=== PATIENT | male | born 1990 | race Caucasian/White ===

== ENCOUNTER 2021-10-01 12:26 | Emergency (ER) | payer BC, SELFPAY ==
--- NOTE | 2021-10-01 12:30 | ED.PSYCH ---
HPI - Psych General Chief Complaint: Psychiatric Symptoms Stated Complaint: ambulance Time Seen by Provider: 10/01/21 12:29 Source: patient Mode of arrival: EMS Limitations: no limitations History of Present Illness HPI Narrative: Previously well 31-year-old man brought to the emergency department today after he was found to be very upset at his home in front of law enforcement officers. Express no specific plan. He is here voluntarily. He is under lot of stress have an work problems, vehicle problems, family problems recently. He states he last drink several days ago and last smoked marijuana 2 days ago. He denies any suicidal or homicidal thoughts or intentions and has no plan to harm himself. complaint: feels depressed Onset (ago): day(s) Duration: constant and getting worse History of same: No Relieving factors: none Exacerbating factors: none Context: significant life stressor Associated psychiatric symptoms: depression and other (Insomnia, poor appetite, hopelessness) Associated symptoms: denies other symptoms Treatments prior to arrival: none Related Data Home Medications Medication Instructions Recorded Confirmed No Home Medications 10/01/21 10/01/21 Allergies Allergy/AdvReac Type Severity Reaction Status Date / Time No Known Allergies Allergy Verified 10/01/21 12:42 Review of Systems Review of Systems: All systems reviewed & are unremarkable except as noted in HPI and below Psychiatric: Psychiatric: Reports as per HPI, Reports anxiety, Reports depression, Denies homicidal ideation and Denies suicidal ideation [facility] Social History Social History (Updated 10/01/21 @ 13:03 by Rodriguez Pimentel MD) Smoking status: Current every day smoker Alcohol intake: current Substance use: current Substance use type: marijuana Other substance usage details: Infrequent Living arrangements: alone Exam Const: General: healthy appearing and alert Orientation/consciousness: patient oriented x3 Limitations: no limitations Other: Tearful HENMT: Head: normal to inspection Ears: external ears normal, TM's normal bilaterally and EAC's normal General nose exam: Normal nares present Face and sinus: normal facial exam Mouth: Yes moist mucous membranes abnormal Eyes: Conjunctivae: conjunctivae normal Pupils: Equal, round and reactive pupils present EOM: EOMs intact bilaterally Resp: Effort & Inspection: normal respiratory effort and not labored Auscultation: clear to auscultation bilaterally, no rales, no rhonchi and no wheezes Cardio: Rate: regular rate Rhythm: regular rhythm Heart sounds: no murmurs Skin: General skin exam: normal color, no jaundice and no pallor Rashes: no rashes Neuro: General: patient oriented x3, moves all extremities, no focal motor deficits and CN's II-XI intact bilaterally Speech: normal speech Gait exam (Neuro): Normal gait present Extrem: General: normal to inspection and no clubbing, cyanosis or edema Psych: Appearance: grossly normal and well kempt Mental Status: mental status grossly normal Speech and movement: Normal speech and movement present Affect: normal affect Attitude: cooperative Thought content: Yes Paranoid delusions present Insight: Limited insight present (Psych) Judgement: Fair judgement present (Psych) Course Course Emergency Course: 1343: Patient is cleared medically for psychiatric evaluation. 1740: Accepted [facility] by Dr Parra. Vital Signs Vital signs: Vital Signs Temperature 36.9 C 10/01/21 12:35 Pulse Rate 64 10/01/21 12:35 Respiratory Rate 16 10/01/21 12:35 Blood Pressure 118/93 H 10/01/21 12:35 Pulse Oximetry 97 10/01/21 12:35 Temperature 36.9 C 10/01/21 12:35 Pulse Rate 64 10/01/21 12:35 Respiratory Rate 16 10/01/21 12:35 Blood Pressure 118/93 H 10/01/21 12:35 Pulse Oximetry 97 10/01/21 12:35 MDM - Psych Differential Diagnosis Differential diagnosis: Likely ac
[2021-10-01 12:35] VITALS: BP 118/93; PULSE 64; RESP 16; TEMP 36.9; O2SAT 97
--- NOTE | 2021-10-01 12:37 | ECG_ITS ---
Measurements Intervals [place] Rate: 55 P: 14 NM: 122 QRS: 72 QRSD: 96 T: 9 QT: 403 QTc: 387 Interpretive Statements SINUS BRADYCARDIA ST ELEVATION IN ANTEROLAT/HIGH LAT LEADS- PROBABLY EARLY REPOLARIZATION BASELINE WANDER- V1, V3-V6 BORDERLINE ECG Electronically Signed On 10-01-2021 15:07:52 DAIRY TECHNICIAN by Reza Proctor D.O.
[2021-10-01 12:55] LABS: Basophils Absolute Auto 0.03 K/mm3 (0.00-0.10); Basophils Percent Auto 0.6 % (0.0-1.0); Eosinophils Absolute Auto 0.07 K/mm3 (0.02-0.50); Eosinophils Percent Auto 1.3 % (1.0-6.0); Hematocrit 46.7 % (40.0-54.0); Hemoglobin 15.5 g/dL (14.0-18.0); Immature Granulocyte Absolute 0.01 K/mm3 (0.00-0.00); Immature Granulocyte Percent A 0.2 % (0.0-0.0); Lymphocytes Absolute Auto 1.51 K/mm3 (1.10-4.50); Lymphocytes Percent Auto 28.5 % (18.0-42.0); Mean Corpuscular HGB Conc 33.2 g/dL (32.0-36.0); Mean Corpuscular Hemoglobin 29.9 pg (27.0-31.0); Mean Corpuscular Volume 90.2 fL (78.0-102.0); Mean Platelet Volume 10.7 fl (8.7-11.0); Monocytes Absolute Auto 0.36 K/mm3 (0.10-0.90); Monocytes Percent Auto 6.8 % (2.0-11.0); Neutrophils Absolute Auto 3.3 K/mm3 (1.7-7.2); Neutrophils Percent Auto 62.6 % (50.0-70.0); Platelet Count Result 167 K/mm3 (150-420); Red Blood Count 5.18 M/mm3 (4.70-6.10); White Blood Count 5.3 K/mm3 (4.8-10.8)
[2021-10-01 12:56] LABS: Add Urine Microscopic? NO; Appearance Urine Clear (Clear); Bilirubin Urine Negative (Negative); Blood Urine Negative (Negative); Color Urine Light Yellow (Yellow); Glucose Urine UA Negative (Negative); Ketones Urine Negative (Negative); Leukocyte Esterase Ur Negative LEU/UL (Negative); Nitrate Urine Negative (Negative); Protein Urine Negative (Negative); pH Urine 7.5 (5.0-8.0)
[2021-10-01 13:25] LABS: Alanine Aminotransferase 21 U/L (16-63); Albumin Level 4.1 g/dL (3.4-5.0); Alkaline Phosphatase 64 U/L (46-116); Anion Gap 8 mmol/L (8-16); Aspartate Amino Transferase < 10 U/L (15-37); Bilirubin,Total 0.8 mg/dL (0.00-1.00); Blood Urea Nitrogen 14 mg/dL (7-18); Calcium 8.8 mg/dL (8.5-10.1); Carbon Dioxide 29 mmol/L (21-32); Chloride 106 mmol/L (98-108); Estimated CRCL calculation 92 ml/min; Estimated Glomerular Filt Rate > 60; Glucose 100 mg/dL (70-99); Osmolality Calculated 296 mOsm/kg (285-295); Salicylate 2.3 mg/dL (2.8-20.0); Sodium 143 mmol/L (136-145); Thyroid Stimulating Hormone 0.69 uIU/mL (0.36-3.74); Total Protein 7.2 g/dL (6.4-8.2)
[2021-10-01 13:26] LABS: Acetaminophen < 2 ug/mL (10-30); Ethanol < 3 mg/dL (0-6)
[2021-10-01] MEDS: NICOTINE (*PBKC) 21 MG PATCH 1 PATCH TRANSDERM (13:27)
[2021-10-01 13:28] LABS: Amphetamine Screen Urine Negative (Negative); Barbiturate Screen Urine Negative (Negative); Benzodiazepines Screen Urine Negative (Negative); Cannabinoid Screen Urine Positive (Negative); Cocaine Screen Urine Negative (Negative); Methadone Screen Urine Negative (Negative); Opiate Screen Urine Negative (Negative); Phencyclidine Screen Urine Negative (Negative)
--- NOTE | 2021-10-01 13:46 | PC.NURSE ---
RN spoke with Rory thibodeaux who states they will send someone over.
[2021-10-01 14:35] LABS: SARS-CoV-2 RNA PCR Negative (Negative)
--- NOTE | 2021-10-01 14:38 | PC.NURSE ---
Mother stepped outside room. RN spoke with her who states : He is just so paranoid. He even thinks I am against him. I make some progress and then all of the sudden that paranoia comes out of no where and ruins all my hardwork.
--- NOTE | 2021-10-01 16:01 | PC.NURSE ---
Paperwork faxed to [facility] waiting for call back
--- NOTE | 2021-10-01 16:16 | PC.NURSE ---
Pt provided dinner tray from cafeteria.
[2021-10-01 18:03] VITALS: BP 128/82; PULSE 71; RESP 18; TEMP 36.8; O2SAT 98
== END 2021-10-01 18:07 ==
PROVIDERS: Emergency Provider Emergency Medicine
DX: R45.851 Suicidal ideations (principal); F22 Delusional disorders; Z20.822 Contact with and (suspected) exposure to COVID-19
CPT/HCPCS: 36415; 80053; 80307; 81003; 84443; 85025; 93005; 99285; A9270; C9803; U0003; U0005

== ENCOUNTER 2021-12-15 19:50 | Emergency (ER) | payer BC, SELFPAY ==
--- NOTE | ~2021-12-15 | XR_ITS ---
EXAMINATION: XR chest 1V portable 12/15/2021 20:44 INDICATION: Shortness of breath PROCEDURE: AP portable chest COMPARISON: 01/29/2018 FINDINGS: The lungs are clear. The cardiomediastinal silhouette is within normal limits. There are no pleural effusions. There is no pneumothorax suspected. IMPRESSION: 1: NO ACUTE CARDIOPULMONARY DISEASE. Reviewed, dictated and finalized at location A. TATION MANAGER
--- NOTE | 2021-12-15 20:09 | ECG_ITS ---
Measurements Intervals [place] Rate: 67 P: 33 [place]: 135 QRS: 60 QRSD: 101 T: 7 QT: 367 QTc: 388 Interpretive Statements SINUS RHYTHM WITH SINUS ARRHYTHMIA BASELINE ARTIFACT- I, II, III, AVR, AVL, AVF NORMAL ECG Electronically Signed On 12-16-2021 7:58:24 LOUVER DOOR ASSEMBLER by Reza Proctor D.O.
--- NOTE | 2021-12-15 20:12 | ED.SOB ---
HPI - SOB/Dyspnea General Chief Complaint: Shortness of Breath/Dyspnea Stated Complaint: shortness of breath Time Seen by Provider: 12/15/21 19:52 Source: patient and RN notes reviewed Mode of arrival: ambulatory Limitations: no limitations History of Present Illness MD elicited complaint: shortness of breath and chest pain (upper chest pressure, no acute wheezing or pleuritic chest pain) Pertinent past history: other (none) Onset (ago): day(s) (2 days) Context: recent illness Timing: constant Severity: mild Exacerbating factors: nothing Relieving factors: nothing Associated symptoms: other (anterior chest pressure.) Treatment prior to arrival: none Related Data Home oxygen amount: none Allergies Allergy/AdvReac Type Severity Reaction Status Date / Time No Known Allergies Allergy Verified 12/15/21 20:38 Review of Systems Review of Systems: All systems reviewed & are unremarkable except as noted in HPI and below PMFSH Past Medical History Medical History SOB (shortness of breath) Social History Social History Smoking status: Current every day smoker Alcohol intake: current Substance use: current Substance use type: marijuana Other substance usage details: Infrequent Exam Const: General: no acute distress and alert Orientation/consciousness: patient oriented x3 HENMT: Head: normal to inspection Ears: external ears normal, TM's normal bilaterally and EAC's normal General nose exam: Normal external nose present and Normal nares present Face and sinus: normal facial exam and sinuses nontender Mouth: Yes lip normal and Yes moist mucous membranes Eyes: Conjunctivae: conjunctivae normal Pupils: Equal, round and reactive pupils present EOM: EOMs intact bilaterally Neck: Neck: normal visual inspection and no lymphadenopathy Other: supple neck Chest: Chest palpation & inspection: normal inspection of the chest Resp: Effort & Inspection: normal respiratory effort Auscultation: clear to auscultation bilaterally Cardio: Rate: regular rate Rhythm: regular rhythm GI: GI Palp: Yes Soft to palpation and No Tenderness to palpation present (GI) Auscultation: normal bowel sounds : General: Yes bladder normal to palpation and Yes no CVA tenderness Male General Exam: Yes normal external exam Back/Spine/Pelvis: Back: no CVA tenderness Skin: General skin exam: normal color Rashes: no rashes Neuro: General: patient oriented x3, moves all extremities, no meningeal signs, no focal motor deficits and CN's II-XI intact bilaterally Extrem: General: normal to inspection and no pedal edema Psych: Mental Status: mental status grossly normal Affect: normal affect Attitude: cooperative Thought content: Yes Normal thought content present Course Course Emergency Course: Pt was stable in the ED. no acute SOB or wheezing Reevaluation(s) Reevaluation #1: VSS. Date: 12/15/21 Time: 20:49 Discharge Plan Discharge Clinical Impression: SOB (shortness of breath) Patient Disposition: Home, Self-Care Condition: Stable Instructions: Antibiotic Form, Viral Syndrome (ED) Additional Instructions: Home. May RTC prn. PMD in 1-2 days. Rx below. Prescriptions: New albuterol sulfate 90 mcg/actuation HFA aerosol inhaler 2 puff inhalation QID PRN (Reason: shortness of breath or wheezing) Qty: 8.5 RF: 0 Follow-up/Referrals: Sahil Garza MD [Primary Care Provider] - Time of Disposition: 21:28
[2021-12-15 20:32] LABS: Base Excess ABG -0.3 mmol/L (0-2); Oxygen Content ABG 21.3 %vol (16.0-22.0); Oxygen Saturation ABG 97.4 % (95-97); Oxyhemoglobin 96.8 % (94-100); PCO2 ABG 38.3 mmHg (35-45); PO2 ABG 95.9 mmHg (80-90); Total Hemoglobin 15.6 g/dL (12.0-18.0); pH ABG 7.42 (7.35-7.45)
[2021-12-15] MEDS: SODIUM CHLORIDE 0.9% IV 500 ML 999 ML IV CONT (20:32)
[2021-12-15] MEDS: ASPIRIN 325 MG ENTERIC TABLET PO (20:32)
[2021-12-15 20:36] LABS: Device ROOM AIR; Modified Allen's Test Pass; Site Drawn LEFT RADIAL
[2021-12-15 20:38] VITALS: BP 135/92; PULSE 90; RESP 20; TEMP 36.9; O2SAT 97
[2021-12-15 20:40] LABS: Basophils Absolute Auto 0.03 K/mm3 (0.00-0.10); Basophils Percent Auto 0.5 % (0.0-1.0); Eosinophils Absolute Auto 0.06 K/mm3 (0.02-0.50); Hematocrit 46.7 % (40.0-54.0); Hemoglobin 15.6 g/dL (14.0-18.0); Immature Granulocyte Absolute 0.01 K/mm3 (0.00-0.00); Immature Granulocyte Percent A 0.2 % (0.0-0.0); Lymphocytes Absolute Auto 1.73 K/mm3 (1.10-4.50); Lymphocytes Percent Auto 28.2 % (18.0-42.0); Mean Corpuscular HGB Conc 33.4 g/dL (32.0-36.0); Mean Corpuscular Volume 89.8 fL (78.0-102.0); Mean Platelet Volume 10.7 fl (8.7-11.0); Monocytes Absolute Auto 0.39 K/mm3 (0.10-0.90); Monocytes Percent Auto 6.4 % (2.0-11.0); Neutrophils Absolute Auto 3.9 K/mm3 (1.7-7.2); Neutrophils Percent Auto 63.7 % (50.0-70.0); Platelet Count Result 175 K/mm3 (150-420); Red Cell Distribution Width 12.5 % (11.6-14.4); White Blood Count 6.1 K/mm3 (4.8-10.8)
[2021-12-15 20:56] LABS: Alanine Aminotransferase 27 U/L (16-63); Alkaline Phosphatase 55 U/L (46-116); Anion Gap 9 mmol/L (8-16); Aspartate Amino Transferase < 10 U/L (15-37); Bilirubin,Total 0.5 mg/dL (0.00-1.00); Blood Urea Nitrogen 17 mg/dL (7-18); Calcium 8.7 mg/dL (8.5-10.1); Carbon Dioxide 28 mmol/L (21-32); Chloride 103 mmol/L (98-108); Estimated CRCL calculation 81 ml/min; Estimated Glomerular Filt Rate > 60; Glucose 119 mg/dL (70-99); NT Pro B Type Natriuretic Pept 23 pg/mL (0-125); Osmolality Calculated 292 mOsm/kg (285-295); Potassium 4.3 mmol/L (3.5-5.1); Sodium 140 mmol/L (136-145); Total Protein 7.3 g/dL (6.4-8.2)
[2021-12-15 20:57] LABS: Troponin I < 4.0 ng/L (0.00-60.4)
[2021-12-15] MEDS: ALBUTEROL SULFATE (*SP) INHALER 4 PUFF INHALATION (21:42)
[2021-12-15 21:43] VITALS: PULSE 90; RESP 19; O2SAT 97
[2021-12-15 21:44] VITALS: PULSE 90; RESP 19; O2SAT 97
[2021-12-15 22:06] VITALS: BP 106/78; PULSE 60; RESP 19; TEMP 36.9; O2SAT 98
[2021-12-15 22:15] LABS: Bilirubin Urine Negative (Negative); Blood Urine Negative (Negative); Color Urine Light Yellow (Yellow); Glucose Urine UA Negative (Negative); Ketones Urine Negative (Negative); Leukocyte Esterase Ur Negative LEU/UL (Negative); Nitrate Urine Negative (Negative); Protein Urine Negative (Negative); Urobilinogen Urine 0.2 mg/dL (0.2-1.0); pH Urine 8.5 (5.0-8.0)
[2021-12-15 22:17] LABS: Amphetamine Screen Urine Negative (Negative); Barbiturate Screen Urine Negative (Negative); Benzodiazepines Screen Urine Negative (Negative); Cannabinoid Screen Urine Positive (Negative); Cocaine Screen Urine Negative (Negative); Methadone Screen Urine Negative (Negative); Opiate Screen Urine Negative (Negative); Phencyclidine Screen Urine Negative (Negative)
[2021-12-15 22:19] LABS: Add Urine Microscopic? NO; Appearance Urine Clear (Clear)
== END 2021-12-15 22:08 | disposition home or self-care (01) ==
PROVIDERS: Emergency Provider Emergency Medicine; PCP Internal Medicine
DX: R06.02 Shortness of breath (principal)
CPT/HCPCS: 36415; 36600; 71045; 80053; 80307; 81003; 82805; 83880; 84484; 85025; 93005; 94640; 96360; 99284; A9270; J7040

== ENCOUNTER 2021-12-22 23:31 | Emergency (ER) | payer BC, SELFPAY ==
--- NOTE | ~2021-12-22 | CT_ITS ---
EXAMINATION: CT chest abdomen pelvis wo con EXAM DATE: 12/23/2021 00:15 INDICATION: Bilat thoracic and right flank pain . TECHNIQUE: Spiral CT of the chest, abdomen and pelvis was performed without contrast. Axial, grossman l and sagittal images chest, abdomen and pelvis were reviewed. Coronal maximum intensity pixel image s of chest reviewed. The dose-length product (DLP) for this examination was 829.92 mGy-cm. The expo sure was tailored according to patient size (auto mA exposure control), and iterative reconstruction (ASIR) was used as additional dose reduction technique. Comparison is made to prior examination from 04/30/2019. FINDINGS: CHEST: The lungs are clear. There are no pleural or pericardial effusions. Tracheobronchial tree is patent. There is no mediastinal, hilar or axillary lymphadenopathy. There is no pneumothorax. Heart normal in size. No evidence of coronary arterial calcification. ABDOMEN PELVIS: The liver, spleen, adrenal glands and pancreas are unremarkable. Gallbladder is unre markable. No biliary obstruction. There is no nephrolithiasis or hydronephrosis. The prostate is unremarkable. The bladder is unremarkable. There is no retroperitoneal or pelvic lymphadenopathy. The appendix is normal. The stomach and small bowel are unremarkable. There is expected amount of c olonic stool. No free intraperitoneal gas. The bones are unremarkable. IMPRESSION: No acute chest, abdomen or pelvis findings. Reviewed, dictated and finalized at location A. TURE TESTER
[2021-12-22 23:33] VITALS: BP 129/80; PULSE 90; RESP 18; TEMP 36.8; O2SAT 95
[2021-12-22] MEDS: KETOROLAC (*BKC) 60 MG/2 ML VIAL IM (23:48)
[2021-12-22] MEDS: ONDANSETRON INJ 4 MG/2 ML VIAL IV PUSH (23:48)
[2021-12-22] MEDS: SODIUM CHLORIDE 0.9% IV 500 ML 999 ML IV CONT (23:48)
[2021-12-23 00:06] LABS: Basophils Absolute Auto 0.03 K/mm3 (0.00-0.10); Basophils Percent Auto 0.4 % (0.0-1.0); Eosinophils Absolute Auto 0.11 K/mm3 (0.02-0.50); Eosinophils Percent Auto 1.6 % (1.0-6.0); Hemoglobin 14.7 g/dL (14.0-18.0); Immature Granulocyte Absolute 0.02 K/mm3 (0.00-0.00); Immature Granulocyte Percent A 0.3 % (0.0-0.0); Lymphocytes Absolute Auto 2.42 K/mm3 (1.10-4.50); Mean Corpuscular HGB Conc 33.4 g/dL (32.0-36.0); Mean Corpuscular Hemoglobin 29.7 pg (27.0-31.0); Mean Corpuscular Volume 88.9 fL (78.0-102.0); Mean Platelet Volume 10.6 fl (8.7-11.0); Monocytes Absolute Auto 0.53 K/mm3 (0.10-0.90); Monocytes Percent Auto 7.7 % (2.0-11.0); Neutrophils Absolute Auto 3.8 K/mm3 (1.7-7.2); Platelet Count Result 163 K/mm3 (150-420); Red Blood Count 4.95 M/mm3 (4.70-6.10); Red Cell Distribution Width 12.3 % (11.6-14.4); White Blood Count 6.9 K/mm3 (4.8-10.8)
[2021-12-23 00:23] LABS: Alanine Aminotransferase 24 U/L (16-63); Alkaline Phosphatase 51 U/L (46-116); Anion Gap 7 mmol/L (8-16); Aspartate Amino Transferase 10 U/L (15-37); Blood Urea Nitrogen 31 mg/dL (7-18); Calcium 8.2 mg/dL (8.5-10.1); Carbon Dioxide 29 mmol/L (21-32); Chloride 105 mmol/L (98-108); Estimated CRCL calculation 82 ml/min; Estimated Glomerular Filt Rate > 60; Glucose 91 mg/dL (70-99); Lipase 54 U/L (73-393); Osmolality Calculated 298 mOsm/kg (285-295); Potassium 3.6 mmol/L (3.5-5.1); Sodium 141 mmol/L (136-145); Total Protein 6.8 g/dL (6.4-8.2)
[2021-12-23 00:33] LABS: Appearance Urine Clear (Clear); Bilirubin Urine Negative (Negative); Color Urine Light Yellow (Yellow); Glucose Urine UA Negative (Negative); Ketones Urine Trace (Negative); Leukocyte Esterase Ur Negative (Negative); Nitrate Urine Negative (Negative); Protein Urine Negative (Negative); Specific Grav Ur >= 1.030 (1.010-1.020); Urobilinogen Urine 0.2 mg/dL (0.2-1.0)
[2021-12-23 00:41] LABS: Add Urine Microscopic? YES; Blood Urine Trace-lysed (Negative)
[2021-12-23 00:42] LABS: Mucus Urine Heavy /lpf; RBC Urine 0-2 /hpf (0-2)
--- NOTE | 2021-12-23 01:01 | ED.CHESTPAIN ---
HPI - Chest Pain General Chief Complaint: Urogenital-Male Stated Complaint: RIGHT FLANK PAIN Time Seen by Provider: 12/22/21 23:35 Source: patient and RN notes reviewed Mode of arrival: ambulatory Limitations: no limitations History of Present Illness MD complaint: chest pain Onset (ago): day(s) (2) Timing of current episode: constant Prior episodes: Yes Onset: during rest Pain location: substernal Severity: mild Pain scale (0-10): 4 Quality: aching and dull Relieving factors: nothing Exacerbating factors: inspiration Treatment prior to arrival: none Related Data Allergies Allergy/AdvReac Type Severity Reaction Status Date / Time No Known Allergies Allergy Verified 12/15/21 20:38 Review of Systems Review of Systems: All systems reviewed & are unremarkable except as noted in HPI and below Cardiovascular: Cardiovascular: Reports chest pain PMFSH Past Medical History Medical History Chest pain SOB (shortness of breath) Social History Social History Smoking status: Current every day smoker Alcohol intake: current Substance use: current Substance use type: marijuana Other substance usage details: Infrequent Exam Const: General: no acute distress Nutritional Appearance: thin Orientation/consciousness: patient oriented x3 Limitations: no limitations HENMT: Head: normal to inspection Ears: external ears normal, TM's normal bilaterally and Abnormal EAC present General nose exam: Normal external nose present and Normal nares present Face and sinus: normal facial exam and sinuses nontender Mouth: Yes moist mucous membranes Throat: posterior oropharynx normal Eyes: Conjunctivae: conjunctivae normal Pupils: Equal, round and reactive pupils present EOM: EOMs intact bilaterally Neck: Neck: normal visual inspection and no lymphadenopathy Chest: Chest palpation & inspection: normal inspection of the chest Other: minimal chest wall tenderness Resp: Effort & Inspection: normal respiratory effort Auscultation: clear to auscultation bilaterally Cardio: Rate: regular rate Rhythm: regular rhythm GI: GI Palp: Yes Soft to palpation and No Tenderness to palpation present (GI) Auscultation: normal bowel sounds : General: Yes bladder normal to palpation and Yes no CVA tenderness Testes: Testes normal Back/Spine/Pelvis: Back: no CVA tenderness Skin: General skin exam: normal color Neuro: General: patient oriented x3, moves all extremities, no meningeal signs, no focal motor deficits and CN's II-XI intact bilaterally Extrem: General: normal to inspection and no pedal edema Psych: Appearance: grossly normal Mental Status: mental status grossly normal Affect: normal affect Thought content: Yes Normal thought content present Course Course Emergency Course: Pt was stable in the ED, less pain-ful. Reevaluation(s) Reevaluation #1: VSS Date: 12/23/21 Time: 23:57 Vital Signs Vital signs: Vital Signs Temperature 36.8 C 12/22/21 23:33 Pulse Rate 90 12/22/21 23:33 Respiratory Rate 18 12/22/21 23:33 Blood Pressure 129/80 12/22/21 23:33 Pulse Oximetry 95 12/22/21 23:33 Temperature 36.4 C 12/23/21 01:29 Pulse Rate 66 12/23/21 01:29 Respiratory Rate 16 12/23/21 01:29 Blood Pressure 125/80 12/23/21 01:29 Pulse Oximetry 98 12/23/21 01:29 MDM - Chest Pain Differential Diagnosis Differential diagnosis: Likely atypical chest pain, costochondritis and chest pain Medical Records Data Attestation: I reviewed the patient's medical records. Lab Data Attestation: I reviewed the patient's lab results. Result diagrams: 12/22/21 23:59 12/22/21 23:59 Labs: Lab Results 12/22/21 12/22/21 12/22/21 Range/Units 23:36 23:59 23:59 WBC 6.9 (4.8-10.8) K/mm3 RBC 4.95 (4.70-6.10) M/mm3 Hgb 14.7 (14.0-18.0) g/dL Hct 44.0
[2021-12-23] MEDS: CALCIUM CARBONATE (TUMS) 500 MG (200 MG ELEMENTAL) 600 MG PO (01:28)
[2021-12-23 01:29] VITALS: BP 125/80; PULSE 66; RESP 16; TEMP 36.4; O2SAT 98
== END 2021-12-23 01:30 | disposition home or self-care (01) ==
PROVIDERS: Emergency Provider Emergency Medicine; PCP Internal Medicine
DX: R07.89 Other chest pain (principal); I88.0 Nonspecific mesenteric lymphadenitis
CPT/HCPCS: 36415; 71250; 74176; 80053; 81001; 83690; 85025; 96361; 96372; 96374; 99284; A9270; J1885; J2405; J7040

== ENCOUNTER 2023-01-29 13:21 | Outpatient (CLI) | payer BC, SELFPAY ==
[2023-01-29 13:55] LABS: Strep Group A RT-PCR NOT DETECTED (Negative)
== END 2023-01-29 13:22 | disposition home or self-care (01) ==
LOC: CHSLAB 13:25
PROVIDERS: PCP Internal Medicine; Visit Provider Nurse Practitioner Family
DX: J02.9 Acute pharyngitis, unspecified (principal)
CPT/HCPCS: 87651

== ENCOUNTER 2023-06-01 23:32 | Emergency (ER) | payer BC, SELFPAY ==
[2023-06-01 23:33] VITALS: PULSE 98; RESP 24
--- NOTE | 2023-06-01 23:35 | ED.WEAKNESS ---
HPI - Weakness General Chief complaint: Weakness Stated complaint: Numbness Source: patient Mode of arrival: ambulatory Limitations: no limitations History of Present Illness HPI Narrative: patient is a 33-year-old male who presents to the emergency room with impending doom and feeling that he is going to . Patient was acting erratic and was given a shot of Zyprexa 5 mg IM x1 for acute psychosis. Patient says this has happened before. It is unclear if he has taken any drugs this evening. Complaint: generalized weakness Onset (ago): minute(s) (10) Duration: constant Location: generalized Severity: similar to previous episodes Quality: tingling and numbness Relieving factors: other ( Playing in the sink water and drinking water has helped) Exacerbating factors: none Associated symptoms: denies other symptoms Related Data Allergies Allergy/AdvReac Type Severity Reaction Status Date / Time No Known Allergies Allergy Verified 12/15/21 20:38 Review of Systems Review of Systems: All systems reviewed & are unremarkable except as noted in HPI and below Constitutional: Constitutional: Reports no additional constitutional complaints Eyes: Eyes: Reports no additional eye complaints ENT: Reports system reviewed and no additional complaints, except as documented Cardiovascular: Cardiovascular: Reports no additional cardiovascular complaints Respiratory: Respiratory: Reports no additional respiratory complaints Gastrointestinal: Gastrointestinal: Reports no additional gastrointestinal complaints Genitourinary: Genitourinary: Reports no additional male genitourinary complaints Musculoskeletal: Musculoskeletal: Reports no additional musculoskeletal complaints Integumentary/Breasts: Skin/Breast: Reports system reviewed and no additional complaints, except as docu Neurologic: Reports system reviewed and no additional complaints, except as documented Psychiatric: Psychiatric: Reports no additional psychiatric complaints Endocrine: Endocrine: Reports no additional endocrine complaints Hematologic/Lymphatic: Hematologic/Lymphatic: Reports no additional hematologic/lymphatic complaints Allergic/Immunologic: Allergic/Immunologic: Reports no additional allergic/immunologic complaints PMFSH Past Medical History Medical History Chest pain SOB (shortness of breath) Social History Social History Smoking status: Current every day smoker Alcohol intake: current Substance use: current Substance use type: marijuana Other substance usage details: Infrequent Living arrangements: alone Exam Const: General: healthy appearing Nutritional Appearance: well nourished HENMT: Head: normal to inspection Ears: external ears normal Eyes: Conjunctivae: conjunctivae normal Pupils: Equal, round and reactive pupils present Neck: Neck: normal visual inspection Chest: Chest palpation & inspection: normal inspection of the chest Resp: Effort & Inspection: normal respiratory effort Auscultation: clear to auscultation bilaterally Cardio: Rate: regular rate Rhythm: regular rhythm Heart sounds: no murmurs GI: Inspection: non-distended GI Palp: Yes Soft to palpation and No Tenderness to palpation present (GI) : General: Yes bladder normal to palpation Back/Spine/Pelvis: Back: no CVA tenderness Skin: General skin exam: normal color Rashes: no rashes Neuro: General: patient oriented x3 Cranial nerves: Yes Nystagmus not present Speech: normal speech Other: patient has no focal neurological deficits with an NIH scale of 0 and a Brandy coma score of 15 and a fast exam that was negative; patient was having some difficulty walking due to his anxiety and panic but that resolved after the Zyprexa and he is now taking a nap and walk to the bed without difficulty; patient feels back to normal at this time
[2023-06-01] MEDS: OLANZapine 5 MG, WATER, STERILE FOR INJECTION 2.1 ML IM (23:45)
== END 2023-06-02 01:10 | disposition home or self-care (01) ==
LOC: CHSED 06-02 01:06
PROVIDERS: Emergency Provider Emergency Medicine; PCP Internal Medicine
DX: F41.0 Panic disorder [episodic paroxysmal anxiety] (principal); F17.200 Nicotine dependence, unspecified, uncomplicated
CPT/HCPCS: 96372; 99283

== ENCOUNTER 2023-10-31 15:31 | Emergency (ER) | payer BC, SELFPAY ==
--- NOTE | ~2023-10-31 | XR_ITS ---
EXAMINATION: XR chest 2V DATE: 10/31/2023 16:20 INDICATION: Generalized chest pain. Shortness of breath. TECHNIQUE: Frontal and lateral views of the chest were obtained. COMPARISON: Chest single view 12/15/2021, chest CT 12/23/2021 FINDINGS: There is no pneumonia, pleural effusion, or pneumothorax. The heart size is normal. IMPRESSION: 1. No acute cardiopulmonary disease. Reviewed, dictated and finalized at location E. ICAL NURSING DIRECTOR
--- NOTE | 2023-10-31 15:34 | ECG_ITS ---
Measurements Intervals [place] Rate: 68 P: 30 SD: 138 QRS: 79 QRSD: 102 T: -12 QT: 371 QTc: 397 Interpretive Statements SINUS RHYTHM MINIMAL Q WAVES- INF/LAT LEADS ST-T WAVE ABNORMALITY IN INFERIOR LEADS- CONSIDER ISCHEMIA ABNORMAL ECG COMPARED TO ECG 12/15/2021 20:18:41 ST-T WAVE ABNORMALITY NOW PRESENT Electronically Signed On 10-31-2023 19:30:32 CLOTH BEAMER by Reza Proctor D.O.
--- NOTE | 2023-10-31 15:36 | ED.URI ---
HPI - URI/Sore Throat General Chief Complaint: Upper Respiratory Infection Stated Complaint: URI Time Seen by Provider: 10/31/23 15:33 Source: patient Mode of arrival: ambulatory Limitations: no limitations History of Present Illness HPI Narrative: Patient is a 33-year-old male with some respiratory complaints of chest congestion and some occasional chest pain for the past week. He is normally otherwise healthy. MD elicited complaint: cough and nasal congestion Onset (ago): week(s) (1) Consistency: constant Severity: moderate Pain scale (0-10): 3 Description of mucous: yellow Able to tolerate fluids by mouth: Yes Exacerbating factors: nothing Relieving factors: nothing Associated symptoms: cough and chest pain Treatments prior to arrival: none Related Data Allergies Allergy/AdvReac Type Severity Reaction Status Date / Time No Known Allergies Allergy Verified 12/15/21 20:38 Review of Systems Review of Systems: All systems reviewed & are unremarkable except as noted in HPI and below Constitutional: Constitutional: Reports no additional constitutional complaints Eyes: Eyes: Reports no additional eye complaints ENT: Reports system reviewed and no additional complaints, except as documented Cardiovascular: Cardiovascular: Reports no additional cardiovascular complaints Respiratory: Respiratory: Reports no additional respiratory complaints Gastrointestinal: Gastrointestinal: Reports no additional gastrointestinal complaints Genitourinary: Genitourinary: Reports no additional male genitourinary complaints Musculoskeletal: Musculoskeletal: Reports no additional musculoskeletal complaints Integumentary/Breasts: Skin/Breast: Reports system reviewed and no additional complaints, except as docu Neurologic: Reports system reviewed and no additional complaints, except as documented Psychiatric: Psychiatric: Reports no additional psychiatric complaints Endocrine: Endocrine: Reports no additional endocrine complaints Hematologic/Lymphatic: Hematologic/Lymphatic: Reports no additional hematologic/lymphatic complaints Allergic/Immunologic: Allergic/Immunologic: Reports no additional allergic/immunologic complaints PMFSH Past Medical History Medical History Chest pain SOB (shortness of breath) Social History Social History Smoking status: Current every day smoker Alcohol intake: current Substance use: current Substance use type: marijuana Other substance usage details: Infrequent Living arrangements: alone Exam Const: General: healthy appearing Nutritional Appearance: well nourished Orientation/consciousness: patient oriented x3 HENMT: Head: normal to inspection Ears: external ears normal Face/Nose/Sinus: Normal external nose present Eyes: Conjunctivae: conjunctivae normal Pupils: Equal, round and reactive pupils present EOM: EOMs intact bilaterally Neck: Neck: normal visual inspection Chest: Chest palpation & inspection: normal inspection of the chest Resp: Effort & Inspection: normal respiratory effort and not labored Auscultation: clear to auscultation bilaterally and crackles on the right and localized Other: Lower lung Cardio: Rate: regular rate Rhythm: regular rhythm Heart sounds: no murmurs GI: Inspection: non-distended GI Palp: Yes Soft to palpation, No Tenderness to palpation present (GI) and No Guarding due to palpation present (GI) Auscultation: normal bowel sounds : General: Yes bladder normal to palpation Back/Spine/Pelvis: Back: no CVA tenderness Skin: General skin exam: normal color Rashes: no rashes Wounds: no wounds Neuro: General: patient oriented x3 Cranial nerves: Yes Nystagmus not present Speech: normal speech Extrem: General: normal to inspection Psych: Mental Status: mental status grossly normal Affect: normal affect Attitude:
[2023-10-31 15:41] VITALS: BP 138/98; PULSE 69; RESP 19; TEMP 36.9; O2SAT 98
[2023-10-31 16:04] LABS: Basophils Absolute Auto 0.04 K/mm3 (0.00-0.10); Basophils Percent Auto 0.6 % (0.0-1.0); Eosinophils Absolute Auto 0.25 K/mm3 (0.02-0.50); Eosinophils Percent Auto 3.6 % (1.0-6.0); Hematocrit 46.2 % (40.0-54.0); Hemoglobin 15.4 g/dL (14.0-18.0); Immature Granulocyte Absolute 0.04 K/mm3 (0.00-0.00); Immature Granulocyte Percent A 0.6 % (0.0-0.0); Lymphocytes Absolute Auto 2.05 K/mm3 (1.10-4.50); Lymphocytes Percent Auto 29.5 % (18.0-42.0); Mean Corpuscular HGB Conc 33.3 g/dL (32.0-36.0); Mean Corpuscular Hemoglobin 28.5 pg (27.0-31.0); Mean Corpuscular Volume 85.6 fL (78.0-102.0); Mean Platelet Volume 10.5 fl (8.7-11.0); Monocytes Percent Auto 8.6 % (2.0-11.0); Neutrophils Percent Auto 57.1 % (50.0-70.0); Platelet Count Result 200 K/mm3 (150-420); Red Cell Distribution Width 12.3 % (11.6-14.4); White Blood Count 6.9 K/mm3 (4.8-10.8)
[2023-10-31 16:11] LABS: Glucose Point of Care 88 mg/dl (65-105)
[2023-10-31 16:14] VITALS: O2SAT 98
[2023-10-31 16:23] LABS: Alanine Aminotransferase 29 U/L (16-63); Albumin Level 3.9 g/dL (3.4-5.0); Alkaline Phosphatase 73 U/L (46-116); Anion Gap 7 mmol/L (8-16); Aspartate Amino Transferase 16 U/L (15-37); Bilirubin,Total 0.5 mg/dL (0.00-1.00); Blood Urea Nitrogen 16 mg/dL (7-18); Carbon Dioxide 31 mmol/L (21-32); Chloride 100 mmol/L (98-108); Estimated CRCL calculation 91 ml/min; Estimated Glomerular Filt Rate > 60; Glucose 108 mg/dL (70-99); Lipase 21 U/L (16-77); Osmolality Calculated 288 mOsm/kg (285-295); Potassium 3.9 mmol/L (3.5-5.1); Sodium 138 mmol/L (136-145); Total Protein 7.4 g/dL (6.4-8.2)
[2023-10-31 16:25] LABS: D Dimer 0.19 mg/L (0.19-0.50)
[2023-10-31 16:27] LABS: Calcium 9.3 mg/dL (8.5-10.1)
[2023-10-31 16:28] LABS: SARS-CoV-2 RNA PCR Negative (Negative)
[2023-10-31 16:33] LABS: Influenza A QL RT-PCR Negative (Negative); Influenza B QL RT-PCR Negative (Negative); RSV RNA, RT-PCR Negative (Negative)
[2023-10-31 16:35] LABS: Troponin I < 4.0 ng/L (0.00-60.4)
[2023-10-31 17:11] VITALS: BP 127/89; PULSE 68; RESP 20; TEMP 37.1; O2SAT 96
== END 2023-10-31 17:13 | disposition home or self-care (01) ==
PROVIDERS: Emergency Provider Emergency Medicine; PCP Internal Medicine
DX: J18.9 Pneumonia, unspecified organism (principal); F17.200 Nicotine dependence, unspecified, uncomplicated; Z20.822 Contact with and (suspected) exposure to COVID-19
CPT/HCPCS: 36415; 71046; 80053; 82948; 83690; 84484; 85025; 85380; 87637; 93005; 99284

== ENCOUNTER 2023-12-26 00:03 | Emergency (ER) | payer BC, SELFPAY ==
[2023-12-26 00:03] VITALS: BP 133/82; PULSE 74; RESP 18; TEMP 36.2; O2SAT 100
--- NOTE | 2023-12-26 00:16 | ED.GENADULT ---
HPI - General Adult General Chief complaint: Abdominal Pain Stated complaint: bleeding from inside Time Seen by Provider: 12/26/23 00:09 Source: patient Mode of arrival: ambulatory Limitations: no limitations History of Present Illness HPI narrative: this is a 33-year-old male presents concerns of rectal bleeding, currently there is no rectal bleeding no abdominal pain no chest pain no shortness for breath. Patient denies any symptoms there is no nausea or vomiting no diarrhea constipation. Patient noticed bright red blood approximately 1 week ago but has not had any since then. Patient follow-up concerned and wanted to be evaluated. Onset (ago): week(s) Severity: mild Related Data Home Medications Medication Instructions Recorded Confirmed No Home Medications 12/26/23 12/26/23 Allergies Allergy/AdvReac Type Severity Reaction Status Date / Time No Known Allergies Allergy Verified 12/26/23 00:16 Review of Systems Review of Systems: All systems reviewed & are unremarkable except as noted in HPI and below PMFSH Past Medical History Medical History Chest pain SOB (shortness of breath) Social History Social History Smoking status: Current every day smoker Alcohol intake: current Substance use: current Substance use type: marijuana Other substance usage details: Infrequent Living arrangements: alone Exam Const: General: healthy appearing Nutritional Appearance: well nourished Orientation/consciousness: patient oriented x3 Limitations: no limitations Resp: Effort & Inspection: normal respiratory effort Auscultation: clear to auscultation bilaterally Cardio: Rate: regular rate Rhythm: regular rhythm GI: GI Palp: Yes Soft to palpation Auscultation: normal bowel sounds Rectal Exam: normal sphincter tone Other: Rectal exam did not elicit any external or internal hemorrhoids an no bright red blood per rectum Neuro: General: patient oriented x3 and moves all extremities Course Course Emergency Course: rectal exam did not show any rectal bleeding no internal or external hemorrhoids visualized or palpated. Critical Care Time Critical Care Time Critical Care Time: No Discharge Plan Discharge Clinical Impression: Rectal bleed Patient Disposition: Home, Self-Care Condition: Stable Instructions: Antibiotic Form, Rectal Bleeding (ED) Additional Instructions: advised patient to follow with his primary for further evaluation and treatment. Prescriptions: No Action azithromycin 250 mg tablet See Rx Instructions .ROUTE .COMPLEX Qty: 6 0RF Rx Instructions: For 250 mg dose pack: take 500 mg today (day 1), then 250 mg for 4 days (days 2-5) Follow-up/Referrals: Sahil Garza MD [Primary Care Provider] - Time of Disposition: 00:19
--- NOTE | 2023-12-26 00:23 | PC.NURSE ---
ERP COMPLETED RECTAL EXAM, NO HEMORRHOIDS OR BLEEDING NOTED.
== END 2023-12-26 00:25 | disposition home or self-care (01) ==
PROVIDERS: Emergency Provider Emergency Medicine; PCP Internal Medicine
DX: K62.5 Hemorrhage of anus and rectum (principal); F17.200 Nicotine dependence, unspecified, uncomplicated
CPT/HCPCS: 99281

== ENCOUNTER 2024-01-28 13:16 | Emergency (ER) | payer SELFPAY ==
[2024-01-28 13:19] VITALS: BP 142/89; PULSE 71; RESP 18; TEMP 36.6; O2SAT 100
--- NOTE | 2024-01-28 13:20 | ED.ABDPAIN ---
HPI - Abdominal Pain General Chief Complaint: Nausea/Vomiting/Diarrhea Stated Complaint: nausea Time Seen by Provider: 01/28/24 13:20 Source: patient Mode of arrival: ambulatory Limitations: no limitations History of Present Illness HPI narrative: 33-year-old male smoker history use presents to the ER with a 1 day history of -- epigastric pain. Patient has nausea without any vomiting or diarrhea. No fever or chills. -- No chest pain or shortness of breath. -- Patient states that- he does not feel well MD elicited complaint: abdominal pain Pertinent past history: none Onset (ago): day(s) ( 1 day) Location: epigastric Quality: aching Radiation: none Migration to: no migration Exacerbating factors: nothing Relieving factors: nothing Associated symptoms: nausea Related Data Allergies Allergy/AdvReac Type Severity Reaction Status Date / Time No Known Allergies Allergy Verified 01/28/24 13:23 Review of Systems Review of Systems: All systems reviewed & are unremarkable except as noted in HPI and below Constitutional: Constitutional: Reports as per HPI and Reports no additional constitutional complaints Eyes: Eyes: Reports as per HPI and Reports no additional eye complaints ENT: Reports system reviewed and no additional complaints, except as documented and Reports as per HPI Cardiovascular: Cardiovascular: Reports as per HPI and Reports no additional cardiovascular complaints Respiratory: Respiratory: Reports as per HPI and Reports no additional respiratory complaints Gastrointestinal: Gastrointestinal: Reports as per HPI and Reports no additional gastrointestinal complaints Genitourinary: Genitourinary: Reports no additional male genitourinary complaints Neurologic: Reports system reviewed and no additional complaints, except as documented and Reports weakness Psychiatric: Psychiatric: Reports no additional psychiatric complaints Endocrine: Endocrine: Reports no additional endocrine complaints Hematologic/Lymphatic: Hematologic/Lymphatic: Reports no additional hematologic/lymphatic complaints Allergic/Immunologic: Allergic/Immunologic: Reports no additional allergic/immunologic complaints [facility] Past Medical History Medical History Chest pain SOB (shortness of breath) Social History Social History Smoking status: Current every day smoker Alcohol intake: current Substance use: current Substance use type: marijuana Other substance usage details: Infrequent Living arrangements: alone Exam Const: General: no acute distress Orientation/consciousness: patient oriented x3 Limitations: no limitations HENMT: Head: normal to inspection Ears: external ears normal Face/Nose/Sinus: Normal external nose present Face and sinus: normal facial exam Mouth: Yes Normal oral and palatal mucosa present Throat: posterior oropharynx normal Eyes: Conjunctivae: conjunctivae normal Pupils: Equal, round and reactive pupils present EOM: EOMs intact bilaterally Direct Ophthalmoscopy: no photophobia Neck: Neck: normal visual inspection, no lymphadenopathy and no meningeal signs Chest: Chest palpation & inspection: normal inspection of the chest Resp: Effort & Inspection: normal respiratory effort Auscultation: clear to auscultation bilaterally Cardio: Rate: regular rate Rhythm: regular rhythm GI: GI Palp: Yes Soft to palpation Auscultation: normal bowel sounds Other: no tenderness/rigidity / rebound. : General: Yes no CVA tenderness Back/Spine/Pelvis: Back: no CVA tenderness Skin: General skin exam: normal color Rashes: no rashes Wounds: no wounds Neuro: General: patient oriented x3, moves all extremities, no meningeal signs, no focal motor deficits and CN's II-XI intact bilaterally Cranial nerves: Yes Nystagmus not present Speech: normal speech Gait exam (Neuro): Normal
--- NOTE | 2024-01-28 13:30 | ECG_ITS ---
Measurements Intervals [place] Rate: 68 P: 55 AR: 141 QRS: 86 QRSD: 106 T: 2 QT: 391 QTc: 417 Interpretive Statements SINUS RHYTHM EARLY REPOLARIZATION [ST ELEVATION WITH NORMALLY INFLECTED T-WAVE] BORDERLINE ECG COMPARED TO ECG 10/31/2023 15:50:54 NO SIGNIFICANT CHANGES Electronically Signed On 01-28-2024 14:26:34 CDT by Christopher Dugan M.D.
[2024-01-28 13:46] LABS: Basophils Absolute Auto 0.04 K/mm3 (0.00-0.10); Basophils Percent Auto 0.6 % (0.0-1.0); Eosinophils Absolute Auto 0.15 K/mm3 (0.02-0.50); Eosinophils Percent Auto 2.3 % (1.0-6.0); Hematocrit 45.1 % (40.0-54.0); Hemoglobin 15.1 g/dL (14.0-18.0); Immature Granulocyte Absolute 0.01 K/mm3 (0.00-0.00); Immature Granulocyte Percent A 0.2 % (0.0-0.0); Lymphocytes Absolute Auto 2.12 K/mm3 (1.10-4.50); Lymphocytes Percent Auto 32.3 % (18.0-42.0); Mean Corpuscular HGB Conc 33.5 g/dL (32-36); Mean Corpuscular Hemoglobin 28.7 pg (27.0-31.0); Mean Corpuscular Volume 85.6 fL (78.0-102.0); Mean Platelet Volume 10.4 fl (8.7-11.0); Monocytes Absolute Auto 0.48 K/mm3 (0.10-0.90); Monocytes Percent Auto 7.3 % (2.0-11.0); Neutrophils Absolute Auto 3.77 K/mm3 (1.70-7.20); Neutrophils Percent Auto 57.3 % (50.0-70.0); Platelet Count Result 148 K/mm3 (150-420); Red Blood Count 5.27 M/mm3 (4.70-6.10); Red Cell Distribution Width 12.3 % (11.6-14.4); White Blood Count 6.6 K/mm3 (4.8-10.8)
[2024-01-28] MEDS: PROCHLORPERAZINE EDISYLATE 10 MG/2 ML VIAL IM (13:56)
[2024-01-28 14:03] LABS: INR 0.9; Partial Thromboplastin Time 26.8 Sec (23.9-30.70); Prothrombin Time 10.4 Seconds (9.50-12.1)
[2024-01-28 14:10] LABS: Lactic Acid Reflex 0.8 mmol/L (0.4-2.0)
[2024-01-28 14:16] LABS: Alanine Aminotransferase 24 U/L (16-63); Albumin Level 3.9 g/dL (3.4-5.0); Alkaline Phosphatase 74 U/L (46-116); Anion Gap 9 mmol/L (4-12); Aspartate Amino Transferase 16 U/L (15-37); Bilirubin,Total 1.1 mg/dL (0.00-1.00); Blood Urea Nitrogen 17 mg/dL (7-18); Calcium 8.9 mg/dL (8.5-10.1); Carbon Dioxide 30 mmol/L (21-32); Chloride 103 mmol/L (98-108); Estimated CRCL calculation 93 ml/min; Estimated Glomerular Filt Rate > 60; Glucose 109 mg/dL (70-99); Lipase 19 U/L (16-77); Osmolality Calculated 296 mOsm/kg (285-295); Potassium 4.1 mmol/L (3.5-5.1); Sodium 142 mmol/L (136-145)
[2024-01-28 14:20] LABS: Troponin I < 4.0 ng/L (0.00-60.4)
[2024-01-28 14:36] LABS: Appearance Urine Clear (Clear); Bilirubin Urine Negative (Negative); Blood Urine Negative (Negative); Color Urine Light Yellow (Yellow); Glucose Urine UA Negative (Negative); Ketones Urine Negative (Negative); Leukocyte Esterase Ur Negative LEU/UL (Negative); Nitrate Urine Negative (Negative); Protein Urine Negative (Negative); Specific Grav Ur 1.015 (1.010-1.020); Urobilinogen Urine 0.2 mg/dL (0.2-1.0)
[2024-01-28 15:08] LABS: Add Urine Microscopic? NO
[2024-01-28 15:24] VITALS: BP 128/77; PULSE 81; RESP 18; O2SAT 99
== END 2024-01-28 15:31 | disposition home or self-care (01) ==
PROVIDERS: Emergency Provider Internal Medicine Critical Care Medicine; PCP Internal Medicine
DX: R10.13 Epigastric pain (principal); F12.90 Cannabis use, unspecified, uncomplicated
CPT/HCPCS: 36415; 80053; 81003; 83605; 83690; 84484; 85025; 85610; 85730; 93005; 96372; 99284; J0780

== ENCOUNTER 2024-05-10 19:25 | Emergency (ER) | payer SELFPAY ==
[2024-05-10] VITALS (16 sets, daily range): BP systolic 117–125; BP diastolic 73–89; PULSE 59–77; RESP 13–20; TEMP 36.1–36.4; O2SAT 94–100
--- NOTE | 2024-05-10 19:41 | ECG_ITS ---
Test Date: 2024-05-10 19:59:29 Measurements Intervals [place] Rate: 62 P: -10 [place]: 107 QRS: 69 QRSD: 102 T: 11 QT: 386 QTc: 393 Interpretive Statements SINUS RHYTHM WITH SHORT [place] INTERVAL ST ELEVATION IN DIFFUSE LEADS- PROBABLY EARLY REPOLARIZATION BASELINE WANDER- V2 BORDERLINE ECG No previous ECG available for comparison Electronically Signed On 05-11-2024 06:36:59 CDT by Reza Proctor D.O.
--- NOTE | 2024-05-10 19:43 | ED.PSYCH ---
HPI - Psych General Chief Complaint: Chest Pain Stated Complaint: CHEST PAIN, SOB Time Seen by Provider: 05/10/24 19:38 Source: patient Mode of arrival: ambulatory Limitations: no limitations History of Present Illness HPI Narrative: 34 year old male presents to the Emergency Department complaining of chest tightness, shortness of breath, numbness and tingling in extremities. Onset prior to arrival. States he drank a beer and smoked marijuana. History of anxiety in past. MD complaint: other (anxious) Onset (ago): minute(s) History of same: Yes Relieving factors: none Exacerbating factors: none Treatments prior to arrival: none Related Data Allergies Allergy/AdvReac Type Severity Reaction Status Date / Time No Known Allergies Allergy Verified 01/28/24 13:23 Review of Systems Review of Systems: All systems reviewed & are unremarkable except as noted in HPI and below Constitutional: Constitutional: Reports as per HPI, Denies chills and Denies fever(s) Eyes: Eyes: Reports as per HPI ENT: Reports system reviewed and no additional complaints, except as documented Cardiovascular: Cardiovascular: Reports as per HPI and Reports chest pain Respiratory: Respiratory: Reports as per HPI and Reports dyspnea Gastrointestinal: Gastrointestinal: Reports as per HPI, Denies abdominal pain, Denies diarrhea, Denies nausea and Denies vomiting Genitourinary: Genitourinary: Reports no additional male genitourinary complaints Musculoskeletal: Musculoskeletal: Reports no additional musculoskeletal complaints Integumentary/Breasts: Skin/Breast: Reports system reviewed and no additional complaints, except as docu Neurologic: Reports system reviewed and no additional complaints, except as documented and Reports numbness Psychiatric: Psychiatric: Reports no additional psychiatric complaints and Reports anxiety Endocrine: Endocrine: Reports no additional endocrine complaints Hematologic/Lymphatic: Hematologic/Lymphatic: Reports no additional hematologic/lymphatic complaints Allergic/Immunologic: Allergic/Immunologic: Reports no additional allergic/immunologic complaints PMFSH Past Medical History Medical History Chest pain SOB (shortness of breath) Social History Social History Smoking status: Current every day smoker Alcohol intake: current Substance use: current Substance use type: marijuana Other substance usage details: Infrequent Living arrangements: alone Exam Const: General: healthy appearing Nutritional Appearance: well nourished Orientation/consciousness: patient oriented x3 Limitations: no limitations Other: anxious HENMT: Head: normal to inspection Ears: external ears normal Face/Nose/Sinus: Normal external nose present Face and sinus: normal facial exam Mouth: Yes Normal oral and palatal mucosa present Teeth and gingiva: dentition normal Throat: posterior oropharynx normal Eyes: Conjunctivae: conjunctivae normal Pupils: Equal, round and reactive pupils present EOM: EOMs intact bilaterally Direct Ophthalmoscopy: no photophobia Neck: Neck: normal visual inspection Chest: Chest palpation & inspection: normal inspection of the chest Resp: Effort & Inspection: tachypneic (hyperventilation) Auscultation: clear to auscultation bilaterally Cardio: Rate: regular rate Rhythm: regular rhythm GI: Inspection: non-distended GI Palp: Yes Soft to palpation and No Tenderness to palpation present (GI) Back/Spine/Pelvis: Back: no CVA tenderness Skin: General skin exam: normal color Rashes: no rashes Neuro: General: patient oriented x3, moves all extremities, no meningeal signs, no focal motor deficits and CN's II-XI intact bilaterally Cranial nerves: Yes Nystagmus not present Speech: normal speech Gait exam (Neuro): Normal gait present Other: anxious Extrem: General: no
--- NOTE | 2024-05-10 19:54 | PC.NURSE ---
BLOOD WORK DRAWN PER PHLEBOTOMY AND PATIENT GIVEN ICE WATER PER REQUEST. VSS. CALL LIGHT WITHIN REACH. RN MONITORING.
[2024-05-10 19:56] LABS: Basophils Absolute Auto 0.06 K/mm3 (0.00-0.10); Basophils Percent Auto 0.9 % (0.0-1.0); Eosinophils Absolute Auto 0.26 K/mm3 (0.02-0.50); Eosinophils Percent Auto 3.9 % (1.0-6.0); Hemoglobin 14.4 g/dL (14.0-18.0); Immature Granulocyte Absolute 0.01 K/mm3 (0.00-0.00); Immature Granulocyte Percent A 0.2 % (0.0-0.0); Lymphocytes Absolute Auto 2.09 K/mm3 (1.10-4.50); Lymphocytes Percent Auto 31.4 % (18.0-42.0); Mean Corpuscular HGB Conc 34.3 g/dL (32-36); Mean Corpuscular Hemoglobin 28.9 pg (27.0-31.0); Mean Corpuscular Volume 84.3 fL (78.0-102.0); Mean Platelet Volume 10.4 fl (8.7-11.0); Monocytes Absolute Auto 0.52 K/mm3 (0.10-0.90); Monocytes Percent Auto 7.8 % (2.0-11.0); Neutrophils Absolute Auto 3.72 K/mm3 (1.70-7.20); Neutrophils Percent Auto 55.8 % (50.0-70.0); Platelet Count Result 162 K/mm3 (150-420); Red Blood Count 4.98 M/mm3 (4.70-6.10); Red Cell Distribution Width 12.6 % (11.6-14.4); White Blood Count 6.7 K/mm3 (4.8-10.8)
--- NOTE | 2024-05-10 20:01 | PC.NURSE ---
Pt expressed 0 signs of pain or discomfort when asked before leaving the room
--- NOTE | 2024-05-10 20:03 | PC.NURSE ---
PATIENT CHECKED, COOL CLOTH REFRESHED AND PATIENT REPORTS FEELING IMPROVED. REASSURED WITH NORMAL VITAL SIGNS, AND NORMAL EKG TRACING. PATIENT UPDATE PROVIDED WE ARE AWAITING BLOOD WORK. RN MONITORING. CALL LIGHT WITHIN REACH.
[2024-05-10 20:13] LABS: Alanine Aminotransferase 23 U/L (16-63); Albumin Level 3.7 g/dL (3.4-5.0); Alkaline Phosphatase 62 U/L (46-116); Anion Gap 7 mmol/L (4-12); Aspartate Amino Transferase 15 U/L (15-37); Bilirubin,Total 0.6 mg/dL (0.00-1.00); Blood Urea Nitrogen 18 mg/dL (7-18); Calcium 8.5 mg/dL (8.5-10.1); Carbon Dioxide 27 mmol/L (21-32); Chloride 104 mmol/L (98-108); Estimated CRCL calculation 88 ml/min; Estimated Glomerular Filt Rate > 60; Glucose 104 mg/dL (70-99); Osmolality Calculated 287 mOsm/kg (285-295); Potassium 3.8 mmol/L (3.5-5.1); Sodium 138 mmol/L (136-145); Total Protein 6.5 g/dL (6.4-8.2)
[2024-05-10 20:14] LABS: Troponin I < 4.0 ng/L (0.00-60.4)
--- NOTE | 2024-05-10 20:22 | PC.NURSE ---
notified pt we need a urine sample. handed pt urinal
[2024-05-10 20:23] LABS: Base Excess ABG 2.1 mmol/L (0-2); Carboxyhemoglobin 0.3 % (0-1.5); HCO3 ABG 25.4 mmol/L (23-29); Methemoglobin ABG 0.4 % (0-1.5); Oxygen Content ABG 20.5 %vol (16.0-22.0); Oxygen Saturation ABG 97.6 % (95-97); Oxyhemoglobin 96.9 % (94-100); PCO2 ABG 35.6 mmHg (35-45); PO2 ABG 101.1 mmHg (80-90); Reduced Hemoglobin 2.4 % (0-1.5); pH ABG 7.47 (7.35-7.45)
[2024-05-10 20:24] LABS: Ethanol 5 mg/dL (0-6)
[2024-05-10 20:24] LABS: Device ROOM AIR; Modified Allen's Test Pass; Site Drawn RIGHT RADIAL
[2024-05-10 20:41] LABS: Appearance Urine Clear (Clear); Bilirubin Urine Negative (Negative); Blood Urine Negative (Negative); Color Urine Light Yellow (Yellow); Glucose Urine UA Negative (Negative); Ketones Urine Negative (Negative); Leukocyte Esterase Ur Negative (Negative); Nitrate Urine Negative (Negative); Protein Urine Negative (Negative); Urobilinogen Urine 0.2 mg/dL (0.2-1.0)
[2024-05-10 20:44] LABS: Add Urine Microscopic? NO
[2024-05-10 20:48] LABS: Amphetamine Screen Urine Negative (Negative); Barbiturate Screen Urine Negative (Negative); Benzodiazepines Screen Urine Negative (Negative); Cannabinoid Screen Urine Negative (Negative); Cocaine Screen Urine Negative (Negative); Methadone Screen Urine Negative (Negative); Opiate Screen Urine Negative (Negative); Phencyclidine Screen Urine Negative (Negative)
== END 2024-05-10 21:30 | disposition home or self-care (01) ==
PROVIDERS: Emergency Provider Emergency Medicine; PCP Internal Medicine
DX: F41.9 Anxiety disorder, unspecified (principal); R06.4 Hyperventilation; R06.02 Shortness of breath; R07.89 Other chest pain; F17.200 Nicotine dependence, unspecified, uncomplicated
CPT/HCPCS: 36415; 36600; 80053; 80307; 81003; 82375; 82805; 83050; 84484; 85025; 93005; 99284

== ENCOUNTER 2024-07-26 18:26 | Emergency (ER) | payer SELFPAY ==
[2024-07-26 18:26] VITALS: BP 126/72; PULSE 90; RESP 20; TEMP 36.2; O2SAT 100
--- NOTE | 2024-07-26 18:57 | PC.NURSE ---
PT IS ANXIOUS, HAS BEEN TO RR STATING HE NEEDS TO HAVE A BOWEL MOVEMENT. ERP HAS ATTEMPTED TO ASSESS PT, HOWEVER HAS BEEN IN RR. WILL CONTINUE TO MONITOR.
[2024-07-26 18:58] VITALS: BP 123/87; PULSE 76; RESP 13; O2SAT 99
[2024-07-26 19:02] VITALS: BP 111/74; PULSE 78; RESP 15; O2SAT 98
--- NOTE | 2024-07-26 19:08 | ECG_ITS ---
Test Date: 2024-07-26 19:33:51 Measurements Intervals [place] Rate: 85 P: 30 MS: 116 QRS: 34 QRSD: 106 T: 28 QT: 378 QTc: 450 Interpretive Statements SINUS RHYTHM WITH SINUS ARRHYTHMIA WITH SHORT [place] INTERVALST ELEVATION IN DIFFUSE LEADS- PROBABLY EARLY REPOLARIZATION BASELINE ARTIFACT- I, II, III, AVR, AVL, AVF, V1-V6 BORDERLINE ECG Compared to ECG 05/10/2024 19:59:29 NO SIGNIFICANT CHANGE Electronically Signed On 07-26-2024 20:03:23 CDT by Reza Proctor D.O.
--- NOTE | 2024-07-26 19:09 | ED.GENADULT ---
HPI - General Adult General Chief complaint: Anxiety Stated complaint: ANXIETY Time Seen by Provider: 07/26/24 18:32 History of Present Illness HPI narrative: Carlos is a 34M that presented to the ED with a racing in his chest. It started an hour ago and was accompanied by panic, tingling in his fingers and face, flushing and nausea. He denied any drug use and has not had caffine for some time. He was running circles around the room, very tangential and had pressured speech. Related Data Allergies Allergy/AdvReac Type Severity Reaction Status Date / Time No Known Allergies Allergy Verified 07/26/24 18:37 Review of Systems Review of Systems: All systems reviewed & are unremarkable except as noted in HPI and below PMFSH Past Medical History Medical History Chest pain SOB (shortness of breath) Social History Social History Smoking status: Current every day smoker Alcohol intake: current Substance use: current Substance use type: does not use Other substance usage details: Infrequent Living arrangements: alone Exam Const: General: cooperative, healthy appearing, comfortable, no acute distress, well developed, alert, awake and Physically active Orientation/consciousness: oriented to person, oriented to place and oriented to time HENMT: Head: normal to inspection, normocephalic and atraumatic Ears: hearing grossly normal bilaterally and external ears normal Face/Nose/Sinus: Normal external nose present Eyes: General: appearance normal, both eyes and all related structures Periorbital: periorbital findings normal Sclera: sclerae normal Pupils: Equal, round and reactive pupils present Neck: Neck: normal visual inspection Chest: Chest palpation & inspection: normal inspection of the chest Resp: Effort & Inspection: normal respiratory effort, able to speak in complete sentences and no respiratory distress Auscultation: clear to auscultation bilaterally Cardio: Jugular venous distension: no JVD Rate: regular rate Rhythm: regular rhythm GI: Inspection: normal to inspection GI Palp: Yes Soft to palpation Auscultation: normal bowel sounds Skin: General skin exam: normal color and no rashes or lesions noted Neuro: General: oriented to person, oriented to place and oriented to time Cranial nerves: Yes Equal, round and reactive pupils present Extrem: General: normal to inspection Psych: Affect: Anxious affect present Other: Tangential and pressured speech. No eye contact. Course Course Emergency Course: Ordered EKG, ativan and labs EKG showed sinus arrhythmia at a rate of 85, no ST elevation/depression or ectopy Symptoms drastically improved after ativan and cardiac workup was unremarkable. Given this it is most likely a panic attack. Vital Signs Vital signs: Vital Signs Temperature 97.1 F L 07/26/24 18:26 Pulse Rate 90 07/26/24 18:26 Respiratory Rate 20 07/26/24 18:26 Blood Pressure 126/72 07/26/24 18:26 Pulse Oximetry 100 07/26/24 18:26 Oxygen Delivery Room Air 07/26/24 18:26 Temperature 97.1 F L 07/26/24 18:26 Pulse Rate 90 07/26/24 18:26 Respiratory Rate 20 07/26/24 18:26 Blood Pressure 126/72 07/26/24 18:26 Pulse Oximetry 100 07/26/24 18:26 Oxygen Delivery Room Air 07/26/24 18:26 Medical Decision Making Vital Signs Vital Signs: Vital Signs Temperature 97.1 F L 07/26/24 18:26 Pulse Rate 90 07/26/24 18:26 Respiratory Rate 20 07/26/24 18:26 Blood Pressure 126/72 07/26/24 18:26 Pulse Oximetry 100 07/26/24 18:26 Oxygen Delivery Room Air 07/26/24 18:26 Temperature 97.1 F L 07/26/24 18:26 Pulse Rate 90 07/26/24 18:26 Respiratory Rate 20 07/26/24 18:26 Blood Pressure 126/72 07/26/24 18:26 Pulse Oximetry 100 07/26/24 18:26 Oxygen Delivery Room Air 07/26/24 18:26 Lab Da
[2024-07-26 19:21] LABS: Basophils Absolute Auto 0.04 K/mm3 (0.00-0.10); Basophils Percent Auto 0.6 % (0.0-1.0); Eosinophils Absolute Auto 0.11 K/mm3 (0.02-0.50); Eosinophils Percent Auto 1.7 % (1.0-6.0); Hematocrit 42.7 % (40.0-54.0); Hemoglobin 14.9 g/dL (14.0-18.0); Immature Granulocyte Absolute 0.02 K/mm3 (0.00-0.00); Immature Granulocyte Percent A 0.3 % (0.0-0.0); Lymphocytes Absolute Auto 1.61 K/mm3 (1.10-4.50); Lymphocytes Percent Auto 24.5 % (18.0-42.0); Mean Corpuscular HGB Conc 34.9 g/dL (32-36); Mean Corpuscular Hemoglobin 28.7 pg (27.0-31.0); Mean Corpuscular Volume 82.3 fL (78.0-102.0); Mean Platelet Volume 10.7 fl (8.7-11.0); Monocytes Percent Auto 6.1 % (2.0-11.0); Neutrophils Absolute Auto 4.38 K/mm3 (1.70-7.20); Neutrophils Percent Auto 66.8 % (50.0-70.0); Platelet Count Result 172 K/mm3 (150-420); Red Blood Count 5.19 M/mm3 (4.70-6.10); Red Cell Distribution Width 12.3 % (11.6-14.4); White Blood Count 6.6 K/mm3 (4.8-10.8)
[2024-07-26] MEDS: LORazepam INJ (*CRX) 2 MG/ML VIAL 1 MG IM (19:36)
[2024-07-26 19:39] LABS: Alanine Aminotransferase 19 U/L (16-63); Albumin Level 3.8 g/dL (3.4-5.0); Alkaline Phosphatase 73 U/L (46-116); Anion Gap 9 mmol/L (4-12); Aspartate Amino Transferase 13 U/L (15-37); Bilirubin,Total 1.4 mg/dL (0.00-1.00); Blood Urea Nitrogen 13 mg/dL (7-18); Calcium 8.7 mg/dL (8.5-10.1); Carbon Dioxide 28 mmol/L (21-32); Chloride 101 mmol/L (98-108); Estimated Glomerular Filt Rate > 60; Glucose 107 mg/dL (70-99); Osmolality Calculated 286 mOsm/kg (285-295); Potassium 3.3 mmol/L (3.5-5.1); Sodium 138 mmol/L (136-145); Total Protein 6.9 g/dL (6.4-8.2)
[2024-07-26 19:45] VITALS: BP 107/63; PULSE 59; RESP 14
[2024-07-26 19:46] LABS: Troponin I < 4.0 ng/L (0.00-60.4)
[2024-07-26 20:02] VITALS: BP 119/86; PULSE 65; RESP 16; O2SAT 99
--- NOTE | 2024-07-26 20:09 | PC.NURSE ---
Asked pt for urine sample. He went to restroom. When he came out he said that he forgot to get sample. We discussed what results doctor can get from a urinalysis. I explained that the test is not just to see if he has any illegal drugs in his system, but that we need to rule out infection or blood in his urine. Pt states that he will try to go to the restroom again and get a sample.
[2024-07-26] MEDS: POTASSIUM CHLORIDE 20 MEQ PACKET (FOR LIQUID) PO (20:25)
--- NOTE | 2024-07-26 20:25 | PC.NURSE ---
Pt reports that all have his symptoms have subsided. No chest discomfort, anxiety, or feeling like he is going to fall.
[2024-07-26 20:59] LABS: Amphetamine Screen Urine Negative (Negative); Barbiturate Screen Urine Negative (Negative); Benzodiazepines Screen Urine Negative (Negative); Cannabinoid Screen Urine Negative (Negative); Cocaine Screen Urine Negative (Negative); Methadone Screen Urine Negative (Negative); Opiate Screen Urine Negative (Negative); Phencyclidine Screen Urine Negative (Negative)
[2024-07-26 21:10] VITALS: BP 116/86; PULSE 63; RESP 16; TEMP 36.5; O2SAT 98
== END 2024-07-26 21:15 | disposition home or self-care (01) ==
PROVIDERS: Emergency Provider Family Medicine; PCP Internal Medicine
DX: F41.0 Panic disorder [episodic paroxysmal anxiety] (principal); F17.200 Nicotine dependence, unspecified, uncomplicated
CPT/HCPCS: 36415; 80053; 80307; 84484; 85025; 93005; 96372; 99284; A9270; J2060

== ENCOUNTER 2024-09-20 15:04 | Emergency (ER) | payer MEDICAID, SELFPAY ==
--- NOTE | ~2024-09-20 | XR_ITS ---
XR chest 2V Ordering provider: Hi Llanes MD History: 34 years Male with . mid-sternal pain, congestion, cough X on and off 3 weeks . Comparison: None. FINDINGS: MEDIASTINUM: The cardiac silhouette is not enlarged. LUNGS: No infiltrates, effusions or pneumothorax. Opacity seen in the left paracardiac area is most likely breast shadow. OTHER: No free air under the diaphragm. IMPRESSION: No acute cardiopulmonary pathology. iF patient continues to have symptoms 10 days follow-up advised. Reviewed, dictated and finalized at location A. T FINISHER
[2024-09-20 15:04] VITALS: BP 127/85; PULSE 80; RESP 18; TEMP 36.1; O2SAT 96
--- NOTE | 2024-09-20 15:14 | ED.URI ---
HPI - URI/Sore Throat General Chief Complaint: Upper Respiratory Infection Stated Complaint: COUGH Time Seen by Provider: 09/20/24 15:11 Source: patient Mode of arrival: ambulatory Limitations: no limitations History of Present Illness HPI Narrative: 34 year old male presents to the Emergency Department complaining of dry cough, wheezing. Initial onset 2 weeks ago. Has seen PCP and had course of Zithromax. No known fever, nausea, vomiting, diarrhea. His girlfriend had similar symptoms recently. MD elicited complaint: cough Onset (ago): week(s) (2) Severity: moderate Able to tolerate fluids by mouth: Yes Exacerbating factors: nothing Relieving factors: nothing Associated symptoms: shortness of breath Treatments prior to arrival: antibiotics (course of Zithromax) Related Data Allergies Allergy/AdvReac Type Severity Reaction Status Date / Time No Known Allergies Allergy Verified 09/20/24 15:36 Review of Systems Review of Systems: All systems reviewed & are unremarkable except as noted in HPI and below Constitutional: Constitutional: Reports as per HPI, Denies chills and Denies fever(s) Eyes: Eyes: Reports as per HPI ENT: Reports system reviewed and no additional complaints, except as documented and Denies sore throat Cardiovascular: Cardiovascular: Reports as per HPI Respiratory: Respiratory: Reports as per HPI, Reports cough and Reports dyspnea Gastrointestinal: Gastrointestinal: Reports as per HPI, Denies diarrhea, Denies nausea and Denies vomiting Genitourinary: Genitourinary: Reports no additional male genitourinary complaints Musculoskeletal: Musculoskeletal: Reports no additional musculoskeletal complaints Integumentary/Breasts: Skin/Breast: Reports system reviewed and no additional complaints, except as docu Neurologic: Reports system reviewed and no additional complaints, except as documented Psychiatric: Psychiatric: Reports no additional psychiatric complaints Endocrine: Endocrine: Reports no additional endocrine complaints Hematologic/Lymphatic: Hematologic/Lymphatic: Reports no additional hematologic/lymphatic complaints Allergic/Immunologic: Allergic/Immunologic: Reports no additional allergic/immunologic complaints PMFSH Past Medical History Medical History Chest pain SOB (shortness of breath) Social History Social History Smoking status: Current every day smoker Alcohol intake: current Substance use: current Substance use type: does not use Other substance usage details: Infrequent Living arrangements: alone Exam Const: General: healthy appearing Nutritional Appearance: well nourished Orientation/consciousness: patient oriented x3 Limitations: no limitations HENMT: Head: normal to inspection Ears: external ears normal Face/Nose/Sinus: Normal external nose present Face and sinus: normal facial exam Mouth: Yes Normal oral and palatal mucosa present Teeth and gingiva: dentition normal Throat: posterior oropharynx normal Eyes: Conjunctivae: conjunctivae normal Pupils: Equal, round and reactive pupils present EOM: EOMs intact bilaterally Direct Ophthalmoscopy: no photophobia Neck: Neck: normal visual inspection and no meningeal signs Chest: Chest palpation & inspection: normal inspection of the chest Resp: Effort & Inspection: normal respiratory effort Auscultation: clear to auscultation bilaterally Cardio: Rate: regular rate Rhythm: regular rhythm Heart sounds: no murmurs GI: Inspection: non-distended GI Palp: Yes Soft to palpation and No Tenderness to palpation present (GI) Back/Spine/Pelvis: Back: no CVA tenderness Skin: General skin exam: normal color Rashes: no rashes Wounds: no wounds Neuro: General: patient oriented x3 Cranial nerves: Yes Nystagmus not present Speech: normal speech Gait exam (Neuro): Normal gait present Extrem: General: normal to inspection and no clubbing, cyanosis or edema Psych: Mental Status: mental status grossly normal Course Course Emergency Course: 34 year old male presents to the Emergency Department complaining of dry cough, wheezing. Initial onset 2 weeks ago. Saw PCP and had course of Zithromax. PE: unremarkable for acute findings Covid: negative Influenza: negative RSV: negative CXR: NAD Tx: Duoneb [some relief] *reviewed and discussed results with patient. Discussed further management. Patient voices understanding and agreement. Rx and Instructions Vital Signs Vital signs: Vital Signs Temperature 36.1 C L 09/20/24 15:04 Pulse Rate 80 09/20/24 15:04 Respiratory Rate 18 09/20/24 15:04 Blood Pressure 127/85 09/20/24 15:04 Pulse Oximetry 96 09/20/24 15:04 Oxygen Delivery Room Air 09/20/24 15:04 Temperature 36.1 C L 09/20/24 15:04 Pulse Rate 72 09/20/24 16:07 Respiratory Rate 18 09/20/24 16:07 Blood Pressure 116/76 09/20/24 16:07 Pulse Oximetry 97 09/20/24 16:07 Oxygen Delivery Room Air 09/20/24 16:07 MDM - URI/Sore Throat Lab Data Labs: Lab Results 09/20/24 Range/Units 15:14 Influenza A (RT-PCR) Negative (Negative) Influenza B (RT-PCR) Negative (Negative) RSV (RT-PCR) Negative (Negative) SARS-CoV-2 RNA (RT-PCR) Negative (Negative) Discharge Plan Discharge Clinical Impression: Upper respiratory infection Patient Disposition: Home, Self-Care Condition: Stable Instructions: Upper Respiratory Infection (ED) Additional Instructions: Rest Push fluids Use inhaler as prescribed Tylenol every 4 hours and Ibuprofen every 6 hours for fever Follow up Primary Care Physician Patient Language: Bulgarian Prescriptions: New albuterol sulfate [Ventolin HFA] 90 mcg/actuation HFA aerosol inhaler 2 puff inhalation QID PRN (Reason: shortness of breath or wheezing) Qty: 8.5 0RF Follow-up/Referrals: Sahil Garza MD [Primary Care Provider] - Time of Disposition: 16:27
[2024-09-20 15:35] VITALS: PULSE 67; RESP 20; O2SAT 97
[2024-09-20] MEDS: IPRATROPIUM 0.5 MG/ALBUTEROL SULFATE 2.5 MG AMPUL.NEB 3 ML INHALATION (15:38)
[2024-09-20 15:41] VITALS: PULSE 74; RESP 20; O2SAT 99
--- NOTE | 2024-09-20 16:06 | PC.NURSE ---
PT REPORTS HE IS FEELING BETTER SINCE NEB TX, REPORTS IT HAS OPENED UP EVERYTHING . PT IS AWAITING LAB RESULTS. DENIES ANY NEEDS OR COMPLAINTS. WILL CONTINUE TO MONITOR.
[2024-09-20 16:07] VITALS: BP 116/76; PULSE 72; RESP 18; O2SAT 97
[2024-09-20 16:11] LABS: SARS-CoV-2 RNA PCR Negative (Negative)
[2024-09-20 16:14] LABS: Influenza A QL RT-PCR Negative (Negative); Influenza B QL RT-PCR Negative (Negative); RSV RNA, RT-PCR Negative (Negative)
[2024-09-20 16:34] VITALS: BP 123/70; PULSE 70; RESP 18; O2SAT 97
== END 2024-09-20 16:34 | disposition home or self-care (01) ==
PROVIDERS: Emergency Provider Emergency Medicine; PCP Internal Medicine
DX: J06.9 Acute upper respiratory infection, unspecified (principal); F17.200 Nicotine dependence, unspecified, uncomplicated; Z20.822 Contact with and (suspected) exposure to COVID-19
CPT/HCPCS: 71046; 87637; 94640; 99283

== ENCOUNTER 2024-11-09 00:23 | Emergency (ER) | payer OTHER, SELFPAY ==
[2024-11-09] VITALS (8 sets, daily range): BP systolic 112–133; BP diastolic 79–99; PULSE 63–79; RESP 16–18; TEMP 36.4–36.9; O2SAT 96–99
--- NOTE | ~2024-11-09 | XR_ITS ---
Portable chest x-ray Comparison: 09/20/2024 Clinical History: Chest pain Findings: Lungs are clear, without focal consolidation or pleural effusion. Cardiomediastinal silho uette is stable. Bones and soft tissues are unremarkable. Impression: Normal chest. Reviewed, dictated and finalized at [facility]. OFABRICATION ENGINEER MANAGER Impression: Normal chest.
--- NOTE | 2024-11-09 00:47 | ECG_ITS ---
Test Date: 2024-11-09 00:53:38 Measurements Intervals [place] Rate: 64 P: 28 [place]: 148 QRS: 63 QRSD: 100 T: 22 QT: 388 QTc: 402 Interpretive Statements SINUS RHYTHM Compared to ECG 07/26/2024 19:33:51 Sinus arrhythmia no longer present Electronically Signed On 11-09-2024 15:07:24 NARCOTICS AND/OR VICE DETECTIVE by Shanel Martinez M.D.
--- NOTE | 2024-11-09 00:49 | ED_ITS ---
HPI - Chest Pain General Chief Complaint: Anxiety Stated Complaint: unspecified Time Seen by Provider: 11/09/24 00:44 History of Present Illness HPI narrative: Pt presents with intermittent tightness in left chest for the last several days. Pt says it feels like he can't get a deep breath. Pt says it started on the right side of his chest a few days ago but moved over to the left today. Pt does not recall having this prior. Pt also hearing voices but they are not telling him to harm himself or others. Pt took medication for this at one point but has stopped. Hx of panic and anxiety with several visits here for panic and anxiety. Related Data Allergies Allergy/AdvReac Type Severity Reaction Status Date / Time No Known Allergies Allergy Verified 11/09/24 00:54 Review of Systems 2 Review of Systems: All systems reviewed & are unremarkable except as noted in HPI and below PMFSH Past Medical History Medical History Chest pain SOB (shortness of breath) Social History Social History Smoking status: Current every day smoker Alcohol intake: current Substance use: current Substance use type: unknown Other substance usage details: Infrequent Living arrangements: alone Exam 2 Const: General: healthy appearing and no acute distress Nutritional Appearance: well nourished Orientation/consciousness: patient oriented x3 Limitations: no limitations Neck: Neck: normal visual inspection, no lymphadenopathy and no meningeal signs Chest: Chest palpation & inspection: normal inspection of the chest Resp: Effort & Inspection: normal respiratory effort Auscultation: clear to auscultation bilaterally Cardio: Rate: regular rate Rhythm: regular rhythm GI: GI Palp: Yes Soft to palpation and No Tenderness to palpation present (GI) Auscultation: normal bowel sounds Skin: General skin exam: normal color Rashes: no rashes Wounds: no wounds Neuro: General: patient oriented x3, moves all extremities, no meningeal signs, no focal motor deficits and CN's II-XI intact bilaterally Cranial nerves: Yes Nystagmus not present Speech: normal speech Extrem: General: normal to inspection and no clubbing, cyanosis or edema Psych: Affect: normal affect Attitude: cooperative Course Vital Signs Vital signs: Vital Signs Temperature 98.4 F 11/09/24 00:27 Pulse Rate 79 11/09/24 00:27 Respiratory Rate 18 11/09/24 00:27 Blood Pressure 133/99 H 11/09/24 00:27 Pulse Oximetry 99 11/09/24 00:27 Oxygen Delivery Room Air 11/09/24 00:27 Temperature 98.4 F 11/09/24 00:27 Pulse Rate 70 11/09/24 01:31 Respiratory Rate 16 11/09/24 01:31 Blood Pressure 112/79 11/09/24 01:31 Pulse Oximetry 97 11/09/24 01:31 Oxygen Delivery Room Air 11/09/24 00:48 MDM - Chest Pain MDM Narrative Medical decision making narrative: Pt presents with chest tightness moving from right to left side of chest over last few days. Pt also hearing voices but not SI or HI. will get ekg and labs and cxr to rule out coronary event. more likely anxiety related. labs ekg and cxr normal. Pt feels better after ativan. will make follow up apt with pcp for med adjustment Lab Data 11/09/24 01:18 11/09/24 01:18 Labs: Lab Results 11/09/24 Range/Units 01:18 WBC 7.6 (4.8-10.8) K/mm3 RBC 5.22 (4.70-6.10) M/mm3 Hgb 14.8 (14.0-18.0) g/dL Hct 43.7 (40.0-54.0) % MCV 83.7 (78.0-102.0) fL MCH 28.4 (27.0-31.0) pg MCHC 33.9 (32-36) g/dL RDW 13.2 (11.6-14.4) % Plt Count 152 (150-420) K/mm3 MPV 11.1 H (8.7-11.0) fl Immature Gran % (Auto) 1.1 H (0.0-0.0) % Neut % (Auto) 68.3 (50.0-70.0) % Lymph % (Auto) 24.1 (18.0-42.0) % Stoddard % (Auto) 5.0 (2.0-11.0) % Eos % (Auto) 1.1 (1.0-6.0) % Baso % (Auto) 0.4 (0.0-1.0) % Lymph # (Auto) 1.83 (1.10-4.50) K/mm3 Stoddard # (Auto) 0.38 (0.10-0.90) K/mm3 Eos # (Auto) 0.08 (0.02-0.50) K/mm3 Baso # (Auto) 0.03 (0.00-0.10) K/mm3 Abs Immat Gran (auto) 0.08 H (0.00-0.00) K/mm3 Absolute Neuts (auto) 5.18 (1.70-7.20) K/mm3 Absolute Nucleated RBC 0.00 (0.00-0.00) K/mm3 Nucleated RBC % 0.0 (0-0.0) % PT 10.9 (9.50-12.1) Seconds INR 1.0 APTT 27.3 (23.9-30.70) Sec Sodium 140 (136-145) mmol/L Potassium 3.5 (3.5-5.1) mmol/L Chloride 103 (98-108) mmol/L Carbon Dioxide 28 (21-32) mmol/L Anion Gap 9 (4-12) mmol/L BUN 18 (7-18) mg/dL Creatinine 1.01 (0.70-1.30) mg/dL Estim Creat Clear Calc 88 ml/min Estimated GFR > 60 (59 - ) Glucose 89 (70-99) mg/dL Calculated Osmolality 290 (285-295) mOsm/kg Calcium 8.8 (8.5-10.1) mg/dL Total Bilirubin 1.6 H (0.00-1.00) mg/dL AST 14 L (15-37) U/L ALT 23 (16-63) U/L Alkaline Phosphatase 68 (46-116) U/L Troponin I < 4.0 (0.00-60.4) ng/L NT-Pro-B Natriuret Pep 22 (0-125) pg/mL Total Protein 7.0 (6.4-8.2) g/dL Albumin 4.1 (3.4-5.0) g/dL ECG Data EKG #1: Interpretation: nsr rate [address] changes nl axis Discharge Plan Discharge Clinical Impression: Acute anxiety Patient Disposition: Home, Self-Care Condition: Improved Instructions: Antibiotic Form, Anxiety (ED) Patient Language: Kinyarwanda Prescriptions: No Action albuterol sulfate [Ventolin HFA] 90 mcg/actuation HFA aerosol inhaler 2 puff inhalation QID PRN (Reason: shortness of breath or wheezing) Qty: 8.5 0RF Follow-up/Referrals: Sahil Garza MD [Primary Care Provider] - Quality HEART score for chest pain patients History: slightly suspicious ECG: normal Age: < or = to 45 years Risk factors: no risk factors known
[2024-11-09] MEDS: LORazepam INJ (*CRX) 2 MG/ML VIAL 1 MG IV PUSH (01:11)
--- NOTE | 2024-11-09 01:20 | PC.NURSE ---
blood work drawn from IV start (patient encouraged not to hold his breath during IV start as he was very anxious) and patient education provided. patient extremely nervous, anxious to take the PO medication brought to room by RN stating that is a lot of pills, I don't like to take medicine. Am I going to be okay taking this? patient eventually refused po med (see MAR) saying he isn't really having chest pain anymore . patient connected to registered nurse cardiac, bp cuff and o2 sensor, for monitoring, lights dimmed for comfort. patient given warm blanket. rest encouraged.
[2024-11-09 01:38] LABS: Basophils Absolute Auto 0.03 K/mm3 (0.00-0.10); Basophils Percent Auto 0.4 % (0.0-1.0); Eosinophils Absolute Auto 0.08 K/mm3 (0.02-0.50); Eosinophils Percent Auto 1.1 % (1.0-6.0); Hematocrit 43.7 % (40.0-54.0); Hemoglobin 14.8 g/dL (14.0-18.0); Immature Granulocyte Absolute 0.08 K/mm3 (0.00-0.00); Immature Granulocyte Percent A 1.1 % (0.0-0.0); Lymphocytes Absolute Auto 1.83 K/mm3 (1.10-4.50); Lymphocytes Percent Auto 24.1 % (18.0-42.0); Mean Corpuscular HGB Conc 33.9 g/dL (32-36); Mean Corpuscular Hemoglobin 28.4 pg (27.0-31.0); Mean Corpuscular Volume 83.7 fL (78.0-102.0); Mean Platelet Volume 11.1 fl (8.7-11.0); Monocytes Absolute Auto 0.38 K/mm3 (0.10-0.90); Neutrophils Absolute Auto 5.18 K/mm3 (1.70-7.20); Neutrophils Percent Auto 68.3 % (50.0-70.0); Partial Thromboplastin Time 27.3 Sec (23.9-30.70); Platelet Count Result 152 K/mm3 (150-420); Prothrombin Time 10.9 Seconds (9.50-12.1); Red Blood Count 5.22 M/mm3 (4.70-6.10); Red Cell Distribution Width 13.2 % (11.6-14.4); White Blood Count 7.6 K/mm3 (4.8-10.8)
[2024-11-09 01:56] LABS: Alanine Aminotransferase 23 U/L (16-63); Albumin Level 4.1 g/dL (3.4-5.0); Alkaline Phosphatase 68 U/L (46-116); Anion Gap 9 mmol/L (4-12); Aspartate Amino Transferase 14 U/L (15-37); Bilirubin,Total 1.6 mg/dL (0.00-1.00); Blood Urea Nitrogen 18 mg/dL (7-18); Calcium 8.8 mg/dL (8.5-10.1); Carbon Dioxide 28 mmol/L (21-32); Chloride 103 mmol/L (98-108); Estimated CRCL calculation 88 ml/min; Estimated Glomerular Filt Rate > 60; Glucose 89 mg/dL (70-99); NT Pro B Type Natriuretic Pept 22 pg/mL (0-125); Osmolality Calculated 290 mOsm/kg (285-295); Potassium 3.5 mmol/L (3.5-5.1); Sodium 140 mmol/L (136-145)
[2024-11-09 02:03] LABS: Troponin I < 4.0 ng/L (0.00-60.4)
--- NOTE | 2024-11-09 02:07 | PC.NURSE ---
patient checked, states he is feeling better, sitting calmly on stretcher with VSS.
== END 2024-11-09 02:19 | disposition home or self-care (01) ==
PROVIDERS: Emergency Provider Emergency Medicine; PCP Internal Medicine
DX: F41.9 Anxiety disorder, unspecified (principal); F17.200 Nicotine dependence, unspecified, uncomplicated
CPT/HCPCS: 36415; 71045; 80053; 83880; 84484; 85025; 85610; 85730; 93005; 96374; 99284; J2060

== ENCOUNTER 2024-12-01 03:31 | Emergency (ER) | payer OTHER, SELFPAY ==
[2024-12-01 03:31] VITALS: BP 130/84; PULSE 92; RESP 16; TEMP 36.9; O2SAT 100
--- OUTSIDE RECORDS SUMMARY | 2024-12-01 03:33 | XMS_ITS ---
Author Organization Unknown Address [address] [place] [phone] Phone Care Team Providers Care Anode Rebuilder Name Role Phone CHRISTY CASTILLO Attending Unavailable NO PCP Primary Unavailable Immunization Immunization Date Status Additional Notes Code Code System DTP 1990 Completed CVX DTP 1990 Completed CVX DTP 1990 Completed CVX DTP 10/18/1991 Completed CVX OPV 1990 Completed CVX OPV 1990 Completed CVX OPV 1990 Completed 02 CVX OPV 10/18/1991 Completed 02 CVX MMR 08/23/1991 Completed 03 CVX MMR 06/09/1995 Completed 03 CVX Hep B, adolescent or pediatric 07/06/2001 Completed 08 CVX Td (adult), 2 Lf tetanus toxoid, preservative free, adsorbed 05/07/2005 Completed 09 CVX Hib, unspecified formulation 05/15/1991 Completed 17 CVX Hib, unspecified formulation 07/24/1991 Completed 17 CVX Hep A, pediatric, unspecifie d formulation 07/06/2001 Completed 31 CVX Social History Type Status Start Date End Date Code Code Syst em Smoking History Unknown if ever smoked [id number] Sex Male Medications Medication Start Date End Date Route Frequency Dose Code Code System Medication Instructions Home Meds Famotidine 20MG Oral Tablet 03/19/2024 Unknown ORAL ONCE A DAY 20 MILLIGRAMS 365949 RxNorm TAKE 20 MILLIGRAMS ORAL ONCE A DAY Hospital Discharge Instructions Should you have any questions prior to discharge, please contact a member of your healthcare team. If you have left the hospital and have any questions, please contact your primary care physician. Reason For Referral No Data Found Allergies and Adverse Reactions Allergy Substance Reaction Severity Start Date Concern Status Co de Code System No Known Drug Allergies Active 124321255 SNOMED-CT Plan of Treatment Stress Echo 01/06/2024 US Echo Stress (59576) 01/06/2024 Stress Echo 01/06/2024 US Echo Stress (79799) 01/06/2024 EGD/Colonoscopy 03/19/2024 Encounters Encounter Diagnosis Start Date Code Code Sys tem Abnormal electrocardiogram [ECG] [EKG] 12/16/2023 SNOMED-CT Personal Care Team Section Performer Name Performer Role Active Date Inactive TANISHA Diego PCP - Primary care physician 2024-01-06
--- OUTSIDE RECORDS SUMMARY | 2024-12-01 03:33 | XMS_ITS ---
Author Organization Unknown Address [address] [place] [address] [phone] Phone Care Team Providers Care Manager Legal Name Role Phone CHRISTY CASTILLO Attending Unavailable DARYL GARAY Primary Unavailable Immunization Immunization Date Status Additional Notes Code Code System DTP 1990 Completed CVX DTP 1990 Completed CVX DTP 1990 Completed CVX DTP 10/18/1991 Completed CVX OPV 1990 Completed 02 CVX OPV 1990 Completed 02 CVX OPV 1990 Completed 02 CVX OPV [...] unspecifie d formulation 07/06/2001 Completed 31 CVX Results US ECHO - STRESS - Completed : 01/06/2024 13:35 LOINC: See Scanned Image/ Attachment For Report Dictated By: Trans Initials: Trans Date: 01/13/24 15:14 Reviewed and Electronically Signed by: DCTNAMMary ANTHONY SIGNDATE <<REPDIST>> Social History Type Status Start Date End Date Code Code Syst em Smoking History Unknown if ever smoked [id number] Sex Male Medications Medication Start Date End Date Route Frequency Dose Code Code System Medication Instructions Home Meds Famotidine 20MG Oral Tablet 03/19/2024 Unknown ORAL ONCE A DAY 20 MILLIGRAMS 389635 RxNorm TAKE 20 MILLIGRAMS ORAL ONCE A [...] Code System No Known Drug Allergies Active [id number] SNOMED-CT Plan of Treatment Stress Echo 01/06/2024 US Echo Stress (19341) 01/06/2024 Stress Echo 01/06/2024 US Echo Stress (78982) 01/06/2024 EGD/Colonoscopy 03/19/2024 Encounters Encounter Diagnosis Start Date Code Code Sys tem Abnormal electrocardiogram [ECG] [EKG] 01/06/2024 SNOMED-CT Personal Care Team Section Performer Name Performer Role Active Date Inactive TANISHA Diego PCP - Primary care physician 2024-01-06
--- OUTSIDE RECORDS SUMMARY | 2024-12-01 03:33 | XMS_ITS | Clinical Summary ---
Author Organization [facility] Address [address] [place] [id number] Care Team Providers Care Neurology Teacher Name Role Phone Sahil Garza MD Primary Care Provider [phone] Social History Tobacco Use Types Packs/Day Years Used Date Smoking Tobacco: Never Assessed Sex and Gender Information Value Date Recorded Sex Assigned at Not on file Legal Sex Male 8:26 PM CDT Gender Identity Not on file Sexual Orientation Not on file Plan of Treatment Health Maintenance Due Date Last Done Comments Annual Physical 1993 Hepatitis C 2008 DTaP, Tdap and Td Vaccines ( 1 - Tdap) 2009 Hepatitis B Vaccines (1 of 3 - 19+ 3-dose series) 2009 COVID-19 Vaccine (2023-2 5 season) 2024 Influenza Adult (#1) 2024 HPV Vaccines Aged Out No longer eligi ble based on patient's age to complete this topic Meningococcal B Vaccine Aged Out No l onger eligible based on patient's age to complete this topic Meningococcal Vaccine Aged Out No bart aries eligible based on patient's age to complete this topic Pneumococcal Vaccine: Pediat rics (0 to 5 Years) and At-Risk Patients (6 to 64 Years) Aged Out No longer eligible b ased on patient's age to complete this topic RSV Immunizations Under 20 Months Aged Out No longer eligible based on patient's age to complete this topic Insurance [facility] C/O PROVIDER SERVICES AMARIS WHEATLEY [id number] Care Teams Neurology Teacher Relationship Specialty Start Date End Date Sahil Garza MD [address] [place] [phone] PCP - General INTERNAL MEDICINE 06/21/23
--- OUTSIDE RECORDS SUMMARY | 2024-12-01 03:33 | XMS_ITS ---
Author Organization Unknown Address [address] [place] [address] [phone] Phone Care Team Providers Care Pecan Sheller Name Role Phone ORVILLE Pace Attending Unavailable MARK BLUNT CRNA Unavailable DARYL GARAY Primary Unavailable Immunization Immunization [...] Smoking History Unknown if ever smoked [id number] Sex Male Vital Signs Vital Sign Value Unit [place] Value [place] Unit Date/Time Recent/Initial? Code Code System Body Mass Index 28.89 kg/m2 03/19/2024 12:53 Most Recent 16641 -5 LOINC Body Mass Index 28.89 kg/m2 02/24/2024 08:58 Initial 91628 -5 LOINC Systolic Blood Pressure 130 mm[Hg] 03/19/2024 13:04 Initial 8480- 6 LOINC Diastolic Blood Pressure 80 mm[Hg] 03/19/2024 13:04 Initial 8462- 4 LOINC Body Surface Area 2.03 m2 03/19/2024 12:53 Most Recent 3140- 1 LOINC Body Surface Area 2.03 m2 02/24/2024 08:58 Initial 3140- 1 LOINC Height 172.720 0 cm 68.00 in 03/19/2024 12:53 Most Recent 8302- 2 LOINC Height 172.720 0 cm 68.00 in 02/24/2024 08:58 Initial 8302- 2 LOINC O2 Saturation 95 % 2023 13:04 Initial 49903 -5 LOINC Pulse 76.0 /min 03/19/2024 13:04 Initial 8867- 4 LOINC Respiration 16 /min 03/19/20 13:04 Initial 9279- 1 LOINC Temperature 36.5 Tiesha 97.7 F 03/19/20 13:04 Initial 8310- 5 LOINC Weight 86.18 kg 190.00 lbs 03/19/2024 12:53 Most Recent 99841 -7 LOINC Weight 86.18 kg 190.00 lbs 02/24/2024 08:58 Initial 73836 -7 LOINC Medications Medication Start Date End Date Route Frequency Dose Code Code System Medication Instructions Home Meds Famotidine 20MG Oral Tablet 03/19/2024 Unknown ORAL ONCE A DAY 20 MILLIGRAMS 206223 RxNorm TAKE 20 MILLIGRAMS ORAL ONCE A DAY Hospital Discharge Instructions Should you have any questions prior to discharge, please contact a member of your healthcare team. If you have left the hospital and have any questions, please contact your primary care physician. Reason For Referral No Data Found Procedures Procedure Name Date Status Code Code Syste m Esophagogastroduodenoscopy, flexible, transoral; diagnostic, including col 03/19/2024 completed 55939 CPT Anesthesia for combined uppe r and lower gastrointestinal endoscopic proced 03/19/2024 completed 00370 CPT Colonoscopy, flexible; diagn ostic, including collection of specimen(s) by 03/19/2024 completed 62242 CPT Allergies and Adverse Reactions Allergy Substance Reaction Severity Start Date Concern Status Co de Code System No Known Drug Allergies Active [id number] SNOMED-CT Plan of Treatment Stress Echo 01/06/2024 US Echo Stress (66182) 01/06/2024 Stress Echo 01/06/2024 US Echo Stress (43312) 01/06/2024 EGD/Colonoscopy 03/19/2024 Encounters Encounter Diagnosis Start Date Code Code Sys tem Epigastric pain 03/19/2024 SNOMED-CT Personal Care Team Section Performer Name Performer Role Active Date Inactive TANISHA Diego PCP - Primary care physician 2024-01-06
--- OUTSIDE RECORDS SUMMARY | 2024-12-01 03:33 | XMS_ITS | Encounter Summary ---
Author Organization [facility] Address [address] [place] [address] Care Team Providers Care Cardiac Cath Lab Manager Name Role Phone Sahil Garza MD Primary Care Provider [phone] Encounter Details Date Type Department Care Team (Late st Contact Info) Description 04/03/2019 Abstract SFL CONVERSION [address] [place] [address] , Generic Conversion, Social History Tobacco Use Types Packs/Day Years Used Date Smoking Tobacco: Never Assessed Sex and Gender Information Value Date Recorded Sex Assigned at Not on file Legal Sex Male 8:26 PM CDT Gender Identity Not on file Sexual Orientation Not on file documented as of this encounter Plan of Treatment Not on file documented as of this encounter Visit Diagnoses Not on filedocumented in this encounter Care Teams Cardiac Cath Lab Manager Relationship Specialty Start Date End Date Sahil Garza MD [address] [place] [phone] PCP - General INTERNAL MEDICINE 06/21/23 documented as of this encounter
--- NOTE | 2024-12-01 03:53 | ED.URI ---
HPI - URI/Sore Throat General Chief Complaint: Upper Respiratory Infection Stated Complaint: HEADACHE, FEVER Time Seen by Provider: 12/01/24 03:43 Source: patient Mode of arrival: ambulatory Limitations: no limitations History of Present Illness HPI Narrative: Patient is a 34-year-old male with not feeling well for the past 2 days. He is also having some anxiety and negative symptoms. According to his chart, he has been like this before with some hallucinations of auditory per ID at times. He gets this way when he is anxious. No suicide or homicide ideations MD elicited complaint: cough, rhinorrhea and nasal congestion Pertinent past history: other ( anxiety and negative symptoms to include auditory hallucinations) Onset (ago): day(s) (2) Consistency: constant and progressively worsening Severity: moderate Pain scale (0-10): 2 Description of mucous: clear Able to tolerate fluids by mouth: Yes Exacerbating factors: other ( anxiety makes his symptoms worse) Relieving factors: nothing Context: sick contacts Associated symptoms: rhinorrhea, nasal congestion and cough Treatments prior to arrival: none Related Data Allergies Allergy/AdvReac Type Severity Reaction Status Date / Time No Known Allergies Allergy Verified 12/01/24 04:15 Review of Systems Review of Systems: All systems reviewed & are unremarkable except as noted in HPI and below Constitutional: Constitutional: Reports no additional constitutional complaints Eyes: Eyes: Reports no additional eye complaints ENT: Reports system reviewed and no additional complaints, except as documented Cardiovascular: Cardiovascular: Reports no additional cardiovascular complaints Respiratory: Respiratory: Reports no additional respiratory complaints Gastrointestinal: Gastrointestinal: Reports no additional gastrointestinal complaints Genitourinary: Genitourinary: Reports no additional male genitourinary complaints Musculoskeletal: Musculoskeletal: Reports no additional musculoskeletal complaints Integumentary/Breasts: Skin/Breast: Reports system reviewed and no additional complaints, except as docu Neurologic: Reports system reviewed and no additional complaints, except as documented Psychiatric: Psychiatric: Reports no additional psychiatric complaints Endocrine: Endocrine: Reports no additional endocrine complaints Hematologic/Lymphatic: Hematologic/Lymphatic: Reports no additional hematologic/lymphatic complaints Allergic/Immunologic: Allergic/Immunologic: Reports no additional allergic/immunologic complaints [facility] Past Medical History Medical History Chest pain SOB (shortness of breath) Social History Social History Smoking status: Current every day smoker Alcohol intake: current Substance use: current Substance use type: does not use Other substance usage details: Infrequent Living arrangements: alone Exam Const: General: ill appearing Nutritional Appearance: well nourished Orientation/consciousness: patient oriented x3 Limitations: no limitations HENMT: Head: normal to inspection Ears: external ears normal Face/Nose/Sinus: Normal external nose present Eyes: Conjunctivae: conjunctivae normal Pupils: Equal, round and reactive pupils present EOM: EOMs intact bilaterally Neck: Neck: normal visual inspection Chest: Chest palpation & inspection: normal inspection of the chest Resp: Effort & Inspection: normal respiratory effort and not labored Auscultation: clear to auscultation bilaterally and no crackles Cardio: Rate: regular rate Rhythm: regular rhythm Heart sounds: no murmurs GI: Inspection: non-distended GI Palp: Yes Soft to palpation and No Tenderness to palpation present (GI) Auscultation: normal bowel sounds : General: Yes bladder normal to palpation Back/Spine/Pelvis: Back: no CVA tenderness Skin: General skin exam: normal color Rashes: no rashes Wounds: no wounds Neuro: General: patient oriented x3 Cranial nerves: Yes Nystagmus not present Speech: normal speech Extrem: General: normal to inspection Psych: Mental Status: mental status grossly normal Affect: normal affect Attitude: cooperative Course Vital Signs Vital signs: Vital Signs Temperature 36.9 C 12/01/24 03:31 Temperature 36.9 C 12/01/24 03:31 MDM - URI/Sore Throat MDM Narrative Medical decision making narrative: patient is a 34-year-old male with having anxiety and negative symptoms/auditory hallucinations at times and not feeling well with a viral-like syndrome. We will do a viral COVID panel. We will monitor the patient in the emergency room for an hour. Over the time frame he was in the ER, the anxiety and negative symptoms/auditory hallucinations have resolved at this time. No suicide or homicide ideation. We will give patient information on local psychiatric counselors. He also needs to see a primary doctor for medication for the psych. No sitter was needed. Lab Data Attestation: I reviewed the patient's lab results. Labs: Lab Results 12/01/24 Range/Units 03:32 Influenza A (RT-PCR) Positive A (Negative) Influenza B (RT-PCR) Negative (Negative) RSV (RT-PCR) Negative (Negative) SARS-CoV-2 RNA (RT-PCR) Negative (Negative) Discharge Plan Discharge Clinical Impression: Influenza A, Anxiety and depression Patient Disposition: Home, Self-Care Condition: Stable Instructions: Influenza (ED), Hallucinations (ED) Patient Language: Slovenian Prescriptions: New oseltamivir [Tamiflu] 75 mg capsule 75 mg PO BID 5 Days Qty: 10 0RF ondansetron 4 mg tablet,disintegrating 4 mg PO Q8H PRN (Reason: nausea and vomiting) Qty: 20 0RF No Action albuterol sulfate [Ventolin HFA] 90 mcg/actuation HFA aerosol inhaler 2 puff inhalation QID PRN (Reason: shortness of breath or wheezing) Qty: 8.5 0RF Follow-up/Referrals: Sahil Garza MD [Primary Care Provider] - Stand Alone Forms: Work/School Release IP Time of Disposition: 05:18
[2024-12-01 04:26] LABS: SARS-CoV-2 RNA PCR Negative (Negative)
[2024-12-01 04:27] LABS: Influenza A QL RT-PCR Positive (Negative); Influenza B QL RT-PCR Negative (Negative); RSV RNA, RT-PCR Negative (Negative)
--- OUTSIDE RECORDS SUMMARY | 2024-12-01 04:43 | XMS_ITS ---
Author Organization Unknown Address [address] [place] [phone] Phone Care Team Providers Care Biology Laboratory Assistant Name Role Phone CHRISTY CASTILLO Attending Unavailable [...] Smoking History Unknown if ever smoked [address] Sex Male Medications Medication Start Date End Date Route Frequency Dose Code Code System Medication Instructions Home Meds Famotidine 20MG Oral Tablet 03/19/2024 Unknown ORAL ONCE A DAY 20 MILLIGRAMS 908749 RxNorm TAKE 20 MILLIGRAMS ORAL ONCE A [...] Code System No Known Drug Allergies Active 712983599 SNOMED-CT Plan of Treatment Stress Echo 01/06/2024 US Echo Stress (16942) 01/06/2024 Stress Echo 01/06/2024 US Echo Stress (41444) 01/06/2024 EGD/Colonoscopy 03/19/2024 Encounters Encounter Diagnosis Start Date Code Code Sys tem Abnormal electrocardiogram [ECG] [EKG] 01/06/2024 SNOMED-CT Personal Care Team Section Performer Name Performer Role Active Date Inactive TANISHA Diego PCP - Primary care physician 2024-01-06
--- OUTSIDE RECORDS SUMMARY | 2024-12-01 04:43 | XMS_ITS | Clinical Summary ---
Author Organization [facility] Address [address] [place] [address] Care Team Providers Care Lock And Dam Equipment Repairer Name Role Phone Sahil Garza MD Primary Care Provider [phone] Social History Tobacco Use Types Packs/Day Years [...] patient's age to complete this topic Insurance [facility] C/O PROVIDER SERVICES AMARIS WHEATLEY [id number] Care Teams Lock And Dam Equipment Repairer Relationship Specialty Start Date End Date Sahil Garza MD [address] [place] [phone] PCP - General INTERNAL MEDICINE 06/21/23
--- OUTSIDE RECORDS SUMMARY | 2024-12-01 04:43 | XMS_ITS | Encounter Summary ---
Author Organization [facility] Address [address] [place] [address] Care Team Providers Care Lumber Mover Name Role Phone Sahil Garza MD Primary Care Provider [phone] Encounter Details Date Type Department Care Team (Late st Contact Info) Description 04/03/2019 Abstract SFL CONVERSION [address] [place] [address] , Generic Conversion, Social History Tobacco Use [...] on filedocumented in this encounter Care Teams Lumber Mover Relationship Specialty Start Date End Date Sahil Garza MD [address] [place] [address] PCP - General INTERNAL MEDICINE 06/21/23 documented as of this encounter
--- OUTSIDE RECORDS SUMMARY | 2024-12-01 04:43 | XMS_ITS ---
Author Organization Unknown Address [address] [place] [phone] Phone Care Team Providers Care Trading Assistant Name Role Phone CHRISTY CASTILLO Attending [...] Smoking History Unknown if ever smoked [id number] Sex Male Medications Medication Start Date End Date Route Frequency Dose Code Code System Medication Instructions Home Meds Famotidine 20MG Oral Tablet 03/19/2024 Unknown ORAL ONCE A DAY 20 MILLIGRAMS 790365 RxNorm TAKE 20 MILLIGRAMS ORAL ONCE A [...] Code System No Known Drug Allergies Active 201787790 SNOMED-CT Plan of Treatment Stress Echo 01/06/2024 US Echo Stress (98234) 01/06/2024 Stress Echo 01/06/2024 US Echo Stress (25286) 01/06/2024 EGD/Colonoscopy 03/19/2024 Encounters Encounter Diagnosis Start Date Code Code Sys tem Abnormal electrocardiogram [ECG] [EKG] 12/16/2023 SNOMED-CT Personal Care Team Section Performer Name Performer Role Active Date Inactive TANISHA Diego PCP - Primary care physician 2024-01-06
--- NOTE | 2024-12-01 04:46 | PC.NURSE ---
Pt given a glass of water and a warm blanket. He is resting comfortably in his stretcher. Call light is within reach. He is more calm, less anxious. Non-stop, paranoid, talking has subsided.
[2024-12-01] MEDS: ONDANSETRON HCL ODT 4 MG TABLET PO (05:22)
[2024-12-01] MEDS: OSELTAMIVIR PHOSPHATE 75 MG CAPSULE PO (05:22)
--- NOTE | 2024-12-01 05:25 | PC.NURSE ---
Pt has been sleeping in his stretcher. Woke him to give him meds. He is calm, rational and cooperative. He is no longer talking excessively, without stopping, about voices or other paranoid thoughts. Pt is positive for Flu A. After discussion with ERP, pt expresses desire to go home and recover from flu. Does not wish to talk to anyone regarding his mental status. Will provide patient with information about contacting [facility] for out patient services. Pt is agreeable to this.
[2024-12-01 05:48] VITALS: BP 118/79; PULSE 91; RESP 17; TEMP 36.8; O2SAT 97
== END 2024-12-01 05:49 | disposition home or self-care (01) ==
PROVIDERS: Emergency Provider Emergency Medicine; PCP Internal Medicine
DX: J10.1 Influenza due to other identified influenza virus with other respiratory manifestations (principal); F41.9 Anxiety disorder, unspecified; F32.A Depression, unspecified; F17.200 Nicotine dependence, unspecified, uncomplicated; Z20.822 Contact with and (suspected) exposure to COVID-19
CPT/HCPCS: 87637; 99283; A9270

== ENCOUNTER 2024-12-16 17:14 | Emergency (ER) | payer OTHER, SELFPAY ==
--- NOTE | 2024-12-16 17:15 | ECG_ITS ---
Test Date: 2024-12-16 17:24:08 Measurements Intervals Harmon Rate: 86 P: 56 MO: 140 QRS: 74 QRSD: 93 T: 40 QT: 352 QTc: 421 Interpretive Statements SINUS RHYTHM BASELINE ARTIFACT- I, III, AVR, AVL, AVF, V1-V6 NORMAL ECG Compared to ECG 11/09/2024 00:53:38 No significant changes Electronically Signed On 12-16-2024 19:57:11 BELT PRESS OPERATOR by Reza Proctor D.O.
--- OUTSIDE RECORDS SUMMARY | 2024-12-16 17:16 | XMS_ITS ---
Author Organization Unknown Address [address] [place] [phone] Phone Care Team Providers Care Oracle Hrms Developer Name Role Phone ORVILLE Pace Attending Unavailable [...] Smoking History Unknown if ever smoked [id number] Sex Male Vital Signs Vital Sign Value Unit Ravia Value Ravia Unit Date/Time Recent/Initial? Code Code System Body Mass Index 28.89 kg/m2 03/19/2024 12:53 Most Recent 02092 -5 LOINC Body Mass Index 28.89 kg/m2 02/24/2024 08:58 Initial 44879 -5 LOINC Systolic Blood Pressure 130 mm[Hg] [...] O2 Saturation 95 % 2023 13:04 Initial 87968 -5 LOINC Pulse 76.0 /min 03/19/2024 13:04 Initial 8867- 4 LOINC Respiration 16 /min 03/19/20 13:04 Initial 9279- 1 LOINC Temperature 36.5 Tiesha 97.7 F 03/19/20 13:04 Initial 8310- 5 LOINC Weight 86.18 kg 190.00 lbs 03/19/2024 12:53 Most Recent 23416 -7 LOINC Weight 86.18 kg 190.00 lbs 02/24/2024 08:58 Initial 89348 -7 LOINC Medications Medication Start Date End Date Route Frequency Dose Code Code System Medication Instructions Home Meds Famotidine 20MG Oral Tablet 03/19/2024 Unknown ORAL ONCE A DAY 20 MILLIGRAMS 888166 RxNorm TAKE 20 MILLIGRAMS ORAL ONCE A [...] flexible, transoral; diagnostic, including col 03/19/2024 completed 69880 CPT Anesthesia for combined uppe r and lower gastrointestinal endoscopic proced 03/19/2024 completed 47351 CPT Colonoscopy, flexible; diagn ostic, including collection of specimen(s) by 03/19/2024 completed 29221 CPT Allergies and Adverse Reactions Allergy Substance Reaction Severity Start Date Concern Status Co de Code System No Known Drug Allergies Active 096906086 SNOMED-CT Plan of Treatment Stress Echo 01/06/2024 US Echo Stress (79114) 01/06/2024 Stress Echo 01/06/2024 US Echo Stress (22875) 01/06/2024 EGD/Colonoscopy 03/19/2024 Encounters Encounter Diagnosis Start Date Code Code Sys tem Epigastric pain 03/19/2024 SNOMED-CT Personal Care Team Section Performer Name Performer Role Active Date Inactive TANISHA Diego PCP - Primary care physician 2024-01-06
--- OUTSIDE RECORDS SUMMARY | 2024-12-16 17:16 | XMS_ITS ---
Author Organization Unknown Address [address] [place] [address] [phone] Phone Care Team Providers Care Studio Hand Name Role Phone CHRISTY CASTILLO Attending Unavailable NO PCP Primary Unavailable Immunization Immunization Date Status Additional Notes Code Code System DTP 1990 Completed CVX DTP 1990 Completed CVX DTP 1990 Completed CVX DTP 10/18/1991 Completed CVX OPV 1990 Completed CVX OPV 1990 Completed CVX OPV 1990 Completed CVX OPV 10/18/1991 Completed 02 CVX MMR [...] Smoking History Unknown if ever smoked [id number] Sex Male Medications Medication Start Date End Date Route Frequency Dose Code Code System Medication Instructions Home Meds Famotidine 20MG Oral Tablet 03/19/2024 Unknown ORAL ONCE A DAY 20 MILLIGRAMS 621051 RxNorm TAKE 20 MILLIGRAMS ORAL ONCE A [...] Code System No Known Drug Allergies Active 995491345 SNOMED-CT Plan of Treatment Stress Echo 01/06/2024 US Echo Stress (60481) 01/06/2024 Stress Echo 01/06/2024 US Echo Stress (76279) 01/06/2024 EGD/Colonoscopy 03/19/2024 Encounters Encounter Diagnosis Start Date Code Code Sys tem Abnormal electrocardiogram [ECG] [EKG] 12/16/2023 SNOMED-CT Personal Care Team Section Performer Name Performer Role Active Date Inactive TANISHA Diego PCP - Primary care physician 2024-01-06
--- OUTSIDE RECORDS SUMMARY | 2024-12-16 17:16 | XMS_ITS | Encounter Summary ---
Author Organization [facility] Address [address] [place] [address] Care Team Providers Care Wheel Aligner Name Role Phone Sahil Garza MD Primary Care Provider [phone] Encounter Details Date Type Department Care Team (Late st Contact Info) Description 04/03/2019 Abstract SFL CONVERSION [address] [place] [address] , Generic Conversion, Social History Tobacco Use [...] on filedocumented in this encounter Care Teams Wheel Aligner Relationship Specialty Start Date End Date Sahil Garza MD [address] [place] [address] PCP - General INTERNAL MEDICINE 06/21/23 documented as of this encounter
--- OUTSIDE RECORDS SUMMARY | 2024-12-16 17:16 | XMS_ITS | Clinical Summary ---
Author Organization [facility] Address [address] [place] [address] Care Team Providers Care Editor Producer Name Role Phone Sahil Garza MD Primary Care Provider [phone] Social History Tobacco Use Types Packs/Day Years [...] patient's age to complete this topic Insurance [facility] C/O PROVIDER SERVICES AMARIS WHEATLEY [id number] Care Teams Editor Producer Relationship Specialty Start Date End Date Sahil Garza MD [address] [place] [phone] PCP - General INTERNAL MEDICINE 06/21/23
--- OUTSIDE RECORDS SUMMARY | 2024-12-16 17:16 | XMS_ITS ---
Author Organization Unknown Address [address] [place] [phone] Phone Care Team Providers Care Bow Tacker Name Role Phone CHRISTY CASTILLO Attending Unavailable [...] Smoking History Unknown if ever smoked [address] Sex Male Medications Medication Start Date End Date Route Frequency Dose Code Code System Medication Instructions Home Meds Famotidine 20MG Oral Tablet 03/19/2024 Unknown ORAL ONCE A DAY 20 MILLIGRAMS 560534 RxNorm TAKE 20 MILLIGRAMS ORAL ONCE A [...] Code System No Known Drug Allergies Active 855008968 SNOMED-CT Plan of Treatment Stress Echo 01/06/2024 US Echo Stress (68061) 01/06/2024 Stress Echo 01/06/2024 US Echo Stress (42415) 01/06/2024 EGD/Colonoscopy 03/19/2024 Encounters Encounter Diagnosis Start Date Code Code Sys tem Abnormal electrocardiogram [ECG] [EKG] 01/06/2024 SNOMED-CT Personal Care Team Section Performer Name Performer Role Active Date Inactive TANISHA Diego PCP - Primary care physician 2024-01-06
[2024-12-16 17:17] VITALS: BP 140/92; PULSE 83; RESP 20; TEMP 36.6; O2SAT 100
--- NOTE | 2024-12-16 17:26 | ED_ITS ---
HPI - Psych General Stated Complaint: Chest Pain Time Seen by Provider: 12/16/24 17:14 Source: patient Mode of arrival: ambulatory Limitations: no limitations History of Present Illness HPI Narrative: this is a 34-year-old male with a history of psychosis presents because he was woken up with some chest discomfort, currently denies any chest pain no abdominal pain no fever chills no shortness of breath no diaphoresis. 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 Currently denies any suicidal or homicidal ideation. complaint: other Onset (ago): day(s) Duration: intermittent History of same: Yes Relieving factors: none Exacerbating factors: none Related Data Allergies Allergy/AdvReac Type Severity Reaction Status Date / Time No Known Allergies Allergy Verified 12/01/24 04:15 Review of Systems Review of Systems: All systems reviewed & are unremarkable except as noted in HPI and below PMFSH Past Medical History Medical History Chest pain SOB (shortness of breath) Social History Social History Smoking status: Current every day smoker Alcohol intake: current Substance use: current Substance use type: does not use Other substance usage details: Infrequent Living arrangements: alone Exam Const: General: healthy appearing and no acute distress Nutritional Appearance: well nourished Orientation/consciousness: patient oriented x3 Limitations: no limitations Eyes: Conjunctivae: conjunctivae normal Pupils: Equal, round and reactive pupils present Chest: Chest palpation & inspection: normal inspection of the chest Resp: Effort & Inspection: normal respiratory effort Auscultation: clear to auscultation bilaterally Cardio: Rate: regular rate Rhythm: regular rhythm GI: GI Palp: Yes Soft to palpation Auscultation: normal bowel sounds Neuro: General: patient oriented x3, moves all extremities, no meningeal signs and no focal motor deficits Psych: Attitude: cooperative Other: Hearing voices Course Course Emergency Course: EKG performed shows normal sinus rhythm currently not having any chest pain, Advised patient to take antipsychotic medication mobile again the dose of olanzapine here in the ER and sent a prescription. Critical Care Time Critical Care Time Critical Care Time: No Discharge Plan Discharge Clinical Impression: Psychosis Qualifiers: Psychosis type: unspecified psychosis type Qualified Code(s): F29 - Unspecified psychosis not due to a substance or known physiological condition Patient Disposition: Home, Self-Care Condition: Stable Instructions: Antibiotic Form Additional Instructions: advised patient to take medication as prescribed and to follow with primary within the next 2 to 4 days further evaluation and treatment. Patient Language: Belarusian Prescriptions: New olanzapine 2.5 mg tablet 2.5 mg PO DAILY Qty: 14 0RF No Action albuterol sulfate [Ventolin HFA] 90 mcg/actuation HFA aerosol inhaler 2 puff inhalation QID PRN (Reason: shortness of breath or wheezing) Qty: 8.5 0RF oseltamivir [Tamiflu] 75 mg capsule 75 mg PO BID 5 Days Qty: 10 0RF ondansetron 4 mg tablet,disintegrating 4 mg PO Q8H PRN (Reason: nausea and vomiting) Qty: 20 0RF Follow-up/Referrals: Sahil Garza MD [Primary Care Provider] -
--- OUTSIDE RECORDS SUMMARY | 2024-12-16 17:38 | XMS_ITS | Clinical Summary ---
Author Organization [facility] Address [address] [place] [address] Care Team Providers Care Inspector Soldering Name Role Phone Sahil Garza MD Primary Care Provider [phone] Social History Tobacco Use Types Packs/Day Years [...] [place] C/O PROVIDER SERVICES AMARIS WHEATLEY [id number] Care Teams Inspector Soldering Relationship Specialty Start Date End Date Sahil Garza MD [address] [place] [phone] PCP - General INTERNAL MEDICINE 06/21/23
--- OUTSIDE RECORDS SUMMARY | 2024-12-16 17:39 | XMS_ITS ---
Author Organization Unknown Address [address] [place] [phone] Phone Care Team Providers Care Parts Sales Advisor Name Role Phone CHRISTY CASTILLO Attending Unavailable [...] Smoking History Unknown if ever smoked [address] Sex Male Medications Medication Start Date End Date Route Frequency Dose Code Code System Medication Instructions Home Meds Famotidine 20MG Oral Tablet 03/19/2024 Unknown ORAL ONCE A DAY 20 MILLIGRAMS 491985 RxNorm TAKE 20 MILLIGRAMS ORAL ONCE A [...] Code System No Known Drug Allergies Active 419451004 SNOMED-CT Plan of Treatment Stress Echo 01/06/2024 US Echo Stress (57619) 01/06/2024 Stress Echo 01/06/2024 US Echo Stress (50883) 01/06/2024 EGD/Colonoscopy 03/19/2024 Encounters Encounter Diagnosis Start Date Code Code Sys tem Abnormal electrocardiogram [ECG] [EKG] 12/16/2023 SNOMED-CT Personal Care Team Section Performer Name Performer Role Active Date Inactive TANISHA Diego PCP - Primary care physician 2024-01-06
--- OUTSIDE RECORDS SUMMARY | 2024-12-16 17:39 | XMS_ITS ---
Author Organization Unknown Address [address] [place] [address] [phone] Phone Care Team Providers Care Lead Assistant Manager Name Role Phone ORVILLE Pace Attending Unavailable [...] Smoking History Unknown if ever smoked [address] Sex Male Vital Signs Vital Sign Value Unit [place] Value [place] Unit Date/Time Recent/Initial? Code Code System Body Mass Index 28.89 kg/m2 03/19/2024 12:53 Most Recent 05876 -5 LOINC Body Mass Index 28.89 kg/m2 02/24/2024 08:58 Initial 34964 -5 LOINC Systolic Blood Pressure 130 mm[Hg] [...] O2 Saturation 95 % 2023 13:04 Initial 04584 -5 LOINC Pulse 76.0 /min 03/19/2024 13:04 Initial 8867- 4 LOINC Respiration 16 /min 03/19/20 13:04 Initial 9279- 1 LOINC Temperature 36.5 Tiesha 97.7 F 03/19/20 13:04 Initial 8310- 5 LOINC Weight 86.18 kg 190.00 lbs 03/19/2024 12:53 Most Recent 22631 -7 LOINC Weight 86.18 kg 190.00 lbs 02/24/2024 08:58 Initial 60870 -7 LOINC Medications Medication Start Date End Date Route Frequency Dose Code Code System Medication Instructions Home Meds Famotidine 20MG Oral Tablet 03/19/2024 Unknown ORAL ONCE A DAY 20 MILLIGRAMS 360240 RxNorm TAKE 20 MILLIGRAMS ORAL ONCE A [...] flexible, transoral; diagnostic, including col 03/19/2024 completed 38837 CPT Anesthesia for combined uppe r and lower gastrointestinal endoscopic proced 03/19/2024 completed 73955 CPT Colonoscopy, flexible; diagn ostic, including collection of specimen(s) by 03/19/2024 completed 76356 CPT Allergies and Adverse Reactions Allergy Substance Reaction Severity Start Date Concern Status Co de Code System No Known Drug Allergies Active 810426920 SNOMED-CT Plan of Treatment Stress Echo 01/06/2024 US Echo Stress (83097) 01/06/2024 Stress Echo 01/06/2024 US Echo Stress (94916) 01/06/2024 EGD/Colonoscopy 03/19/2024 Encounters Encounter Diagnosis Start Date Code Code Sys tem Epigastric pain 03/19/2024 SNOMED-CT Personal Care Team Section Performer Name Performer Role Active Date Inactive TANISHA Diego PCP - Primary care physician 2024-01-06
[2024-12-16] MEDS: OLANZapine 2.5 MG TABLET PO (17:40)
--- OUTSIDE RECORDS SUMMARY | 2024-12-16 17:40 | XMS_ITS | Encounter Summary ---
Author Organization [facility] Address [address] [place] [address] Care Team Providers Care Electrical Test Technician Name Role Phone Sahil Garza MD Primary Care Provider [phone] Encounter Details Date Type Department Care Team (Late st Contact Info) Description 04/03/2019 Abstract SFL CONVERSION [address] [place] [address] , Generic Conversion, Social History Tobacco Use [...] on filedocumented in this encounter Care Teams Electrical Test Technician Relationship Specialty Start Date End Date Sahil Garza MD [address] [place] [address] PCP - General INTERNAL MEDICINE 06/21/23 documented as of this encounter
--- OUTSIDE RECORDS SUMMARY | 2024-12-16 17:40 | XMS_ITS ---
Author Organization Unknown Address [address] [place] [phone] Phone Care Team Providers Care Tribunal Member Name Role Phone CHRISTY CASTILLO Attending Unavailable [...] Smoking History Unknown if ever smoked [address] Sex Male Medications Medication Start Date End Date Route Frequency Dose Code Code System Medication Instructions Home Meds Famotidine 20MG Oral Tablet 03/19/2024 Unknown ORAL ONCE A DAY 20 MILLIGRAMS 644312 RxNorm TAKE 20 MILLIGRAMS ORAL ONCE A [...] Code System No Known Drug Allergies Active 735210131 SNOMED-CT Plan of Treatment Stress Echo 01/06/2024 US Echo Stress (93259) 01/06/2024 Stress Echo 01/06/2024 US Echo Stress (27118) 01/06/2024 EGD/Colonoscopy 03/19/2024 Encounters Encounter Diagnosis Start Date Code Code Sys tem Abnormal electrocardiogram [ECG] [EKG] 01/06/2024 SNOMED-CT Personal Care Team Section Performer Name Performer Role Active Date Inactive TANISHA Diego PCP - Primary care physician 2024-01-06
[2024-12-16 17:45] VITALS: BP 112/81
[2024-12-16 17:53] VITALS: PULSE 68
[2024-12-16 18:23] VITALS: BP 114/77; PULSE 74; RESP 20; O2SAT 97
== END 2024-12-16 18:23 | disposition home or self-care (01) ==
LOC: CHSED 17:37
PROVIDERS: Emergency Provider Emergency Medicine; PCP Internal Medicine
DX: F29 Unspecified psychosis not due to a substance or known physiological condition (principal); F17.200 Nicotine dependence, unspecified, uncomplicated
CPT/HCPCS: 93005; 99283; A9270

== ENCOUNTER 2025-01-19 08:12 | Emergency (ER) | payer OTHER, SELFPAY ==
[2025-01-19 08:12] VITALS: BP 132/91; PULSE 99; RESP 18; TEMP 36.1; O2SAT 98
--- OUTSIDE RECORDS SUMMARY | 2025-01-19 08:25 | XMS_ITS | Clinical Summary ---
Author Organization [facility] Address [address] [place] [address] Care Team Providers Care Counter Weigher Name Role Phone Sahil Garza MD Primary Care Provider [phone] Social History Tobacco Use Types Packs/Day Years [...] patient's age to complete this topic Insurance [facility] C/O PROVIDER SERVICES AMARIS WHEATLEY [id number] Care Teams Counter Weigher Relationship Specialty Start Date End Date Sahil Garza MD [address] [place] [phone] PCP - General INTERNAL MEDICINE 06/21/23
--- OUTSIDE RECORDS SUMMARY | 2025-01-19 08:26 | XMS_ITS ---
Author Organization Unknown Address [address] [place] [phone] Phone Care Team Providers Care Machine Pie Maker Name Role Phone ORVILLE Pace Attending Unavailable [...] Smoking History Unknown if ever smoked [address] Sex Male Vital Signs Vital Sign Value Unit [place] Value [place] Unit Date/Time Recent/Initial? Code Code System Body Mass Index 28.89 kg/m2 03/19/2024 12:53 Most Recent 41927 -5 LOINC Body Mass Index 28.89 kg/m2 02/24/2024 08:58 Initial 73500 -5 LOINC Systolic Blood Pressure 130 mm[Hg] [...] O2 Saturation 95 % 2023 13:04 Initial 93502 -5 LOINC Pulse 76.0 /min 03/19/2024 13:04 Initial 8867- 4 LOINC Respiration 16 /min 03/19/20 13:04 Initial 9279- 1 LOINC Temperature 36.5 Tiesha 97.7 F 03/19/20 13:04 Initial 8310- 5 LOINC Weight 86.18 kg 190.00 lbs 03/19/2024 12:53 Most Recent 56196 -7 LOINC Weight 86.18 kg 190.00 lbs 02/24/2024 08:58 Initial 63330 -7 LOINC Medications Medication Start Date End Date Route Frequency Dose Code Code System Medication Instructions Home Meds Famotidine 20MG Oral Tablet 03/19/2024 Unknown ORAL ONCE A DAY 20 MILLIGRAMS 940261 RxNorm TAKE 20 MILLIGRAMS ORAL ONCE A [...] flexible, transoral; diagnostic, including col 03/19/2024 completed 01359 CPT Anesthesia for combined uppe r and lower gastrointestinal endoscopic proced 03/19/2024 completed 17057 CPT Colonoscopy, flexible; diagn ostic, including collection of specimen(s) by 03/19/2024 completed 57435 CPT Allergies and Adverse Reactions Allergy Substance Reaction Severity Start Date Concern Status Co de Code System No Known Drug Allergies Active 112975466 SNOMED-CT Plan of Treatment Stress Echo 01/06/2024 US Echo Stress (83556) 01/06/2024 Stress Echo 01/06/2024 US Echo Stress (70786) 01/06/2024 EGD/Colonoscopy 03/19/2024 Encounters Encounter Diagnosis Start Date Code Code Sys tem Epigastric pain 03/19/2024 SNOMED-CT Personal Care Team Section Performer Name Performer Role Active Date Inactive TANISHA Diego PCP - Primary care physician 2024-01-06
--- OUTSIDE RECORDS SUMMARY | 2025-01-19 08:26 | XMS_ITS ---
Author Organization Unknown Address [address] [place] [phone] Phone Care Team Providers Care Industrial Cook Name Role Phone CHRISTY CASTILLO Attending Unavailable [...] Smoking History Unknown if ever smoked [address] Sex Male Medications Medication Start Date End Date Route Frequency Dose Code Code System Medication Instructions Home Meds Famotidine 20MG Oral Tablet 03/19/2024 Unknown ORAL ONCE A DAY 20 MILLIGRAMS 646996 RxNorm TAKE 20 MILLIGRAMS ORAL ONCE A [...] Code System No Known Drug Allergies Active 933679589 SNOMED-CT Plan of Treatment Stress Echo 01/06/2024 US Echo Stress (48148) 01/06/2024 Stress Echo 01/06/2024 US Echo Stress (68264) 01/06/2024 EGD/Colonoscopy 03/19/2024 Encounters Encounter Diagnosis Start Date Code Code Sys tem Abnormal electrocardiogram [ECG] [EKG] 01/06/2024 SNOMED-CT Personal Care Team Section Performer Name Performer Role Active Date Inactive TANISHA Diego PCP - Primary care physician 2024-01-06
--- OUTSIDE RECORDS SUMMARY | 2025-01-19 08:26 | XMS_ITS ---
Author Organization Unknown Address [address] [place] [phone] Phone Care Team Providers Care Vessel Liner Name Role Phone CHRISTY CASTILLO Attending Unavailable [...] Smoking History Unknown if ever smoked [address] Sex Male Medications Medication Start Date End Date Route Frequency Dose Code Code System Medication Instructions Home Meds Famotidine 20MG Oral Tablet 03/19/2024 Unknown ORAL ONCE A DAY 20 MILLIGRAMS 817753 RxNorm TAKE 20 MILLIGRAMS ORAL ONCE A [...] Code System No Known Drug Allergies Active 892895653 SNOMED-CT Plan of Treatment Stress Echo 01/06/2024 US Echo Stress (63205) 01/06/2024 Stress Echo 01/06/2024 US Echo Stress (58030) 01/06/2024 EGD/Colonoscopy 03/19/2024 Encounters Encounter Diagnosis Start Date Code Code Sys tem Abnormal electrocardiogram [ECG] [EKG] 12/16/2023 SNOMED-CT Personal Care Team Section Performer Name Performer Role Active Date Inactive TANISHA Diego PCP - Primary care physician 2024-01-06
--- OUTSIDE RECORDS SUMMARY | 2025-01-19 08:26 | XMS_ITS | Encounter Summary ---
Author Organization [facility] Address [address] [place] [address] Care Team Providers Care Ruby Developer Name Role Phone Sahil Garza MD Primary Care Provider [phone] Encounter Details Date Type Department Care Team (Late st Contact Info) Description 04/03/2019 Abstract SFL CONVERSION [address] [place] [address] , Generic Conversion, Social History Tobacco Use [...] on filedocumented in this encounter Care Teams Ruby Developer Relationship Specialty Start Date End Date Sahil Garza MD [address] [place] [address] PCP - General INTERNAL MEDICINE 06/21/23 documented as of this encounter
--- NOTE | 2025-01-19 08:31 | ED.ABDPAIN ---
HPI - Abdominal Pain General Chief Complaint: Abdominal Pain Stated Complaint: abdominal pain Time Seen by Provider: 01/19/25 08:30 Source: patient Mode of arrival: ambulatory Limitations: no limitations History of Present Illness HPI narrative: 34-year-old male with a history of psychosis presents to the ED with -- sore throat and sinus congestion -- bodyache -- epigastric pain with nausea. patient has had prior history of epigastric pain and has workup -- patient feels shaky and anxious. -- auditory hallucinations MD elicited complaint: abdominal pain ( epigastric pain) Pertinent past history: none Onset (ago): day(s) ( 2 days) Pain Consistency: constant Location: epigastric Severity: mild Quality: aching Radiation: none Migration to: no migration Exacerbating factors: nothing Relieving factors: nothing Associated symptoms: denies other symptoms Related Data Allergies Allergy/AdvReac Type Severity Reaction Status Date / Time No Known Allergies Allergy Verified 01/19/25 09:09 Review of Systems Review of Systems: All systems reviewed & are unremarkable except as noted in HPI and below Constitutional: Constitutional: Reports as per HPI and Reports no additional constitutional complaints Eyes: Eyes: Reports as per HPI and Reports no additional eye complaints ENT: Reports sore throat Cardiovascular: Cardiovascular: Reports as per HPI and Reports no additional cardiovascular complaints Respiratory: Respiratory: Reports as per HPI and Reports no additional respiratory complaints Gastrointestinal: Gastrointestinal: Reports as per HPI, Reports no additional gastrointestinal complaints, Reports abdominal pain and Reports nausea Genitourinary: Genitourinary: Reports no additional male genitourinary complaints Musculoskeletal: Musculoskeletal: Reports no additional musculoskeletal complaints and Reports as per HPI Integumentary/Breasts: Skin/Breast: Reports system reviewed and no additional complaints, except as docu and Reports as per HPI Neurologic: Reports system reviewed and no additional complaints, except as documented and Reports as per HPI Psychiatric: Psychiatric: Reports no additional psychiatric complaints, Reports as per HPI and Reports anxiety Comments: auditory hallucinations Endocrine: Endocrine: Reports as per HPI Hematologic/Lymphatic: Hematologic/Lymphatic: Reports no additional hematologic/lymphatic complaints PMFSH Past Medical History Medical History Chest pain SOB (shortness of breath) Social History Social History (System 01/19/25 @ 09:09 by Eugenia Alonso) Smoking status: Current every day smoker Alcohol intake: current Substance use: current Substance use type: does not use Other substance usage details: Infrequent Living arrangements: alone Exam Narrative: blood pressure is 132/91 Const: Orientation/consciousness: patient oriented x3 Limitations: no limitations HENMT: Head: normal to inspection Ears: external ears normal Face/Nose/Sinus: Normal external nose present Face and sinus: normal facial exam Mouth: Yes Normal oral and palatal mucosa present Throat: posterior oropharynx normal Eyes: Conjunctivae: conjunctivae normal Pupils: Equal, round and reactive pupils present EOM: EOMs intact bilaterally Direct Ophthalmoscopy: no photophobia Neck: Neck: normal visual inspection, no lymphadenopathy and no meningeal signs Chest: Chest palpation & inspection: normal inspection of the chest Resp: Effort & Inspection: normal respiratory effort Auscultation: clear to auscultation bilaterally Cardio: Rate: regular rate Rhythm: regular rhythm GI: GI Palp: Yes Soft to palpation Auscultation: normal bowel sounds Rectal Exam: normal sphincter tone Other: epigastric tenderness without any rigidity / rebound. : General: Yes bladder normal to palpation Testes: Testes normal Back/Spine/Pelvis: Back: no CVA tenderness Skin: General skin exam: normal color Rashes: no rashes Wounds: no wounds Neuro: General: patient oriented x3, moves all extremities, no meningeal signs, no focal motor deficits and CN's II-XI intact bilaterally Cranial nerves: Yes Nystagmus not present Speech: normal speech Gait exam (Neuro): Normal gait present Extrem: General: normal to inspection and no clubbing, cyanosis or edema Psych: Mental Status: mental status grossly normal Affect: Anxious affect present Course Course Emergency Course: anxiety upper respiratory tract infection epigastric pain Vital Signs Vital signs: Vital Signs Temperature 36.1 C L 01/19/25 08:12 Pulse Rate 99 01/19/25 08:12 Respiratory Rate 18 01/19/25 08:12 Blood Pressure 132/91 H 01/19/25 08:12 Pulse Oximetry 98 01/19/25 08:12 Oxygen Delivery Room Air 01/19/25 08:12 Temperature 36.1 C L 01/19/25 08:12 Pulse Rate 100 01/19/25 09:00 Respiratory Rate 20 01/19/25 09:00 Blood Pressure 130/81 01/19/25 09:00 Pulse Oximetry 99 01/19/25 09:01 Oxygen Delivery Room Air 01/19/25 08:12 MDM - Abdominal Pain MDM Narrative Medical decision making narrative: anxiety upper respiratory tract infection gastritis Differential Diagnosis Differential diagnosis: Likely abdominal pain and other ( psychosis) Lab Data 01/19/25 08:53 01/19/25 08:53 Labs: Lab Results 01/19/25 Range/Units 08:53 WBC 13.0 H (4.8-10.8) K/mm3 RBC 5.24 (4.70-6.10) M/mm3 Hgb 14.9 (14.0-18.0) g/dL Hct 44.7 (40.0-54.0) % MCV 85.3 (78.0-102.0) fL MCH 28.4 (27.0-31.0) pg MCHC 33.3 (32-36) g/dL RDW 12.5 (11.6-14.4) % Plt Count 133 L (150-420) K/mm3 MPV 10.6 (8.7-11.0) fl Immature Gran % (Auto) 0.3 H (0.0-0.0) % Neut % (Auto) 80.8 H (50.0-70.0) % Lymph % (Auto) 11.2 L (18.0-42.0) % [place] % (Auto) 6.9 (2.0-11.0) % Eos % (Auto) 0.5 L (1.0-6.0) % Baso % (Auto) 0.3 (0.0-1.0) % Lymph # (Auto) 1.46 (1.10-4.50) K/mm3 [place] # (Auto) 0.90 (0.10-0.90) K/mm3 Eos # (Auto) 0.06 (0.02-0.50) K/mm3 Baso # (Auto) 0.04 (0.00-0.10) K/mm3 Abs Immat Gran (auto) 0.04 H (0.00-0.00) K/mm3 Absolute Neuts (auto) 10.53 H (1.70-7.20) K/mm3 Absolute Nucleated RBC 0.00 (0.00-0.00) K/mm3 Nucleated RBC % 0.0 (0-0.0) % % Immature Plt Fraction 3.9 (1.0-7.0) % Sodium 138 (136-145) mmol/L Potassium 3.7 (3.5-5.1) mmol/L Chloride 100 (98-108) mmol/L Carbon Dioxide 28 (21-32) mmol/L Anion Gap 10 (4-12) mmol/L BUN 18 (7-18) mg/dL Creatinine 1.01 (0.70-1.30) mg/dL Estim Creat Clear Calc 88 ml/min Estimated GFR > 60 (59 - ) Glucose 120 H (70-99) mg/dL Calculated Osmolality 288 (285-295) mOsm/kg Calcium 9.1 (8.5-10.1) mg/dL Total Bilirubin 1.2 H (0.00-1.00) mg/dL AST 12 L (15-37) U/L ALT 23 (16-63) U/L Alkaline Phosphatase 80 (46-116) U/L Troponin I < 4.0 (0.00-60.4) ng/L Total Protein 7.4 (6.4-8.2) g/dL Albumin 4.1 (3.4-5.0) g/dL TSH 1.89 (0.36-3.74) uIU/mL Influenza A (RT-PCR) Negative (Negative) Influenza B (RT-PCR) Negative (Negative) RSV (RT-PCR) Negative (Negative) SARS-CoV-2 RNA (RT-PCR) Negative (Negative) ECG Data EKG #1: ECG completion date: 01/19/25 ECG completion time: 08:51 Interpretation: Sinus tachycardia with a heart rate of 102. ST elevation in anterior leads Without any T-wave abnormalities suggestive of early repolarization. Discharge Plan Discharge Clinical Impression: Anxiety Upper respiratory infection Qualifiers: URI type: acute laryngotracheitis Qualified Code(s): J04.2 - Acute laryngotracheitis Gastritis Qualifiers: Gastritis type: unspecified gastritis Chronicity: unspecified Gastritis bleeding: without bleeding Qualified Code(s): K29.70 - Gastritis, unspecified, without bleeding Patient Disposition: Home, Self-Care Condition: Stable Instructions: Antibiotic Form, Gastritis (ED), Upper Respiratory Infection (ED), Anxiety (ED) Patient Language: Ecuadorean Prescriptions: New famotidine [Pepcid] 40 mg tablet 40 mg PO HS Qty: 30 0RF No Action olanzapine 2.5 mg tablet 2.5 mg PO DAILY Qty: 14 0RF alprazolam [Xanax] 0.5 mg tablet 0.5 mg PO BID PRN (Reason: anxiety) Qty: 30 0RF Follow-up/Referrals: Sahil Garza MD [Primary Care Provider] - Time of Disposition: 10:05
--- NOTE | 2025-01-19 08:39 | ECG_ITS ---
Test Date: 2025-01-19 08:51:06 Measurements Intervals [place] Rate: 102 P: 52 NE: 131 QRS: 84 QRSD: 100 T: 5 QT: 327 QTc: 428 Interpretive Statements SINUS TACHYCARDIA ST ELEVATION, PROBABLY EARLY REPOLARIZATION [ST ELEVATION WITH NORMALLY INFLECTED T-WAVE] Compared to ECG 12/16/2024 17:24:08 NO SIGNIFICANT CHANGES Electronically Signed On 01-19-2025 12:43:24 CDT by Shanel Martinez M.D.
[2025-01-19 08:46] VITALS: O2SAT 98
[2025-01-19 09:00] VITALS: BP 130/81; PULSE 100; RESP 20; O2SAT 99
[2025-01-19 09:00] LABS: Basophils Absolute Auto 0.04 K/mm3 (0.00-0.10); Basophils Percent Auto 0.3 % (0.0-1.0); Eosinophils Absolute Auto 0.06 K/mm3 (0.02-0.50); Eosinophils Percent Auto 0.5 % (1.0-6.0); Hematocrit 44.7 % (40.0-54.0); Hemoglobin 14.9 g/dL (14.0-18.0); Immature Granulocyte Absolute 0.04 K/mm3 (0.00-0.00); Immature Granulocyte Percent A 0.3 % (0.0-0.0); Immature Platelet Fraction Pct 3.9 % (1.0-7.0); Lymphocytes Absolute Auto 1.46 K/mm3 (1.10-4.50); Lymphocytes Percent Auto 11.2 % (18.0-42.0); Mean Corpuscular HGB Conc 33.3 g/dL (32-36); Mean Corpuscular Hemoglobin 28.4 pg (27.0-31.0); Mean Corpuscular Volume 85.3 fL (78.0-102.0); Mean Platelet Volume 10.6 fl (8.7-11.0); Monocytes Percent Auto 6.9 % (2.0-11.0); Neutrophils Absolute Auto 10.53 K/mm3 (1.70-7.20); Neutrophils Percent Auto 80.8 % (50.0-70.0); Platelet Count Result 133 K/mm3 (150-420); Red Blood Count 5.24 M/mm3 (4.70-6.10); Red Cell Distribution Width 12.5 % (11.6-14.4)
[2025-01-19 09:01] VITALS: O2SAT 99
[2025-01-19] MEDS: ONDANSETRON HCL ODT 4 MG TABLET PO (09:03)
--- OUTSIDE RECORDS SUMMARY | 2025-01-19 09:06 | XMS_ITS | Clinical Summary ---
Author Organization [facility] Address [address] [place] [id number] Care Team Providers Care Parcel Post Delivery Name Role Phone Sahil Garza MD Primary Care Provider [phone] Social History Tobacco Use Types Packs/Day Years [...] patient's age to complete this topic Insurance [facility] C/O PROVIDER SERVICES AMARIS WHEATLEY [id number] Care Teams Parcel Post Delivery Relationship Specialty Start Date End Date Sahil Garza MD [address] [place] [phone] PCP - General INTERNAL MEDICINE 06/21/23
--- OUTSIDE RECORDS SUMMARY | 2025-01-19 09:07 | XMS_ITS | Encounter Summary ---
Author Organization [facility] Address [address] [place] [address] Care Team Providers Care Proof Sorter Name Role Phone Sahil Garaz MD Primary Care Provider [phone] Encounter Details Date Type Department Care Team (Late st Contact Info) Description 04/03/2019 Abstract SFL CONVERSION [address] [place] [address] , Generic Conversion, Social History Tobacco Use [...] on filedocumented in this encounter Care Teams Proof Sorter Relationship Specialty Start Date End Date Sahil Garza MD [address] [place] [address] PCP - General INTERNAL MEDICINE 06/21/23 documented as of this encounter
--- OUTSIDE RECORDS SUMMARY | 2025-01-19 09:07 | XMS_ITS ---
Author Organization Unknown Address [address] [place] [phone] Phone Care Team Providers Care Olive Grower Name Role Phone CHRISTY CASTILLO Attending Unavailable [...] Smoking History Unknown if ever smoked [id number] Sex Male Medications Medication Start Date End Date Route Frequency Dose Code Code System Medication Instructions Home Meds Famotidine 20MG Oral Tablet 03/19/2024 Unknown ORAL ONCE A DAY 20 MILLIGRAMS 606431 RxNorm TAKE 20 MILLIGRAMS ORAL ONCE A [...] Code System No Known Drug Allergies Active 999488675 SNOMED-CT Plan of Treatment Stress Echo 01/06/2024 US Echo Stress (09314) 01/06/2024 Stress Echo 01/06/2024 US Echo Stress (86818) 01/06/2024 EGD/Colonoscopy 03/19/2024 Encounters Encounter Diagnosis Start Date Code Code Sys tem Abnormal electrocardiogram [ECG] [EKG] 01/06/2024 SNOMED-CT Personal Care Team Section Performer Name Performer Role Active Date Inactive TANISHA Diego PCP - Primary care physician 2024-01-06
--- OUTSIDE RECORDS SUMMARY | 2025-01-19 09:07 | XMS_ITS ---
Author Organization Unknown Address [address] [place] [phone] Phone Care Team Providers Care Prenatal Genetic Counselor Name Role Phone CHRISTY CASTILLO Attending Unavailable [...] Smoking History Unknown if ever smoked [id number] Sex Male Medications Medication Start Date End Date Route Frequency Dose Code Code System Medication Instructions Home Meds Famotidine 20MG Oral Tablet 03/19/2024 Unknown ORAL ONCE A DAY 20 MILLIGRAMS 247358 RxNorm TAKE 20 MILLIGRAMS ORAL ONCE A [...] Code System No Known Drug Allergies Active 329377992 SNOMED-CT Plan of Treatment Stress Echo 01/06/2024 US Echo Stress (06367) 01/06/2024 Stress Echo 01/06/2024 US Echo Stress (19266) 01/06/2024 EGD/Colonoscopy 03/19/2024 Encounters Encounter Diagnosis Start Date Code Code Sys tem Abnormal electrocardiogram [ECG] [EKG] 12/16/2023 SNOMED-CT Personal Care Team Section Performer Name Performer Role Active Date Inactive TANISHA Diego PCP - Primary care physician 2024-01-06
--- OUTSIDE RECORDS SUMMARY | 2025-01-19 09:07 | XMS_ITS ---
Author Organization Unknown Address [address] [place] [phone] Phone Care Team Providers Care Colon Therapist Name Role Phone ORVILLE Pace Attending Unavailable [...] Smoking History Unknown if ever smoked [id number] Sex Male Vital Signs Vital Sign Value Unit Merrick Value Merrick Unit Date/Time Recent/Initial? Code Code System Body Mass Index 28.89 kg/m2 03/19/2024 12:53 Most Recent 81607 -5 LOINC Body Mass Index 28.89 kg/m2 02/24/2024 08:58 Initial 78580 -5 LOINC Systolic Blood Pressure 130 mm[Hg] [...] O2 Saturation 95 % 2023 13:04 Initial 39653 -5 LOINC Pulse 76.0 /min 03/19/2024 13:04 Initial 8867- 4 LOINC Respiration 16 /min 03/19/20 13:04 Initial 9279- 1 LOINC Temperature 36.5 Tiesha 97.7 F 03/19/20 13:04 Initial 8310- 5 LOINC Weight 86.18 kg 190.00 lbs 03/19/2024 12:53 Most Recent 27624 -7 LOINC Weight 86.18 kg 190.00 lbs 02/24/2024 08:58 Initial 02190 -7 LOINC Medications Medication Start Date End Date Route Frequency Dose Code Code System Medication Instructions Home Meds Famotidine 20MG Oral Tablet 03/19/2024 Unknown ORAL ONCE A DAY 20 MILLIGRAMS 474933 RxNorm TAKE 20 MILLIGRAMS ORAL ONCE A [...] flexible, transoral; diagnostic, including col 03/19/2024 completed 07741 CPT Anesthesia for combined uppe r and lower gastrointestinal endoscopic proced 03/19/2024 completed 03923 CPT Colonoscopy, flexible; diagn ostic, including collection of specimen(s) by 03/19/2024 completed 23184 CPT Allergies and Adverse Reactions Allergy Substance Reaction Severity Start Date Concern Status Co de Code System No Known Drug Allergies Active [id number] SNOMED-CT Plan of Treatment Stress Echo 01/06/2024 US Echo Stress (89466) 01/06/2024 Stress Echo 01/06/2024 US Echo Stress (78133) 01/06/2024 EGD/Colonoscopy 03/19/2024 Encounters Encounter Diagnosis Start Date Code Code Sys tem Epigastric pain 03/19/2024 SNOMED-CT Personal Care Team Section Performer Name Performer Role Active Date Inactive TANISHA Diego PCP - Primary care physician 2024-01-06
[2025-01-19 09:15] VITALS: BP 120/81; PULSE 78; RESP 16; O2SAT 100
[2025-01-19 09:23] LABS: Alanine Aminotransferase 23 U/L (16-63); Albumin Level 4.1 g/dL (3.4-5.0); Alkaline Phosphatase 80 U/L (46-116); Anion Gap 10 mmol/L (4-12); Aspartate Amino Transferase 12 U/L (15-37); Bilirubin,Total 1.2 mg/dL (0.00-1.00); Blood Urea Nitrogen 18 mg/dL (7-18); Calcium 9.1 mg/dL (8.5-10.1); Carbon Dioxide 28 mmol/L (21-32); Chloride 100 mmol/L (98-108); Estimated CRCL calculation 88 ml/min; Estimated Glomerular Filt Rate > 60; Glucose 120 mg/dL (70-99); Osmolality Calculated 288 mOsm/kg (285-295); Potassium 3.7 mmol/L (3.5-5.1); Sodium 138 mmol/L (136-145); Thyroid Stimulating Hormone 1.89 uIU/mL (0.36-3.74); Total Protein 7.4 g/dL (6.4-8.2)
[2025-01-19 09:25] LABS: Troponin I < 4.0 ng/L (0.00-60.4)
[2025-01-19 09:34] LABS: Influenza A QL RT-PCR Negative (Negative); Influenza B QL RT-PCR Negative (Negative); RSV RNA, RT-PCR Negative (Negative); SARS-CoV-2 RNA PCR Negative (Negative)
[2025-01-19 10:13] VITALS: BP 136/97; PULSE 78; RESP 16; O2SAT 98
--- NOTE | 2025-01-19 15:21 | ED.ABDPAIN ---
HPI - Abdominal Pain General Chief Complaint: Abdominal Pain Stated Complaint: abdominal pain Time Seen by Provider: 01/19/25 08:30 Source: patient Mode of arrival: ambulatory Limitations: no limitations History of Present Illness HPI narrative: 34-year-old male with a history of psychosis, anxiety, gastritis presented to the ED 3 hours ago with epigastric pain, upper respiratory tract symptoms, body aches, auditory hallucinations and sore throat. The patient had blood work which revealed a white cell count of 13. The patient had MD elicited complaint: abdominal pain ( epigastric pain) Pertinent past history: none Onset (ago): day(s) ( 2 days) Pain Consistency: constant Location: epigastric Severity: mild Quality: aching Radiation: none Migration to: no migration Exacerbating factors: nothing Relieving factors: nothing Associated symptoms: denies other symptoms Related Data Allergies Allergy/AdvReac Type Severity Reaction Status Date / Time No Known Allergies Allergy Verified 01/19/25 09:09 [facility] Past Medical History Medical History Chest pain SOB (shortness of breath) Social History Social History (System 01/19/25 @ 09:09 by Eugenia Alonso) Smoking status: Current every day smoker Alcohol intake: current Substance use: current Substance use type: does not use, former substance user and marijuana Other substance usage details: Infrequent Living arrangements: alone Course Vital Signs Vital signs: Vital Signs Temperature 36.1 C L 01/19/25 08:12 Pulse Rate 99 01/19/25 08:12 Respiratory Rate 18 01/19/25 08:12 Blood Pressure 132/91 H 01/19/25 08:12 Pulse Oximetry 98 01/19/25 08:12 Oxygen Delivery Room Air 01/19/25 08:12 Temperature 36.1 C L 01/19/25 08:12 Pulse Rate 78 01/19/25 10:13 Respiratory Rate 16 01/19/25 10:13 Blood Pressure 136/97 H 01/19/25 10:13 Pulse Oximetry 98 01/19/25 10:13 Oxygen Delivery Room Air 01/19/25 10:13 MDM - Abdominal Pain Lab Data 01/19/25 08:53 01/19/25 08:53 Labs: Lab Results 01/19/25 Range/Units 08:53 WBC 13.0 H (4.8-10.8) K/mm3 RBC 5.24 (4.70-6.10) M/mm3 Hgb 14.9 (14.0-18.0) g/dL Hct 44.7 (40.0-54.0) % MCV 85.3 (78.0-102.0) fL MCH 28.4 (27.0-31.0) pg MCHC 33.3 (32-36) g/dL RDW 12.5 (11.6-14.4) % Plt Count 133 L (150-420) K/mm3 MPV 10.6 (8.7-11.0) fl Immature Gran % (Auto) 0.3 H (0.0-0.0) % Neut % (Auto) 80.8 H (50.0-70.0) % Lymph % (Auto) 11.2 L (18.0-42.0) % [place] % (Auto) 6.9 (2.0-11.0) % Eos % (Auto) 0.5 L (1.0-6.0) % Baso % (Auto) 0.3 (0.0-1.0) % Lymph # (Auto) 1.46 (1.10-4.50) K/mm3 [place] # (Auto) 0.90 (0.10-0.90) K/mm3 Eos # (Auto) 0.06 (0.02-0.50) K/mm3 Baso # (Auto) 0.04 (0.00-0.10) K/mm3 Abs Immat Gran (auto) 0.04 H (0.00-0.00) K/mm3 Absolute Neuts (auto) 10.53 H (1.70-7.20) K/mm3 Absolute Nucleated RBC 0.00 (0.00-0.00) K/mm3 Nucleated RBC % 0.0 (0-0.0) % % Immature Plt Fraction 3.9 (1.0-7.0) % Sodium 138 (136-145) mmol/L Potassium 3.7 (3.5-5.1) mmol/L Chloride 100 (98-108) mmol/L Carbon Dioxide 28 (21-32) mmol/L Anion Gap 10 (4-12) mmol/L BUN 18 (7-18) mg/dL Creatinine 1.01 (0.70-1.30) mg/dL Estim Creat Clear Calc 88 ml/min Estimated GFR > 60 (59 - ) Glucose 120 H (70-99) mg/dL Calculated Osmolality 288 (285-295) mOsm/kg Calcium 9.1 (8.5-10.1) mg/dL Total Bilirubin 1.2 H (0.00-1.00) mg/dL AST 12 L (15-37) U/L ALT 23 (16-63) U/L Alkaline Phosphatase 80 (46-116) U/L Troponin I < 4.0 (0.00-60.4) ng/L Total Protein 7.4 (6.4-8.2) g/dL Albumin 4.1 (3.4-5.0) g/dL TSH 1.89 (0.36-3.74) uIU/mL Influenza A (RT-PCR) Negative (Negative) Influenza B (RT-PCR) Negative (Negative) RSV (RT-PCR) Negative (Negative) SARS-CoV-2 RNA (RT-PCR) Negative (Negative) Discharge Plan Discharge Clinical Impression: Anxiety Upper respiratory infection Qualifiers: URI type: acute laryngotracheitis Qualified Code(s): J04.2 - Acute laryngotracheitis Gastritis Qualifiers: Gastritis type: unspecified gastritis Chronicity: unspecified Gastritis bleeding: without bleeding Qualified Code(s): K29.70 - Gastritis, unspecified, without bleeding Patient Disposition: Home, Self-Care Condition: Stable Instructions: Antibiotic Form, Gastritis (ED), Upper Respiratory Infection (ED), Anxiety (ED) Patient Language: Sinhala Prescriptions: New famotidine [Pepcid] 40 mg tablet 40 mg PO HS Qty: 30 0RF No Action olanzapine 2.5 mg tablet 2.5 mg PO DAILY Qty: 14 0RF alprazolam [Xanax] 0.5 mg tablet 0.5 mg PO BID PRN (Reason: anxiety) Qty: 30 0RF Follow-up/Referrals: Sahil Garza MD [Primary Care Provider] - Time of Disposition: 10:05
--- NOTE | 2025-01-19 15:27 | ED.ABDPAIN ---
HPI - Abdominal Pain General Chief Complaint: Abdominal Pain Stated Complaint: abdominal pain Time Seen by Provider: 01/19/25 08:30 Source: patient Mode of arrival: ambulatory Limitations: no limitations History of Present Illness HPI narrative: 34-year-old male with a history of anxiety, psychosis, gastritis presented to the ED 3 hours ago for upper respiratory symptoms, epigastric pain, shakiness and auditory hallucination. The patient had blood work which was unremarkable except for an elevated white cell count of 13,000. physical examination did not show any tenderness or rigidity of the abdomen. The patient was discharged home. The patient was advised to go to [facility] the psych counselor. After discharge the patient had --ongoing epigastric pain. Patient has nausea without any vomiting. No diarrhea. No fever or chills. No radiation of the pain. No exacerbating or relieving factors. MD elicited complaint: abdominal pain ( epigastric pain) Pertinent past history: none Onset (ago): day(s) ( 2 days) Pain Consistency: constant Location: epigastric Severity: mild Quality: aching Radiation: none Migration to: no migration Exacerbating factors: nothing Relieving factors: nothing Associated symptoms: denies other symptoms Related Data Allergies Allergy/AdvReac Type Severity Reaction Status Date / Time No Known Allergies Allergy Verified 01/19/25 15:27 Review of Systems Review of Systems: All systems reviewed & are unremarkable except as noted in HPI and below Constitutional: Constitutional: Reports as per HPI and Reports no additional constitutional complaints Eyes: Eyes: Reports as per HPI and Reports no additional eye complaints ENT: Reports system reviewed and no additional complaints, except as documented PMFSH Past Medical History Medical History Chest pain SOB (shortness of breath) Anxiety Psychosis Social History Social History Smoking status: Current every day smoker Alcohol intake: current Substance use: current Substance use type: does not use, former substance user and marijuana Other substance usage details: Infrequent Living arrangements: alone Course Vital Signs Vital signs: Vital Signs Temperature 36.1 C L 01/19/25 08:12 Pulse Rate 99 01/19/25 08:12 Respiratory Rate 18 01/19/25 08:12 Blood Pressure 132/91 H 01/19/25 08:12 Pulse Oximetry 98 01/19/25 08:12 Oxygen Delivery Room Air 01/19/25 08:12 Temperature 36.1 C L 01/19/25 08:12 Pulse Rate 78 01/19/25 10:13 Respiratory Rate 16 01/19/25 10:13 Blood Pressure 136/97 H 01/19/25 10:13 Pulse Oximetry 98 01/19/25 10:13 Oxygen Delivery Room Air 01/19/25 10:13 MDM - Abdominal Pain Lab Data 01/19/25 08:53 01/19/25 08:53 Labs: Lab Results 01/19/25 Range/Units 08:53 WBC 13.0 H (4.8-10.8) K/mm3 RBC 5.24 (4.70-6.10) M/mm3 Hgb 14.9 (14.0-18.0) g/dL Hct 44.7 (40.0-54.0) % MCV 85.3 (78.0-102.0) fL MCH 28.4 (27.0-31.0) pg MCHC 33.3 (32-36) g/dL RDW 12.5 (11.6-14.4) % Plt Count 133 L (150-420) K/mm3 MPV 10.6 (8.7-11.0) fl Immature Gran % (Auto) 0.3 H (0.0-0.0) % Neut % (Auto) 80.8 H (50.0-70.0) % Lymph % (Auto) 11.2 L (18.0-42.0) % [place] % (Auto) 6.9 (2.0-11.0) % Eos % (Auto) 0.5 L (1.0-6.0) % Baso % (Auto) 0.3 (0.0-1.0) % Lymph # (Auto) 1.46 (1.10-4.50) K/mm3 [place] # (Auto) 0.90 (0.10-0.90) K/mm3 Eos # (Auto) 0.06 (0.02-0.50) K/mm3 Baso # (Auto) 0.04 (0.00-0.10) K/mm3 Abs Immat Gran (auto) 0.04 H (0.00-0.00) K/mm3 Absolute Neuts (auto) 10.53 H (1.70-7.20) K/mm3 Absolute Nucleated RBC 0.00 (0.00-0.00) K/mm3 Nucleated RBC % 0.0 (0-0.0) % % Immature Plt Fraction 3.9 (1.0-7.0) % Sodium 138 (136-145) mmol/L Potassium 3.7 (3.5-5.1) mmol/L Chloride 100 (98-108) mmol/L Carbon Dioxide 28 (21-32) mmol/L Anion Gap 10 (4-12) mmol/L BUN 18 (7-18) mg/dL Creatinine 1.01 (0.70-1.30) mg/dL Estim Creat Clear Calc 88 ml/min Estimated GFR > 60 (59 - ) Glucose 120 H (70-99) mg/dL Calculated Osmolality 288 (285-295) mOsm/kg Calcium 9.1 (8.5-10.1) mg/dL Total Bilirubin 1.2 H (0.00-1.00) mg/dL AST 12 L (15-37) U/L ALT 23 (16-63) U/L Alkaline Phosphatase 80 (46-116) U/L Troponin I < 4.0 (0.00-60.4) ng/L Total Protein 7.4 (6.4-8.2) g/dL Albumin 4.1 (3.4-5.0) g/dL TSH 1.89 (0.36-3.74) uIU/mL Influenza A (RT-PCR) Negative (Negative) Influenza B (RT-PCR) Negative (Negative) RSV (RT-PCR) Negative (Negative) SARS-CoV-2 RNA (RT-PCR) Negative (Negative) Discharge Plan Discharge Clinical Impression: Anxiety Upper respiratory infection Qualifiers: URI type: acute laryngotracheitis Qualified Code(s): J04.2 - Acute laryngotracheitis Gastritis Qualifiers: Gastritis type: unspecified gastritis Chronicity: unspecified Gastritis bleeding: without bleeding Qualified Code(s): K29.70 - Gastritis, unspecified, without bleeding Patient Disposition: Home, Self-Care Condition: Stable Instructions: Antibiotic Form, Gastritis (ED), Upper Respiratory Infection (ED), Anxiety (ED) Patient Language: Vietnamese Prescriptions: New famotidine [Pepcid] 40 mg tablet 40 mg PO HS Qty: 30 0RF No Action olanzapine 2.5 mg tablet 2.5 mg PO DAILY Qty: 14 0RF alprazolam [Xanax] 0.5 mg tablet 0.5 mg PO BID PRN (Reason: anxiety) Qty: 30 0RF Follow-up/Referrals: Sahil Garza MD [Primary Care Provider] - Time of Disposition: 10:05
== END 2025-01-19 10:13 | disposition home or self-care (01) ==
PROVIDERS: Emergency Provider Internal Medicine Critical Care Medicine; PCP Internal Medicine
DX: F41.9 Anxiety disorder, unspecified (principal); J04.2 Acute laryngotracheitis; K29.70 Gastritis, unspecified, without bleeding; F17.200 Nicotine dependence, unspecified, uncomplicated; Z20.822 Contact with and (suspected) exposure to COVID-19
CPT/HCPCS: 36415; 80053; 84443; 84484; 85025; 85055; 87637; 93005; 99284; A9270

== ENCOUNTER 2025-01-19 15:16 | Emergency (ER) | payer OTHER, SELFPAY ==
--- NOTE | ~2025-01-19 | CT_ITS ---
CT abdomen pelvis w con Ordering provider: Devendra Navas MD History: 34 years Male with . EPIGASTRIC PAIN,NAUSEA,SINCE 0600 TODAY . Comparison: December 23, 2021 Technique: CT abdomen and pelvis with IV and without oral contrast. Automated exposure control and it erative reconstruction technique were employed. The dose-length product was 320.57 mGy-cm. 100 mL Omn ipaque 350 was given IV. Findings: VISUALIZED LOWER CHEST: Normal. UPPER ABDOMINAL ORGANS: Liver: 2 cm hypodensity is seen in the right lobe of the liver segment #7. This may represent a cyst or a mass. Ultrasound evaluation is advised to evaluate for cystic nature. Gallbladder: Normal. Spleen: Normal. Stomach/duodenum: Normal. Pancreas: Normal. Adrenals: Normal. Kidneys: Tiny cyst in the right kidney upper pole. PELVIC ORGANS: The bladder is normal. BOWEL AND MESENTERY: Colon: No evidence of diverticulitis. Normal appendix. Small Bowel: Normal. No obstruction. Peritoneum/mesentery: No free air or free fluid. No mesenteric lymphadenopathy. RETROPERITONEUM: Mild atheromatous disease of the abdominal aorta. No retroperitoneal lymphadenopat hy. MUSCULOSKELETAL: Superficial soft tissues: The superficial soft tissues are normal. Bones: Age appropriate degenerative changes of the spine. IMPRESSION: 1. No evidence of appendicitis, diverticulitis or intestinal obstruction. 2. Nonenhancing Hypodensity in the liver which may be a cyst or a mass. Further evaluation with ultr asound and follow-up advised. Reviewed, dictated and finalized at location A. IMPRESSION: 1. No evidence of appendicitis, diverticulitis or intestinal obstruction. 2. Nonenhancing Hypodensity in the liver which may be a cyst or a mass. Furthe r evaluation with ultrasound and follow-up advised.
[2025-01-19 15:16] VITALS: BP 120/89; PULSE 81; RESP 18; TEMP 35.4; O2SAT 93
--- NOTE | 2025-01-19 15:38 | ED_ITS ---
HPI - Abdominal Pain General Chief Complaint: Abdominal Pain Stated Complaint: abdominal pain Time Seen by Provider: 01/19/25 15:17 Source: patient Mode of arrival: ambulatory Limitations: no limitations History of Present Illness HPI narrative: 34-year-old male with a history of anxiety, gastritis, psychosis presented to the ED with a 1 day history of upper respiratory tract symptoms, epigastric pain, auditory hallucinations and anxiety. He came to the ED 5 hours ago. The patient had blood work which was normal except for an elevated white cell count of 13,000. his physical examination is unremarkable. The patient was discharged home. The patient presents again to the ED with epigastric pain. Patient has nausea without any vomiting. No exacerbating or relieving factors. No fever or chills. No exacerbating or relieving factors. MD elicited complaint: abdominal pain Pertinent past history: none Onset (ago): day(s) ( One day) Pain Consistency: constant Location: epigastric Severity: severe Quality: aching Radiation: none Migration to: no migration Exacerbating factors: nothing Relieving factors: nothing Related Data Allergies Allergy/AdvReac Type Severity Reaction Status Date / Time No Known Allergies Allergy Verified 01/19/25 15:27 Review of Systems Review of Systems: All systems reviewed & are unremarkable except as noted in HPI and below Constitutional: Constitutional: Reports as per HPI, Reports no additional constitutional complaints and Reports weakness Eyes: Eyes: Reports as per HPI and Reports no additional eye complaints ENT: Reports system reviewed and no additional complaints, except as documented and Reports as per HPI Cardiovascular: Cardiovascular: Reports as per HPI and Reports no additional cardiovascular complaints Respiratory: Respiratory: Reports as per HPI and Reports no additional respiratory complaints Gastrointestinal: Gastrointestinal: Reports as per HPI, Reports no additional gastrointestinal complaints, Reports abdominal pain and Reports nausea Genitourinary: Genitourinary: Reports no additional male genitourinary complaints and Reports as per HPI Musculoskeletal: Musculoskeletal: Reports no additional musculoskeletal complaints and Reports as per HPI Integumentary/Breasts: Skin/Breast: Reports system reviewed and no additional complaints, except as docu and Reports as per HPI Neurologic: Reports system reviewed and no additional complaints, except as documented and Reports as per HPI Psychiatric: Psychiatric: Reports no additional psychiatric complaints and Reports as per HPI Endocrine: Endocrine: Reports no additional endocrine complaints and Reports as per HPI Hematologic/Lymphatic: Hematologic/Lymphatic: Reports no additional hematologic/lymphatic complaints and Reports as per HPI Allergic/Immunologic: Allergic/Immunologic: Reports no additional allergic/immunologic complaints and Reports as per HPI [facility] Past Medical History Medical History Chest pain SOB (shortness of breath) Anxiety Psychosis Social History Social History Smoking status: Current every day smoker Alcohol intake: current Substance use: current Substance use type: does not use, former substance user and marijuana Other substance usage details: Infrequent Living arrangements: alone Exam Narrative: vitals are stable. Const: General: no acute distress Orientation/consciousness: patient oriented x3 HENMT: Head: normal to inspection Ears: external ears normal Face/Nose/Sinus: Normal external nose present Face and sinus: normal facial exam Mouth: Yes Normal oral and palatal mucosa present Throat: posterior oropharynx normal Eyes: Conjunctivae: conjunctivae normal Pupils: Equal, round and reactive pupils present Direct Ophthalmoscopy: no photophobia Neck: Neck: normal visual inspection, no lymphadenopathy and no meningeal signs Chest: Chest palpation & inspection: normal inspection of the chest Resp: Effort & Inspection: normal respiratory effort Auscultation: clear to auscultation bilaterally Cardio: Rate: regular rate Rhythm: regular rhythm GI: GI Palp: Yes Soft to palpation Auscultation: normal bowel sounds Other: No tenderness/ rigidity /rebound. : General: Yes no CVA tenderness Back/Spine/Pelvis: Back: no CVA tenderness Skin: General skin exam: normal color Rashes: no rashes Wounds: no wounds Neuro: General: patient oriented x3, moves all extremities, no meningeal signs, no focal motor deficits and CN's II-XI intact bilaterally Cranial nerves: Yes Nystagmus not present Speech: normal speech Gait exam (Neuro): Normal gait present Extrem: General: normal to inspection and no clubbing, cyanosis or edema Psych: Mental Status: mental status grossly normal Affect: Anxious affect present Attitude: cooperative Course Course Emergency Course: Epigastric pain-- CT of the abdomen and pelvis with contrast revealed a 2 cm cyst / mass in the liver. No acute findings noted. Vital Signs Vital signs: Vital Signs Temperature 35.4 C L 01/19/25 15:16 Pulse Rate 81 01/19/25 15:16 Respiratory Rate 18 01/19/25 15:16 Blood Pressure 120/89 01/19/25 15:16 Pulse Oximetry 93 01/19/25 15:16 Oxygen Delivery Room Air 01/19/25 15:16 Temperature 35.4 C L 01/19/25 15:16 Pulse Rate 81 01/19/25 15:16 Respiratory Rate 18 01/19/25 15:16 Blood Pressure 120/89 01/19/25 15:16 Pulse Oximetry 93 01/19/25 15:16 Oxygen Delivery Room Air 01/19/25 15:16 MDM - Abdominal Pain MDM Narrative Medical decision making narrative: hepatic cyst epigastric pain Differential Diagnosis Differential diagnosis: Likely acute appendicitis and calculus of kidney Medical Records Attestation: I reviewed the patient's medical records. Lab Data Attestation: I reviewed the patient's lab results. Imaging Data Radiologist's impression: ITS Impressions Abdomen/Pelvis CT 01/19/25 15:57 IMPRESSION: 1. No evidence of appendicitis, diverticulitis or intestinal obstruction. 2. Nonenhancing Hypodensity in the liver which may be a cyst or a mass. Further evaluation with ultrasound and follow-up advised. Discharge Plan Discharge Clinical Impression: Epigastric pain, Benign liver cyst Patient Disposition: Home, Self-Care Condition: Stable Instructions: Antibiotic Form, Abdominal Pain (ED) Patient Language: Malagasy Prescriptions: No Action olanzapine 2.5 mg tablet 2.5 mg PO DAILY Qty: 14 0RF alprazolam [Xanax] 0.5 mg tablet 0.5 mg PO BID PRN (Reason: anxiety) Qty: 30 0RF famotidine [Pepcid] 40 mg tablet 40 mg PO HS Qty: 30 0RF Follow-up/Referrals: Sahil Garza MD [Primary Care Provider] - Time of Disposition: 16:23
[2025-01-19] MEDS: LACTATED RINGERS 1,000 ML 999 ML IV CONT (15:56)
--- OUTSIDE RECORDS SUMMARY | 2025-01-19 16:35 | XMS_ITS | Clinical Summary ---
Author Organization [facility] Address [address] [place] [address] Care Team Providers Care Banking Supervisor Name Role Phone Sahil Garza MD Primary Care Provider [phone] Social History Tobacco Use Types Packs/Day Years [...] patient's age to complete this topic Insurance [facility] C/O PROVIDER SERVICES AMARIS WHEATLEY [id number] Care Teams Banking Supervisor Relationship Specialty Start Date End Date Sahil Garza MD [address] [place] [phone] PCP - General INTERNAL MEDICINE 06/21/23
--- OUTSIDE RECORDS SUMMARY | 2025-01-19 16:36 | XMS_ITS ---
Author Organization Unknown Address [address] [place] [phone] Phone Care Team Providers Care Certifed Refrigeration Operator Name Role Phone CHRISTY CASTILLO Attending Unavailable [...] Smoking History Unknown if ever smoked [id number] Sex Male Medications Medication Start Date End Date Route Frequency Dose Code Code System Medication Instructions Home Meds Famotidine 20MG Oral Tablet 03/19/2024 Unknown ORAL ONCE A DAY 20 MILLIGRAMS 006084 RxNorm TAKE 20 MILLIGRAMS ORAL ONCE A [...] Code System No Known Drug Allergies Active 389039556 SNOMED-CT Plan of Treatment Stress Echo 01/06/2024 US Echo Stress (02202) 01/06/2024 Stress Echo 01/06/2024 US Echo Stress (31932) 01/06/2024 EGD/Colonoscopy 03/19/2024 Encounters Encounter Diagnosis Start Date Code Code Sys tem Abnormal electrocardiogram [ECG] [EKG] 12/16/2023 SNOMED-CT Personal Care Team Section Performer Name Performer Role Active Date Inactive TANISHA Diego PCP - Primary care physician 2024-01-06
--- OUTSIDE RECORDS SUMMARY | 2025-01-19 16:36 | XMS_ITS ---
Author Organization Unknown Address [address] [place] [phone] Phone Care Team Providers Care Manager Membership Name Role Phone ORVILLE Pace Attending Unavailable [...] Smoking History Unknown if ever smoked [address] Sex Male Vital Signs Vital Sign Value Unit Treutlen Value Treutlen Unit Date/Time Recent/Initial? Code Code System Body Mass Index 28.89 kg/m2 03/19/2024 12:53 Most Recent 67447 -5 LOINC Body Mass Index 28.89 kg/m2 02/24/2024 08:58 Initial 93450 -5 LOINC Systolic Blood Pressure 130 mm[Hg] [...] O2 Saturation 95 % 2023 13:04 Initial 84065 -5 LOINC Pulse 76.0 /min 03/19/2024 13:04 Initial 8867- 4 LOINC Respiration 16 /min 03/19/20 13:04 Initial 9279- 1 LOINC Temperature 36.5 Tiesha 97.7 F 03/19/20 13:04 Initial 8310- 5 LOINC Weight 86.18 kg 190.00 lbs 03/19/2024 12:53 Most Recent 36671 -7 LOINC Weight 86.18 kg 190.00 lbs 02/24/2024 08:58 Initial 20482 -7 LOINC Medications Medication Start Date End Date Route Frequency Dose Code Code System Medication Instructions Home Meds Famotidine 20MG Oral Tablet 03/19/2024 Unknown ORAL ONCE A DAY 20 MILLIGRAMS 825205 RxNorm TAKE 20 MILLIGRAMS ORAL ONCE A [...] flexible, transoral; diagnostic, including col 03/19/2024 completed 00140 CPT Anesthesia for combined uppe r and lower gastrointestinal endoscopic proced 03/19/2024 completed 18120 CPT Colonoscopy, flexible; diagn ostic, including collection of specimen(s) by 03/19/2024 completed 67497 CPT Allergies and Adverse Reactions Allergy Substance Reaction Severity Start Date Concern Status Co de Code System No Known Drug Allergies Active 181182819 SNOMED-CT Plan of Treatment Stress Echo 01/06/2024 US Echo Stress (08409) 01/06/2024 Stress Echo 01/06/2024 US Echo Stress (19069) 01/06/2024 EGD/Colonoscopy 03/19/2024 Encounters Encounter Diagnosis Start Date Code Code Sys tem Epigastric pain 03/19/2024 SNOMED-CT Personal Care Team Section Performer Name Performer Role Active Date Inactive TANISHA Diego PCP - Primary care physician 2024-01-06
--- OUTSIDE RECORDS SUMMARY | 2025-01-19 16:36 | XMS_ITS | Encounter Summary ---
Author Organization [facility] Address [address] [place] [address] Care Team Providers Care Doughnut Glazier Name Role Phone Sahil Garza MD Primary Care Provider [phone] Encounter Details Date Type Department Care Team (Late st Contact Info) Description 04/03/2019 Abstract SFL CONVERSION [address] [place] [address] , Generic Conversion, Social History Tobacco Use [...] on filedocumented in this encounter Care Teams Doughnut Glazier Relationship Specialty Start Date End Date Sahil Garza MD [address] [place] [address] PCP - General INTERNAL MEDICINE 06/21/23 documented as of this encounter
--- OUTSIDE RECORDS SUMMARY | 2025-01-19 16:36 | XMS_ITS ---
Author Organization Unknown Address [address] [place] [phone] Phone Care Team Providers Care Gem Setter Name Role Phone CHRISTY CASTILLO Attending Unavailable [...] Smoking History Unknown if ever smoked [address] Sex Male Medications Medication Start Date End Date Route Frequency Dose Code Code System Medication Instructions Home Meds Famotidine 20MG Oral Tablet 03/19/2024 Unknown ORAL ONCE A DAY 20 MILLIGRAMS 736404 RxNorm TAKE 20 MILLIGRAMS ORAL ONCE A [...] Code System No Known Drug Allergies Active 504321007 SNOMED-CT Plan of Treatment Stress Echo 01/06/2024 US Echo Stress (91293) 01/06/2024 Stress Echo 01/06/2024 US Echo Stress (64992) 01/06/2024 EGD/Colonoscopy 03/19/2024 Encounters Encounter Diagnosis Start Date Code Code Sys tem Abnormal electrocardiogram [ECG] [EKG] 01/06/2024 SNOMED-CT Personal Care Team Section Performer Name Performer Role Active Date Inactive TANISHA Diego PCP - Primary care physician 2024-01-06
[2025-01-19 16:40] VITALS: BP 139/83; PULSE 88; RESP 18; TEMP 36.2; O2SAT 99
--- OUTSIDE RECORDS SUMMARY | 2025-01-19 17:06 | XMS_ITS | Encounter Summary ---
Author Organization [facility] Address [address] [place] [id number] Care Team Providers Care Clipper Counters Name Role Phone Sahil Garza MD Primary Care Provider [phone] Encounter Details Date Type Department Care Team (Late st Contact Info) Description 04/03/2019 Abstract SFL CONVERSION [address] [place] [address] , Generic Conversion, Social History Tobacco Use [...] on filedocumented in this encounter Care Teams Clipper Counters Relationship Specialty Start Date End Date Sahil Garza MD [address] [place] [address] PCP - General INTERNAL MEDICINE 06/21/23 documented as of this encounter
--- OUTSIDE RECORDS SUMMARY | 2025-01-19 17:06 | XMS_ITS ---
Author Organization Unknown Address [address] [place] [phone] Phone Care Team Providers Care Wet Finisher Wool Name Role Phone ORVILLE Pace Attending Unavailable [...] Smoking History Unknown if ever smoked [address] Sex Male Vital Signs Vital Sign Value Unit [place] Value [place] Unit Date/Time Recent/Initial? Code Code System Body Mass Index 28.89 kg/m2 03/19/2024 12:53 Most Recent 34515 -5 LOINC Body Mass Index 28.89 kg/m2 02/24/2024 08:58 Initial 78936 -5 LOINC Systolic Blood Pressure 130 mm[Hg] [...] O2 Saturation 95 % 2023 13:04 Initial 07547 -5 LOINC Pulse 76.0 /min 03/19/2024 13:04 Initial 8867- 4 LOINC Respiration 16 /min 03/19/20 13:04 Initial 9279- 1 LOINC Temperature 36.5 Tiesha 97.7 F 03/19/20 13:04 Initial 8310- 5 LOINC Weight 86.18 kg 190.00 lbs 03/19/2024 12:53 Most Recent 24238 -7 LOINC Weight 86.18 kg 190.00 lbs 02/24/2024 08:58 Initial 35274 -7 LOINC Medications Medication Start Date End Date Route Frequency Dose Code Code System Medication Instructions Home Meds Famotidine 20MG Oral Tablet 03/19/2024 Unknown ORAL ONCE A DAY 20 MILLIGRAMS 052535 RxNorm TAKE 20 MILLIGRAMS ORAL ONCE A [...] flexible, transoral; diagnostic, including col 03/19/2024 completed 63160 CPT Anesthesia for combined uppe r and lower gastrointestinal endoscopic proced 03/19/2024 completed 64735 CPT Colonoscopy, flexible; diagn ostic, including collection of specimen(s) by 03/19/2024 completed 82863 CPT Allergies and Adverse Reactions Allergy Substance Reaction Severity Start Date Concern Status Co de Code System No Known Drug Allergies Active 751233104 SNOMED-CT Plan of Treatment Stress Echo 01/06/2024 US Echo Stress (55397) 01/06/2024 Stress Echo 01/06/2024 US Echo Stress (99740) 01/06/2024 EGD/Colonoscopy 03/19/2024 Encounters Encounter Diagnosis Start Date Code Code Sys tem Epigastric pain 03/19/2024 SNOMED-CT Personal Care Team Section Performer Name Performer Role Active Date Inactive TANISHA Diego PCP - Primary care physician 2024-01-06
--- OUTSIDE RECORDS SUMMARY | 2025-01-19 17:06 | XMS_ITS ---
Author Organization Unknown Address [address] [place] [phone] Phone Care Team Providers Care Sample Examiner Name Role Phone CHRISTY CASTILLO Attending Unavailable [...] Smoking History Unknown if ever smoked [address] Sex Male Medications Medication Start Date End Date Route Frequency Dose Code Code System Medication Instructions Home Meds Famotidine 20MG Oral Tablet 03/19/2024 Unknown ORAL ONCE A DAY 20 MILLIGRAMS 514737 RxNorm TAKE 20 MILLIGRAMS ORAL ONCE A [...] Code System No Known Drug Allergies Active 854219971 SNOMED-CT Plan of Treatment Stress Echo 01/06/2024 US Echo Stress (92223) 01/06/2024 Stress Echo 01/06/2024 US Echo Stress (33051) 01/06/2024 EGD/Colonoscopy 03/19/2024 Encounters Encounter Diagnosis Start Date Code Code Sys tem Abnormal electrocardiogram [ECG] [EKG] 12/16/2023 SNOMED-CT Personal Care Team Section Performer Name Performer Role Active Date Inactive TANISHA Diego PCP - Primary care physician 2024-01-06
--- OUTSIDE RECORDS SUMMARY | 2025-01-19 17:06 | XMS_ITS | Clinical Summary ---
Author Organization [facility] Address [address] [place] [address] Care Team Providers Care Biomedical Equipment Technician Name Role Phone Sahil Garza MD Primary Care Provider [phone] Social History Tobacco Use Types Packs/Day Years [...] patient's age to complete this topic Insurance [facility] C/O PROVIDER SERVICES AMARIS WHEATLEY [id number] Care Teams Biomedical Equipment Technician Relationship Specialty Start Date End Date Sahil Garza MD [address] [place] [phone] PCP - General INTERNAL MEDICINE 06/21/23
--- OUTSIDE RECORDS SUMMARY | 2025-01-19 17:06 | XMS_ITS ---
Author Organization Unknown Address [address] [place] [phone] Phone Care Team Providers Care Orthoptist Name Role Phone CHRISTY CASTILLO Attending Unavailable [...] Smoking History Unknown if ever smoked [address] Sex Male Medications Medication Start Date End Date Route Frequency Dose Code Code System Medication Instructions Home Meds Famotidine 20MG Oral Tablet 03/19/2024 Unknown ORAL ONCE A DAY 20 MILLIGRAMS 055363 RxNorm TAKE 20 MILLIGRAMS ORAL ONCE A [...] Code System No Known Drug Allergies Active 297258784 SNOMED-CT Plan of Treatment Stress Echo 01/06/2024 US Echo Stress (93781) 01/06/2024 Stress Echo 01/06/2024 US Echo Stress (39437) 01/06/2024 EGD/Colonoscopy 03/19/2024 Encounters Encounter Diagnosis Start Date Code Code Sys tem Abnormal electrocardiogram [ECG] [EKG] 01/06/2024 SNOMED-CT Personal Care Team Section Performer Name Performer Role Active Date Inactive TANISHA Diego PCP - Primary care physician 2024-01-06
== END 2025-01-19 16:40 | disposition home or self-care (01) ==
PROVIDERS: Emergency Provider Internal Medicine Critical Care Medicine; PCP Internal Medicine
DX: R10.13 Epigastric pain (principal); K76.89 Other specified diseases of liver; F17.200 Nicotine dependence, unspecified, uncomplicated
CPT/HCPCS: 74177; 96360; 99284; J7120; Q9967

== ENCOUNTER 2025-01-21 08:18 | Outpatient (CLI) | payer OTHER, SELFPAY ==
--- NOTE | ~2025-01-21 | US_ITS ---
US right upper quadrant INDICATION: Follow-up liver cyst seen on CT. PROCEDURE: Realtime right upper abdominal ultrasound. COMPARISON: No prior studies for comparison. FINDINGS: The pancreas is normal without focal mass or pancreatic ductal dilation. No cyst is identi fied. There are 2 hyperechoic lesions present in the right hepatic lobe, largest measuring 2.4 x 2.3 x 1.5 cm, most likely benign hemangiomas in the absence of known malignancy. The larger mass likely c orresponds to the hypodense lesion seen on recent CT. There is normal directional flow in the portal vein. The gallbladder is normal without stones, gallbladder wall thickening or pericholecystic fluid. Comm on bile duct measures mm. No sonographic Pulido's sign. IMPRESSION: 1: There are 2 hyperechoic masses of the right hepatic lobe, largest measuring up to 2.4 cm, most lik jona benign hemangiomas in the absence of known malignancy. Reviewed, dictated and finalized at location A. IMPRESSION: 1: There are 2 hyperechoic masses of the right hepatic lobe, largest measuring up to 2.4 cm, most likely benign hemangiomas in the absence of known malignancy .
--- OUTSIDE RECORDS SUMMARY | 2025-01-21 08:31 | XMS_ITS ---
Author Organization Unknown Address [address] [place] [phone] Phone Care Team Providers Care Shop Girl Name Role Phone ORVILLE Pace Attending Unavailable [...] Smoking History Unknown if ever smoked [address] Sex Male Vital Signs Vital Sign Value Unit Har[place] Value Harney Unit Date/Time Recent/Initial? Code Code System Body Mass Index 28.89 kg/m2 03/19/2024 12:53 Most Recent 20011 -5 LOINC Body Mass Index 28.89 kg/m2 02/24/2024 08:58 Initial 51047 -5 LOINC Systolic Blood Pressure 130 mm[Hg] [...] O2 Saturation 95 % 2023 13:04 Initial 54120 -5 LOINC Pulse 76.0 /min 03/19/2024 13:04 Initial 8867- 4 LOINC Respiration 16 /min 03/19/20 13:04 Initial 9279- 1 LOINC Temperature 36.5 Tiesha 97.7 F 03/19/20 13:04 Initial 8310- 5 LOINC Weight 86.18 kg 190.00 lbs 03/19/2024 12:53 Most Recent 56615 -7 LOINC Weight 86.18 kg 190.00 lbs 02/24/2024 08:58 Initial 40019 -7 LOINC Medications Medication Start Date End Date Route Frequency Dose Code Code System Medication Instructions Home Meds Famotidine 20MG Oral Tablet 03/19/2024 Unknown ORAL ONCE A DAY 20 MILLIGRAMS 550046 RxNorm TAKE 20 MILLIGRAMS ORAL ONCE A [...] flexible, transoral; diagnostic, including col 03/19/2024 completed 51915 CPT Anesthesia for combined uppe r and lower gastrointestinal endoscopic proced 03/19/2024 completed 87431 CPT Colonoscopy, flexible; diagn ostic, including collection of specimen(s) by 03/19/2024 completed 20314 CPT Allergies and Adverse Reactions Allergy Substance Reaction Severity Start Date Concern Status Co de Code System No Known Drug Allergies Active 763452806 SNOMED-CT Plan of Treatment Stress Echo 01/06/2024 US Echo Stress (62791) 01/06/2024 Stress Echo 01/06/2024 US Echo Stress (28090) 01/06/2024 EGD/Colonoscopy 03/19/2024 Encounters Encounter Diagnosis Start Date Code Code Sys tem Epigastric pain 03/19/2024 SNOMED-CT Personal Care Team Section Performer Name Performer Role Active Date Inactive TANISHA Diego PCP - Primary care physician 2024-01-06
--- OUTSIDE RECORDS SUMMARY | 2025-01-21 08:31 | XMS_ITS | Clinical Summary ---
Author Organization [facility] Address [address] [place] [address] Care Team Providers Care Independent Driver Name Role Phone Sahil Garza MD Primary Care Provider [phone] Social History Tobacco Use Types Packs/Day Years [...] patient's age to complete this topic Insurance [facility] C/O PROVIDER SERVICES AMARIS WHEATLEY [id number] Care Teams Independent Driver Relationship Specialty Start Date End Date Sahil Garza MD [address] [place] [phone] PCP - General INTERNAL MEDICINE 06/21/23
--- OUTSIDE RECORDS SUMMARY | 2025-01-21 08:32 | XMS_ITS ---
Author Organization Unknown Address [address] [place] [phone] Phone Care Team Providers Care Customer Service And Sales Consultant Name Role Phone CHRISTY CASTILLO Attending Unavailable [...] Smoking History Unknown if ever smoked [address] Sex Male Medications Medication Start Date End Date Route Frequency Dose Code Code System Medication Instructions Home Meds Famotidine 20MG Oral Tablet 03/19/2024 Unknown ORAL ONCE A DAY 20 MILLIGRAMS 472657 RxNorm TAKE 20 MILLIGRAMS ORAL ONCE A [...] Code System No Known Drug Allergies Active 805347494 SNOMED-CT Plan of Treatment Stress Echo 01/06/2024 US Echo Stress (26925) 01/06/2024 Stress Echo 01/06/2024 US Echo Stress (99440) 01/06/2024 EGD/Colonoscopy 03/19/2024 Encounters Encounter Diagnosis Start Date Code Code Sys tem Abnormal electrocardiogram [ECG] [EKG] 12/16/2023 SNOMED-CT Personal Care Team Section Performer Name Performer Role Active Date Inactive TANISHA Diego PCP - Primary care physician 2024-01-06
--- OUTSIDE RECORDS SUMMARY | 2025-01-21 08:32 | XMS_ITS ---
Author Organization Unknown Address [address] [place] [address] [phone] Phone Care Team Providers Care Roading Engineer Name Role Phone CHRISTY CASTILLO Attending Unavailable [...] Smoking History Unknown if ever smoked [id number] Sex Male Medications Medication Start Date End Date Route Frequency Dose Code Code System Medication Instructions Home Meds Famotidine 20MG Oral Tablet 03/19/2024 Unknown ORAL ONCE A DAY 20 MILLIGRAMS 938747 RxNorm TAKE 20 MILLIGRAMS ORAL ONCE A [...] Code System No Known Drug Allergies Active [id number] SNOMED-CT Plan of Treatment Stress Echo 01/06/2024 US Echo Stress (81993) 01/06/2024 Stress Echo 01/06/2024 US Echo Stress (39985) 01/06/2024 EGD/Colonoscopy 03/19/2024 Encounters Encounter Diagnosis Start Date Code Code Sys tem Abnormal electrocardiogram [ECG] [EKG] 01/06/2024 SNOMED-CT Personal Care Team Section Performer Name Performer Role Active Date Inactive TANISHA Diego PCP - Primary care physician 2024-01-06
--- OUTSIDE RECORDS SUMMARY | 2025-01-21 08:32 | XMS_ITS | Encounter Summary ---
Author Organization [facility] Address [address] [place] [address] Care Team Providers Care Assistant County Engineer Name Role Phone Sahil Garza MD Primary Care Provider [phone] Encounter Details Date Type Department Care Team (Late st Contact Info) Description 04/03/2019 Abstract SFL CONVERSION [address] [place] [address] , Generic Conversion, Social History Tobacco Use [...] on filedocumented in this encounter Care Teams Assistant County Engineer Relationship Specialty Start Date End Date Sahil Garza MD [address] [place] [address] PCP - General INTERNAL MEDICINE 06/21/23 documented as of this encounter
== END 2025-01-21 08:19 | disposition home or self-care (01) ==
LOC: CHSIMG 08:20
PROVIDERS: PCP Internal Medicine; Visit Provider Internal Medicine
DX: R93.2 Abnormal findings on diagnostic imaging of liver and biliary tract (principal); R16.0 Hepatomegaly, not elsewhere classified
CPT/HCPCS: 76705

== ENCOUNTER 2025-01-31 10:27 | Emergency (ER) | payer OTHER, SELFPAY ==
[2025-01-31 10:27] VITALS: BP 124/88; PULSE 75; RESP 18; TEMP 36.6; O2SAT 98
--- NOTE | 2025-01-31 10:34 | ED_ITS ---
HPI - URI/Sore Throat General Chief Complaint: Upper Respiratory Infection Stated Complaint: sore throat Time Seen by Provider: 01/31/25 10:34 Source: patient Mode of arrival: ambulatory Limitations: no limitations History of Present Illness HPI Narrative: 34 years old white male drove himself to the emergency room complaining of weird feeling in the throat like swelling, hoarseness of voice, often on for the last 2 days. A lot of stress lately. He denies any fever or chills or nausea or vomiting or trouble breathing or swallowing. Related Data Allergies Allergy/AdvReac Type Severity Reaction Status Date / Time No Known Allergies Allergy Verified 01/31/25 10:41 Review of Systems Review of Systems: All systems reviewed & are unremarkable except as noted in HPI and below PMFSH Past Medical History Medical History Chest pain SOB (shortness of breath) Anxiety Psychosis Social History Social History Smoking status: Current every day smoker Alcohol intake: current Substance use: current Substance use type: does not use, former substance user and marijuana Other substance usage details: Infrequent Living arrangements: alone Exam Narrative: General appearance: Well-developed, well-nourished, anxious, hyperventilating Skin: Normal color Head: Normocephalic, nontraumatic Eyes: Clear conjunctiva ENT: Oropharynx normal, ears normal, nose normal , slightly enlarged, erythematous uvula Neck: Supple, nontender Chest and respiratory: Airway patent, no respiratory distress, no accessory muscle use Heart: Regular rate/rhythm Abdomen: Soft, nontender, no organomegaly, quiet bowel sounds Vascular: Normal peripheral pulses, normal capillary refill. Musculoskeletal: Normal range of motion, nontender back Neurologic: Alert and oriented ?3, GOLF CART REPAIRER is normal as tested, no gross motor deficit Course Vital Signs Vital signs: Vital Signs Temperature 36.6 C 01/31/25 10:27 Pulse Rate 75 01/31/25 10:27 Respiratory Rate 18 01/31/25 10:27 Blood Pressure 124/88 01/31/25 10:27 Pulse Oximetry 98 01/31/25 10:27 Oxygen Delivery Room Air 01/31/25 10:27 Temperature 36.6 C 01/31/25 10:27 Pulse Rate 75 01/31/25 10:27 Respiratory Rate 18 01/31/25 10:27 Blood Pressure 124/88 01/31/25 10:27 Pulse Oximetry 98 01/31/25 10:38 Oxygen Delivery Room Air 01/31/25 10:38 MDM - URI/Sore Throat MDM Narrative Medical decision making narrative: differential diagnosis include strep throat, viral pharyngitis, uvulitis. Patient tested negative for strep Past history negative for COVID flu RSV. Patient received 10 mg of Decadron I am prior to discharge with remarkable improvement Patient very anxious and restless, history of anxiety, requested 1 tablet of Xanax prior to discharge. Diagnosis pharyngitis and or uvulitis, discharged on a Zyrtec. Discharge the pt was discharged to home.the pt,s condition upon discharge was fair,education was provided to the pt in reference to the final impression,discharge study results,treatment,prognosis and need for follow up . Differential Diagnosis Differential diagnosis: Likely upper respiratory infection, viral infection, pharyngitis and other Medical Records Attestation: I reviewed the patient's medical records. Lab Data Attestation: I reviewed the patient's lab results. Labs: Lab Results 01/31/25 Range/Units 10:05 Influenza A (RT-PCR) Negative (Negative) Influenza B (RT-PCR) Negative (Negative) RSV (RT-PCR) Negative (Negative) SARS-CoV-2 RNA (RT-PCR) Negative (Negative) Group A Strep (PCR) Not detected (Negative) Critical Care Time Critical Care Time Critical Care Time: No Discharge Plan Discharge Clinical Impression: Pharyngitis, Uvulitis Patient Disposition: Home Condition: Stable Instructions: Pharyngitis (ED), Uvulitis (ED) Additional Instructions: Return if symptoms are worsening , call your family physician for appointment, take Tylenol, ibuprofen as as needed for aches and pain, continue home medications. Gargle with warm salt water, Get plenty of rest, drink plenty of fluid to stay hydrated Get jfhx-htn-iemffli throat lozenges Patient Language: Serbian Prescriptions: New cetirizine 10 mg tablet,disintegrating 10 mg PO BID PRN (Reason: allergy symptoms) Qty: 14 0RF No Action alprazolam [Xanax] 0.5 mg tablet 0.5 mg PO BID PRN (Reason: anxiety) Qty: 30 0RF famotidine [Pepcid] 40 mg tablet 40 mg PO HS Qty: 30 0RF Follow-up/Referrals: Sahil Garza MD [Primary Care Provider] - Stand Alone Forms: Work/School Release IP
[2025-01-31 10:38] VITALS: O2SAT 98
--- NOTE | 2025-01-31 10:39 | PC.NURSE ---
covid culture sent to lab
[2025-01-31] MEDS: dexAMETHasone SOD PHOS INJ 10 MG/ML 1 ML VIAL IM (10:57)
[2025-01-31 11:40] LABS: Influenza A QL RT-PCR Negative (Negative); Influenza B QL RT-PCR Negative (Negative); RSV RNA, RT-PCR Negative (Negative); SARS-CoV-2 RNA PCR Negative (Negative); Strep Group A RT-PCR Not Detected (Negative)
--- OUTSIDE RECORDS SUMMARY | 2025-01-31 11:56 | XMS_ITS ---
Author Organization Unknown Address [address] [place] [address] [phone] Phone Care Team Providers Care Inside Parts Sales Name Role Phone CHRISTY CASTILLO Attending Unavailable [...] Smoking History Unknown if ever smoked [id number] Sex Male Medications Medication Start Date End Date Route Frequency Dose Code Code System Medication Instructions Home Meds Famotidine 20MG Oral Tablet 03/19/2024 Unknown ORAL ONCE A DAY 20 MILLIGRAMS 135083 RxNorm TAKE 20 MILLIGRAMS ORAL ONCE A [...] Code System No Known Drug Allergies Active 013398581 SNOMED-CT Plan of Treatment Stress Echo 01/06/2024 US Echo Stress (09707) 01/06/2024 Stress Echo 01/06/2024 US Echo Stress (09848) 01/06/2024 EGD/Colonoscopy 03/19/2024 Encounters Encounter Diagnosis Start Date Code Code Sys tem Abnormal electrocardiogram [ECG] [EKG] 12/16/2023 SNOMED-CT Personal Care Team Section Performer Name Performer Role Active Date Inactive TANISHA Diego PCP - Primary care physician 2024-01-06
--- OUTSIDE RECORDS SUMMARY | 2025-01-31 11:56 | XMS_ITS | Clinical Summary ---
Author Organization [facility] Address [address] [place] [address] Care Team Providers Care Pheresis Specialist Name Role Phone Sahil Garza MD Primary Care Provider [phone] Social History Tobacco Use Types Packs/Day Years [...] 2009 COVID-19 Vaccine (2023-2 5 season) 2024 HPV Vaccines Aged Out No longer [...] patient's age to complete this topic Insurance [facility] C/O PROVIDER SERVICES AMARIS WHEATLEY [id number] Care Teams Pheresis Specialist Relationship Specialty Start Date End Date Sahil Garza MD [address] [place] [address] PCP - General INTERNAL MEDICINE 06/21/23
--- OUTSIDE RECORDS SUMMARY | 2025-01-31 11:56 | XMS_ITS ---
Author Organization Unknown Address [address] [place] [phone] Phone Care Team Providers Care X Ray Service Engineer Name Role Phone ORVILLE Pace Attending Unavailable MARK BLUNT CRNA Unavailable DARYL AGRAY Primary Unavailable Immunization Immunization Date Status Additional [...] Smoking History Unknown if ever smoked [id number] Sex Male Vital Signs Vital Sign Value Unit Stearns Value Stearns Unit Date/Time Recent/Initial? Code Code System Body Mass Index 28.89 kg/m2 03/19/2024 12:53 Most Recent 39275 -5 LOINC Body Mass Index 28.89 kg/m2 02/24/2024 08:58 Initial 28509 -5 LOINC Systolic Blood Pressure 130 mm[Hg] [...] O2 Saturation 95 % 2023 13:04 Initial 00960 -5 LOINC Pulse 76.0 /min 03/19/2024 13:04 Initial 8867- 4 LOINC Respiration 16 /min 03/19/20 13:04 Initial 9279- 1 LOINC Temperature 36.5 Tiesha 97.7 F 03/19/20 13:04 Initial 8310- 5 LOINC Weight 86.18 kg 190.00 lbs 03/19/2024 12:53 Most Recent 95970 -7 LOINC Weight 86.18 kg 190.00 lbs 02/24/2024 08:58 Initial 73160 -7 LOINC Medications Medication Start Date End Date Route Frequency Dose Code Code System Medication Instructions Home Meds Famotidine 20MG Oral Tablet 03/19/2024 Unknown ORAL ONCE A DAY 20 MILLIGRAMS 934207 RxNorm TAKE 20 MILLIGRAMS ORAL ONCE A [...] flexible, transoral; diagnostic, including col 03/19/2024 completed 22527 CPT Anesthesia for combined uppe r and lower gastrointestinal endoscopic proced 03/19/2024 completed 76229 CPT Colonoscopy, flexible; diagn ostic, including collection of specimen(s) by 03/19/2024 completed 45955 CPT Allergies and Adverse Reactions Allergy Substance Reaction Severity Start Date Concern Status Co de Code System No Known Drug Allergies Active 446974416 SNOMED-CT Plan of Treatment Stress Echo 01/06/2024 US Echo Stress (53880) 01/06/2024 Stress Echo 01/06/2024 US Echo Stress (12434) 01/06/2024 EGD/Colonoscopy 03/19/2024 Encounters Encounter Diagnosis Start Date Code Code Sys tem Epigastric pain 03/19/2024 SNOMED-CT Personal Care Team Section Performer Name Performer Role Active Date Inactive TANISHA Diego PCP - Primary care physician 2024-01-06
--- OUTSIDE RECORDS SUMMARY | 2025-01-31 11:57 | XMS_ITS ---
Author Organization Unknown Address [address] [place] [address] [phone] Phone Care Team Providers Care Defence Force Member Other Ranks Name Role Phone CHRISTY CASTILLO Attending Unavailable [...] Smoking History Unknown if ever smoked [address] Sex Male Medications Medication Start Date End Date Route Frequency Dose Code Code System Medication Instructions Home Meds Famotidine 20MG Oral Tablet 03/19/2024 Unknown ORAL ONCE A DAY 20 MILLIGRAMS 370988 RxNorm TAKE 20 MILLIGRAMS ORAL ONCE A [...] Code System No Known Drug Allergies Active 117752274 SNOMED-CT Plan of Treatment Stress Echo 01/06/2024 US Echo Stress (39490) 01/06/2024 Stress Echo 01/06/2024 US Echo Stress (12771) 01/06/2024 EGD/Colonoscopy 03/19/2024 Encounters Encounter Diagnosis Start Date Code Code Sys tem Abnormal electrocardiogram [ECG] [EKG] 01/06/2024 SNOMED-CT Personal Care Team Section Performer Name Performer Role Active Date Inactive TANISHA Diego PCP - Primary care physician 2024-01-06
--- OUTSIDE RECORDS SUMMARY | 2025-01-31 11:57 | XMS_ITS | Encounter Summary ---
Author Organization [facility] Address [address] [place] [address] Care Team Providers Care Land Surveying Manager Name Role Phone Sahil Garza MD Primary Care Provider [phone] Encounter Details Date Type Department Care Team (Late st Contact Info) Description 04/03/2019 Abstract SFL CONVERSION [address] [place] [address] , Generic Conversion, Social History Tobacco Use [...] on filedocumented in this encounter Care Teams Land Surveying Manager Relationship Specialty Start Date End Date Sahil Garza MD [address] [place] [address] PCP - General INTERNAL MEDICINE 06/21/23 documented as of this encounter
[2025-01-31 12:19] VITALS: BP 121/88; PULSE 71; RESP 18; TEMP 36.6; O2SAT 97
--- OUTSIDE RECORDS SUMMARY | 2025-01-31 12:43 | XMS_ITS | Clinical Summary ---
Author Organization [facility] Address [address] [place] [address] Care Team Providers Care Jigger Artisan Name Role Phone Sahil Garza MD Primary Care Provider [phone] Social History Tobacco Use Types Packs/Day Years [...] patient's age to complete this topic Insurance [facility] C/O PROVIDER SERVICES AMARIS WHEATLEY [id number] Care Teams Jigger Artisan Relationship Specialty Start Date End Date Sahil Garza MD [address] [place] [address] PCP - General INTERNAL MEDICINE 06/21/23
--- OUTSIDE RECORDS SUMMARY | 2025-01-31 12:43 | XMS_ITS ---
Author Organization Unknown Address [address] [place] [address] [phone] Phone Care Team Providers Care Group Program Manager Name Role Phone CHRISTY CASTILLO Attending Unavailable [...] Smoking History Unknown if ever smoked [address] Sex Male Medications Medication Start Date End Date Route Frequency Dose Code Code System Medication Instructions Home Meds Famotidine 20MG Oral Tablet 03/19/2024 Unknown ORAL ONCE A DAY 20 MILLIGRAMS 458495 RxNorm TAKE 20 MILLIGRAMS ORAL ONCE A [...] Code System No Known Drug Allergies Active 993399715 SNOMED-CT Plan of Treatment Stress Echo 01/06/2024 US Echo Stress (52405) 01/06/2024 Stress Echo 01/06/2024 US Echo Stress (58113) 01/06/2024 EGD/Colonoscopy 03/19/2024 Encounters Encounter Diagnosis Start Date Code Code Sys tem Abnormal electrocardiogram [ECG] [EKG] 12/16/2023 SNOMED-CT Personal Care Team Section Performer Name Performer Role Active Date Inactive TANISHA Diego PCP - Primary care physician 2024-01-06
--- OUTSIDE RECORDS SUMMARY | 2025-01-31 12:43 | XMS_ITS | Encounter Summary ---
Author Organization [facility] Address [address] [place] [address] Care Team Providers Care Space Engineer Name Role Phone Sahil Garza MD Primary Care Provider [phone] Encounter Details Date Type Department Care Team (Late st Contact Info) Description 04/03/2019 Abstract SFL CONVERSION [address] [place] [address] , Generic Conversion, Social History Tobacco Use [...] on filedocumented in this encounter Care Teams Space Engineer Relationship Specialty Start Date End Date Sahil Garza MD [address] [place] [address] PCP - General INTERNAL MEDICINE 06/21/23 documented as of this encounter
--- OUTSIDE RECORDS SUMMARY | 2025-01-31 12:43 | XMS_ITS ---
Author Organization Unknown Address [address] [place] [address] [phone] Phone Care Team Providers Care Finance Advisor Name Role Phone ORVILLE Pace Attending Unavailable [...] Smoking History Unknown if ever smoked [address] Sex Male Vital Signs Vital Sign Value Unit [place]mun[place] Value Edmunds Unit Date/Time Recent/Initial? Code Code System Body Mass Index 28.89 kg/m2 03/19/2024 12:53 Most Recent 78480 -5 LOINC Body Mass Index 28.89 kg/m2 02/24/2024 08:58 Initial 02111 -5 LOINC Systolic Blood Pressure 130 mm[Hg] [...] O2 Saturation 95 % 2023 13:04 Initial 64029 -5 LOINC Pulse 76.0 /min 03/19/2024 13:04 Initial 8867- 4 LOINC Respiration 16 /min 03/19/20 13:04 Initial 9279- 1 LOINC Temperature 36.5 Tiesha 97.7 F 03/19/20 13:04 Initial 8310- 5 LOINC Weight 86.18 kg 190.00 lbs 03/19/2024 12:53 Most Recent 84510 -7 LOINC Weight 86.18 kg 190.00 lbs 02/24/2024 08:58 Initial 52127 -7 LOINC Medications Medication Start Date End Date Route Frequency Dose Code Code System Medication Instructions Home Meds Famotidine 20MG Oral Tablet 03/19/2024 Unknown ORAL ONCE A DAY 20 MILLIGRAMS 712278 RxNorm TAKE 20 MILLIGRAMS ORAL ONCE A [...] flexible, transoral; diagnostic, including col 03/19/2024 completed 75768 CPT Anesthesia for combined uppe r and lower gastrointestinal endoscopic proced 03/19/2024 completed 35385 CPT Colonoscopy, flexible; diagn ostic, including collection of specimen(s) by 03/19/2024 completed 61192 CPT Allergies and Adverse Reactions Allergy Substance Reaction Severity Start Date Concern Status Co de Code System No Known Drug Allergies Active 926835027 SNOMED-CT Plan of Treatment Stress Echo 01/06/2024 US Echo Stress (87373) 01/06/2024 Stress Echo 01/06/2024 US Echo Stress (83200) 01/06/2024 EGD/Colonoscopy 03/19/2024 Encounters Encounter Diagnosis Start Date Code Code Sys tem Epigastric pain 03/19/2024 SNOMED-CT Personal Care Team Section Performer Name Performer Role Active Date Inactive TANISHA Diego PCP - Primary care physician 2024-01-06
--- OUTSIDE RECORDS SUMMARY | 2025-01-31 12:43 | XMS_ITS ---
Author Organization Unknown Address [address] [place] [address] [phone] Phone Care Team Providers Care Metal Products Viewer Name Role Phone CHRISTY CASTILLO Attending Unavailable [...] Smoking History Unknown if ever smoked [address] Sex Male Medications Medication Start Date End Date Route Frequency Dose Code Code System Medication Instructions Home Meds Famotidine 20MG Oral Tablet 03/19/2024 Unknown ORAL ONCE A DAY 20 MILLIGRAMS 830456 RxNorm TAKE 20 MILLIGRAMS ORAL ONCE A [...] Code System No Known Drug Allergies Active 347883406 SNOMED-CT Plan of Treatment Stress Echo 01/06/2024 US Echo Stress (96459) 01/06/2024 Stress Echo 01/06/2024 US Echo Stress (28909) 01/06/2024 EGD/Colonoscopy 03/19/2024 Encounters Encounter Diagnosis Start Date Code Code Sys tem Abnormal electrocardiogram [ECG] [EKG] 01/06/2024 SNOMED-CT Personal Care Team Section Performer Name Performer Role Active Date Inactive TANISHA Diego PCP - Primary care physician 2024-01-06
== END 2025-01-31 12:40 | disposition home or self-care (01) ==
PROVIDERS: Emergency Provider Emergency Medicine; PCP Internal Medicine
DX: K12.2 Cellulitis and abscess of mouth (principal); J02.9 Acute pharyngitis, unspecified; F17.200 Nicotine dependence, unspecified, uncomplicated; Z20.822 Contact with and (suspected) exposure to COVID-19
CPT/HCPCS: 87637; 87651; 96372; 99283; J1100

== ENCOUNTER 2025-02-18 00:58 | Emergency (ER) | payer OTHER, SELFPAY ==
--- NOTE | ~2025-02-18 | CT_ITS ---
Non-contrast Head CT History: Dizziness, headache Technique: Axial non-contrast imaging of the brain was performed. Dose reduction technique was used on this scan by utilizing automated exposure control and iterative reconstruction technique. The dose -length product (DLP) was 681.00 mGy-cm. Findings: There is no evidence of intracranial hemorrhage, mass lesion, or acute infarct. Brain par enchyma appears normal. The ventricles and subarachnoid spaces are normal in size. The calvarium ap pears normal. The visualized paranasal sinuses and mastoid air cells are clear. Impression: No significant abnormality seen. Reviewed, dictated and finalized at location . Impression: No significant abnormality seen.
[2025-02-18 00:58] VITALS: BP 134/94; PULSE 91; RESP 20; TEMP 36.7; O2SAT 95
--- OUTSIDE RECORDS SUMMARY | 2025-02-18 01:01 | XMS_ITS ---
Author Organization Unknown Address [address] [place] [phone] Phone Care Team Providers Care Business Development Manager Name Role Phone ORVILLE Pace Attending [...] Smoking History Unknown if ever smoked [address] Sex Male Vital Signs Vital Sign Value Unit [place] Value [place] Unit Date/Time Recent/Initial? Code Code System Body Mass Index 28.89 kg/m2 03/19/2024 12:53 Most Recent 60032 -5 LOINC Body Mass Index 28.89 kg/m2 02/24/2024 08:58 Initial 32916 -5 LOINC Systolic Blood Pressure 130 mm[Hg] [...] O2 Saturation 95 % 2023 13:04 Initial 08930 -5 LOINC Pulse 76.0 /min 03/19/2024 13:04 Initial 8867- 4 LOINC Respiration 16 /min 03/19/20 13:04 Initial 9279- 1 LOINC Temperature 36.5 Tiesha 97.7 F 03/19/20 13:04 Initial 8310- 5 LOINC Weight 86.18 kg 190.00 lbs 03/19/2024 12:53 Most Recent 43585 -7 LOINC Weight 86.18 kg 190.00 lbs 02/24/2024 08:58 Initial 63317 -7 LOINC Medications Medication Start Date End Date Route Frequency Dose Code Code System Medication Instructions Home Meds Famotidine 20MG Oral Tablet 03/19/2024 Unknown ORAL ONCE A DAY 20 MILLIGRAMS 893723 RxNorm TAKE 20 MILLIGRAMS ORAL ONCE A [...] flexible, transoral; diagnostic, including col 03/19/2024 completed 47994 CPT Anesthesia for combined uppe r and lower gastrointestinal endoscopic proced 03/19/2024 completed 18584 CPT Colonoscopy, flexible; diagn ostic, including collection of specimen(s) by 03/19/2024 completed 92591 CPT Allergies and Adverse Reactions Allergy Substance Reaction Severity Start Date Concern Status Co de Code System No Known Drug Allergies Active 853268576 SNOMED-CT Plan of Treatment Stress Echo 01/06/2024 US Echo Stress (49439) 01/06/2024 Stress Echo 01/06/2024 US Echo Stress (06624) 01/06/2024 EGD/Colonoscopy 03/19/2024 Encounters Encounter Diagnosis Start Date Code Code Sys tem Epigastric pain 03/19/2024 SNOMED-CT Personal Care Team Section Performer Name Performer Role Active Date Inactive TANISHA Diego PCP - Primary care physician 2024-01-06
--- OUTSIDE RECORDS SUMMARY | 2025-02-18 01:01 | XMS_ITS | Encounter Summary ---
Author Organization [facility] Address [address] [place] [address] Care Team Providers Care Welfare Visitor Name Role Phone Sahil Garza MD Primary Care Provider [phone] Encounter Details Date Type Department Care Team (Late st Contact Info) Description 04/03/2019 Abstract SFL CONVERSION [address] [place] [address] , Generic Conversion, Social History Tobacco Use [...] on filedocumented in this encounter Care Teams Welfare Visitor Relationship Specialty Start Date End Date Sahil Garza MD [address] [place] [address] PCP - General INTERNAL MEDICINE 06/21/23 documented as of this encounter
--- OUTSIDE RECORDS SUMMARY | 2025-02-18 01:01 | XMS_ITS ---
Author Organization Unknown Address [address] [place] [phone] Phone Care Team Providers Care Building Cleaning Supervisor Name Role Phone CHRISTY CASTILLO Attending Unavailable [...] Smoking History Unknown if ever smoked [address] Sex Male Medications Medication Start Date End Date Route Frequency Dose Code Code System Medication Instructions Home Meds Famotidine 20MG Oral Tablet 03/19/2024 Unknown ORAL ONCE A DAY 20 MILLIGRAMS 633521 RxNorm TAKE 20 MILLIGRAMS ORAL ONCE A [...] Code System No Known Drug Allergies Active 498340147 SNOMED-CT Plan of Treatment Stress Echo 01/06/2024 US Echo Stress (58000) 01/06/2024 Stress Echo 01/06/2024 US Echo Stress (65097) 01/06/2024 EGD/Colonoscopy 03/19/2024 Encounters Encounter Diagnosis Start Date Code Code Sys tem Abnormal electrocardiogram [ECG] [EKG] 01/06/2024 SNOMED-CT Personal Care Team Section Performer Name Performer Role Active Date Inactive TANISHA Diego PCP - Primary care physician 2024-01-06
--- OUTSIDE RECORDS SUMMARY | 2025-02-18 01:01 | XMS_ITS | Clinical Summary ---
Author Organization [facility] Address [address] [place] [address] Care Team Providers Care Senior Front End Engineer Name Role Phone Sahil Garza MD Primary Care Provider [phone] Social History Tobacco Use Types Packs/Day Years [...] 5 Years) and At-Risk Patients (6 to 49 Years) Aged Out No longer eligible b ased on patient's age to complete this topic RSV Immunizations Under 20 Months Aged Out No longer eligible based on patient's age to complete this topic Insurance [facility] C/O PROVIDER SERVICES AMAR[place]ATLEY [id number] Care Teams Senior Front End Engineer Relationship Specialty Start Date End Date Sahil Garza MD [address] [place] [address] PCP - General INTERNAL MEDICINE 06/21/23
--- OUTSIDE RECORDS SUMMARY | 2025-02-18 01:01 | XMS_ITS ---
Author Organization Unknown Address [address] [place] [address] [phone] Phone Care Team Providers Care Log Preparer Name Role Phone CHRISTY CASTILLO Attending Unavailable [...] Smoking History Unknown if ever smoked [id number] Sex Male Medications Medication Start Date End Date Route Frequency Dose Code Code System Medication Instructions Home Meds Famotidine 20MG Oral Tablet 03/19/2024 Unknown ORAL ONCE A DAY 20 MILLIGRAMS 888384 RxNorm TAKE 20 MILLIGRAMS ORAL ONCE A [...] Code System No Known Drug Allergies Active 660339921 SNOMED-CT Plan of Treatment Stress Echo 01/06/2024 US Echo Stress (50385) 01/06/2024 Stress Echo 01/06/2024 US Echo Stress (93586) 01/06/2024 EGD/Colonoscopy 03/19/2024 Encounters Encounter Diagnosis Start Date Code Code Sys tem Abnormal electrocardiogram [ECG] [EKG] 12/16/2023 SNOMED-CT Personal Care Team Section Performer Name Performer Role Active Date Inactive TANISHA Diego PCP - Primary care physician 2024-01-06
--- OUTSIDE RECORDS SUMMARY | 2025-02-18 01:07 | XMS_ITS ---
Author Organization Unknown Address [address] [place] [address] [phone] Phone Care Team Providers Care Ranch Helper Name Role Phone ORVILLE Pace Attending Unavailable [...] Smoking History Unknown if ever smoked [id number] Sex Male Vital Signs Vital Sign Value Unit [place] Value [place] [facility] Date/Time Recent/Initial? Code Code System Body Mass Index 28.89 kg/m2 03/19/2024 12:53 Most Recent 65672 -5 LOINC Body Mass Index 28.89 kg/m2 02/24/2024 08:58 Initial 66924 -5 LOINC Systolic Blood Pressure 130 mm[Hg] [...] O2 Saturation 95 % 2023 13:04 Initial 34007 -5 LOINC Pulse 76.0 /min 03/19/2024 13:04 Initial 8867- 4 LOINC Respiration 16 /min 03/19/20 13:04 Initial 9279- 1 LOINC Temperature 36.5 Tiesha 97.7 F 03/19/20 13:04 Initial 8310- 5 LOINC Weight 86.18 kg 190.00 lbs 03/19/2024 12:53 Most Recent 88835 -7 LOINC Weight 86.18 kg 190.00 lbs 02/24/2024 08:58 Initial 66448 -7 LOINC Medications Medication Start Date End Date Route Frequency Dose Code Code System Medication Instructions Home Meds Famotidine 20MG Oral Tablet 03/19/2024 Unknown ORAL ONCE A DAY 20 MILLIGRAMS 737731 RxNorm TAKE 20 MILLIGRAMS ORAL ONCE A [...] flexible, transoral; diagnostic, including col 03/19/2024 completed 22397 CPT Anesthesia for combined uppe r and lower gastrointestinal endoscopic proced 03/19/2024 completed 02461 CPT Colonoscopy, flexible; diagn ostic, including collection of specimen(s) by 03/19/2024 completed 50622 CPT Allergies and Adverse Reactions Allergy Substance Reaction Severity Start Date Concern Status Co de Code System No Known Drug Allergies Active 843340761 SNOMED-CT Plan of Treatment Stress Echo 01/06/2024 US Echo Stress (83672) 01/06/2024 Stress Echo 01/06/2024 US Echo Stress (73161) 01/06/2024 EGD/Colonoscopy 03/19/2024 Encounters Encounter Diagnosis Start Date Code Code Sys tem Epigastric pain 03/19/2024 SNOMED-CT Personal Care Team Section Performer Name Performer Role Active Date Inactive TANISHA Diego PCP - Primary care physician 2024-01-06
--- OUTSIDE RECORDS SUMMARY | 2025-02-18 01:07 | XMS_ITS ---
Author Organization Unknown Address [address] [place] [address] [phone] Phone Care Team Providers Care Manager Global Name Role Phone CHRISTY CASTILLO Attending Unavailable [...] Smoking History Unknown if ever smoked [id number] Sex Male Medications Medication Start Date End Date Route Frequency Dose Code Code System Medication Instructions Home Meds Famotidine 20MG Oral Tablet 03/19/2024 Unknown ORAL ONCE A DAY 20 MILLIGRAMS 622125 RxNorm TAKE 20 MILLIGRAMS ORAL ONCE A [...] Code System No Known Drug Allergies Active 112499942 SNOMED-CT Plan of Treatment Stress Echo 01/06/2024 US Echo Stress (71797) 01/06/2024 Stress Echo 01/06/2024 US Echo Stress (40180) 01/06/2024 EGD/Colonoscopy 03/19/2024 Encounters Encounter Diagnosis Start Date Code Code Sys tem Abnormal electrocardiogram [ECG] [EKG] 12/16/2023 SNOMED-CT Personal Care Team Section Performer Name Performer Role Active Date Inactive TANISHA Diego PCP - Primary care physician 2024-01-06
--- OUTSIDE RECORDS SUMMARY | 2025-02-18 01:07 | XMS_ITS ---
Author Organization Unknown Address [address] [place] [address] [phone] Phone Care Team Providers Care Retail Special Event Associate Name Role Phone CHRISTY CASTILLO Attending Unavailable DARYL AGRAY Primary Unavailable Immunization Immunization [...] Smoking History Unknown if ever smoked [address] Sex Male Medications Medication Start Date End Date Route Frequency Dose Code Code System Medication Instructions Home Meds Famotidine 20MG Oral Tablet 03/19/2024 Unknown ORAL ONCE A DAY 20 MILLIGRAMS 374759 RxNorm TAKE 20 MILLIGRAMS ORAL ONCE A [...] Code System No Known Drug Allergies Active 921687572 SNOMED-CT Plan of Treatment Stress Echo 01/06/2024 US Echo Stress (51120) 01/06/2024 Stress Echo 01/06/2024 US Echo Stress (55010) 01/06/2024 EGD/Colonoscopy 03/19/2024 Encounters Encounter Diagnosis Start Date Code Code Sys tem Abnormal electrocardiogram [ECG] [EKG] 01/06/2024 SNOMED-CT Personal Care Team Section Performer Name Performer Role Active Date Inactive TANISHA Diego PCP - Primary care physician 2024-01-06
--- NOTE | 2025-02-18 01:08 | ED_ITS ---
HPI - Dizziness General Chief Complaint: Dizziness Stated Complaint: Dizziness Source: patient Mode of arrival: ambulatory Limitations: no limitations History of Present Illness HPI Narrative: this is a 34-year-old male with no significant past medical history presents with some episodes of dizziness and lightheadedness with no neurological deficits no fever chills no chest pain or shortness of breath no nausea vomiting no abdominal pain no headache or blurry vision. MD elicited complaint: dizziness and lightheadedness Onset (ago): hour(s) Timing: gradual onset Severity: mild Related Data Allergies Allergy/AdvReac Type Severity Reaction Status Date / Time No Known Allergies Allergy Verified 01/31/25 10:41 Review of Systems Review of Systems: All systems reviewed & are unremarkable except as noted in HPI and below PMFSH Past Medical History Medical History Chest pain SOB (shortness of breath) Anxiety Psychosis Social History Social History Smoking status: Current every day smoker Alcohol intake: current Substance use: current Substance use type: does not use, former substance user and marijuana Other substance usage details: Infrequent Living arrangements: alone Exam Const: General: healthy appearing and no acute distress Nutritional Appearance: well nourished Orientation/consciousness: patient oriented x3 Limitations: no limitations HENMT: Head: normal to inspection Eyes: Conjunctivae: conjunctivae normal Pupils: Equal, round and reactive pupils present EOM: EOMs intact bilaterally Neck: Neck: normal visual inspection Chest: Chest palpation & inspection: normal inspection of the chest Resp: Effort & Inspection: normal respiratory effort Auscultation: clear to auscultation bilaterally Cardio: Rate: regular rate Rhythm: regular rhythm GI: GI Palp: Yes Soft to palpation Auscultation: normal bowel sounds : General: Yes bladder normal to palpation Urinary Catheter: Urinary Catheter: patent and draining Skin: General skin exam: normal color Rashes: no rashes Neuro: General: patient oriented x3 and moves all extremities Extrem: General: normal to inspection Psych: Mental Status: mental status grossly normal Affect: normal affect Course Course Emergency Course: patient had an episode where he felt faint and dizzy CT scan performed showed no acute abnormalities patient symptoms have improved and discharged with meclizine and follow up with his primary care physician. Critical Care Time Critical Care Time Critical Care Time: No Discharge Plan Discharge Clinical Impression: Dizziness Patient Disposition: Home Condition: Stable Instructions: Antibiotic Form, Lightheadedness (ED), Dizziness (ED) Additional Instructions: advised to follow-up with primary care physician and take medicine as prescribed. Patient Language: Occitan Prescriptions: New meclizine 25 mg tablet 25 mg PO TID Qty: 14 0RF No Action alprazolam [Xanax] 0.5 mg tablet 0.5 mg PO BID PRN (Reason: anxiety) Qty: 30 0RF famotidine [Pepcid] 40 mg tablet 40 mg PO HS Qty: 30 0RF cetirizine 10 mg tablet,disintegrating 10 mg PO BID PRN (Reason: allergy symptoms) Qty: 14 0RF Follow-up/Referrals: Sahil Garza MD [Primary Care Provider] -
== END 2025-02-18 02:05 | disposition home or self-care (01) ==
PROVIDERS: Emergency Provider Emergency Medicine; PCP Internal Medicine
DX: R42 Dizziness and giddiness (principal); F17.200 Nicotine dependence, unspecified, uncomplicated
CPT/HCPCS: 70450; 99284

== ENCOUNTER 2025-03-26 06:30 | Emergency (ER) | payer OTHER, SELFPAY ==
[2025-03-26 06:30] VITALS: BP 128/85; PULSE 73; RESP 15; TEMP 36.4; O2SAT 96
--- OUTSIDE RECORDS SUMMARY | 2025-03-26 06:32 | XMS_ITS ---
Author Organization Unknown Address [address] [place] [address] [phone] Phone Care Team Providers Care Adjunct Nursing Faculty Name Role Phone CHRISTY CASTILLO Attending Unavailable [...] Smoking History Unknown if ever smoked [address] Sex Male Medications Medication Start Date End Date Route Frequency Dose Code Code System Medication Instructions Home Meds Famotidine 20MG Oral Tablet 03/19/2024 Unknown ORAL ONCE A DAY 20 MILLIGRAMS 086053 RxNorm TAKE 20 MILLIGRAMS ORAL ONCE A [...] Code System No Known Drug Allergies Active 544679066 SNOMED-CT Plan of Treatment Stress Echo 01/06/2024 US Echo Stress (72788) 01/06/2024 Stress Echo 01/06/2024 US Echo Stress (31693) 01/06/2024 EGD/Colonoscopy 03/19/2024 Encounters Encounter Diagnosis Start Date Code Code Sys tem Abnormal electrocardiogram [ECG] [EKG] 01/06/2024 SNOMED-CT Personal Care Team Section Performer Name Performer Role Active Date Inactive TANISHA Diego PCP - Primary care physician 2024-01-06
--- OUTSIDE RECORDS SUMMARY | 2025-03-26 06:32 | XMS_ITS ---
Author Organization Unknown Address [address] [place] [address] [phone] Phone Care Team Providers Care Maintenance Analyst Name Role Phone CHRISTY CASTILLO Attending Unavailable [...] Smoking History Unknown if ever smoked [address] Sex Male Medications Medication Start Date End Date Route Frequency Dose Code Code System Medication Instructions Home Meds Famotidine 20MG Oral Tablet 03/19/2024 Unknown ORAL ONCE A DAY 20 MILLIGRAMS 478468 RxNorm TAKE 20 MILLIGRAMS ORAL ONCE A [...] Code System No Known Drug Allergies Active 746374958 SNOMED-CT Plan of Treatment Stress Echo 01/06/2024 US Echo Stress (26279) 01/06/2024 Stress Echo 01/06/2024 US Echo Stress (00437) 01/06/2024 EGD/Colonoscopy 03/19/2024 Encounters Encounter Diagnosis Start Date Code Code Sys tem Abnormal electrocardiogram [ECG] [EKG] 12/16/2023 SNOMED-CT Personal Care Team Section Performer Name Performer Role Active Date Inactive TANISHA Diego PCP - Primary care physician 2024-01-06
--- OUTSIDE RECORDS SUMMARY | 2025-03-26 06:33 | XMS_ITS ---
Author Organization Unknown Address [address] [place] [address] [phone] Phone Care Team Providers Care Opinion Polls Survey Worker Name Role Phone ORVILLE Pace Attending Unavailable [...] Smoking History Unknown if ever smoked [id number] Sex Male Vital Signs Vital Sign Value Unit [place] Value [place] [facility] Date/Time Recent/Initial? Code Code System Body Mass Index 28.89 kg/m2 03/19/2024 12:53 Most Recent 41291 -5 LOINC Body Mass Index 28.89 kg/m2 02/24/2024 08:58 Initial 56136 -5 LOINC Systolic Blood Pressure 130 mm[Hg] [...] O2 Saturation 95 % 2023 13:04 Initial 98109 -5 LOINC Pulse 76.0 /min 03/19/2024 13:04 Initial 8867- 4 LOINC Respiration 16 /min 03/19/20 13:04 Initial 9279- 1 LOINC Temperature 36.5 Tiesha 97.7 F 03/19/20 13:04 Initial 8310- 5 LOINC Weight 86.18 kg 190.00 lbs 03/19/2024 12:53 Most Recent 86697 -7 LOINC Weight 86.18 kg 190.00 lbs 02/24/2024 08:58 Initial 58671 -7 LOINC Medications Medication Start Date End Date Route Frequency Dose Code Code System Medication Instructions Home Meds Famotidine 20MG Oral Tablet 03/19/2024 Unknown ORAL ONCE A DAY 20 MILLIGRAMS 736382 RxNorm TAKE 20 MILLIGRAMS ORAL ONCE A [...] flexible, transoral; diagnostic, including col 03/19/2024 completed 45352 CPT Anesthesia for combined uppe r and lower gastrointestinal endoscopic proced 03/19/2024 completed 25865 CPT Colonoscopy, flexible; diagn ostic, including collection of specimen(s) by 03/19/2024 completed 69344 CPT Allergies and Adverse Reactions Allergy Substance Reaction Severity Start Date Concern Status Co de Code System No Known Drug Allergies Active 265110668 SNOMED-CT Plan of Treatment Stress Echo 01/06/2024 US Echo Stress (57473) 01/06/2024 Stress Echo 01/06/2024 US Echo Stress (93537) 01/06/2024 EGD/Colonoscopy 03/19/2024 Encounters Encounter Diagnosis Start Date Code Code Sys tem Epigastric pain 03/19/2024 SNOMED-CT Personal Care Team Section Performer Name Performer Role Active Date Inactive TANISHA Diego PCP - Primary care physician 2024-01-06 Procedures Notes
--- NOTE | 2025-03-26 06:34 | ECG_ITS ---
Test Date: 2025-03-26 06:45:18 Measurements Intervals [place] Rate: 64 P: 46 NE: 140 QRS: 63 QRSD: 99 T: 12 QT: 385 QTc: 399 Interpretive Statements SINUS RHYTHM WITHIN NORMAL LIMITS Compared to ECG 01/19/2025 08:51:06 PATIENT IS NO LONGER TACHYCARDIC Electronically Signed On 03-26-2025 07:49:31 CDT by Anthony Burton M.D.
--- NOTE | 2025-03-26 06:45 | ED_ITS ---
HPI - Anxiety General Chief Complaint: Anxiety Stated Complaint: Chest Pain Time Seen by Provider: 03/26/25 06:45 Source: patient Mode of arrival: ambulatory Limitations: no limitations History of Present Illness HPI narrative: Patient is a 35-year-old male with some anxiety and auditory hallucinations. He gets this way from time to time. Typically he comes to the ER wanting a work note and will just talk to the doctor for a little bit and feels better. He does not want any medication. He is working with his primary doctor at times to make a some of the symptoms get better. He has not seen a psychiatrist. He did miss the psychiatry appointment. he also asks for sleeping medication. he is on medication for this auditory hallucination but he does not take the medicine. complaint: anxiety Onset (ago): day(s) ( Two) Symptoms: other ( auditory hallucinations, poor sleep/insomnia) Severity: similar to previous episodes Quality: intermittent Place: home History of similar episodes: Yes Provoking factors: emotional stress Relieving factors: nothing Exacerbating factors: nothing Associated symptoms: chest pain ( Atypical) Related Data Allergies Allergy/AdvReac Type Severity Reaction Status Date / Time No Known Allergies Allergy Verified 03/26/25 06:41 Review of Systems Review of Systems: All systems reviewed & are unremarkable except as noted in HPI and below Constitutional: Constitutional: Reports no additional constitutional complaints Eyes: Eyes: Reports no additional eye complaints ENT: Reports system reviewed and no additional complaints, except as documented Cardiovascular: Cardiovascular: Reports no additional cardiovascular complaints Respiratory: Respiratory: Reports no additional respiratory complaints Gastrointestinal: Gastrointestinal: Reports no additional gastrointestinal complaints Genitourinary: Genitourinary: Reports no additional male genitourinary complaints Musculoskeletal: Musculoskeletal: Reports no additional musculoskeletal complaints Integumentary/Breasts: Skin/Breast: Reports system reviewed and no additional complaints, except as docu Neurologic: Reports system reviewed and no additional complaints, except as documented Psychiatric: Psychiatric: Reports no additional psychiatric complaints Endocrine: Endocrine: Reports no additional endocrine complaints Hematologic/Lymphatic: Hematologic/Lymphatic: Reports no additional hematologic/lymphatic complaints Allergic/Immunologic: Allergic/Immunologic: Reports no additional allergic/im munologic complaints PMFSH Past Medical History Medical History Chest pain SOB (shortness of breath) Anxiety Psychosis Social History Social History Smoking status: Current every day smoker Alcohol intake: current Substance use: current Substance use type: does not use Other substance usage details: Infrequent Living arrangements: alone Exam Const: General: healthy appearing Nutritional Appearance: well nourished Orientation/consciousness: patient oriented x3 HENMT: Head: normal to inspection Ears: external ears normal Face/Nose/Sinus: Normal external nose present Eyes: Conjunctivae: conjunctivae normal Pupils: Equal, round and reactive pupils present EOM: EOMs intact bilaterally Neck: Neck: normal visual inspection Chest: Chest palpation & inspection: normal inspection of the chest Resp: Effort & Inspection: normal respiratory effort and not labored Auscultation: clear to auscultation bilaterally and no crackles Cardio: Rate: regular rate Rhythm: regular rhythm Heart sounds: no murmurs GI: Inspection: non-distended GI Palp: Yes Soft to palpation and No Tenderness to palpation present (GI) Auscultation: normal bowel sounds : General: Yes bladder normal to palpation Back/Spine/Pelvis: Back: no CVA tenderness Cervical Spine: collar present Skin: General skin exam: normal color Rashes: no rashes Wounds: no wounds Neuro: General: patient oriented x3, moves all extremities, no meningeal signs, no focal motor deficits and CN's II-XI intact bilaterally Cranial nerves: Yes Nystagmus not present Speech: normal speech Gait exam (Neuro): Normal gait present Extrem: General: normal to inspection Psych: Mental Status: mental status grossly normal Affect: normal affect Attitude: cooperative Other: Patient having auditory hallucinations with multiple famous voices in his head giving him difficulty sleeping; no suicide or homicide ideations; patient has been diagnosed with schizophrenia my multiple visits with the same symptoms but he has failed to see the psychiatrist or psychiatric counseling; he did go to some counseling but has not returned Course Vital Signs Vital signs: Vital Signs Temperature 36.4 C 03/26/25 06:30 Pulse Rate 73 03/26/25 06:30 Respiratory Rate 15 03/26/25 06:30 Blood Pressure 128/85 03/26/25 06:30 Pulse Oximetry 96 03/26/25 06:30 Oxygen Delivery Room Air 03/26/25 06:30 Temperature 36.4 C 03/26/25 06:30 Pulse Rate 73 03/26/25 06:30 Respiratory Rate 15 03/26/25 06:30 Blood Pressure 128/85 03/26/25 06:30 Pulse Oximetry 96 03/26/25 06:30 Oxygen Delivery Room Air 03/26/25 06:30 MDM - Anxiety MDM Narrative Medical decision making narrative: patient is a 35-year-old male with auditory hallucinations were currently and non compliant with medication. He is working with his primary doctor at times to repair this problem. He also said he gets no sleep due to this problem. No suicide or homicide ideations. He does get associated chest pains. This is a recurrent event and seen in our ER on multiple occasions. He has declined any medications at this time. He is not a danger to anyone or himself at this time. ECG Data EKG #1: Attestation: I personally reviewed and interpreted this ECG as follows: ECG completion date: 03/26/25 ECG completion time: 07:16 EKG Interpretation: normal rate, sinus rhythm, non-specific ST changes ( nonspecific T-wave inversions), ST depression ( Only in lead 3), normal QRS, normal QT and NL axis Discharge Plan Discharge Clinical Impression: Acute anxiety, Atypical chest pain Psychosis Qualifiers: Psychosis type: unspecified psychosis type Qualified Code(s): F29 - Unspecified psychosis not due to a substance or known physiological condition Patient Disposition: Home Condition: Stable Instructions: Psychotic Disorder (ED) Additional Instructions: please follow-up with the primary doctor in the next week. I suggest taking an antipsychotic medication to stop all of the sounds and voices that you hear that her keeping you up at night. At this time I understand you did not want to take these medications. Please talk to your primary doctor about sleep medication. I suggest outpatient workup for your recurrent chest pain with your primary doctor. seeing a psychiatrist would be your best plan to get this under control. They can help you with your sleep and your hearing of voices. Make sure to be in the emergency room with any suicide or homicide ideations. Patient Language: Italian Prescriptions: No Action meclizine 25 mg tablet 25 mg PO TID Qty: 14 0RF alprazolam [Xanax] 0.5 mg tablet 0.5 mg PO BID PRN (Reason: anxiety) Qty: 30 0RF famotidine [Pepcid] 40 mg tablet 40 mg PO HS Qty: 30 0RF cetirizine 10 mg tablet,disintegrating 10 mg PO BID PRN (Reason: allergy symptoms) Qty: 14 0RF Follow-up/Referrals: Sahil Garza MD [Primary Care Provider] - Stand Alone Forms: Work/School Release IP Time of Disposition: 07:12
== END 2025-03-26 07:25 | disposition home or self-care (01) ==
PROVIDERS: Emergency Provider Emergency Medicine; PCP Internal Medicine
DX: F41.9 Anxiety disorder, unspecified (principal); R07.89 Other chest pain; F29 Unspecified psychosis not due to a substance or known physiological condition; F17.200 Nicotine dependence, unspecified, uncomplicated
CPT/HCPCS: 93005; 99283

== ENCOUNTER 2025-04-15 09:59 | Emergency (ER) | payer OTHER, SELFPAY ==
--- NOTE | ~2025-04-15 | XR_ITS ---
Portable chest x-ray Comparison: 11/09/2024 Clinical History: Chest pain Findings: Lungs are clear, without focal consolidation or pleural effusion. Cardiomediastinal silho uette is stable. Bones and soft tissues are unremarkable. Impression: Normal chest. Reviewed, dictated and finalized at [facility]. Impression: Normal chest.
[2025-04-15 10:00] VITALS: BP 129/96; PULSE 76; RESP 18; TEMP 36.6; O2SAT 96
--- NOTE | 2025-04-15 10:26 | PC.NURSE ---
1015 dr brice in with pt.
--- NOTE | 2025-04-15 10:30 | ED.GENADULT ---
HPI - General Adult General Chief complaint: Psychiatric Symptoms Stated complaint: body pain Time Seen by Provider: 04/15/25 10:11 Source: patient Mode of arrival: ambulatory Limitations: no limitations History of Present Illness HPI narrative: 35 years old white male came to the ED by private car complaining of left upper chest tightness discomfort, left shoulder left upper back pain started fore months, intermittent, Hearing voices of celebrities, workers at [email or web address] , coworkers at the [employer] and [employer]. Patient also unable to have intercourse with his girlfriend because while doing it hear voices telling him bad things about her. Patient is telling me that he is not able to sleep for over 1 year and been hired at her [employer] and and police to find out what is ago known. Patient feels sometime like a spy, somebody manipulating him, patient is telling me that he feels been watch even while doing intercourse to his girlfriend. Inability to sleep regular hours for over 1 year. He denies any fever, chills, suicidal or homicidal ideation. During talking to the patient, developed sudden onset of feeling of numbness all over his body, nauseated, dizzy, shortness of breath,could not sit at the edge of the bed and sat down to the floor asking for some water to drink Patient have Xanax at home which he does not use. Related Data Allergies Allergy/AdvReac Type Severity Reaction Status Date / Time No Known Allergies Allergy Verified 04/15/25 10:54 [facility] Past Medical History Medical History Chest pain SOB (shortness of breath) Anxiety Psychosis Social History Social History Smoking status: Current every day smoker Alcohol intake: current Substance use: current Substance use type: marijuana Other substance usage details: Infrequent Living arrangements: alone Course Vital Signs Vital signs: Vital Signs Temperature 36.6 C 04/15/25 10:00 Pulse Rate 76 04/15/25 10:00 Respiratory Rate 18 04/15/25 10:00 Blood Pressure 129/96 H 04/15/25 10:00 Pulse Oximetry 96 04/15/25 10:00 Oxygen Delivery Room Air 04/15/25 10:00 Temperature 36.6 C 04/15/25 10:00 Pulse Rate 76 04/15/25 10:00 Respiratory Rate 18 04/15/25 10:00 Blood Pressure 129/96 H 04/15/25 10:00 Pulse Oximetry 96 04/15/25 10:00 Oxygen Delivery Room Air 04/15/25 10:00 Medical Decision Making MDM Narrative Medical decision making narrative: Patient presents with the above symptoms Vital signs are stable Physical examination showing a patient with psych disorder, restless, poor judgment, flight of ideas Differential diagnosis psychosis, noncompliance with medication, refusing to be managed by any medicine. I did offer Ativan and Zyprexa, patient agreed with Ativan ,declined Zyprexa because the voices with tell him that Zyprexa will choke him . He does not believe in medicine and he believes everything he feels is real and his not crazy Blood workup today for chest pain to assure the patient that he does not have any coronary artery disease showed insignificant abnormalities Chest x-ray showed no acute abnormality EKG showed normal sinus rhythm at 62 beats per minute, early repolarization. Diagnosis psychosis, major depression, noncompliance with medication, not suicidal or homicidal. Vital Signs Vital Signs: Vital Signs Temperature 36.6 C 04/15/25 10:00 Pulse Rate 76 04/15/25 10:00 Respiratory Rate 18 04/15/25 10:00 Blood Pressure 129/96 H 04/15/25 10:00 Pulse Oximetry 96 04/15/25 10:00 Oxygen Delivery Room Air 04/15/25 10:00 Temperature 36.6 C 04/15/25 10:00 Pulse Rate 76 04/15/25 10:00 Respiratory Rate 18 04/15/25 10:00 Blood Pressure 129/96 H 04/15/25 10:00 Pulse Oximetry 96 04/15/25 10:00 Oxygen Delivery Room Air 04/15/25 10:00 Lab Data 04/15/25 10:48 04/15/25 10:48 Labs: Lab Results 04/15/25 04/15/25 Range/Units 10:48 11:25 WBC 6.0 (4.8-10.8) K/mm3 RBC 5.32 (4.70-6.10) M/mm3 Hgb 15.3 (14.0-18.0) g/dL Hct 45.8 (40.0-54.0) % MCV 86.1 (78.0-102.0) fL MCH 28.8 (27.0-31.0) pg MCHC 33.4 (32-36) g/dL RDW 12.2 (11.6-14.4) % Plt Count 154 (150-420) K/mm3 MPV 10.4 (8.7-11.0) fl Immature Gran % (Auto) 0.2 H (0.0-0.0) % Neut % (Auto) 48.8 L (50.0-70.0) % Lymph % (Auto) 37.4 (18.0-42.0) % Divide % (Auto) 7.7 (2.0-11.0) % Eos % (Auto) 4.9 (1.0-6.0) % Baso % (Auto) 1.0 (0.0-1.0) % Lymph # (Auto) 2.23 (1.10-4.50) K/mm3 Divide # (Auto) 0.46 (0.10-0.90) K/mm3 Eos # (Auto) 0.29 (0.02-0.50) K/mm3 Baso # (Auto) 0.06 (0.00-0.10) K/mm3 Abs Immat Gran (auto) 0.01 H (0.00-0.00) K/mm3 Absolute Neuts (auto) 2.91 (1.70-7.20) K/mm3 Absolute Nucleated RBC 0.00 (0.00-0.00) K/mm3 Nucleated RBC % 0.0 (0-0.0) % Sodium 139 (137-145) mmol/L Potassium 4.0 (3.4-5.0) mmol/L Chloride 106 (98-107) mmol/L Carbon Dioxide 29 (22-30) mmol/L Anion Gap 4 (4-12) mmol/L BUN 18 (9-20) mg/dL Creatinine 0.86 (0.7-1.3) mg/dL Estim Creat Clear Calc 98 ml/min Estimated GFR > 60 (59 - ) Glucose 101 (65-110) mg/dL Calculated Osmolality 289 (285-295) mOsm/kg Calcium 8.6 (8.4-10.2) mg/dL Total Bilirubin 1.4 H (0.2-1.3) mg/dL AST 27 (17-59) U/L ALT 23 (6-50) U/L Alkaline Phosphatase 48 (38-126) U/L Troponin I < 0.012 (0.000-0.034) ng/mL Total Protein 7.1 (6.3-8.2) g/dL Albumin 4.4 (3.5-5.1) g/dL TSH 2.200 (0.465-4.680) uIU/mL Urine Color Light yellow (Yellow) Urine Appearance Clear (Clear) Urine pH 7.5 (5.0-8.0) Ur Specific [place] 1.015 (1.010-1.020) Urine Protein Negative (Negative) Urine Glucose (UA) Negative (Negative) Urine Ketones Negative (Negative) Ur Blood (Man) Negative (Negative) Urine Nitrate Negative (Negative) Urine Bilirubin Negative (Negative) Urine Urobilinogen 0.2 (0.2-1.0) mg/dL Leukocyte Esterase Rfl Negative (Negative) FIDEL/UL Urine Opiates Screen Negative (Negative) Urine Methadone Screen Negative (Negative) Ur Barbiturates Screen Negative (Negative) Ur Phencyclidine Scrn Negative (Negative) Ur Amphetamine Screen Negative (Negative) U Benzodiazepines Scrn Negative (Negative) Urine Cocaine Screen Negative (Negative) U Cannabinoids Screen Negative (Negative) Ethyl Alcohol < 10 (<10) mg/dL Imaging Data Radiologist's impression: Chest x-ray showed acute abnormalities ECG Data EKG #1: Attestation: I personally reviewed and interpreted this ECG as follows: ECG completion date: 04/15/25 Interpretation: normal sinus rhythm at 62 beats per minute, early repolarization otherwise borderline EKG Critical Care Time Critical Care Time Critical Care Time: No Discharge Plan Discharge Clinical Impression: Anxiety, Chest pain Psychosis Qualifiers: Psychosis type: unspecified psychosis type Qualified Code(s): F29 - Unspecified psychosis not due to a substance or known physiological condition Patient Disposition: Home Condition: Stable Additional Instructions: Return if symptoms are worsening , call your family physician for appointment, take Tylenol as as needed for aches and pain, continue home medications. Follow-up with Omar Blackman instructions Patient Language: Bengali Prescriptions: No Action meclizine 25 mg tablet 25 mg PO TID Qty: 14 0RF alprazolam [Xanax] 0.5 mg tablet 0.5 mg PO BID PRN (Reason: anxiety) Qty: 30 0RF famotidine [Pepcid] 40 mg tablet 40 mg PO HS Qty: 30 0RF cetirizine 10 mg tablet,disintegrating 10 mg PO BID PRN (Reason: allergy symptoms) Qty: 14 0RF Follow-up/Referrals: Sahil Garza MD [Primary Care Provider] - Stand Alone Forms: Work/School Release IP
--- NOTE | 2025-04-15 10:31 | ECG_ITS ---
Test Date: 2025-04-15 10:43:38 Measurements Intervals [place] Rate: 62 P: 7 WA: 115 QRS: 81 QRSD: 105 T: 42 QT: 377 QTc: 385 Interpretive Statements SINUS RHYTHM WITH SHORT WA INTERVAL ST ELEVATION IN DIFFUSE LEADS, PROBABLY EARLY REPOLARIZATION PEAKED T WAVES- CONSIDER HYPERKALEMIA BASELINE WANDER- I, II ABNORMAL ECG Compared to ECG 03/26/2025 06:45:18 Short WA interval now present PEAKED T WAVES NOW PRESENT Electronically Signed On 04-15-2025 10:45:56 CDT by Reza Proctor D.O.
[2025-04-15] MEDS: LORazepam (*CRX) 1 MG TABLET PO (10:40)
[2025-04-15 10:52] LABS: Basophils Absolute Auto 0.06 K/mm3 (0.00-0.10); Eosinophils Absolute Auto 0.29 K/mm3 (0.02-0.50); Eosinophils Percent Auto 4.9 % (1.0-6.0); Hematocrit 45.8 % (40.0-54.0); Hemoglobin 15.3 g/dL (14.0-18.0); Immature Granulocyte Absolute 0.01 K/mm3 (0.00-0.00); Immature Granulocyte Percent A 0.2 % (0.0-0.0); Lymphocytes Absolute Auto 2.23 K/mm3 (1.10-4.50); Lymphocytes Percent Auto 37.4 % (18.0-42.0); Mean Corpuscular HGB Conc 33.4 g/dL (32-36); Mean Corpuscular Hemoglobin 28.8 pg (27.0-31.0); Mean Corpuscular Volume 86.1 fL (78.0-102.0); Mean Platelet Volume 10.4 fl (8.7-11.0); Monocytes Absolute Auto 0.46 K/mm3 (0.10-0.90); Monocytes Percent Auto 7.7 % (2.0-11.0); Neutrophils Absolute Auto 2.91 K/mm3 (1.70-7.20); Neutrophils Percent Auto 48.8 % (50.0-70.0); Platelet Count Result 154 K/mm3 (150-420); Red Blood Count 5.32 M/mm3 (4.70-6.10); Red Cell Distribution Width 12.2 % (11.6-14.4)
[2025-04-15 11:04] LABS: Alanine Aminotransferase 23 U/L (6-50); Albumin Level 4.4 g/dL (3.5-5.1); Alkaline Phosphatase 48 U/L (38-126); Anion Gap 4 mmol/L (4-12); Aspartate Amino Transferase 27 U/L (17-59); Bilirubin,Total 1.4 mg/dL (0.2-1.3); Blood Urea Nitrogen 18 mg/dL (9-20); Calcium 8.6 mg/dL (8.4-10.2); Carbon Dioxide 29 mmol/L (22-30); Chloride 106 mmol/L (98-107); Estimated CRCL calculation 98 ml/min; Estimated Glomerular Filt Rate > 60; Glucose 101 mg/dL (65-110); Osmolality Calculated 289 mOsm/kg (285-295); Sodium 139 mmol/L (137-145); Total Protein 7.1 g/dL (6.3-8.2)
[2025-04-15 11:16] LABS: Troponin I < 0.012 ng/mL (0.000-0.034)
[2025-04-15 11:26] LABS: Ethanol < 10 mg/dL (<10)
[2025-04-15 11:34] LABS: Add Urine Microscopic? NO; Appearance Urine Clear (Clear); Bilirubin Urine Negative (Negative); Blood Urine Negative (Negative); Color Urine Light Yellow (Yellow); Glucose Urine UA Negative (Negative); Ketones Urine Negative (Negative); Leukocyte Esterase Ur Negative LEU/UL (Negative); Nitrate Urine Negative (Negative); Protein Urine Negative (Negative); Specific Grav Ur 1.015 (1.010-1.020); Urobilinogen Urine 0.2 mg/dL (0.2-1.0); pH Urine 7.5 (5.0-8.0)
[2025-04-15 11:51] LABS: Amphetamine Screen Urine Negative (Negative); Barbiturate Screen Urine Negative (Negative); Benzodiazepines Screen Urine Negative (Negative); Cannabinoid Screen Urine Negative (Negative); Cocaine Screen Urine Negative (Negative); Methadone Screen Urine Negative (Negative); Opiate Screen Urine Negative (Negative); Phencyclidine Screen Urine Negative (Negative)
--- NOTE | 2025-04-15 11:52 | PC.NURSE ---
lunch tray provided to pt.
--- NOTE | 2025-04-15 13:10 | PC.NURSE ---
pt continues talking with [facility] staff , bel[place].
--- NOTE | 2025-04-15 14:10 | PC.NURSE ---
pt ate 100% food tray provided.
--- NOTE | 2025-04-15 14:28 | PC.NURSE ---
per gabby, [facility] staff. pt to be deflected home with follow up. dr brice in with pt at this time
[2025-04-15 14:35] VITALS: BP 130/88; PULSE 68; RESP 16; TEMP 36.7; O2SAT 98
== END 2025-04-15 14:37 | disposition home or self-care (01) ==
PROVIDERS: Emergency Provider Emergency Medicine; PCP Internal Medicine
DX: F41.9 Anxiety disorder, unspecified (principal); R07.9 Chest pain, unspecified; F29 Unspecified psychosis not due to a substance or known physiological condition; F17.200 Nicotine dependence, unspecified, uncomplicated
CPT/HCPCS: 36415; 71045; 80053; 80307; 81003; 82077; 84443; 84484; 85025; 93005; 99284; A9270

== ENCOUNTER 2025-04-20 14:10 | Emergency (ER) | payer OTHER, SELFPAY ==
[2025-04-20 14:17] VITALS: BP 133/89; PULSE 73; RESP 20; TEMP 36.6; O2SAT 97
--- NOTE | 2025-04-20 15:25 | ECG_ITS ---
Test Date: 2025-04-20 15:36:03 Measurements Intervals [place] Rate: 58 P: -5 NV: 122 QRS: 73 QRSD: 100 T: 18 QT: 374 QTc: 368 Interpretive Statements SINUS BRADYCARDIA BORDERLINE ECG Compared to ECG 04/15/2025 10:43:38 HEART RATE HAS DECREASED Electronically Signed On 04-20-2025 16:36:37 CDT by Reza Proctor D.O.
[2025-04-20 16:08] VITALS: BP 123/67; PULSE 87; RESP 18; O2SAT 97
[2025-04-20 16:11] VITALS: BP 125/86; PULSE 63; RESP 16; TEMP 36.6; O2SAT 97
--- NOTE | 2025-04-20 18:52 | ED.ANXIETY ---
HPI - Anxiety General Chief Complaint: Anxiety Stated Complaint: anxiety Source: patient Mode of arrival: ambulatory Limitations: no limitations History of Present Illness HPI narrative: patient is a 35-year-old male with recurrent ER visits for different complaints and here for 1 of his similar complaints of chest pain. He has asked to have a EKG at this time to make sure it is normal. patient has chronic anxiety and auditory hallucinations. He does not follow-up per noncompliance and does not take medication properly. patient had an event today where he got short of breath and some chest pain. He had to cut back his work in the last week and it is stressful. MD complaint: anxiety, heart racing and shortness of breath Onset (ago): day(s) ( One) Symptoms: dyspnea and chest pain Severity: similar to previous episodes Quality: intermittent and improving Place: home History of similar episodes: Yes Provoking factors: emotional stress and work/job stress Exacerbating factors: thinking about event and other ( Patient is stressed about job change and decreased hours that he had to take due to his chronic auditory hallucinations; chronic insomnia) Associated symptoms: chest pain, shortness of breath and other ( recurrent auditory hallucinations chronically; no suicide thoughts or ideations) Related Data Allergies Allergy/AdvReac Type Severity Reaction Status Date / Time No Known Allergies Allergy Verified 04/20/25 14:22 Review of Systems Review of Systems: All systems reviewed & are unremarkable except as noted in HPI and below Constitutional: Constitutional: Reports no additional constitutional complaints Eyes: Eyes: Reports no additional eye complaints ENT: Reports system reviewed and no additional complaints, except as documented Cardiovascular: Cardiovascular: Reports no additional cardiovascular complaints Respiratory: Respiratory: Reports no additional respiratory complaints Gastrointestinal: Gastrointestinal: Reports no additional gastrointestinal complaints Genitourinary: Genitourinary: Reports no additional male genitourinary complaints Musculoskeletal: Musculoskeletal: Reports no additional musculoskeletal complaints Integumentary/Breasts: Skin/Breast: Reports system reviewed and no additional complaints, except as docu Neurologic: Reports system reviewed and no additional complaints, except as documented Psychiatric: Psychiatric: Reports no additional psychiatric complaints Endocrine: Endocrine: Reports no additional endocrine complaints Hematologic/Lymphatic: Hematologic/Lymphatic: Reports no additional hematologic/lymphatic complaints Allergic/Immunologic: Allergic/Immunologic: Reports no additional allergic/immunologic complaints PMFSH Past Medical History Medical History Chest pain SOB (shortness of breath) Anxiety Psychosis Social History Social History Smoking status: Current every day smoker Alcohol intake: current Substance use: current Substance use type: marijuana Other substance usage details: Infrequent Living arrangements: alone Exam Const: General: healthy appearing Nutritional Appearance: well nourished Orientation/consciousness: patient oriented x3 Limitations: no limitations HENMT: Head: normal to inspection Ears: external ears normal Face/Nose/Sinus: Normal external nose present Eyes: Conjunctivae: conjunctivae normal Pupils: Equal, round and reactive pupils present EOM: EOMs intact bilaterally Neck: Neck: normal visual inspection Chest: Chest palpation & inspection: normal inspection of the chest Resp: Effort & Inspection: normal respiratory effort and not labored Auscultation: clear to auscultation bilaterally and no crackles Cardio: Rate: regular rate Rhythm: regular rhythm Heart sounds: no murmurs GI: Inspection: non-distended GI Palp: Yes Soft to palpation and No Tenderness to palpation present (GI) Auscultation: normal bowel sounds : General: Yes bladder normal to palpation Back/Spine/Pelvis: Back: no CVA tenderness Skin: General skin exam: normal color Rashes: no rashes Wounds: no wounds Neuro: General: patient oriented x3 Cranial nerves: Yes Nystagmus not present Speech: normal speech Gait exam (Neuro): Normal gait present Extrem: General: normal to inspection Psych: Mental Status: mental status grossly normal Affect: Anxious affect present Attitude: cooperative Other: no suicide or homicide ideations; patient chronically has auditory hallucinations a famous people talking to him; patient was baseline with his mental status Course Vital Signs Vital signs: Vital Signs Temperature 36.6 C 04/20/25 14:17 Pulse Rate 73 04/20/25 14:17 Respiratory Rate 20 04/20/25 14:17 Blood Pressure 133/89 04/20/25 14:17 Pulse Oximetry 97 04/20/25 14:17 Oxygen Delivery Room Air 04/20/25 14:17 Temperature 36.6 C 04/20/25 16:11 Pulse Rate 63 04/20/25 16:11 Respiratory Rate 16 04/20/25 16:11 Blood Pressure 125/86 04/20/25 16:11 Pulse Oximetry 97 04/20/25 16:11 Oxygen Delivery Room Air 04/20/25 16:11 MDM - Anxiety MDM Narrative Medical decision making narrative: patient is a 35-year-old male with some anxiety and panic attack with some chest pains shortness of breath today. We will get an EKG. Patient was just in the emergency room a few days ago with similar symptoms and had a negative workup. I reviewed chart from a few days ago. ECG Data EKG #1: Attestation: I personally reviewed and interpreted this ECG as follows: ECG completion date: 04/20/25 ECG completion time: 19:05 EKG Interpretation: bradycardia, sinus rhythm, no ectopy, non-specific ST changes ( Early repolarization), normal QRS, normal QT, NL axis and no acute changes ( reviewed prior EKG and no acute changes) Discharge Plan Discharge Clinical Impression: Atypical chest pain, Panic Psychosis Qualifiers: Psychosis type: unspecified psychosis type Qualified Code(s): F29 - Unspecified psychosis not due to a substance or known physiological condition Patient Disposition: Home Condition: Stable Instructions: Chest Pain (DC) Additional Instructions: Please follow-up with the primary doctor in the next week. I suggest outpatient cardiac testing to be done for the variable chest pain symptoms. Please follow-up with the psychiatrist to work on the psychosis issues with hallucinations. Patient Language: Croatian Prescriptions: No Action meclizine 25 mg tablet 25 mg PO TID Qty: 14 0RF alprazolam [Xanax] 0.5 mg tablet 0.5 mg PO BID PRN (Reason: anxiety) Qty: 30 0RF famotidine [Pepcid] 40 mg tablet 40 mg PO HS Qty: 30 0RF cetirizine 10 mg tablet,disintegrating 10 mg PO BID PRN (Reason: allergy symptoms) Qty: 14 0RF Follow-up/Referrals: Tima Martinez DO [Primary Care Provider] - Time of Disposition: 15:56
== END 2025-04-20 16:08 | disposition home or self-care (01) ==
PROVIDERS: Emergency Provider Emergency Medicine; PCP Family Medicine
DX: R07.89 Other chest pain (principal); F41.0 Panic disorder [episodic paroxysmal anxiety]; F29 Unspecified psychosis not due to a substance or known physiological condition
CPT/HCPCS: 93005; 99283

== ENCOUNTER 2025-04-21 09:28 | Emergency (ER) | payer OTHER, SELFPAY ==
[2025-04-21] VITALS (13 sets, daily range): BP systolic 104–127; BP diastolic 80–94; PULSE 60–83; RESP 11–20; TEMP 36.9–37.2; O2SAT 96–100
--- NOTE | 2025-04-21 09:29 | ECG_ITS ---
Test Date: 2025-04-21 09:34:32 Measurements Intervals [place] Rate: 72 P: 41 AK: 137 QRS: 89 QRSD: 102 T: 18 QT: 361 QTc: 398 Interpretive Statements SINUS RHYTHM WITH SINUS ARRHYTHMIA ST ELEVATION IN ANTEROLAT/HIGH LAT LEADS- PROBABLY EARLY REPOLARIZATION MINIMAL Q WAVES- INFERIOR LEADS BORDERLINE ECG Compared to ECG 04/20/2025 15:36:03 HEART RATE HAS INCREASED Early repolarization now present Electronically Signed On 04-21-2025 09:53:09 CDT by Reza Proctor D.O.
[2025-04-21] MEDS: ALPRAZolam (*CRX) 0.5 MG TABLET PO (09:50)
[2025-04-21 10:24] LABS: Troponin I < 0.012 ng/mL (0.000-0.034)
--- NOTE | 2025-04-21 10:25 | ED.CHESTPAIN ---
HPI - Chest Pain General Chief Complaint: Chest Pain Stated Complaint: chest pain Time Seen by Provider: 04/21/25 09:29 Source: patient Mode of arrival: ambulatory Limitations: no limitations History of Present Illness HPI narrative: this is a 35-year-old male with some chest pain was seen yesterday had a full workup with no significant abnormalities presents today with similar complaints EKG performed yesterday showed no acute abnormalities. Patient has a history anxiety have anxiety and auditory hallucinations otherwise no nausea vomiting no shortness of breath no abdominal pain no fever chills no cough or congestion. MD complaint: chest discomfort Onset (ago): day(s) Timing of current episode: episodic Prior episodes: Yes Onset: during rest Pain location: left chest Pain radiation: none Severity: mild Related Data Allergies Allergy/AdvReac Type Severity Reaction Status Date / Time No Known Allergies Allergy Verified 04/21/25 09:30 Review of Systems Review of Systems: All systems reviewed & are unremarkable except as noted in HPI and below PMFSH Past Medical History Medical History Chest pain SOB (shortness of breath) Anxiety Psychosis Social History Social History Smoking status: Current every day smoker Alcohol intake: current Substance use: current Substance use type: marijuana Other substance usage details: Infrequent Living arrangements: alone Exam Const: General: healthy appearing and no acute distress Nutritional Appearance: well nourished Orientation/consciousness: patient oriented x3 Limitations: no limitations Neck: Neck: normal visual inspection, no lymphadenopathy and no meningeal signs Chest: Chest palpation & inspection: normal inspection of the chest Resp: Effort & Inspection: normal respiratory effort Auscultation: clear to auscultation bilaterally Cardio: Rate: regular rate Rhythm: regular rhythm GI: GI Palp: Yes Soft to palpation Auscultation: normal bowel sounds : General: Yes bladder normal to palpation Skin: General skin exam: normal color Rashes: no rashes Neuro: General: patient oriented x3, moves all extremities, no meningeal signs and no focal motor deficits Psych: Affect: Anxious affect present Course Course Emergency Course: Patient had a normal EKG and normal troponin Xanax administered here in the emergency room patient advised to follow with his primary care physician. Vital Signs Vital signs: Vital Signs Temperature 37.2 C 04/21/25 09:28 Pulse Rate 83 04/21/25 09:28 Respiratory Rate 15 04/21/25 09:28 Blood Pressure 127/94 H 04/21/25 09:28 Pulse Oximetry 99 04/21/25 09:28 Oxygen Delivery Room Air 04/21/25 09:28 Temperature 37.2 C 04/21/25 09:28 Pulse Rate 83 04/21/25 09:28 Respiratory Rate 15 04/21/25 09:28 Blood Pressure 127/94 H 04/21/25 09:28 Pulse Oximetry 100 04/21/25 09:36 Oxygen Delivery Room Air 04/21/25 09:36 MDM - Chest Pain Lab Data Labs: Lab Results 04/21/25 Range/Units 09:50 Troponin I < 0.012 (0.000-0.034) ng/mL Critical Care Time Critical Care Time Critical Care Time: No Discharge Plan Discharge Clinical Impression: Atypical chest pain, Anxiety Psychosis Qualifiers: Psychosis type: unspecified psychosis type Qualified Code(s): F29 - Unspecified psychosis not due to a substance or known physiological condition Patient Disposition: Home Condition: Stable Instructions: Antibiotic Form, Anxiety (ED), Chest Wall Pain (ED) Additional Instructions: advised patient to take medication as prescribed and follow-up with primary care physician within the next week for further evaluation treatment. Patient Language: Comoran Prescriptions: No Action meclizine 25 mg tablet 25 mg PO TID Qty: 14 0RF alprazolam [Xanax] 0.5 mg tablet 0.5 mg PO BID PRN (Reason: anxiety) Qty: 30 0RF famotidine [Pepcid] 40 mg tablet 40 mg PO HS Qty: 30 0RF cetirizine 10 mg tablet,disintegrating 10 mg PO BID PRN (Reason: allergy symptoms) Qty: 14 0RF Follow-up/Referrals: Sahil Garza MD [Primary Care Provider] - Time of Disposition: 10:29
== END 2025-04-21 10:40 | disposition home or self-care (01) ==
PROVIDERS: Emergency Provider Emergency Medicine; PCP Internal Medicine
DX: R07.89 Other chest pain (principal); F41.9 Anxiety disorder, unspecified; F29 Unspecified psychosis not due to a substance or known physiological condition; F17.200 Nicotine dependence, unspecified, uncomplicated
CPT/HCPCS: 36415; 84484; 93005; 99284; A9270

== ENCOUNTER 2025-04-21 12:55 | Outpatient (CLI) | payer OTHER, SELFPAY ==
--- NOTE | ~2025-04-21 | US_ITS ---
EXAM: ABDOMEN ULTRASOUND HISTORY: hepatic lesions HEMANGIOMAS COMPARISON: 01/21/2025 FINDINGS: LIVER: Redemonstration of well-circumscribed foci of increased echogenicity. The first measuring 22 x 17 x 24 mm within segment 6. A second, smaller focus measuring 10 x 11 x 12 mm within segment 7. Both areas correspond to the decreased attenuation seen on examination dated 01/19/2025. The remainder of the liver is unremarkable in both echogenicity and size. The portal vein is patent, demonstrating hepatopedal flow. The contour of the liver surface is smooth. GALLBLADDER: No stones are identified within the gallbladder, which is otherwise unremarkable. BILE DUCTS: Common bile duct measures 6mm. IMPRESSION: Two hemangiomas within the right lobe of the liver, for which no further follow-up is needed. Reviewed, dictated and finalized at location A. IMPRESSION: Two hemangiomas within the right lobe of the liver, for which no further follow -up is needed.
== END 2025-04-21 12:56 | disposition home or self-care (01) ==
LOC: CHSIMG 12:57
PROVIDERS: PCP Internal Medicine; Visit Provider Internal Medicine
DX: K76.9 Liver disease, unspecified (principal); D18.09 Hemangioma of other sites
CPT/HCPCS: 76705

== ENCOUNTER 2025-05-31 16:02 | Outpatient (CLI) | payer OTHER, SELFPAY ==
--- OUTSIDE RECORDS SUMMARY | 2025-05-31 16:05 | XMS_ITS | Encounter Summary ---
Author Organization [facility] Address [address] [place] [id number] Care Team Providers Care Trauma Counsellor Name Role Phone Sahil Garza MD Primary Care Provider [phone] Encounter Details Date Type Department Care Team (Late st Contact Info) Description 04/03/2019 Abstract [facility] CONVERSION [address] [place] [address] , Generic Conversion, Social History Tobacco Use [...] on filedocumented in this encounter Care Teams Trauma Counsellor Relationship Specialty Start Date End Date Sahil Garza MD [address] [place] [address] PCP - General INTERNAL MEDICINE 06/21/23 documented as of this encounter
--- OUTSIDE RECORDS SUMMARY | 2025-05-31 16:05 | XMS_ITS | Clinical Summary ---
Author Organization [facility] Address [address] [place] [id number] Care Team Providers Care Stereotyper Apprentice Name Role Phone Sahil Garza MD Primary Care Provider [phone] Social History Tobacco Use Types Packs/Day Years [...] of 3 - 19+ 3-dose series) 2009 HPV Vaccines (1 - 3-dose SCD M series) 2017 COVID-19 Vaccine ( - 2023-2 5 season) 2024 Meningococcal B Vaccine Aged Out No l [...] patient's age to complete this topic Insurance [facility] C/O PROVIDER SERVICES [place] [id number] Care Teams Stereotyper Apprentice Relationship Specialty Start Date End Date Sahil Garza MD [address] [place] [address] PCP - General INTERNAL MEDICINE 06/21/23
--- NOTE | 2025-05-31 16:10 | ECHO_ITS ---
Patient Info Name: Carlos Plunkett Age: 35 years : 1990 Gender: Male Ht: 67 in Wt: 180 lbs BSA: 1.98 m2 HR: 71 bpm BP: 126 / 82 mmHg Heart Rhythm: Sinus Rhythm Technical Quality: Fair Exam Date: 05/31/2025 4:11 PM Patient Status: O Admit Date: 05/31/2025 Exam Type: CA echo doppler color flow Complete two-dimensional, color flow and Doppler transthoracic echocardiogram is performed. Mba Intern: Carina Shaver Attending Provider: Sahil Garza MD Summary 1. Complete two-dimensional, color flow and Doppler transthoracic echocardiogram is performed. 2. Left ventricular chamber dimension is normal. 3. Left ventricular systolic function is normal, estimated at 65-70. 4. The left ventricular diastolic function is normal. 5. E/e' 5 is not elevated. 6. Left atrial chamber dimension is mildly enlarged. 7. There is trace tricuspid valve regurgitation. 8. No pulmonary hypertension, estimated pulmonary arterial systolic pressure is 23 mmHg. 9. There is trace pulmonic regurgitation. Left Ventricle E/e' 5 is not elevated. Left ventricular chamber dimension is normal. Left ventricular systolic function is normal, estimated at 65-70. The left ventricular diastolic function is normal. Right Ventricle Right ventricular chamber dimension is normal. Right ventricular systolic function is normal and with normal TAPSE 2.5 cm. Left Atria Left atrial chamber dimension is mildly enlarged. Right Atria Right atrial chamber dimension is normal. Aortic Valve The aortic valve is trileaflet. There is no aortic valve stenosis. There is no aortic valve regurgitation. Pulmonic Valve There is trace pulmonic regurgitation. Mitral Valve There is no mitral valve stenosis. There is no mitral valve regurgitation. Tricuspid Valve There is trace tricuspid valve regurgitation. No pulmonary hypertension, estimated pulmonary arterial systolic pressure is 23 mmHg. Pericardium/Pleural There is no pericardial effusion. Inferior Vena Cava Normal inferior vena cava with >50% collapse upon inspiration consistent with normal right atrial pressure, 5 mmHg. Aorta The aortic root size at the sinus of Valsalva is normal. Left Ventricular Outflow Tract Name Value Normal LVOT 2D LVOT Diameter 2.0 cm LVOT Doppler LVOT Peak Velocity 68 cm/s LVOT Peak Gradient 2 mmHg LVOT Mean Gradient 1 mmHg LVOT VTI 11 cm LVOT VTI/AV VTI Ratio 0.4 LVOT Stroke Volume 32 ml LVOT CO 2.1 l/min LVOT CI 1.1 l/min/m2 Pulmonic Valve Name Value Normal RVOT Doppler RVOT Peak Velocity 74 cm/s RVOT Peak Gradient 2 mmHg PV Doppler PV Peak Velocity 106 cm/s PV Peak Gradient 4 mmHg Mitral Valve Name Value Normal MV Diastolic Function MV E Peak Velocity 80 cm/s MV A Peak Velocity 51 cm/s MV E/A 1.6 MV Decel Time (PW) 218 ms MV Annular TDI MV E/e' (Septal) 7.5 MV E/e' (Lateral) 4.3 MV E/e' (Average) 5.9 Tricuspid Valve Name Value Normal TV Regurgitation Doppler TR Peak Velocity 214 cm/s TR Peak Gradient 17 mmHg Estimated PAP/RSVP RA Pressure 5 mmHg <=5 PA Systolic Pressure 23 mmHg <36 RV Systolic Pressure 23 mmHg <36 TV Annular TDI TV Lateral Mouna s' Velocity 11.5 cm/s >=9.5 Aorta Name Value Normal Ascending Aorta Ao Root Diameter (MM) 2.7 cm Ao Root Diam Index (MM) 1.4 cm/m2 Aortic Valve Name Value Normal AV Doppler AV Peak Velocity 157 cm/s AV Peak Gradient 10 mmHg AV Mean Gradient 5 mmHg AV VTI 29 cm AV Area (Cont Eq VTI) 1.1 cm2 >=3.0 AV Area (Cont Eq Cortes) 1.3 cm2 AV DI (Cortes) 0.43 AV Regurgitation 2D LVOT Area 3.0 cm2 Ventricles Name Value Normal LV Dimensions 2D/MM IVS Diastolic Thickness (2D) 0.7 cm 0.6-1.0 LVID Diastole (2D) 5.9 cm 4.2-5.8 LVIW Diastolic Thickness (2D) 0.7 cm 0.6-1.0 LVID Systole (2D) 3.7 cm 2.5-4.0 LVOT Diameter 2.0 cm LV Mass (2D Cubed) 147.34 g 88.00-224.00 LV Mass Index (2D Cubed) 74 g/m2 49-115 Relative Wall Thickness (2D) 0.24 <=0.42 LV Fractional Shortening/Ejection Fraction 2D/MM LV Fractional Shortening (2D) 38 % 25-43 LV EF (2D Teichholz) 68 % LV Diastolic Volume (4C MOD) 100 ml LV EF (4C MOD) 74 % LV Diastolic Volume (2C MOD) 101 ml LV EF (2C MOD) 56 % LV Diastolic Volume (BP MOD) 104 ml 62-150 LV Diastolic Volume Index (BP MOD) 53 ml/m2 34-74 LV Systolic Volume (BP MOD) 34 ml 21-61 LV Systolic Volume Index (BP MOD) 17 ml/m2 11-31 LV EF (BP MOD) 67 % 52-72 LV Diastolic Length (4C) 8.3 cm LV Systolic Length (4C) 6.4 cm LV Stroke Volume (4C MOD) 73 ml Atria Name Value Normal LA Dimensions LA Dimension (MM) 3.6 cm 3.0-4.0 LA Volume (4C A-L) 63 ml LA Volume (BP A-L) 67 ml RA Dimensions RA Systolic Major [place] Length (4C) 4.7 cm 2.1-2.7 RA Area (4C) 17.1 cm2 <=18.0 Report Signatures
== END 2025-05-31 16:03 | disposition home or self-care (01) ==
LOC: CHSIMG 16:04
PROVIDERS: PCP Internal Medicine; Visit Provider Internal Medicine
DX: R07.9 Chest pain, unspecified (principal); R94.31 Abnormal electrocardiogram [ECG] [EKG]
CPT/HCPCS: 93306

== ENCOUNTER 2025-06-29 20:57 | Emergency (ER) | payer OTHER, SELFPAY ==
[2025-06-29 20:59] VITALS: BP 130/89; PULSE 132; RESP 16; TEMP 36.2; O2SAT 97
--- NOTE | 2025-06-29 21:09 | ED_ITS ---
HPI - Headache General Chief Complaint: Headache Stated Complaint: sick case Time Seen by Provider: 06/29/25 20:58 Source: patient Mode of arrival: ambulatory Limitations: no limitations History of Present Illness HPI Narrative: 35-year-old male, smoker with a history of anxiety, psychosis with auditory hallucinations presents to the ED with a 1 day history of -- headache-- pain is diffuse and started prior to coming to the ED. Patient has nausea without any vomiting. No fever. No focal neuro deficits. No history of trauma -- patient is hearing voices. Patient is not taking any antipsychotics. -- Patient is fearful that he is going to from his headache. patient has been smoking marijuana. MD elicited complaint: headache Pertinent past history: other ( psychosis, anxiety) Onset (ago): day(s) ( 1 day) Onset description: gradually Location: diffuse Severity: moderate Quality & Timing: aching and similar to previous headaches Exacerbating factors: none Relieving factors: nothing Associated symptoms: nausea Treatments prior to arrival: none Related Data Allergies Allergy/AdvReac Type Severity Reaction Status Date / Time No Known Allergies Allergy Verified 06/29/25 21:34 Review of Systems Review of Systems: All systems reviewed & are unremarkable except as noted in HPI and below Constitutional: Constitutional: Reports as per HPI and Reports no additional constitutional complaints Eyes: Eyes: Reports as per HPI and Reports no additional eye complaints ENT: Reports system reviewed and no additional complaints, except as documented and Reports as per HPI Cardiovascular: Cardiovascular: Reports as per HPI and Reports no additional cardiovascular complaints Respiratory: Respiratory: Reports as per HPI and Reports no additional re spiratory complaints Gastrointestinal: Gastrointestinal: Reports as per HPI, Reports no additional gastrointestinal complaints and Reports nausea Genitourinary: Genitourinary: Reports no additional male genitourinary complaints and Reports as per HPI Musculoskeletal: Musculoskeletal: Reports no additional musculoskeletal complaints and Reports as per HPI Integumentary/Breasts: Skin/Breast: Reports system reviewed and no additional complaints, except as docu and Reports as per HPI Neurologic: Reports system reviewed and no additional complaints, except as documented and Reports as per HPI Psychiatric: Psychiatric: Reports no additional psychiatric complaints and Reports as per HPI Endocrine: Endocrine: Reports no additional endocrine complaints and Reports as per HPI Hematologic/Lymphatic: Hematologic/Lymphatic: Reports no additional hematologic/lymphatic complaints and Reports as per HPI Allergic/Immunologic: Allergic/Immunologic: Reports no additional allergic/immunologic complaints and Reports as per [facility] Past Medical History Medical History Chest pain SOB (shortness of breath) Anxiety Psychosis Social History Social History Smoking status: Current every day smoker Alcohol intake: current Substance use: current Substance use type: marijuana Other substance usage details: Infrequent Living arrangements: alone Exam Narrative: Pulse 132. Afebrile. Oxygen saturation of 97% on room Const: General: no acute distress Orientation/consciousness: confusion Limitations: no limitations HENMT: Head: normal to inspection Ears: external ears normal Face/Nose/Sinus: Normal external nose present Face and sinus: normal facial exam Mouth: Yes Normal oral and palatal mucosa present Throat: posterior oropharynx normal Eyes: Conjunctivae: conjunctivae normal Pupils: Equal, round and reactive pupils present EOM: EOMs intact bilaterally Direct Ophthalmoscopy: no photophobia Neck: Neck: normal visual inspection, no lymphadenopathy and no meningeal signs Chest: Chest palpation & inspection: normal inspection of the chest Resp: Effort & Inspection: normal respiratory effort Auscultation: clear to auscultation bilaterally Cardio: Rate: regular rate Rhythm: regular rhythm GI: GI Palp: Yes Soft to palpation Auscultation: normal bowel sounds Other: no tenderness/ rigidity : General: Yes no CVA tenderness Back/Spine/Pelvis: Back: no CVA tenderness Skin: General skin exam: normal color Rashes: no rashes Wounds: no wounds Neuro: General: patient oriented x3, moves all extremities, no meningeal signs, no focal motor deficits and CN's II-XI intact bilaterally Cranial nerves: Yes Nystagmus not present Speech: normal speech Gait exam (Neuro): Normal gait present Extrem: General: normal to inspection Psych: Other: patient is psychotic with auditory hallucinations. Anxious Course Course Emergency Course: headache/ nausea-- no focal neuro deficit. No history of trauma. Was given naproxen and Compazine auditory hallucinations/ confusion/ thinks he will from the headache-- patient refused an anti psychotic medication Vital Signs Vital signs: Vital Signs Temperature 36.2 C L 06/29/25 20:59 Pulse Rate 132 H 06/29/25 20:59 Respiratory Rate 16 06/29/25 20:59 Blood Pressure 130/89 06/29/25 20:59 Pulse Oximetry 97 06/29/25 20:59 Oxygen Delivery Room Air 06/29/25 20:59 Temperature 36.2 C L 06/29/25 20:59 Pulse Rate 132 H 06/29/25 20:59 Respiratory Rate 16 06/29/25 20:59 Blood Pressure 130/89 06/29/25 20:59 Pulse Oximetry 97 06/29/25 20:59 Oxygen Delivery Room Air 06/29/25 20:59 MDM - Headache MDM Narrative Medical decision making narrative: headache-- gave the patient naproxen. Patient refused to take Compazine. Psychosis- patient refused take any treatment for his hallucinations, anxiety Differential Diagnosis Differential diagnosis: Likely migraine and sinusitis Medical Records Attestation: I reviewed the patient's medical records. Lab Data Attestation: I reviewed the patient's lab results. Discharge Plan Discharge Clinical Impression: Headache Psychosis Qualifiers: Psychosis type: unspecified psychosis type Qualified Code(s): F29 - Unspecified psychosis not due to a substance or known physiological condition Patient Disposition: Home Condition: Stable Instructions: Antibiotic Form, Acute Headache (DC), Psychotic Disorder (ED) Patient Language: Liberian Prescriptions: No Action meclizine 25 mg tablet 25 mg PO TID Qty: 14 0RF alprazolam [Xanax] 0.5 mg tablet 0.5 mg PO BID PRN (Reason: anxiety) Qty: 30 0RF famotidine [Pepcid] 40 mg tablet 40 mg PO HS Qty: 30 0RF cetirizine 10 mg tablet,disintegrating 10 mg PO BID PRN (Reason: allergy symptoms) Qty: 14 0RF Follow-up/Referrals: Sahil Garza MD [Primary Care Provider, Internal Medicine] Time of Disposition: 21:49
[2025-06-29] MEDS: NAPROXEN 250 MG TABLET 500 MG PO (21:26)
[2025-06-29 21:54] VITALS: BP 124/85; PULSE 105; RESP 18; TEMP 36.1; O2SAT 99
== END 2025-06-29 21:55 | disposition home or self-care (01) ==
PROVIDERS: Emergency Provider Internal Medicine Critical Care Medicine; PCP Internal Medicine
DX: R51.9 Headache, unspecified (principal); F29 Unspecified psychosis not due to a substance or known physiological condition; F17.200 Nicotine dependence, unspecified, uncomplicated
CPT/HCPCS: 99283; A9270

== ENCOUNTER 2025-07-02 17:01 | Emergency (ER) | payer OTHER, SELFPAY ==
[2025-07-02 17:01] VITALS: BP 142/91; PULSE 92; RESP 20; TEMP 36.4; O2SAT 96
--- OUTSIDE RECORDS SUMMARY | 2025-07-02 17:07 | XMS_ITS | Encounter Summary ---
Author Organization [facility] Address [address] [place] [address] Care Team Providers Care Repairer Art Objects Name Role Phone Sahil Garza MD Primary Care Provider [phone] Encounter Details Date Type Department Care Team (Late st Contact Info) Description 04/03/2019 Abstract SFL CONVERSION [address] [place] [address] , Generic Conversion, Social History Tobacco Use [...] on filedocumented in this encounter Care Teams Repairer Art Objects Relationship Specialty Start Date End Date Sahil Garza MD [address] [place] [address] PCP - General INTERNAL MEDICINE 06/21/23 documented as of this encounter
--- OUTSIDE RECORDS SUMMARY | 2025-07-02 17:07 | XMS_ITS | Clinical Summary ---
Author Organization [facility] Address [address] [place] [id number] Care Team Providers Care Steam Turbine Assembler Name Role Phone Sahil Garza MD Primary Care Provider [phone] Social History Tobacco Use Types Packs/Day Years [...] patient's age to complete this topic Insurance [facility] C[facility]O PROVIDER SERVICES AMARIS WHEATLEY [id number] Care Teams Steam Turbine Assembler Relationship Specialty Start Date End Date Sahil Garza MD [address] [place] [address] PCP - General INTERNAL MEDICINE 06/21/23
--- NOTE | 2025-07-02 17:14 | ED.GENADULT ---
HPI - General Adult General Chief complaint: Unspecified Stated complaint: needs doctor's note Time Seen by Provider: 07/02/25 17:10 Source: patient Mode of arrival: ambulatory Limitations: no limitations History of Present Illness HPI narrative: 35-year-old male with a history of anxiety, psychosis, hallucinations presented to the ED on 06/30/2025 with headache and auditory hallucinations. Patient refused any antipsychotic medications. He received naproxen for his headache following which he was discharged. He presents to the ED for a wellness check. patient stated that he had sore throat, sinus fullness, nasal congestion and headache which have resolved. No fever or chills. Onset (ago): day(s) ( Four days) Severity: mild Relieving factors: none Exacerbating factors: none Associated symptoms: denies other symptoms, headaches and weakness Treatments prior to arrival: none Related Data Allergies Allergy/AdvReac Type Severity Reaction Status Date / Time No Known Allergies Allergy Verified 06/29/25 21:34 Review of Systems Review of Systems: All systems reviewed & are unremarkable except as noted in HPI and below PMFSH Past Medical History Medical History Chest pain SOB (shortness of breath) Anxiety Psychosis Social History Social History Smoking status: Current every day smoker Alcohol intake: current Substance use: current Substance use type: marijuana Other substance usage details: Infrequent Living arrangements: alone Exam Const: General: cooperative, healthy appearing, comfortable and no acute distress Nutritional Appearance: average body habitus Orientation/consciousness: oriented to person, oriented to place and oriented to time Limitations: no limitations HENMT: Head: normal to inspection, normocephalic and atraumatic Ears: hearing grossly normal bilaterally, external ears normal and TM's normal bilaterally Face/Nose/Sinus: Normal external nose present and Normal nares present Face and sinus: normal facial exam and sinuses nontender Mouth: Yes Normal oral and palatal mucosa present, Yes lip normal and Yes tongue normal Teeth and gingiva: gingiva normal Throat: posterior oropharynx normal, tonsils normal and uvula midline Eyes: General: appearance normal, both eyes and all related structures Visual Hou: normal visual hou by confrontation Alignment and Position: alignment normal and position normal Periorbital: periorbital findings normal Eyelids: eyelids normal Conjunctivae: conjunctivae normal Sclera: sclerae normal Cornea: corneas normal Pupils: Equal, round and reactive pupils present Neck: Neck: normal visual inspection, full ROM, no lymphadenopathy and no meningeal signs Chest: Chest palpation & inspection: normal inspection of the chest Resp: Effort & Inspection: normal respiratory effort Auscultation: clear to auscultation bilaterally Cardio: Palpation: normal PMI Rate: regular rate Rhythm: regular rhythm Heart sounds: S1 normal heart sound present and S2 normal heart sound present GI: Inspection: normal to inspection Auscultation: other ( abdominal tenderness/ rigidity / rebound.) : General: Yes no CVA tenderness Back/Spine/Pelvis: Back: no CVA tenderness Skin: General skin exam: normal color, no rashes or lesions noted, elasticity normal and turgor normal Neuro: General: oriented to person, oriented to place, oriented to time, patient oriented x3, gait normal, tone normal and moves all extremities Extrem: General: normal to inspection, full ROM and capillary refill normal Psych: Appearance: grossly normal and well kempt Mental Status: mental status grossly normal Course Course Emergency Course: Upper respiratory tract infection-- now resolved Vital Signs Vital signs: Vital Signs Temperature 36.4 C L 07/02/25 17:01 Pulse Rate 92 07/02/25 17:01 Respiratory Rate 07/02/25 17:01 Blood Pressure 142/91 H 07/02/25 17:01 Pulse Oximetry 96 07/02/25 17:01 Oxygen Delivery Room Air 07/02/25 17:01 Temperature 36.4 C L 07/02/25 17:01 Pulse Rate 92 07/02/25 17:01 Respiratory Rate 07/02/25 17:01 Blood Pressure 142/91 H 07/02/25 17:01 Pulse Oximetry 96 07/02/25 17:01 Oxygen Delivery Room Air 07/02/25 17:01 Medical Decision Making [facility] Narrative Medical decision making narrative: upper respiratory tract infection Differential Diagnosis Differential Diagnosis: viral infection Vital Signs Vital Signs: Vital Signs Temperature 36.4 C L 07/02/25 17:01 Pulse Rate 92 07/02/25 17:01 Respiratory Rate 07/02/25 17:01 Blood Pressure 142/91 H 07/02/25 17:01 Pulse Oximetry 96 07/02/25 17:01 Oxygen Delivery Room Air 07/02/25 17:01 Temperature 36.4 C L 07/02/25 17:01 Pulse Rate 92 07/02/25 17:01 Respiratory Rate 20 07/02/25 17:01 Blood Pressure 142/91 H 07/02/25 17:01 Pulse Oximetry 96 07/02/25 17:01 Oxygen Delivery Room Air 07/02/25 17:01 Discharge Plan Discharge Clinical Impression: Upper respiratory infection Qualifiers: URI type: unspecified URI Qualified Code(s): J06.9 - Acute upper respiratory infection, unspecified Patient Disposition: Home Condition: Stable Instructions: Antibiotic Form, Upper Respiratory Infection (DC) Patient Language: Setswana Prescriptions: No Action meclizine 25 mg tablet 25 mg PO TID Qty: 14 0RF alprazolam [Xanax] 0.5 mg tablet 0.5 mg PO BID PRN (Reason: anxiety) Qty: 30 0RF famotidine [Pepcid] 40 mg tablet 40 mg PO HS Qty: 30 0RF cetirizine 10 mg tablet,disintegrating 10 mg PO BID PRN (Reason: allergy symptoms) Qty: 14 0RF Follow-up/Referrals: Sahil Garza MD [Primary Care Provider, Internal Medicine] Stand Alone Forms: Work/School Release IP Time of Disposition: :25
== END 2025-07-02 17:33 | disposition home or self-care (01) ==
PROVIDERS: Emergency Provider Internal Medicine Critical Care Medicine; PCP Internal Medicine
DX: J06.9 Acute upper respiratory infection, unspecified (principal); F17.200 Nicotine dependence, unspecified, uncomplicated
CPT/HCPCS: 99281

== ENCOUNTER 2025-07-22 03:38 | Emergency (ER) | payer OTHER, SELFPAY ==
--- NOTE | ~2025-07-22 | XR_ITS ---
Examination: XR chest 1V portable Clinical History: COUGH, CHEST CONGESTION Comparison: 04/15/2025 Technique: Portable AP Findings: Heart size normal. Lungs clear. No acute bony abnormality. IMPRESSION: 1. No acute cardiopulmonary findings given portable technique. Reviewed, dictated and finalized at location R.
--- OUTSIDE RECORDS SUMMARY | 2025-07-22 03:40 | XMS_ITS | Clinical Summary ---
Author Organization [facility] Address [address] [place] [address] Care Team Providers Care Crew Team Member Name Role Phone Sahil Garza MD Primary Care Provider [phone] Social History Tobacco Use Types Packs/Day Years [...] COVID-19 Vaccine ( - 2023-2 5 season) 2025 Meningococcal B Vaccine Aged Out No l [...] patient's age to complete this topic Insurance [facility] C/O PROVIDER SERVICES AMARIS WHEATLEY [id number] Care Teams Crew Team Member Relationship Specialty Start Date End Date Sahil Garza MD [address] [place] [address] PCP - General INTERNAL MEDICINE 06/21/23
--- OUTSIDE RECORDS SUMMARY | 2025-07-22 03:40 | XMS_ITS | Encounter Summary ---
Author Organization [facility] Address [address] [place] [address] Care Team Providers Care Rehab/Pre Vocational Counselor Name Role Phone Sahil Garza MD Primary Care Provider [phone] Encounter Details Date Type Department Care Team (Late st Contact Info) Description 04/03/2019 Abstract SFL CONVERSION [address] [place] [address] , Generic Conversion, Social History Tobacco Use [...] on filedocumented in this encounter Care Teams Rehab/Pre Vocational Counselor Relationship Specialty Start Date End Date Sahil Garza MD [address] [place] [address] PCP - General INTERNAL MEDICINE 06/21/23 documented as of this encounter
--- NOTE | 2025-07-22 03:46 | PC.NURSE ---
XRAY AT THE BEDSIDE
--- NOTE | 2025-07-22 04:00 | PC.NURSE ---
PATIENT IS RESTING ON STRETCHER WITH EYES CLOSED. RESP EVEN AND UNLABORED. CALL LIGHT IN REACH.
[2025-07-22 04:29] LABS: Influenza A QL RT-PCR Negative (Negative); Influenza B QL RT-PCR Negative (Negative); RSV RNA, RT-PCR Negative (Negative); SARS-CoV-2 RNA PCR Negative (Negative)
--- NOTE | 2025-07-22 04:29 | PC.NURSE ---
RESTING QUIETLY ON STRETCHER. CALL LIGHT IN REACH. WAITING ON LAB RESULTS.
--- NOTE | 2025-07-22 04:45 | PC.NURSE ---
WARM BLANKET GIVEN. LIGHTS TURNED OFF. WAITING ON LAB RESULTS. CALL LIGHT IN REACH
[2025-07-22 05:28] LABS: Strep Group A RT-PCR NOT DETECTED (Negative)
--- NOTE | 2025-07-22 05:31 | PC.NURSE ---
DR SY NOTIFIED THAT LAB WORK HAS RESULTED.
--- NOTE | 2025-07-22 05:37 | PC.NURSE ---
DR SY AT THE BEDSIDE
--- NOTE | 2025-07-22 05:39 | ED.URI ---
HPI - URI/Sore Throat General Chief Complaint: Upper Respiratory Infection Stated Complaint: URI Time Seen by Provider: 07/22/25 05:34 Source: patient Mode of arrival: ambulatory Limitations: no limitations History of Present Illness HPI Narrative: this is a 35-year-old male with no significant past medical history presents with a dude history of sinus congestion drainage for airway could congestion with no fever chills no shortness of breath no audible wheezing no nausea vomiting no abdominal pain no chest pain. MD elicited complaint: cough, sore throat and nasal congestion Onset (ago): day(s) Consistency: constant Severity: mild Description of mucous: clear Able to tolerate fluids by mouth: Yes Related Data Allergies Allergy/AdvReac Type Severity Reaction Status Date / Time No Known Allergies Allergy Verified 06/29/25 21:34 Review of Systems Review of Systems: All systems reviewed & are unremarkable except as noted in HPI and below PMFSH Past Medical History Medical History Chest pain SOB (shortness of breath) Anxiety Psychosis Social History Social History Smoking status: Current every day smoker Alcohol intake: current Substance use: current Substance use type: marijuana Other substance usage details: Infrequent Living arrangements: alone Exam Const: General: healthy appearing Nutritional Appearance: well nourished Orientation/consciousness: patient oriented x3 Limitations: no limitations HENMT: Other: Bilateral nasal turbinate erythema with bilateral ear dullness with some frontal and maxillary sinus tenderness with palpation Eyes: Conjunctivae: conjunctivae normal Pupils: Equal, round and reactive pupils present Neck: Neck: normal visual inspection and no lymphadenopathy Chest: Chest palpation & inspection: normal inspection of the chest Resp: Effort & Inspection: normal respiratory effort Auscultation: clear to auscultation bilaterally Cardio: Rate: regular rate Rhythm: regular rhythm GI: GI Palp: Yes Soft to palpation Course Course Emergency Course: patient had an x-ray performed reviewed with no acute cardiopulmonary abnormalities, COVID RSV influenza and strep all negative patient given a dose of 500mg through max p.o. in the emergency department. MDM - URI/Sore Throat Lab Data Labs: Lab Results 07/22/25 Range/Units 03:47 Influenza A (RT-PCR) Negative (Negative) Influenza B (RT-PCR) Negative (Negative) RSV (RT-PCR) Negative (Negative) SARS-CoV-2 RNA (RT-PCR) Negative (Negative) Group A Strep (PCR) Not detected (Negative) Critical Care Time Critical Care Time Critical Care Time: No Discharge Plan Discharge Clinical Impression: Sinusitis Qualifiers: Sinusitis location: frontal Chronicity: acute Recurrence: non-recurrent Qualified Code(s): J01.10 - Acute frontal sinusitis, unspecified Patient Disposition: Home Condition: Stable Instructions: Antibiotic Form, Sinusitis (ED) Additional Instructions: Advised patient take medication as prescribed and to follow with primary care physician if symptoms persist or worsen. Can take a Zyrtec daily [id number] x1 week. Patient Language: Maldivian Prescriptions: New azithromycin [Zithromax Z-Mingo] 250 mg tablet See Rx Instructions .ROUTE .COMPLEX Qty: 6 0RF Rx Instructions: For 250 mg dose pack: take 500 mg today (day 1), then 250 mg for 4 days (days 2-5) No Action meclizine 25 mg tablet 25 mg PO TID Qty: 14 0RF alprazolam [Xanax] 0.5 mg tablet 0.5 mg PO BID PRN (Reason: anxiety) Qty: 30 0RF famotidine [Pepcid] 40 mg tablet 40 mg PO HS Qty: 30 0RF cetirizine 10 mg tablet,disintegrating 10 mg PO BID PRN (Reason: allergy symptoms) Qty: 14 0RF Follow-up/Referrals: Sahil Garza MD [Primary Care Provider, Internal Medicine] Time of Disposition: 05:42
[2025-07-22] MEDS: AZITHROMYCIN 250 MG TABLET 500 MG PO (05:43)
--- OUTSIDE RECORDS SUMMARY | 2025-07-22 05:47 | XMS_ITS | Encounter Summary ---
Author Organization [facility] Address [address] [place] [address] Care Team Providers Care Automotive Parts Person Name Role Phone Sahil Garza MD Primary Care Provider [phone] Encounter Details Date Type Department Care Team (Late st Contact Info) Description 04/03/2019 Abstract SFL CONVERSION [address] [place] [address] , Generic Conversion, Social History Tobacco Use [...] on filedocumented in this encounter Care Teams Automotive Parts Person Relationship Specialty Start Date End Date Sahil Garza MD [address] [place] [address] PCP - General INTERNAL MEDICINE 06/21/23 documented as of this encounter
[2025-07-22 06:05] VITALS: BP 132/84; PULSE 88; RESP 20; O2SAT 98
== END 2025-07-22 06:05 | disposition home or self-care (01) ==
LOC: CHSED 05:46
PROVIDERS: Emergency Provider Emergency Medicine; PCP Internal Medicine
DX: J01.10 Acute frontal sinusitis, unspecified (principal); F17.200 Nicotine dependence, unspecified, uncomplicated; Z20.822 Contact with and (suspected) exposure to COVID-19
CPT/HCPCS: 71045; 87637; 87651; 99283; A9270

== ENCOUNTER 2025-07-23 03:32 | Emergency (ER) | payer OTHER, SELFPAY ==
[2025-07-23 03:33] VITALS: BP 137/95; PULSE 72; RESP 22; TEMP 36.1; O2SAT 96
--- OUTSIDE RECORDS SUMMARY | 2025-07-23 03:35 | XMS_ITS | Encounter Summary ---
Author Organization [facility] Address [address] [place] [id number] Care Team Providers Care White Sugar Syrup Operator Name Role Phone Sahil Garza MD Primary Care Provider [phone] Encounter Details Date Type Department Care Team (Late st Contact Info) Description 04/03/2019 Abstract SFL CONVERSION [address] [place] [address] , Generic Conversion, Social History Tobacco Use [...] on filedocumented in this encounter Care Teams White Sugar Syrup Operator Relationship Specialty Start Date End Date Sahil Garza MD [address] [place] [address] PCP - General INTERNAL MEDICINE 06/21/23 documented as of this encounter
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
== END 2025-07-23 04:30 | disposition home or self-care (01) ==
PROVIDERS: Emergency Provider Emergency Medicine; PCP Internal Medicine
DX: F41.9 Anxiety disorder, unspecified (principal); F20.9 Schizophrenia, unspecified; F17.200 Nicotine dependence, unspecified, uncomplicated
CPT/HCPCS: 99281

== ENCOUNTER 2025-07-25 03:39 | Emergency (ER) | payer OTHER, SELFPAY ==
--- NOTE | ~2025-07-25 | XR_ITS ---
Examination: XR chest 1V portable Clinical History: back pain bilaterally. PAIN BEGAN AFTER LIFTING GUITAR CASE Comparison: 07/22/2025 Technique: Portable AP Findings: Heart size normal. Lungs clear. No acute bony abnormality. IMPRESSION: 1. No acute cardiopulmonary findings given portable technique. Reviewed, dictated and finalized at location R.
[2025-07-25 03:40] VITALS: BP 128/95; PULSE 72; RESP 20; TEMP 36.6; O2SAT 97
--- OUTSIDE RECORDS SUMMARY | 2025-07-25 03:41 | XMS_ITS | Encounter Summary ---
Author Organization [facility] Address [address] [place] [address] Care Team Providers Care Manager Talent Management Name Role Phone Sahil Garza MD Primary Care Provider [phone] Encounter Details Date Type Department Care Team (Late st Contact Info) Description 04/03/2019 Abstract SFL CONVERSION [address] [place] [address] , Generic Conversion, Social History Tobacco Use [...] on filedocumented in this encounter Care Teams Manager Talent Management Relationship Specialty Start Date End Date Sahil Garza MD [address] [place] [address] PCP - General INTERNAL MEDICINE 06/21/23 documented as of this encounter
--- NOTE | 2025-07-25 04:00 | ECG_ITS ---
Test Date: 2025-07-25 04:09:21 Measurements Intervals Paulina Rate: 63 P: 15 KS: 150 QRS: 62 QRSD: 101 T: 19 QT: 397 QTc: 408 Interpretive Statements SINUS RHYTHM ST ELEVATION, PROBABLY EARLY REPOLARIZATION [ST ELEVATION WITH NORMALLY INFLECTED T-WAVE] Compared to ECG 04/21/2025 09:34:32 Sinus arrhythmia no longer present ST (T wave) deviation still present Electronically Signed On 07-25-2025 06:19:18 CDT by Kimberlee Segovia M.D.
--- NOTE | 2025-07-25 04:01 | PC.NURSE ---
dr brice in room with pt for eval. pt declined pain medication or anxiety medications offered per dr brice.
--- NOTE | 2025-07-25 04:02 | ED.GENADULT ---
HPI - General Adult General Chief complaint: Extremity Problem,Nontraumatic Stated complaint: shoulder pain Time Seen by Provider: 07/25/25 04:00 Source: patient Mode of arrival: ambulatory History of Present Illness HPI narrative: 35 years old white male walked to the emergency room from home complaining of pain at the upper back and shoulder bilaterally, for the last 2 days, difficulty sleeping, hearing voices , broke up with his girlfriend and moved most of his stuff out of her house 2 days ago, scheduled to start a new job in 5 hours. History of anxiety, psych disorder. Currently on Xanax which he does not like, he reported that Ativan works better. This is the 5th ED visit this month. He denies any fever, chills, nausea, vomiting, shortness of breath or chest pain. Patient is telling me that he broke up with his girlfriend often on for the last 8 years, he got fired from his job numerous of time in the past and is tired of that. He denied suicidal or homicidal ideation He declined to take Ativan or Zyprexa in the emergency room concernen about the possibility of side effects Related Data Allergies Allergy/AdvReac Type Severity Reaction Status Date / Time No Known Allergies Allergy Verified 07/25/25 04:29 Review of Systems Review of Systems: All systems reviewed & are unremarkable except as noted in HPI and below PMFSH Past Medical History Medical History Chest pain SOB (shortness of breath) Anxiety Psychosis Social History Social History Smoking status: Current every day smoker Alcohol intake: current Substance use: current Substance use type: does not use Other substance usage details: Infrequent Living arrangements: alone Exam Narrative: General appearance: Well-developed, well-nourished Skin: Normal color Head: Normocephalic, nontraumatic Eyes: Clear conjunctiva ENT: Oropharynx normal, ears normal, nose normal Neck: Supple, nontender Chest and respiratory: Airway patent, no respiratory distress, no accessory muscle use Heart: Regular rate/rhythm Abdomen: Soft, nontender, no organomegaly, quiet bowel sounds Vascular: Normal peripheral pulses, normal capillary refill. Musculoskeletal: Normal range of motion, nontender back no localized tenderness or rash. Neurologic: Alert and oriented ?3, SOFTWARE RELEASE ENGINEER is normal as tested, no gross motor deficit Course Vital Signs Vital signs: Vital Signs Temperature 36.6 C 07/25/25 03:40 Pulse Rate 72 07/25/25 03:40 Respiratory Rate 20 07/25/25 03:40 Blood Pressure 128/95 H 07/25/25 03:40 Pulse Oximetry 97 07/25/25 03:40 Oxygen Delivery Room Air 07/25/25 03:40 Temperature 36.6 C 07/25/25 03:40 Pulse Rate 72 07/25/25 03:40 Respiratory Rate 20 07/25/25 03:40 Blood Pressure 128/95 H 07/25/25 03:40 Pulse Oximetry 97 07/25/25 03:40 Oxygen Delivery Room Air 07/25/25 03:40 Medical Decision Making MDM Narrative Medical decision making narrative: patient presents with multiple symptoms , 0 risk factor for coronary artery disease Vital signs are stable Physical examination showing depressed patient, with multiple complains Differential diagnosis: anxiety/ depression, acute on top of chronic psychosis, noncompliance with medications , musculoskeletal Chest x-ray showed no acute abnormality EKG showed normal sinus rhythm Diagnosis anxiety, psychosis Differential Diagnosis Differential Diagnosis: as above Vital Signs Vital Signs: Vital Signs Temperature 36.6 C 07/25/25 03:40 Pulse Rate 72 07/25/25 03:40 Respiratory Rate 07/25/25 03:40 Blood Pressure 128/95 H 07/25/25 03:40 Pulse Oximetry 97 07/25/25 03:40 Oxygen Delivery Room Air 07/25/25 03:40 Temperature 36.6 C 07/25/25 03:40 Pulse Rate 72 07/25/25 03:40 Respiratory Rate 20 07/25/25 03:40 Blood Pressure 128/95 H 07/25/25 03:40 Pulse Oximetry 97 07/25/25 03:40 Oxygen Delivery Room Air 07/25/25 03:40 Imaging Data My impression: chest x-ray showed no acute abnormalities ECG Data EKG #1: Attestation: I personally reviewed and interpreted this ECG as follows: Prior ECG tracings: available for review Interpretation: normal sinus rhythm at 63 beats per minute, early repolarization, compared to EKG April 21, 2025 sinus arrhythmia no longer present Discharge Plan Discharge Clinical Impression: Anxiety, Back pain Psychosis Qualifiers: Psychosis type: unspecified psychosis type Qualified Code(s): F29 - Unspecified psychosis not due to a substance or known physiological condition Patient Disposition: Home Condition: Stable Instructions: Back Pain (ED), Anxiety (ED), Psychotic Disorder (ED) Additional Instructions: Return if symptoms are worsening , call your family physician for appointment, take Tylenol, ibuprofen as as needed for aches and pain, continue home medications. Patient Language: Gambian Prescriptions: No Action meclizine 25 mg tablet 25 mg PO TID Qty: 14 0RF alprazolam [Xanax] 0.5 mg tablet 0.5 mg PO BID PRN (Reason: anxiety) Qty: 30 0RF famotidine [Pepcid] 40 mg tablet 40 mg PO HS Qty: 30 0RF cetirizine 10 mg tablet,disintegrating 10 mg PO BID PRN (Reason: allergy symptoms) Qty: 14 0RF azithromycin [Zithromax Z-Mingo] 250 mg tablet See Rx Instructions .ROUTE .COMPLEX Qty: 6 0RF Rx Instructions: For 250 mg dose pack: take 500 mg today (day 1), then 250 mg for 4 days (days 2-5) Follow-up/Referrals: UNKNOWN,DOCTOR [Primary Care Provider] Quality HEART score for chest pain patients History: slightly suspicious ECG: normal Age: < or = to 45 years Risk factors: no risk factors known
== END 2025-07-25 04:31 | disposition home or self-care (01) ==
LOC: CHSED 04:47
PROVIDERS: Emergency Provider Emergency Medicine
DX: F41.9 Anxiety disorder, unspecified (principal); M54.6 Pain in thoracic spine; F29 Unspecified psychosis not due to a substance or known physiological condition; F17.200 Nicotine dependence, unspecified, uncomplicated; Z79.899 Other long term (current) drug therapy
CPT/HCPCS: 71045; 93005; 99283

== ENCOUNTER 2025-07-27 22:02 | Emergency (ER) | payer OTHER, SELFPAY ==
[2025-07-27 22:03] VITALS: BP 125/85; PULSE 86; RESP 20; TEMP 35.9; O2SAT 96
--- NOTE | 2025-07-27 22:19 | ED.HA ---
HPI - Headache General Chief Complaint: Headache Stated Complaint: doesnt feel well Time Seen by Provider: 07/27/25 22:19 Source: patient Mode of arrival: ambulatory Limitations: no limitations History of Present Illness HPI Narrative: Patient is a 35-year-old male with 2 beers and some marijuana this evening and further had a headache and a little bit of nausea. This patient frequency emergency room for simple questions and typically leaves after talking to the doctor. He did not want any medication. He has lots of anxiety. Mostly this patient requires reassurance. MD elicited complaint: headache Pertinent past history: other (Schizophrenia without medication per patient choice) Onset (ago): hour(s) (3) Onset description: gradually Location: generalized Severity: mild Pain scale (0-10): 3 Quality & Timing: aching and throbbing Exacerbating factors: other (This started after drinking beer and some marijuana use this evening) Relieving factors: other (Cold towel/cloth) Context: occurred at rest and other (Patient drank a few beers and smoked some marijuana and there started to have a headache and some GERD and nausea) Associated symptoms: nausea Treatments prior to arrival: none Related Data Allergies Allergy/AdvReac Type Severity Reaction Status Date / Time No Known Allergies Allergy Verified 07/27/25 23:04 Review of Systems Review of Systems: All systems reviewed & are unremarkable except as noted in HPI and below Constitutional: Constitutional: Reports no additional constitutional complaints Eyes: Eyes: Reports no additional eye complaints ENT: Reports system reviewed and no additional complaints, except as documented Cardiovascular: Cardiovascular: Reports no additional cardiovascular complaints Respiratory: Respiratory: Reports no additional respiratory complaints Gastrointestinal: Gastrointestinal: Reports no additional gastrointestinal complaints Genitourinary: Genitourinary: Reports no additional male genitourinary complaints Musculoskeletal: Musculoskeletal: Reports no additional musculoskeletal complaints Integumentary/Breasts: Skin/Breast: Reports system reviewed and no additional complaints, except as docu Neurologic: Reports system reviewed and no additional complaints, except as documented Psychiatric: Psychiatric: Reports no additional psychiatric complaints Endocrine: Endocrine: Reports no additional endocrine complaints Hematologic/Lymphatic: Hematologic/Lymphatic: Reports no additional hematologic/lymphatic complaints Allergic/Immunologic: Allergic/Immunologic: Reports no additional allergic/immunologic complaints PMFSH Past Medical History Medical History Chest pain SOB (shortness of breath) Anxiety Psychosis Social History Social History Smoking status: Current every day smoker Alcohol intake: current Substance use: current Substance use type: does not use Other substance usage details: Infrequent Living arrangements: alone Exam Const: General: healthy appearing Nutritional Appearance: well nourished Orientation/consciousness: patient oriented x3 HENMT: Head: normal to inspection Ears: external ears normal Face/Nose/Sinus: Normal external nose present Eyes: Conjunctivae: conjunctivae normal Pupils: Equal, round and reactive pupils present EOM: EOMs intact bilaterally Neck: Neck: normal visual inspection Chest: Chest palpation & inspection: normal inspection of the chest Resp: Effort & Inspection: normal respiratory effort and not labored Auscultation: clear to auscultation bilaterally and no crackles Cardio: Rate: regular rate Rhythm: regular rhythm Heart sounds: no murmurs GI: Inspection: non-distended GI Palp: Yes Soft to palpation and No Tenderness to palpation present (GI) Auscultation: normal bowel sounds : General: Yes bladder normal to palpation Back/Spine/Pelvis: Back: no CVA tenderness Skin: General skin exam: normal color Rashes: no rashes Wounds: no wounds Neuro: General: patient oriented x3, moves all extremities and no meningeal signs Extrem: General: normal to inspection Psych: Mental Status: mental status grossly normal Affect: normal affect Attitude: cooperative Course Vital Signs Vital signs: Vital Signs Temperature 35.9 C L 07/27/25 22:03 Pulse Rate 86 07/27/25 22:03 Respiratory Rate 20 07/27/25 22:03 Blood Pressure 125/85 07/27/25 22:03 Pulse Oximetry 96 07/27/25 22:03 Oxygen Delivery Room Air 07/27/25 22:03 Temperature 35.9 C L 07/27/25 22:03 Pulse Rate 86 07/27/25 22:03 Respiratory Rate 20 07/27/25 22:03 Blood Pressure 125/85 07/27/25 22:03 Pulse Oximetry 96 07/27/25 22:03 Oxygen Delivery Room Air 07/27/25 22:03 MDM - Headache MDM Narrative Medical decision making narrative: Patient is a 35-year-old male with a headache and GERD/nausea this evening after drinking 2 beers possibly a 3rd and some marijuana use. After discussing with the patient he said he would like to just go home and did not want any medication. His typical routine in the emergency room. We will discharge patient. Discharge Plan Discharge Clinical Impression: Cephalgia Qualifiers: Headache type: unspecified Headache chronicity pattern: acute headache Intractability: not intractable Qualified Code(s): R51.9 - Headache, unspecified Patient Disposition: Home Condition: Stable Instructions: Acute Headache (ED) Patient Language: Ghanaian Prescriptions: No Action famotidine [Pepcid] 40 mg tablet 40 mg PO HS Qty: 30 0RF cetirizine 10 mg tablet,disintegrating 10 mg PO BID PRN (Reason: allergy symptoms) Qty: 14 0RF Follow-up/Referrals: Sahil Garza MD [Primary Care Provider, Internal Medicine] Time of Disposition: 23:17
== END 2025-07-27 23:21 | disposition home or self-care (01) ==
PROVIDERS: Emergency Provider Emergency Medicine; PCP Internal Medicine
DX: R51.9 Headache, unspecified (principal); F17.210 Nicotine dependence, cigarettes, uncomplicated
CPT/HCPCS: 99283

== ENCOUNTER 2025-08-09 08:58 | Emergency (ER) | payer OTHER, SELFPAY ==
[2025-08-09 08:58] VITALS: BP 123/88; PULSE 70; RESP 16; TEMP 36.3; O2SAT 97
[2025-08-09 09:24] LABS: Hematocrit 44.1 % (40.0-54.0); Hemoglobin 14.8 g/dL (14.0-18.0); Immature Granulocyte Percent A 0.2 % (0.0-0.0); Lymphocytes Absolute Auto 1.44 K/mm3 (1.10-4.50); Mean Corpuscular HGB Conc 33.6 g/dL (32-36); Mean Corpuscular Hemoglobin 28.7 pg (27.0-31.0); Mean Corpuscular Volume 85.6 fL (78.0-102.0); Nucleated Red Blood Cells Absolute Auto 0.00 K/mm3 (0.00-0.00); Nucleated Red Blood Cells Perc 0.0 % (0-0.0); Platelet Count Result 151 K/mm3 (150-420); Red Blood Count 5.15 M/mm3 (4.70-6.10); White Blood Count 5.0 K/mm3 (4.8-10.8)
[2025-08-09 09:31] LABS: Alanine Aminotransferase 15 U/L (6-50); Albumin Level 4.6 g/dL (3.5-5.1); Alkaline Phosphatase 48 U/L (38-126); Anion Gap 6 mmol/L (4-12); Aspartate Amino Transferase 21 U/L (17-59); Bilirubin,Total 1.2 mg/dL (0.2-1.3); Blood Urea Nitrogen 19 mg/dL (9-20); Calcium 9.1 mg/dL (8.4-10.2); Carbon Dioxide 30 mmol/L (22-30); Chloride 105 mmol/L (98-107); Estimated CRCL calculation 84 ml/min; Estimated Glomerular Filt Rate > 60; Glucose 109 mg/dL (65-110); Lipase 60 U/L (23-300); Osmolality Calculated 295 mOsm/kg (285-295); Potassium 4.6 mmol/L (3.4-5.0); Sodium 141 mmol/L (137-145); Total Protein 7.8 g/dL (6.3-8.2)
--- NOTE | 2025-08-09 09:40 | ED.ABDPAIN ---
HPI - Abdominal Pain General Chief Complaint: Abdominal Pain Stated Complaint: shortness of breath Time Seen by Provider: 08/09/25 09:05 Source: patient Mode of arrival: ambulatory Limitations: no limitations History of Present Illness HPI narrative: 35-YEAR-OLD HERE WITH A COMPLAINS OF UPPER ABDOMINAL PAIN WHICH HAS BEEN ONGOING FOR PAST 3 HOURS. PATIENT STATES THAT HE HAS BEEN HAVING THIS RECURRENT PROBLEM FOR QUITE SOME TIME. DENIES ANY NAUSEA OR VOMITING. ALSO COMPLAINS OF MILD SHORTNESS OF BREATH. HISTORY OF ANXIETY BUT NOT ON ANY MEDICATION DENIES ANY FEVER OR CHILLS. Related Data Allergies Allergy/AdvReac Type Severity Reaction Status Date / Time No Known Allergies Allergy Verified 08/09/25 09:12 Review of Systems Review of Systems: All systems reviewed & are unremarkable except as noted in HPI and below Constitutional: Constitutional: Reports as per HPI Eyes: Eyes: Reports as per HPI ENT: Reports system reviewed and no additional complaints, except as documented Cardiovascular: Cardiovascular: Reports no additional cardiovascular complaints Respiratory: Respiratory: Reports no additional respiratory complaints Gastrointestinal: Gastrointestinal: Reports as per HPI Musculoskeletal: Musculoskeletal: Reports no additional musculoskeletal complaints PMFSH Past Medical History Medical History Chest pain SOB (shortness of breath) Anxiety Psychosis Social History Social History Smoking status: Current every day smoker Alcohol intake: current Substance use: current Substance use type: marijuana Other substance usage details: Infrequent Living arrangements: alone Exam Narrative: GENERAL: Well-appearing, well-nourished, and in no acute distress. HEAD: Normocephalic, atraumatic. EYES: PERRLA and EOMI. ENT: Nares clear, no rhinorrhea or epistaxis. Mucous membranes moist. NECK: Supple. CHEST: Clear to auscultation. No respiratory distress. HEART: Regular rate and rhythm. No murmur heard. Normal peripheral pulses. ABDOMEN: Soft, nontender, nondistended, normal active bowel sounds. EXTREMITIES: Normal range of motion. No edema. SKIN: Warm, dry, no rash. NEURO: No focal deficits. Alert and oriented x3. PSYCH: Normal mood and affect. Course Course Emergency Course: informed patient about his lab work. Advised him to continue his home medications, follow-up with his primary doctor. Vital Signs Vital signs: Vital Signs Temperature 36.3 C L 08/09/25 08:58 Pulse Rate 70 08/09/25 08:58 Respiratory Rate 16 08/09/25 08:58 Blood Pressure 123/88 08/09/25 08:58 Pulse Oximetry 97 08/09/25 08:58 Oxygen Delivery Room Air 08/09/25 08:58 Temperature 36.3 C L 08/09/25 08:58 Pulse Rate 70 08/09/25 08:58 Respiratory Rate 16 08/09/25 08:58 Blood Pressure 123/88 08/09/25 08:58 Pulse Oximetry 97 08/09/25 08:58 Oxygen Delivery Room Air 08/09/25 09:05 MDM - Abdominal Pain Lab Data 08/09/25 09:16 08/09/25 09:16 Labs: Lab Results 08/09/25 Range/Units 09:16 WBC 5.0 (4.8-10.8) K/mm3 RBC 5.15 (4.70-6.10) M/mm3 Hgb 14.8 (14.0-18.0) g/dL Hct 44.1 (40.0-54.0) % MCV 85.6 (78.0-102.0) fL MCH 28.7 (27.0-31.0) pg MCHC 33.6 (32-36) g/dL RDW 12.4 (11.6-14.4) % Plt Count 151 (150-420) K/mm3 MPV 10.5 (8.7-11.0) fl Immature Gran % (Auto) 0.2 H (0.0-0.0) % Neut % (Auto) 61.6 (50.0-70.0) % Lymph % (Auto) 29.0 (18.0-42.0) % [place] % (Auto) 6.2 (2.0-11.0) % Eos % (Auto) 2.4 (1.0-6.0) % Baso % (Auto) 0.6 (0.0-1.0) % Lymph # (Auto) 1.44 (1.10-4.50) K/mm3 [place] # (Auto) 0.31 (0.10-0.90) K/mm3 Eos # (Auto) 0.12 (0.02-0.50) K/mm3 Baso # (Auto) 0.03 (0.00-0.10) K/mm3 Abs Immat Gran (auto) 0.01 H (0.00-0.00) K/mm3 Absolute Neuts (auto) 3.06 (1.70-7.20) K/mm3 Absolute Nucleated RBC 0.00 (0.00-0.00) K/mm3 Nucleated RBC % 0.0 (0-0.0) % Sodium 141 (137-145) mmol/L Potassium 4.6 (3.4-5.0) mmol/L Chloride 105 (98-107) mmol/L Carbon Dioxide 30 (22-30) mmol/L Anion Gap 6 (4-12) mmol/L BUN 19 (9-20) mg/dL Creatinine 1.01 (0.7-1.3) mg/dL Estim Creat Clear Calc 84 ml/min Estimated GFR > 60 (59 - ) Glucose 109 (65-110) mg/dL Calculated Osmolality 295 (285-295) mOsm/kg Calcium 9.1 (8.4-10.2) mg/dL Total Bilirubin 1.2 (0.2-1.3) mg/dL AST 21 (17-59) U/L ALT 15 (6-50) U/L Alkaline Phosphatase 48 (38-126) U/L Total Protein 7.8 (6.3-8.2) g/dL Albumin 4.6 (3.5-5.1) g/dL Lipase 60 (23-300) U/L Discharge Plan Discharge Clinical Impression: Anxiety Abdominal pain Qualifiers: Abdominal location: epigastric Qualified Code(s): R10.13 - Epigastric pain Patient Disposition: Home Condition: Stable Instructions: Abdominal Pain (ED), Anxiety (ED) Additional Instructions: continue home medications, follow-up with your primary doctor Patient Language: Setswana Prescriptions: No Action famotidine [Pepcid] 40 mg tablet 40 mg PO HS Qty: 30 0RF cetirizine 10 mg tablet,disintegrating 10 mg PO BID PRN (Reason: allergy symptoms) Qty: 14 0RF Follow-up/Referrals: Sahil Garza MD [Primary Care Provider, Internal Medicine] Time of Disposition: 09:43
--- NOTE | 2025-08-09 09:44 | PC.NURSE ---
pt is lying on stretcher, nad noted awaiting results at this time. will continue to monitor.
[2025-08-09 09:47] VITALS: BP 111/72; PULSE 59; RESP 18; TEMP 36.7; O2SAT 98
--- OUTSIDE RECORDS SUMMARY | 2025-08-09 09:51 | XMS_ITS | Clinical Summary ---
Author Organization [facility] Address [address] [place] [address] Care Team Providers Care Manufacturing Development Engineer Name Role Phone Sahil Garza MD Primary Care Provider [phone] Social History Tobacco Use Types Packs/Day Years [...] Vaccine ( - 2023-2 5 season) 2025 Influenza Adult (#1) 2025 Meningococcal B Vaccine Aged Out No [...] age to complete this topic Insurance [facility] MEDICAID C/O PROVIDER SERVICES AMARIS WHEATLEY [id number] Care Teams Manufacturing Development Engineer Relationship Specialty Start Date End Date Sahil Garza MD [address] [place] [id number] PCP - General INTERNAL MEDICINE 06/21/23
--- OUTSIDE RECORDS SUMMARY | 2025-08-09 09:51 | XMS_ITS | Encounter Summary ---
Author Organization [facility] Address [address] [place] [address] Care Team Providers Care Chief Design Drafter Name Role Phone Sahil Garza MD Primary Care Provider [phone] Encounter Details Date Type Department Care Team (Late st Contact Info) Description 04/03/2019 Abstract SFL CONVERSION [address] [place] [address] , Generic Conversion, Social History Tobacco Use [...] on filedocumented in this encounter Care Teams Chief Design Drafter Relationship Specialty Start Date End Date Sahil Garza MD [address] [place] [address] PCP - General INTERNAL MEDICINE 06/21/23 documented as of this encounter
== END 2025-08-09 10:05 | disposition home or self-care (01) ==
PROVIDERS: Emergency Provider Family Medicine; PCP Internal Medicine
DX: F41.9 Anxiety disorder, unspecified (principal); R10.13 Epigastric pain; F17.200 Nicotine dependence, unspecified, uncomplicated
CPT/HCPCS: 36415; 80053; 83690; 85025; 99283

== ENCOUNTER 2025-08-17 17:24 | Emergency (ER) | payer OTHER, SELFPAY ==
--- NOTE | ~2025-08-17 | CT_ITS ---
CT abdomen pelvis w con INDICATION:abdominal pain . COMPARISON: None. TECHNIQUE: Axial images of the abdomen and pelvis were obtained following infusion of 100 mL Isovue 300. Dose optimization technique was utilized. FINDINGS: The lung bases are clear. The liver parenchyma is unremarkable. No intrahepatic mass or ductal dilatation is evident. The gallbladder is unremarkable. The pancreas and spleen are normal in appearance. The adrenal glands are symmetric in size. The kidneys demonstrate symmetric uptake and excretion of contrast. No cystic mass is evident. There is no solid mass. There is no hydronephrosis. Evaluation of the stomach and bowel loops are limited due to lack of oral contrast. There are fluid scattered throughout the small bowel loops may represent enteritis. There are no bowel obstruction. Appendix is normal. The bladder and rectum are normal. No free intraperitoneal fluid or air is evident. There is no significant retroperitoneal lymphadenopathy. The aorta, visceral vessels and renal arteries demonstrate normal caliber and patency. The lower thoracic and lumbar vertebrae are in normal alignment. IMPRESSION: Fluid scattered throughout the small bowel loops suggestive of enteritis. There are no bowel obstruction or acute appendicitis. All CT scans at this facility are performed using low dose modulation techniques as appropriate to perform exam including the following: automated exposure control; use of iterative reconstruction technique; adjustment of the mA and/or kV according to patient size (this includes techniques or standardized protocols for targeted exams where dose is matched to indication/reason for exam). Reviewed, dictated and finalized at location S. IMPRESSION: Fluid scattered throughout the small bowel loops suggestive of enteritis. There are no bowel obstruction or acute appendicitis. All CT scans at this facility are performed using low dose modulation techniqu es as appropriate to perform exam including the following: automated exposure c ontrol; use of iterative reconstruction technique; adjustment of the mA and/or kV according to patient size (this includes techniques or standardized protocol s for targeted exams where dose is matched to indication/reason for exam).
[2025-08-17 17:26] VITALS: BP 137/95; PULSE 107; RESP 18; TEMP 36.6; O2SAT 93
--- NOTE | 2025-08-17 17:32 | ED_ITS ---
HPI - Abdominal Pain General Chief Complaint: Abdominal Pain Stated Complaint: vomiting, diarrhea Time Seen by Provider: 08/17/25 17:29 Source: patient Mode of arrival: ambulatory Limitations: no limitations History of Present Illness HPI narrative: 35 year old male presents to the Emergency Department complaining of abdominal pain from mid to upper abdomen. Onset today. States he has had diarrhea all day and vomited once. Has bloating to upper abdomen which he believes is affecting his breathing. He denies fever or known exposure. MD elicited complaint: abdominal pain Onset (ago): hour(s) (this morning) Pain Consistency: constant Location: epigastric, LUQ and RUQ Severity: moderate Radiation: none Exacerbating factors: nothing Relieving factors: nothing Associated symptoms: nausea, vomiting and diarrhea Related Data Allergies Allergy/AdvReac Type Severity Reaction Status Date / Time No Known Allergies Allergy Verified 08/17/25 17:54 Review of Systems 2 Review of Systems: All systems reviewed & are unremarkable except as noted in HPI and below Constitutional: Constitutional: Reports as per HPI, Reports no additional constitutional complaints, Denies chills and Denies fever(s) Eyes: Eyes: Reports as per HPI ENT: Reports system reviewed and no additional complaints, except as documented Cardiovascular: Cardiovascular: Reports as per HPI, Reports no additional cardiovascular complaints and Denies chest pain Respiratory: Respiratory: Reports as per HPI, Denies chest congestion, Denies cough and Reports dyspnea Gastrointestinal: Gastrointestinal: Reports as per HPI, Reports no additional gastrointestinal complaints, Reports abdominal pain, Reports bloating, Reports diarrhea, Reports nausea and Reports vomiting Genitourinary: Genitourinary: Reports no additional male genitourinary complaints Musculoskeletal: Musculoskeletal: Reports no additional musculoskeletal complaints and Denies back pain Integumentary/Breasts: Skin/Breast: Reports system reviewed and no additional complaints, except as docu Neurologic: Reports system reviewed and no additional complaints, except as documented Psychiatric: Psychiatric: Reports no additional psychiatric complaints Endocrine: Endocrine: Reports no additional endocrine complaints Hematologic/Lymphatic: Hematologic/Lymphatic: Reports no additional hematologic/lymphatic complaints Allergic/Immunologic: Allergic/Immunologic: Reports no additional allergic/immunologic complaints PMFSH Past Medical History Medical History Chest pain SOB (shortness of breath) Anxiety Psychosis Social History Social History Smoking status: Current every day smoker Alcohol intake: current Substance use: current Substance use type: marijuana Other substance usage details: Infrequent Living arrangements: alone Exam 2 Const: General: healthy appearing Nutritional Appearance: well nourished Orientation/consciousness: patient oriented x3 Limitations: no limitations HENMT: Head: normal to inspection Ears: external ears normal F sade/Nose/Sinus: Normal external nose present Face and sinus: normal facial exam Mouth: Yes Normal oral and palatal mucosa present Teeth and gingiva: dentition normal Throat: posterior oropharynx normal Eyes: Pupils: Equal, round and reactive pupils present EOM: EOMs intact bilaterally Direct Ophthalmoscopy: no photophobia Neck: Neck: normal visual inspection and no meningeal signs Chest: Chest palpation & inspection: normal inspection of the chest Resp: Effort & Inspection: normal respiratory effort Auscultation: clear to auscultation bilaterally Cardio: Rate: regular rate Rhythm: regular rhythm Heart sounds: no murmurs GI: Inspection: non-distended GI Palp: Yes Soft to palpation, Yes Tenderness to palpation present (GI) (mildly upper abdomen), No Guarding due to palpation present (GI), No Palpable mass present and No Rebound tenderness present Auscultation: normal bowel sounds : General: Yes bladder normal to palpation Back/Spine/Pelvis: Back: no CVA tenderness Skin: General skin exam: normal color Rashes: no rashes Wounds: no wounds Neuro: General: patient oriented x3 Other: grossly normal Extrem: General: normal to inspection Psych: Mental Status: mental status grossly normal Course Course Emergency Course: 35 y/o male presents to the ED c/o upper abdominal pains, bloating, vomiting x 1, diarrhea all day. Onset today. PE: mild tenderness upper abdomen, o/w unremarkable CBC: H/H 15.8/47.5, Plt 158; wbc 6.1 with 78n S, 13 L, 7 M CMP: Na 139, K 3.8, Cl 104, CO2 26, Glc 120, BUN 17, Cr 1.07; LFT's normal A/L: 62 / 40 Lactic: 0.6 UA: unremarkable Covid/ Influenza/ RSV: negative CT Abd/Pelvis: fluid scattered throught small bowel suspicious for enteritis Tx: NS w/o, Zofran 4 mg IVP. *reviewed and discussed results with patient. Discussed further management. Patient voices understanding and agreement. Instructions Vital Signs Vital signs: Vital Signs Temperature 36.6 C 08/17/25 17:26 Pulse Rate 107 H 08/17/25 17:26 Respiratory Rate 18 08/17/25 17:26 Blood Pressure 137/95 H 08/17/25 17:26 Pulse Oximetry 93 08/17/25 17:26 Oxygen Delivery Room Air 08/17/25 17:26 Temperature 37.2 C 08/17/25 19:50 Pulse Rate 70 08/17/25 19:50 Respiratory Rate 18 08/17/25 19:50 Blood Pressure 113/72 08/17/25 19:50 Pulse Oximetry 97 08/17/25 19:50 Oxygen Delivery Room Air 08/17/25 19:50 MDM - Abdominal Pain Lab Data 08/17/25 17:41 08/17/25 17:41 Labs: Lab Results 08/17/25 08/17/25 Range/Units 17:41 19:11 WBC 6.1 (4.8-10.8) K/mm3 RBC 5.55 (4.70-6.10) M/mm3 Hgb 15.8 (14.0-18.0) g/dL Hct 47.5 (40.0-54.0) % MCV 85.6 (78.0-102.0) fL MCH 28.5 (27.0-31.0) pg MCHC 33.3 (32-36) g/dL RDW 12.3 (11.6-14.4) % Plt Count 158 (150-420) K/mm3 MPV 10.5 (8.7-11.0) fl Immature Gran % (Auto) 0.2 H (0.0-0.0) % Neut % (Auto) 77.7 H (50.0-70.0) % Lymph % (Auto) 13.0 L (18.0-42.0) % [place] % (Auto) 7.1 (2.0-11.0) % Eos % (Auto) 1.8 (1.0-6.0) % Baso % (Auto) 0.2 (0.0-1.0) % Lymph # (Auto) 0.79 L (1.10-4.50) K/mm3 [place] # (Auto) 0.43 (0.10-0.90) K/mm3 Eos # (Auto) 0.11 (0.02-0.50) K/mm3 Baso # (Auto) 0.01 (0.00-0.10) K/mm3 Abs Immat Gran (auto) 0.01 H (0.00-0.00) K/mm3 Absolute Neuts (auto) 4.73 (1.70-7.20) K/mm3 Absolute Nucleated RBC 0.00 (0.00-0.00) K/mm3 Nucleated RBC % 0.0 (0-0.0) % Sodium 139 (137-145) mmol/L Potassium 3.8 (3.4-5.0) mmol/L Chloride 104 (98-107) mmol/L Carbon Dioxide 26 (22-30) mmol/L Anion Gap 9 (4-12) mmol/L BUN 17 (9-20) mg/dL Creatinine 1.07 (0.7-1.3) mg/dL Estim Creat Clear Calc 83 ml/min Estimated GFR > 60 (59 - ) Glucose 120 H (65-110) mg/dL Calculated Osmolality 290 (285-295) mOsm/kg Lactic Acid 0.6 (0.4-2.0) mmol/L Calcium 9.2 (8.4-10.2) mg/dL Total Bilirubin 2.3 H (0.2-1.3) mg/dL AST 28 (17-59) U/L ALT 20 (6-50) U/L Alkaline Phosphatase 58 (38-126) U/L Total Protein 9.0 H (6.3-8.2) g/dL Albumin 5.1 (3.5-5.1) g/dL Amylase 62 (30-110) U/L Lipase 40 (23-300) U/L Urine Color Yellow (Yellow) Urine Appearance Clear (Clear) Urine pH 6.5 (5.0-8.0) Ur Specific [place] <= 1.005 L (1.010-1.020) Urine Protein Negative (Negative) Urine Glucose (UA) Negative (Negative) Urine Ketones Trace H (Negative) Ur Blood (Man) Negative (Negative) Urine Nitrate Negative (Negative) Urine Bilirubin Negative (Negative) Urine Urobilinogen 0.2 (0.2-1.0) mg/dL Leukocyte Esterase Rfl Negative (Negative) FIDEL/UL Influenza A (RT-PCR) Negative (Negative) Influenza B (RT-PCR) Negative (Negative) RSV (RT-PCR) Negative (Negative) SARS-CoV-2 RNA (RT-PCR) Negative (Negative) Imaging Data Radiologist's impression: ITS Impressions Abdomen/Pelvis CT 08/17/25 18:41 IMPRESSION: Fluid scattered throughout the small bowel loops suggestive of enteritis. There are no bowel obstruction or acute appendicitis. All CT scans at this facility are performed using low dose modulation techniques as appropriate to perform exam including the following: automated exposure control; use of iterative reconstruction technique; adjustment of the mA and/or kV according to patient size (this includes techniques or standardized protocols for targeted exams where dose is matched to indication/reason for exam). Discharge Plan Discharge Clinical Impression: Gastroenteritis Patient Disposition: Home Condition: Stable Instructions: Gastroenteritis (DC) Additional Instructions: Push fluids - clear liquid diet for 24 hours Avoid milk, dairy products, greasy foods for 2-3 days Tylenol and Ibuprofen for fever or body aches Follow up Primary Care Physician Patient Language: Turkmen Prescriptions: No Action famotidine [Pepcid] 40 mg tablet 40 mg PO HS Qty: 30 0RF cetirizine 10 mg tablet,disintegrating 10 mg PO BID PRN (Reason: allergy symptoms) Qty: 14 0RF Follow-up/Referrals: Sahil Garza MD [Primary Care Provider, Internal Medicine] Time of Disposition: 20:09
--- NOTE | 2025-08-17 17:42 | PC.NURSE ---
LAB AT THE BEDSIDE. STATES STOP STOP, SOMETHING IS WRONG. MY KIDNEYS ARE LOCKING UP. VALENTÍN WITH LAB FINISHED DRAWING BLOOD WORK.
--- NOTE | 2025-08-17 17:43 | PC.NURSE ---
covid culture sent to lab
[2025-08-17 17:47] LABS: Hematocrit 47.5 % (40.0-54.0); Hemoglobin 15.8 g/dL (14.0-18.0); Immature Granulocyte Percent A 0.2 % (0.0-0.0); Lymphocytes Absolute Auto 0.79 K/mm3 (1.10-4.50); Mean Corpuscular HGB Conc 33.3 g/dL (32-36); Mean Corpuscular Hemoglobin 28.5 pg (27.0-31.0); Mean Corpuscular Volume 85.6 fL (78.0-102.0); Nucleated Red Blood Cells Absolute Auto 0.00 K/mm3 (0.00-0.00); Nucleated Red Blood Cells Perc 0.0 % (0-0.0); Platelet Count Result 158 K/mm3 (150-420); Red Blood Count 5.55 M/mm3 (4.70-6.10); White Blood Count 6.1 K/mm3 (4.8-10.8)
[2025-08-17] MEDS: SODIUM CHLORIDE 0.9% IV 1,000 ML 999 ML IV CONT ×2 (17:50→19:15)
--- NOTE | 2025-08-17 17:54 | PC.NURSE ---
PATIENT HAS REFUSED ZOFRAN. STATES HE DOESN'T THINK HE NEEDS IT RIGHT NOW
--- NOTE | 2025-08-17 17:59 | PC.NURSE ---
ASKED IF PATIENT COULD GIVE URINE SAMPLE. UNABLE TO URINATE AT THIS TIME. SINCE ARRIVAL THERE HAS NOT BEEN ANY N/V/D
[2025-08-17 18:01] LABS: Alanine Aminotransferase 20 U/L (6-50); Albumin Level 5.1 g/dL (3.5-5.1); Alkaline Phosphatase 58 U/L (38-126); Amylase 62 U/L (30-110); Anion Gap 9 mmol/L (4-12); Aspartate Amino Transferase 28 U/L (17-59); Bilirubin,Total 2.3 mg/dL (0.2-1.3); Blood Urea Nitrogen 17 mg/dL (9-20); Calcium 9.2 mg/dL (8.4-10.2); Carbon Dioxide 26 mmol/L (22-30); Chloride 104 mmol/L (98-107); Estimated CRCL calculation 83 ml/min; Estimated Glomerular Filt Rate > 60; Glucose 120 mg/dL (65-110); Lipase 40 U/L (23-300); Osmolality Calculated 290 mOsm/kg (285-295); Potassium 3.8 mmol/L (3.4-5.0); Sodium 139 mmol/L (137-145); Total Protein 9.0 g/dL (6.3-8.2)
--- NOTE | 2025-08-17 18:10 | PC.NURSE ---
PATIENT BEING TRANSPORTED TO CT VIA STRETCHER
--- NOTE | 2025-08-17 18:27 | PC.NURSE ---
PATIENT HAS RETURNED FROM CT. IV FLUIDS TO RIGHT AC INFUSING WITHOUT DIFFICULTY. PATIENT REQUESTED WATER TO DRINK. EXPLAINED TO PATIENT WHY PO FLUIDS WOULD NOT BE GIVEN AT THIS TIME. PATIENT VERBALIZED UNDERSTANDING.
[2025-08-17 18:49] LABS: Influenza A QL RT-PCR Negative (Negative); Influenza B QL RT-PCR Negative (Negative); RSV RNA, RT-PCR Negative (Negative); SARS-CoV-2 RNA PCR Negative (Negative)
--- NOTE | 2025-08-17 19:06 | PC.NURSE ---
Pt report received from HENRIETTA Mackay. Pt resting on stretcher, awaiting results and plan of care.
--- NOTE | 2025-08-17 19:17 | PC.NURSE ---
second IVF bag hung and infusing per order, see MAR. pt awake and alert, calm at this time. denies nause and reports he is feeling improved. urine specimen sent to lab.
[2025-08-17 19:18] LABS: Add Urine Microscopic? NO; Appearance Urine Clear (Clear); Glucose Urine UA Negative (Negative); Leukocyte Esterase Ur Negative LEU/UL (Negative); Nitrate Urine Negative (Negative); Specific Grav Ur <= 1.005 (1.010-1.020)
[2025-08-17 19:50] VITALS: BP 113/72; PULSE 70; RESP 18; TEMP 37.2; O2SAT 97
--- NOTE | 2025-08-17 19:50 | PC.NURSE ---
IVF infusing. VSS. pt updated and given another warm blanket. call light within reach.
--- NOTE | 2025-08-17 20:05 | PC.NURSE ---
ERP Dr. Llanes at pt bedside at this time. IVF infused.
--- OUTSIDE RECORDS SUMMARY | 2025-08-17 20:23 | XMS_ITS | Clinical Summary ---
Author Organization [facility] Address [address] [place] [id number] Care Team Providers Care Security Compliance Engineer Name Role Phone Sahil Garza MD Primary Care Provider [phone] Social History Tobacco Use Types Packs/Day Years [...] M series) 2017 COVID-19 Vaccine ( - 2024-2 6 season) 2025 Influenza Adult (#1) 2025 Hepatitis A Vaccines Aged Out No long er eligible based on patient's age to complete [...] patient's age to complete this topic Insurance [facility] MEDICAID C/O PROVIDER SERVICES AMARIS WHEATLEY [id number] Care Teams Security Compliance Engineer Relationship Specialty Start Date End Date Sahil Garza MD [address] [place] [address] PCP - General INTERNAL MEDICINE 06/21/23
--- OUTSIDE RECORDS SUMMARY | 2025-08-17 20:23 | XMS_ITS | Encounter Summary ---
Author Organization [facility] Address [address] [place] [address] Care Team Providers Care Dental Laboratory Worker Name Role Phone Sahil Garza MD Primary Care Provider [phone] Encounter Details Date Type Department Care Team (Late st Contact Info) Description 04/03/2019 Abstract SFL CONVERSION [address] [place] [address] , Generic Conversion, Social History Tobacco Use [...] on filedocumented in this encounter Care Teams Dental Laboratory Worker Relationship Specialty Start Date End Date Sahil Garza MD [address] [place] [address] PCP - General INTERNAL MEDICINE 06/21/23 documented as of this encounter
== END 2025-08-17 20:16 | disposition home or self-care (01) ==
PROVIDERS: Emergency Provider Emergency Medicine; PCP Internal Medicine
DX: K52.9 Noninfective gastroenteritis and colitis, unspecified (principal); F17.200 Nicotine dependence, unspecified, uncomplicated; Z20.822 Contact with and (suspected) exposure to COVID-19
CPT/HCPCS: 36415; 74177; 80053; 81003; 82150; 83605; 83690; 85025; 87637; 96360; 96361; 99284; J2405; J7030; Q9967

== ENCOUNTER 2025-09-02 06:55 | Emergency (ER) | payer OTHER, SELFPAY ==
--- NOTE | ~2025-09-02 | CT_ITS ---
CT ABDOMEN AND PELVIS WITHOUT CONTRAST Clinical History: abdo pain Comparison: 08/17/2025 Technique: Unenhanced axial images lung bases to symphysis pubis Coronal, sagittal reformats CT images acquired with automatic exposure control for dose reduction DLP: 315 mGy-cm Findings: Without intravenous contrast, sensitivity for detecting visceral parenchymal abnormalities decreased. Lung bases: Clear. Visualized heart and pericardium: Unremarkable. Liver: Unremarkable. Gallbladder: Unremarkable. Spleen: Unremarkable. Pancreas: Unremarkable. Adrenal glands: Unremarkable. Kidneys: Right kidney- No hydronephrosis. No renal stones. Left kidney- No hydronephrosis. No renal stones. Distal esophagus/stomach: Unremarkable. Small bowel loops: Normal caliber and wall thickness. Colon: Normal caliber and wall thickness. Normal RLQ appendix. Nodes: No enlarged nodes. Multiple small mesenteric nodes[.] Peritoneum: No ascites. No free intraperitoneal air. Urinary bladder: Unremarkable. Prostate: Unremarkable. Bones: No acute bony abnormality. Soft tissues: Unremarkable. Unopacified abdominal aorta: No aneurysmal dilatation. IMPRESSION: 1. No acute findings. Reviewed, dictated and finalized at location [facility] IMPRESSION: 1. No acute findings.
--- NOTE | 2025-09-02 07:02 | ED_ITS ---
HPI - URI/Sore Throat General Chief Complaint: Anxiety Stated Complaint: abd pain, diarrhea Time Seen by Provider: 09/02/25 07:02 Source: patient Mode of arrival: ambulatory Limitations: no limitations History of Present Illness HPI Narrative: Patient is a 35-year-old male having some continued and returned abdominal pain epigastric area with associated diarrhea. Patient had a viral gastroenteritis a couple weeks ago which has resolved and he went back to normal baseline thereafter. Now he is having epigastric pain again and diarrhea. He is working with his primary doctor to get an upper endoscopy. He is having a flare of some of his auditory hallucinations however he is not interested in dealing with that today. No suicide or homicide ideations. MD elicited complaint: other (Epigastric pain) Pertinent past history: other (Schizophrenic?) Onset (ago): day(s) (Two) Consistency: intermittent and progressively worsening Severity: mild Pain scale (0-10): 3 Description of mucous: clear Able to tolerate fluids by mouth: Yes Exacerbating factors: nothing Relieving factors: nothing Context: other (Patient said he ate some fish the other day and this started thereafter) Associated symptoms: fever (Subjective which has resolved), abdominal pain and diarrhea Treatments prior to arrival: none Related Data Allergies Allergy/AdvReac Type Severity Reaction Status Date / Time No Known Allergies Allergy Verified 09/02/25 07:41 Review of Systems 2 Review of Systems: All systems reviewed & are unremarkable except as noted in HPI and below Constitutional: Constitutional: Reports no additional constitutional complaints Eyes: Eyes: Reports no additional eye complaints ENT: Reports system reviewed and no additional complaints, except as documented Cardiovascular: Cardiovascular: Reports no additional cardiovascular complaints Respiratory: Respiratory: Reports no additional respiratory complaints Gastrointestinal: Gastrointestinal: Reports no additional gastrointestinal complaints Genitourinary: Genitourinary: Reports no additional male genitourinary complaints Musculoskeletal: Musculoskeletal: Reports no additional musculoskeletal complaints Integumentary/Breasts: Skin/Breast: Reports system reviewed and no additional complaints, except as docu Neurologic: Reports system reviewed and no additional complaints, except as documented Psychiatric: Psychiatric: Reports no additional psychiatric complaints Endocrine: Endocrine: Reports no additional endocrine complaints Hematologic/Lymphatic: Hematologic/Lymphatic: Reports no additional hematologic/lymphatic complaints Allergic/Immunologic: Allergic/Immunologic: Reports no additional allergic/immunologic complaints [facility] Past Medical History Medical History Chest pain SOB (shortness of breath) Anxiety Psychosis Social History Social History Alcohol intake: current Substance use: current Substance use type: marijuana Other substance usage details: Infrequent Living arrangements: alone Exam 2 Const: General: healthy appearing Nutritional Appearance: well nourished Orientation/consciousness: patient oriented x3 HENMT: Head: normal to inspection Ears: external ears normal F sade/Nose/Sinus: Normal external nose present Eyes: Conjunctivae: conjunctivae normal Pupils: Equal, round and reactive pupils present EOM: EOMs intact bilaterally Neck: Neck: normal visual inspection Chest: Chest palpation & inspection: normal inspection of the chest Resp: Effort & Inspection: normal respiratory effort and not labored A uscultation: clear to auscultation bilaterally and no crackles Cardio: Rate: regular rate Rhythm: regular rhythm Heart sounds: no murmurs GI: Inspection: non-distended GI Palp: Yes Soft to palpation, Yes Tenderness to palpation present (GI) (Epigastrium), No Guarding due to palpation present (GI), No Rigid due to palpation, No Hernia present, No Palpable mass present and No Rebound tenderness present Auscultation: normal bowel sounds : General: Yes bladder normal to palpation Back/Spine/Pelvis: Back: no CVA tenderness Skin: General skin exam: normal color Rashes: no rashes Wounds: no wounds Neuro: General: patient oriented x3, moves all extremities and no meningeal signs Extrem: General: normal to inspection, no clubbing, cyanosis or edema and no pedal edema Psych: Mental Status: mental status grossly normal Affect: Anxious affect present Attitude: cooperative Other: Patient having auditory hallucinations which is known and he does not take medication as he is not interested in taking medication; I offered medicine today acutely to shut off auditory hallucinations but he has declined; no suicide or homicide ideation Course Vital Signs Vital signs: Vital Signs Temperature 36.4 C L 09/02/25 07:20 Pulse Rate 84 09/02/25 07:20 Respiratory Rate 20 09/02/25 07:20 Blood Pressure 126/90 09/02/25 07:20 Pulse Oximetry 98 09/02/25 07:20 Oxygen Delivery Room Air 09/02/25 07:20 Temperature 36.4 C L 09/02/25 07:20 Pulse Rate 84 09/02/25 07:20 Respiratory Rate 20 09/02/25 07:20 Blood Pressure 126/90 09/02/25 07:20 Pulse Oximetry 98 09/02/25 07:20 Oxygen Delivery Room Air 09/02/25 07:20 MDM - URI/Sore Throat MDM Narrative Medical decision making narrative: Patient is a 35-year-old male with epigastric pain acute on chronic with some diarrhea that is acute on chronic. Also chronic auditory hallucinations. We will do a GI workup at this time. Patient has declined to deal with the hallucinations at this time. Lab Data Attestation: I reviewed the patient's lab results. 09/02/25 07:58 09/02/25 07:58 Labs: Lab Results 09/02/25 Range/Units 07:58 WBC 5.8 (4.8-10.8) K/mm3 RBC 5.43 (4.70-6.10) M/mm3 Hgb 15.5 (14.0-18.0) g/dL Hct 47.1 (40.0-54.0) % MCV 86.7 (78.0-102.0) fL MCH 28.5 (27.0-31.0) pg MCHC 32.9 (32-36) g/dL RDW 12.4 (11.6-14.4) % Plt Count 172 (150-420) K/mm3 MPV 10.6 (8.7-11.0) fl Immature Gran % (Auto) 0.3 H (0.0-0.0) % Neut % (Auto) 61.9 (50.0-70.0) % Lymph % (Auto) 26.6 (18.0-42.0) % [place] % (Auto) 7.6 (2.0-11.0) % Eos % (Auto) 2.9 (1.0-6.0) % Baso % (Auto) 0.7 (0.0-1.0) % Lymph # (Auto) 1.55 (1.10-4.50) K/mm3 [place] # (Auto) 0.44 (0.10-0.90) K/mm3 Eos # (Auto) 0.17 (0.02-0.50) K/mm3 Baso # (Auto) 0.04 (0.00-0.10) K/mm3 Abs Immat Gran (auto) 0.02 H (0.00-0.00) K/mm3 Absolute Neuts (auto) 3.60 (1.70-7.20) K/mm3 Absolute Nucleated RBC 0.00 (0.00-0.00) K/mm3 Nucleated RBC % 0.0 (0-0.0) % Sodium 143 (137-145) mmol/L Potassium 4.0 (3.4-5.0) mmol/L Chloride 106 (98-107) mmol/L Carbon Dioxide 29 (22-30) mmol/L Anion Gap 8 (4-12) mmol/L BUN 23 H (9-20) mg/dL Creatinine 0.96 (0.7-1.3) mg/dL Estim Creat Clear Calc 92 ml/min Estimated GFR > 60 (59 - ) Glucose 114 H (65-110) mg/dL Calculated Osmolality 300 H (285-295) mOsm/kg Calcium 8.9 (8.4-10.2) mg/dL Total Bilirubin 1.8 H (0.2-1.3) mg/dL AST 27 (17-59) U/L ALT 28 (6-50) U/L Alkaline Phosphatase 53 (38-126) U/L Total Protein 7.3 (6.3-8.2) g/dL Albumin 4.9 (3.5-5.1) g/dL Lipase 55 (23-300) U/L Influenza A (RT-PCR) Negative (Negative) Influenza B (RT-PCR) Negative (Negative) RSV (RT-PCR) Negative (Negative) SARS-CoV-2 RNA (RT-PCR) Negative (Negative) Imaging Data Attestation: I personally reviewed and interpreted this imaging study as follows: Radiologist's impression: CT scan of the abdomen and pelvis without contrast was negative for acute process Discharge Plan Discharge Clinical Impression: Chronic epigastric pain, Psychosis, Diarrhea, Viral gastroenteritis Patient Disposition: Home Condition: Stable Instructions: Acute Diarrhea (ED), Epigastric Pain (ED), Psychotic Disorder (ED) Additional Instructions: Please follow-up with the primary doctor in the next week. I do suggest having an upper endoscopy done to look at the stomach. Patient Language: Icelandic Prescriptions: New pantoprazole [Protonix] 40 mg tablet,delayed release (DR/EC) 40 mg PO DAILY Qty: 30 0RF No Action famotidine [Pepcid] 40 mg tablet 40 mg PO HS Qty: 30 0RF Follow-up/Referrals: Sahil Garza MD [Primary Care Provider, Internal Medicine] Time of Disposition: 09:08
[2025-09-02 07:20] VITALS: BP 126/90; PULSE 84; RESP 20; TEMP 36.4; O2SAT 98
--- OUTSIDE RECORDS SUMMARY | 2025-09-02 07:31 | XMS_ITS | Clinical Summary ---
Author Organization [facility] Address [address] [place] [id number] Care Team Providers Care Works Manager Name Role Phone Sahil Garza MD Primary Care Provider [phone] Social History Tobacco Use Types Packs/Day Years [...] patient's age to complete this topic Insurance [facility] MEDICAID C/O PROVIDER SERVICES AMARIS WHEATLEY [id number] Care Teams Works Manager Relationship Specialty Start Date End Date Sahil Garza MD [address] [place] [address] PCP - General INTERNAL MEDICINE 06/21/23
--- OUTSIDE RECORDS SUMMARY | 2025-09-02 07:33 | XMS_ITS | Encounter Summary ---
Author Organization [facility] Address [address] [place] [address] Care Team Providers Care Improvement Lead Name Role Phone Sahil Garza MD Primary Care Provider [phone] Encounter Details Date Type Department Care Team (Late st Contact Info) Description 04/03/2019 Abstract SFL CONVERSION [address] [place] [address] , Generic Conversion, Social History Tobacco Use [...] on filedocumented in this encounter Care Teams Improvement Lead Relationship Specialty Start Date End Date Sahil Garza MD [address] [place] [address] PCP - General INTERNAL MEDICINE 06/21/23 documented as of this encounter
[2025-09-02 08:03] LABS: Hematocrit 47.1 % (40.0-54.0); Hemoglobin 15.5 g/dL (14.0-18.0); Immature Granulocyte Percent A 0.3 % (0.0-0.0); Lymphocytes Absolute Auto 1.55 K/mm3 (1.10-4.50); Mean Corpuscular HGB Conc 32.9 g/dL (32-36); Mean Corpuscular Hemoglobin 28.5 pg (27.0-31.0); Mean Corpuscular Volume 86.7 fL (78.0-102.0); Nucleated Red Blood Cells Absolute Auto 0.00 K/mm3 (0.00-0.00); Nucleated Red Blood Cells Perc 0.0 % (0-0.0); Platelet Count Result 172 K/mm3 (150-420); Red Blood Count 5.43 M/mm3 (4.70-6.10); White Blood Count 5.8 K/mm3 (4.8-10.8)
[2025-09-02 08:20] LABS: Alanine Aminotransferase 28 U/L (6-50); Albumin Level 4.9 g/dL (3.5-5.1); Alkaline Phosphatase 53 U/L (38-126); Anion Gap 8 mmol/L (4-12); Aspartate Amino Transferase 27 U/L (17-59); Bilirubin,Total 1.8 mg/dL (0.2-1.3); Blood Urea Nitrogen 23 mg/dL (9-20); Calcium 8.9 mg/dL (8.4-10.2); Carbon Dioxide 29 mmol/L (22-30); Chloride 106 mmol/L (98-107); Estimated CRCL calculation 92 ml/min; Estimated Glomerular Filt Rate > 60; Glucose 114 mg/dL (65-110); Lipase 55 U/L (23-300); Osmolality Calculated 300 mOsm/kg (285-295); Potassium 4.0 mmol/L (3.4-5.0); Sodium 143 mmol/L (137-145); Total Protein 7.3 g/dL (6.3-8.2)
[2025-09-02 08:58] LABS: Influenza A QL RT-PCR Negative (Negative); Influenza B QL RT-PCR Negative (Negative); RSV RNA, RT-PCR Negative (Negative); SARS-CoV-2 RNA PCR Negative (Negative)
[2025-09-02 09:19] VITALS: BP 125/83; PULSE 65; RESP 20; TEMP 36.7; O2SAT 98
== END 2025-09-02 09:20 | disposition home or self-care (01) ==
PROVIDERS: Emergency Provider Emergency Medicine; PCP Internal Medicine
DX: A08.4 Viral intestinal infection, unspecified (principal); F29 Unspecified psychosis not due to a substance or known physiological condition; R10.13 Epigastric pain; G89.29 Other chronic pain; Z20.822 Contact with and (suspected) exposure to COVID-19
CPT/HCPCS: 36415; 74176; 80053; 83690; 85025; 87637; 99284

== ENCOUNTER 2025-09-05 11:54 | Emergency (ER) | payer OTHER, SELFPAY ==
[2025-09-05 11:54] VITALS: BP 116/83; PULSE 71; RESP 16; TEMP 36.9; O2SAT 99
--- NOTE | 2025-09-05 12:03 | ED.PSYCH ---
HPI - Psych General Chief Complaint: Psychiatric Symptoms Stated Complaint: hearing voices Time Seen by Provider: 09/05/25 12:02 Source: patient and EMS Mode of arrival: EMS Limitations: no limitations History of Present Illness HPI Narrative: PATIENT 35 YEARS OLD WHITE MALE CAME BY AMBULANCE COMPLAINING OF HEARING VOICES SINCE 2021 NOT BEEN SLEEPING WELL LATELY. PATIENT DENIES ANY SUICIDAL OR HOMICIDAL IDEATION. PATIENT IS KNOWN TO US WITH NUMEROUS ED VISITS FOR THE SAME SYMPTOMS. PATIENT DOES NOT LIKE TO TAKE ANTIPSYCHOTIC MEDICATION OR XANAX. PATIENT LIKES ATIVAN. PATIENT DENIES ANY FEVER, CHILLS, NAUSEA, VOMITING, HEADACHE, CHEST PAIN, SHORTNESS OF BREATH, ABDOMINAL PAIN OR URINARY SYMPTOMS. Related Data Allergies Allergy/AdvReac Type Severity Reaction Status Date / Time No Known Allergies Allergy Verified 09/05/25 12:36 Review of Systems Review of Systems: All systems reviewed & are unremarkable except as noted in HPI and below PMFSH Past Medical History Medical History Chest pain SOB (shortness of breath) Anxiety Psychosis Social History Social History Alcohol intake: current Substance use: current Substance use type: marijuana Other substance usage details: Infrequent Living arrangements: alone Exam Narrative: GENERAL APPEARANCE: WELL-DEVELOPED, WELL-NOURISHED SKIN: NORMAL COLOR HEAD: NORMOCEPHALIC, NONTRAUMATIC EYES: CLEAR CONJUNCTIVA ENT: OROPHARYNX NORMAL, EARS NORMAL, NOSE NORMAL NECK: SUPPLE, NONTENDER CHEST AND RESPIRATORY: AIRWAY PATENT, NO RESPIRATORY DISTRESS, NO ACCESSORY MUSCLE USE HEART: REGULAR RATE/RHYTHM ABDOMEN: SOFT, NONTENDER, NO ORGANOMEGALY, QUIET BOWEL SOUNDS VASCULAR: NORMAL PERIPHERAL PULSES, NORMAL CAPILLARY REFILL. MUSCULOSKELETAL: NORMAL RANGE OF MOTION, NONTENDER BACK NEUROLOGIC: ALERT AND ORIENTED ?3, INDUSTRIAL DESIGN ENGINEER IS NORMAL TESTED, NO GROSS MOTOR DEFICIT Course Vital Signs Vital signs: Vital Signs Temperature 36.9 C 09/05/25 11:54 Pulse Rate 71 09/05/25 11:54 Respiratory Rate 16 09/05/25 11:54 Blood Pressure 116/83 09/05/25 11:54 Pulse Oximetry 99 09/05/25 11:54 Oxygen Delivery Room Air 09/05/25 11:54 Temperature 36.6 C 09/05/25 13:19 Pulse Rate 64 09/05/25 13:19 Respiratory Rate 17 09/05/25 13:19 Blood Pressure 119/83 09/05/25 13:19 Pulse Oximetry 98 09/05/25 13:19 Oxygen Delivery Room Air 09/05/25 13:19 MDM - Psych MDM Narrative Medical decision making narrative: PATIENT PRESENTS WITH HEARING VOICES VITAL SIGNS ARE STABLE PHYSICAL EXAMINATION IS REMARKABLE FOR DELUSION AND PARANOIA BLOOD WORKUP TODAY INCLUDES CBC, CMP, SHOWED NO SIGNIFICANT ABNORMALITY URINALYSIS SHOWED NO ACUTE ABNORMALITY URINE DRUG SCREEN SHOWED ALCOHOL LEVEL IS LESS THAN 10. PATIENT'S SYMPTOM IMPROVED AFTER 1 MG OF ATIVAN P.O.. PATIENT IS TELLING ME THAT HE IS PLANNING TO CALL HIS FAMILY PHYSICIAN TO US CAME FOR ATIVAN PRESCRIPTION INSTEAD OF XANAX. IN THE ED PATIENT DECLINED TO TAKE ZYPREXA OR ANY ANTIPSYCHOTIC MEDICATIONS PATIENT FEELS OKAY TO GO HOME. THE PT WAS DISCHARGED TO HOME.THE PT,S CONDITION UPON DISCHARGE WAS FAIR,EDUCATION WAS PROVIDED TO THE PT IN REFERENCE TO THE FINAL IMPRESSION,DISCHARGE STUDY RESULTS,TREATMENT,PROGNOSIS AND NEED FOR FOLLOW UP . Differential Diagnosis Differential diagnosis: Likely other ( ABOVE) Medical Records Attestation: I reviewed the patient's medical records. Lab Data Attestation: I reviewed the patient's lab results. 09/05/25 12:13 09/05/25 12:13 Labs: Lab Results 09/05/25 09/05/25 Range/Units 12:13 12:52 WBC 5.4 (4.8-10.8) K/mm3 RBC 5.06 (4.70-6.10) M/mm3 Hgb 14.5 (14.0-18.0) g/dL Hct 43.9 (40.0-54.0) % MCV 86.8 (78.0-102.0) fL MCH 28.7 (27.0-31.0) pg MCHC 33.0 (32-36) g/dL RDW 12.2 (11.6-14.4) % Plt Count 165 (150-420) K/mm3 MPV 10.6 (8.7-11.0) fl Immature Gran % (Auto) 0.2 H (0.0-0.0) % Neut % (Auto) 57.4 (50.0-70.0) % Lymph % (Auto) 30.5 (18.0-42.0) % [place] % (Auto) 8.8 (2.0-11.0) % Eos % (Auto) 2.2 (1.0-6.0) % Baso % (Auto) 0.9 (0.0-1.0) % Lymph # (Auto) 1.64 (1.10-4.50) K/mm3 [place] # (Auto) 0.47 (0.10-0.90) K/mm3 Eos # (Auto) 0.12 (0.02-0.50) K/mm3 Baso # (Auto) 0.05 (0.00-0.10) K/mm3 Abs Immat Gran (auto) 0.01 H (0.00-0.00) K/mm3 Absolute Neuts (auto) 3.08 (1.70-7.20) K/mm3 Absolute Nucleated RBC 0.00 (0.00-0.00) K/mm3 Nucleated RBC % 0.0 (0-0.0) % Sodium 143 (137-145) mmol/L Potassium 4.1 (3.4-5.0) mmol/L Chloride 108 H (98-107) mmol/L Carbon Dioxide 29 (22-30) mmol/L Anion Gap 6 (4-12) mmol/L BUN 19 (9-20) mg/dL Creatinine 1.03 (0.7-1.3) mg/dL Estim Creat Clear Calc 86 ml/min Estimated GFR > 60 (59 - ) Glucose 95 (65-110) mg/dL Calculated Osmolality 298 H (285-295) mOsm/kg Calcium 8.5 (8.4-10.2) mg/dL Total Bilirubin 1.9 H (0.2-1.3) mg/dL AST 25 (17-59) U/L ALT 22 (6-50) U/L Alkaline Phosphatase 49 (38-126) U/L Total Protein 6.9 (6.3-8.2) g/dL Albumin 4.6 (3.5-5.1) g/dL TSH (Reflex) Pending Urine Color Light yellow (Yellow) Urine Appearance Clear (Clear) Urine pH 7.5 (5.0-8.0) Ur Specific [place] 1.015 (1.010-1.020) Urine Protein Negative (Negative) Urine Glucose (UA) Negative (Negative) Urine Ketones Negative (Negative) Ur Blood (Man) Negative (Negative) Urine Nitrate Negative (Negative) Urine Bilirubin Negative (Negative) Urine Urobilinogen 0.2 (0.2-1.0) mg/dL Leukocyte Esterase Rfl Negative (Negative) FIDEL/UL Urine Opiates Screen Pending Urine Methadone Screen Pending Ur Barbiturates Screen Pending Ur Phencyclidine Scrn Pending Ur Amphetamine Screen Pending U Benzodiazepines Scrn Pending Urine Cocaine Screen Pending U Cannabinoids Screen Pending Ethyl Alcohol < 10 (<10) mg/dL Discharge Plan Discharge Clinical Impression: Psychosis Qualifiers: Psychosis type: unspecified psychosis type Qualified Code(s): F29 - Unspecified psychosis not due to a substance or known physiological condition Patient Disposition: Home Condition: Improved Instructions: Psychotic Disorder (ED) Additional Instructions: RETURN IF SYMPTOMS ARE WORSENING , CALL YOUR FAMILY PHYSICIAN FOR APPOINTMENT, TAKE TYLENOL NEEDED FOR ACHES AND PAIN, CONTINUE HOME MEDICATIONS. Patient Language: Colombian Prescriptions: No Action pantoprazole [Protonix] 40 mg tablet,delayed release (DR/EC) 40 mg PO DAILY Qty: 30 0RF famotidine [Pepcid] 40 mg tablet 40 mg PO HS Qty: 30 0RF Follow-up/Referrals: Sahil Garza MD [Primary Care Provider, Internal Medicine]
[2025-09-05 12:17] LABS: Hematocrit 43.9 % (40.0-54.0); Hemoglobin 14.5 g/dL (14.0-18.0); Immature Granulocyte Percent A 0.2 % (0.0-0.0); Lymphocytes Absolute Auto 1.64 K/mm3 (1.10-4.50); Mean Corpuscular HGB Conc 33.0 g/dL (32-36); Mean Corpuscular Hemoglobin 28.7 pg (27.0-31.0); Mean Corpuscular Volume 86.8 fL (78.0-102.0); Nucleated Red Blood Cells Absolute Auto 0.00 K/mm3 (0.00-0.00); Nucleated Red Blood Cells Perc 0.0 % (0-0.0); Platelet Count Result 165 K/mm3 (150-420); Red Blood Count 5.06 M/mm3 (4.70-6.10); White Blood Count 5.4 K/mm3 (4.8-10.8)
[2025-09-05] MEDS: LORazepam (*CRX) 1 MG TABLET PO (12:29)
--- OUTSIDE RECORDS SUMMARY | 2025-09-05 12:30 | XMS_ITS | Clinical Summary ---
Author Organization [facility] Address [address] [place] [address] Care Team Providers Care Char Conveyor Tender Cellar Name Role Phone Sahil Garza MD Primary Care Provider [phone] Social History Tobacco Use Types Packs/Day Years [...] patient's age to complete this topic Insurance [facility] MEDICAID C/O PROVIDER SERVICES AMARIS WHEATLEY [id number] Care Teams Char Conveyor Tender Cellar Relationship Specialty Start Date End Date Sahil Garza MD [address] [place] [address] PCP - General INTERNAL MEDICINE 06/21/23
--- OUTSIDE RECORDS SUMMARY | 2025-09-05 12:31 | XMS_ITS | Encounter Summary ---
Author Organization [facility] Address [address] [place] [address] Care Team Providers Care Spinning Lathe Operator Hydraulic Name Role Phone Sahil Garza MD Primary Care Provider [phone] Encounter Details Date Type Department Care Team (Late st Contact Info) Description 04/03/2019 Abstract SFL CONVERSION [address] [place] [address] , Generic Conversion, Social History Tobacco Use [...] on filedocumented in this encounter Care Teams Spinning Lathe Operator Hydraulic Relationship Specialty Start Date End Date Sahil Garza MD [address] [place] [address] PCP - General INTERNAL MEDICINE 06/21/23 documented as of this encounter
[2025-09-05 12:35] LABS: Alanine Aminotransferase 22 U/L (6-50); Albumin Level 4.6 g/dL (3.5-5.1); Alkaline Phosphatase 49 U/L (38-126); Anion Gap 6 mmol/L (4-12); Aspartate Amino Transferase 25 U/L (17-59); Bilirubin,Total 1.9 mg/dL (0.2-1.3); Blood Urea Nitrogen 19 mg/dL (9-20); Calcium 8.5 mg/dL (8.4-10.2); Carbon Dioxide 29 mmol/L (22-30); Chloride 108 mmol/L (98-107); Estimated CRCL calculation 86 ml/min; Estimated Glomerular Filt Rate > 60; Glucose 95 mg/dL (65-110); Osmolality Calculated 298 mOsm/kg (285-295); Potassium 4.1 mmol/L (3.4-5.0); Sodium 143 mmol/L (137-145); Total Protein 6.9 g/dL (6.3-8.2)
[2025-09-05 12:57] LABS: Add Urine Microscopic? NO; Appearance Urine Clear (Clear); Glucose Urine UA Negative (Negative); Leukocyte Esterase Ur Negative LEU/UL (Negative); Nitrate Urine Negative (Negative); Specific Grav Ur 1.015 (1.010-1.020)
[2025-09-05 13:19] VITALS: BP 119/83; PULSE 64; RESP 17; TEMP 36.6; O2SAT 98
[2025-09-05 13:20] VITALS: BP 119/73; PULSE 75; RESP 16; TEMP 36.8; O2SAT 99
[2025-09-05 13:50] LABS: Thyroid Stimulating Hormone Reflex 0.491 uIU/mL (0.465-4.68)
[2025-09-05 14:57] LABS: Cannabinoid Screen Urine Negative (Negative)
== END 2025-09-05 13:20 | disposition home or self-care (01) ==
PROVIDERS: Emergency Provider Emergency Medicine; PCP Internal Medicine
DX: F29 Unspecified psychosis not due to a substance or known physiological condition (principal)
CPT/HCPCS: 36415; 80053; 80307; 81003; 82077; 84443; 85025; 99283; A9270

== ENCOUNTER 2025-09-10 06:43 | Emergency (ER) | payer OTHER, SELFPAY ==
[2025-09-10] VITALS (9 sets, daily range): BP systolic 107–127; BP diastolic 74–90; PULSE 57–71; RESP 18–20; TEMP 36.8; O2SAT 94–98
--- NOTE | ~2025-09-10 | XR_ITS ---
Examination: XR chest 1V portable Clinical History: dyspnea Comparison: 07/25/2025 Technique: Portable AP Findings: Heart size normal. Lungs clear. No acute bony abnormality. IMPRESSION: 1. No acute cardiopulmonary findings given portable technique. Reviewed, dictated and finalized at location R. CALL PHARMACY TECHNICIAN
--- NOTE | 2025-09-10 07:12 | PC.NURSE ---
per dr vaughn, Ativan 1mg po x1. read back and verified with dr vaughn. at this time he is unable to place order. IT called and awaiting response.
[2025-09-10] MEDS: LORazepam (*CRX) 1 MG TABLET PO (07:17)
--- NOTE | 2025-09-10 07:18 | ED_ITS ---
HPI - General Adult General Chief complaint: Anxiety Stated complaint: anxiety History of Present Illness HPI narrative: Carlos is a 35M with a PMH of schitzophrenia and anxiety that presented to the ED with panic. He deleted some friends on facebook then added some then he became very nervous about it. He states that he feels very warm, flushed and anxious. He states that voices are telling him his body has no oxygen and he doesn't have long to live but he denies any CP, dyspnea, cough, fever, or pain. He declined all meds a first but after several minutes of discussion he agreed to ativan. No substance use reported to me. Related Data Allergies Allergy/AdvReac Type Severity Reaction Status Date / Time No Known Allergies Allergy Verified 09/10/25 06:59 Review of Systems Constitutional: Constitutional: Reports no additional constitutional complaints PMFSH Past Medical History Medical History Chest pain SOB (shortness of breath) Anxiety Psychosis Social History Social History Smoking status: Current every day smoker Alcohol intake: current Substance use: current Substance use type: marijuana Other substance usage details: Infrequent Living arrangements: alone Exam Const: General: cooperative, healthy appearing, comfortable, no acute distress, well developed, alert, awake and Physically active Orientation/consciousness: oriented to person, oriented to place and oriented to time HENMT: Head: normal to inspection, normocephalic and atraumatic Ears: hearing grossly normal bilaterally and external ears normal Face/Nose/Sinus: Normal external nose present Eyes: General: appearance normal, both eyes and all related structures Periorbital: periorbital findings normal Sclera: sclerae normal Pupils: Equal, round and reactive pupils present Neck: Neck: normal visual inspection Chest: Chest palpation & inspection: normal inspection of the chest Resp: Effort & Inspection: normal respiratory effort, able to speak in complete sentences and no respiratory distress Auscultation: clear to auscultation bilaterally Cardio: Jugular venous distension: no JVD Rate: regular rate Rhythm: regular rhythm Skin: General skin exam: normal color and no rashes or lesions noted Neuro: General: oriented to person, oriented to place and oriented to time Cranial nerves: Yes Equal, round and reactive pupils present Extrem: General: normal to inspection Psych: Affect: Anxious affect present Attitude: cooperative Other: delusional thinking Course Course Emergency Course: Given 1mg of ativan PO After 15 minutes he stated that he was improving but stated that he still felt like he could not get a deep breath as his SpO2 was 98% and all vitals were wnl. Ordered EKG and CXR. EKG showed NSR with a rate of 67, normal axis and no ST elevation/depression Examination: XR chest 1V portable Clinical History: dyspnea Comparison: 07/25/2025 Technique: Portable AP Findings: Heart size normal. Lungs clear. No acute bony abnormality. IMPRESSION: 1. No acute cardiopulmonary findings given portable technique. He continued to deny SI and HI. He was discharged to home as his vitals and exam remained normal and he was not a threat to himself or others. Vital Signs Vital signs: Vital Signs Temperature 98.2 F 09/10/25 06:43 Pulse Rate 71 09/10/25 06:43 Respiratory Rate 20 09/10/25 06:43 Blood Pressure 127/90 09/10/25 06:43 Pulse Oximetry 94 09/10/25 06:43 Oxygen Delivery Room Air 09/10/25 06:43 Temperature 98.2 F 09/10/25 06:43 Pulse Rate 65 09/10/25 06:51 Respiratory Rate 18 09/10/25 06:51 Blood Pressure 123/81 09/10/25 06:51 Pulse Oximetry 97 09/10/25 06:51 Oxygen Delivery Room Air 09/10/25 06:51 Medical Decision Making Vital Signs Vital Signs: Vital Signs Temperature 98.2 F 09/10/25 06:43 Pulse Rate 71 09/10/25 06:43 Respiratory Rate 20 09/10/25 06:43 Blood Pressure 127/90 09/10/25 06:43 Pulse Oximetry 94 09/10/25 06:43 Oxygen Delivery Room Air 09/10/25 06:43 Temperature 98.2 F 09/10/25 06:43 Pulse Rate 65 09/10/25 06:51 Respiratory Rate 18 09/10/25 06:51 Blood Pressure 123/81 09/10/25 06:51 Pulse Oximetry 97 09/10/25 06:51 Oxygen Delivery Room Air 09/10/25 06:51 Discharge Plan Discharge Clinical Impression: Anxiety Psychosis Qualifiers: Psychosis type: unspecified psychosis type Qualified Code(s): F29 - Unspecified psychosis not due to a substance or known physiological condition Patient Disposition: Home Condition: Stable Instructions: Psychotic Disorder (ED) Patient Language: Georgian Prescriptions: No Action pantoprazole [Protonix] 40 mg tablet,delayed release (DR/EC) 40 mg PO DAILY Qty: 30 0RF famotidine [Pepcid] 40 mg tablet 40 mg PO HS Qty: 30 0RF Follow-up/Referrals: Sahil Garza MD [Primary Care Provider, Internal Medicine]
--- NOTE | 2025-09-10 07:35 | ECG_ITS ---
Test Date: 2025-09-10 07:41:58 Measurements Intervals [place] Rate: 67 P: 23 NE: 145 QRS: 61 QRSD: 96 T: 3 QT: 376 QTc: 399 Interpretive Statements SINUS RHYTHM WITH SINUS ARRHYTHMIA Compared to ECG 07/25/2025 04:09:21 NO SIGNIFICANT CHANGES Electronically Signed On 09-12-2025 12:09:25 POLITICAL THEORY PROFESSOR by Faizan Salazar M.D.
== END 2025-09-10 08:26 | disposition home or self-care (01) ==
PROVIDERS: Emergency Provider Family Medicine; PCP Internal Medicine
DX: F41.9 Anxiety disorder, unspecified (principal); F29 Unspecified psychosis not due to a substance or known physiological condition; F20.9 Schizophrenia, unspecified; F17.200 Nicotine dependence, unspecified, uncomplicated
CPT/HCPCS: 71045; 93005; 99283; A9270

== ENCOUNTER 2025-09-16 20:36 | Emergency (ER) | payer OTHER, SELFPAY ==
[2025-09-16 20:45] VITALS: BP 123/102; PULSE 88; RESP 18; TEMP 36.6; O2SAT 100
--- NOTE | 2025-09-16 20:52 | ED_ITS ---
HPI - Anxiety General Chief Complaint: Anxiety Stated Complaint: anxiety Time Seen by Provider: 09/16/25 20:40 History of Present Illness HPI narrative: 35-year-old white male with long history of paranoid schizophrenia, noncompliant with medication, severe anxiety disorder, history of alcohol and cannabis abuse, presents via EMS after he called 911 reporting that he was scared, and thought that he might be going to . At 1 point he said something about he might kill himself, but according to police service technician he amended that quickly to ?no, I am afraid I am going to ?. She reports she was anxious, hyperventilating, and she was able to get him into the back seat of the police cruiser, spend time reassuring him, and called EMS. [facility] for splint, EMS, and they ED nursing staff all know the patient very well from numerous visits throughout the year. EMS continued to reassure him while transporting him, and he never made any other suicidal statements, but repeatedly stated that he had this feeling of doom and that he was going to and does not want to.. He is currently living with his father. He reports for reasons it he does not understand he went into a bar today and drank a number of rum and Cokes, and had a couple of other drinks as well and now feels like he is drunk. He reports it is starting to wear off and now he feels sick to his stomach in has had a couple episodes of dry emesis. He denies suicidal ideation, fever chills, sinus drainage or sore throat, coughing or shortness of breath. He denies chest pain, palpitations, near- syncope or syncope. He denies abdominal pain, diarrhea or constipation, dysuria urgency or frequency. He does report some sporadic hallucinations but will not go into any detail. Related Data Allergies Allergy/AdvReac Type Severity Reaction Status Date / Time No Known Allergies Allergy Verified 09/10/25 06:59 Review of Systems Review of Systems: ROS negative except as in HPI PMFSH Past Medical History Medical History Chest pain SOB (shortness of breath) Anxiety Psychosis Social History Social History Smoking status: Current every day smoker Alcohol intake: current Substance use: current Substance use type: marijuana Other substance usage details: Infrequent Living arrangements: alone Exam Narrative: pleasant, well-appearing, very anxious, talkative, scalp was cut extremely sh ort, numerous tattoos, oriented x3, cooperative, appropriately interactive, no acute distress. He is apologetic, not aggressive, repeatedly berates himself for having been drinking today. He is in constant motion, but does not appear to be ?tweaking?. Hygiene is fair. Speech is clear, there is a very faint odor of intoxicating substance, he does not appear ataxic Const: General: cooperative, healthy appearing, no acute distress, well developed, alert, awake and Physically active Orientation/consciousness: patient oriented x3 HENMT: Head: normal to inspection, normocephalic and atraumatic Ears: hearing grossly normal bilaterally and external ears normal Face/Nose/Sinus: Normal external nose present, Normal nares present, Normal nasal mucous membranes and turbinates present and normal facial exam Face and sinus: normal facial exam Mouth: Yes Normal oral and palatal mucosa present, Yes lip normal, Yes tongue normal, Yes oropharynx normal and Yes moist mucous membranes Teeth and gingiva: dentition normal Throat: posterior oropharynx normal and tonsils normal ( erythematous) Eyes: General: appearance normal, both eyes and all related structures Alignment and Position: alignment normal and position normal Periorbital: periorbital findings normal Eyelids: eyelids normal Conjunctivae: conjunctivae normal Sclera: sclerae normal Cornea: corneas normal Pupils: Equal, round and reactive pupils present EOM: EOMs intact bilaterally Neck: Neck: normal visual inspection, full ROM and no lymphadenopathy Chest: Chest palpation & inspection: normal inspection of the chest Resp: Effort & Inspection: normal respiratory effort, able to speak in comp lete sentences, no audible wheezes, no respiratory distress and no use of accessory muscles Auscultation: clear to auscultation bilaterally Cardio: Jugular venous distension: no JVD Rate: regular rate Rhythm: regular rhythm GI: Inspection: normal to inspection GI Palp: No abdominal tenderness, No Tenderness to palpation present (GI), No Guarding due to palpation present (GI), No No hepatosplenomegaly present, No Palpable mass present and No Rebound tenderness present Skin: General skin exam: normal color, no rashes or lesions noted, elasticity normal and turgor normal Neuro: General: patient oriented x3, gait normal, tone normal and moves all extremities Cranial nerves: Yes CN's II-XII intact bilaterally, Yes Equal, round and reactive pupils present and Yes Bilaterally intact EOM present Speech: normal speech Motor exam (neuro): 5/5 motor strength present throughout and Normal motor muscle tone present throughout Sensory Exam: normal sensation Extrem: General: normal to inspection, normal exam except as noted and no pedal edema Psych: Affect: Anxious affect present (See above note) Attitude: cooperative, not belligerent, not guarded, establishes eye contact and answers questions Thought content: No Suicidality present and No Homicidality present Insight: Limited insight present (Psych) Course Course Emergency Course: Differential diagnosis includes but is limited to exacerbation of paranoid schizophrenia, anxiety attack, noncompliance with medications, substance abuse although he really does not appear that intoxicated to me. Patient is well-known to staff and this is typical presentation. Law enforcement, EMS, ED nurses, and I also spent considerable time reassuring him and his anxiety gradually subsided. Not offered him a ODT Zofran which she accepted, but he declined Ativan and Protonix. Will observe him and continue reassuring, anticipate discharge. He does currently have a place to stay with his father and plans to go there to sleep tonight. He reports he had a good night's sleep last night. Medical decision making complexity risk is low Vital Signs Vital signs: Vital Signs Temperature 36.6 C 09/16/25 20:45 Pulse Rate 88 09/16/25 20:45 Respiratory Rate 18 09/16/25 20:45 Blood Pressure 123/102 H 09/16/25 20:45 Pulse Oximetry 100 09/16/25 20:45 Oxygen Delivery Room Air 09/16/25 20:45 Temperature 36.7 C 09/16/25 22:04 Pulse Rate 66 09/16/25 22:04 Respiratory Rate 14 09/16/25 22:04 Blood Pressure 119/75 09/16/25 22:04 Pulse Oximetry 98 09/16/25 22:04 Oxygen Delivery Room Air 09/16/25 22:04 Discharge Plan Discharge Clinical Impression: Anxiety, Chronic paranoid schizophrenia, Non compliance with medical treatment, Alcohol use disorder Patient Disposition: Home Condition: Stable Instructions: Antibiotic Form Additional Instructions: Stated at your father's house tonight Restart your home medications Avoid alcohol consumption Avoid cannabis consumption Antacids as needed Follow-up with your psychiatrist and counselor Follow-up with your PCP Return emergency department if worsens Patient Language: Citizen Of [place] Prescriptions: No Action pantoprazole [Protonix] 40 mg tablet,delayed release (DR/EC) 40 mg PO DAILY Qty: 30 0RF famotidine [Pepcid] 40 mg tablet 40 mg PO HS Qty: 30 0RF Follow-up/Referrals: Sahil Garza MD [Primary Care Provider, Internal Medicine] Time of Disposition: 21:11
[2025-09-16] MEDS: ONDANSETRON HCL ODT 4 MG TABLET PO (20:59)
--- OUTSIDE RECORDS SUMMARY | 2025-09-16 21:14 | XMS_ITS ---
Author Organization Unknown Address [id number] [place] [phone] Phone Care Team Providers Care Front End Developer Name Role Phone ORVILLE Pace Attending Unavailable MARK BLUNT CRNA Unavailable DARYL GARAY Primary Unavailable Immunization Immunization Date Status Additional Notes Code Code System DTP 1990 Completed CVX DTP 1990 Completed CVX DTP 1990 Completed CVX DTP 10/18/1991 Completed 01 CVX OPV, trivalent 1990 Completed 02 CVX OPV, trivalent 1990 Completed 02 CVX OPV, trivalent 1990 Completed 02 CVX OPV, trivalent 10/18/1991 Completed 02 CVX MMR 08/23/1991 Completed [...] Smoking History Unknown if ever smoked [address] Sex Male Vital Signs Vital Sign Value Unit Freeborn Value Freeborn Unit Date/Time Recent/Initial? Code Code System Body Mass Index 28.89 kg/m2 03/19/2024 12:53 Most Recent 24942 -5 LOINC Body Mass Index 28.89 kg/m2 02/24/2024 08:58 Initial 68416 -5 LOINC Systolic Blood Pressure 130 mm[Hg] [...] O2 Saturation 95 % 2023 13:04 Initial 08098 -5 LOINC Pulse 76.0 /min 03/19/2024 13:04 Initial 8867- 4 LOINC Respiration 16 /min 03/19/20 13:04 Initial 9279- 1 LOINC Temperature 36.5 Tiesha 97.7 F 03/19/20 13:04 Initial 8310- 5 LOINC Weight 86.18 kg 190.00 lbs 03/19/2024 12:53 Most Recent 04195 -7 LOINC Weight 86.18 kg 190.00 lbs 02/24/2024 08:58 Initial 90429 -7 LOINC Medications Medication Start Date End Date Route Frequency Dose Code Code System Medication Instructions Home Meds Famotidine 20MG Oral Tablet 03/19/2024 Unknown ORAL ONCE A DAY 20 MILLIGRAMS 755586 RxNorm TAKE 20 MILLIGRAMS ORAL ONCE A [...] flexible, transoral; diagnostic, including col 03/19/2024 completed 62977 CPT Anesthesia for combined uppe r and lower gastrointestinal endoscopic proced 03/19/2024 completed 20272 CPT Colonoscopy, flexible; diagn ostic, including collection of specimen(s) by 03/19/2024 completed 78469 CPT Allergies and Adverse Reactions Allergy Substance Reaction Severity Start Date Concern Status Co de Code System No Known Drug Allergies Active 532643734 SNVizy-CT Plan of Treatment Stress Echo 01/06/2024 US Echo Stress (33943) 01/06/2024 Stress Echo 01/06/2024 US Echo Stress (12433) 01/06/2024 EGD/Colonoscopy 03/19/2024 Encounters Encounter Diagnosis Start Date Code Code Sys tem Epigastric pain 03/19/2024 SNOMED-CT Personal Care Team Section Performer Name Performer Role Active Date Inactive TANISHA Diego PCP - Primary care physician 2024-01-06 Procedures Notes
--- OUTSIDE RECORDS SUMMARY | 2025-09-16 21:15 | XMS_ITS | Encounter Summary ---
Author Organization [facility] Address [address] [place] [id number] Care Team Providers Care Wet Pan Operator Name Role Phone Sahil Garza MD Primary Care Provider [phone] Encounter Details Date Type Department Care Team (Late st Contact Info) Description 04/03/2019 Abstract SFL CONVERSION [address] [place] [address] , Generic Conversion, Social History Tobacco Use [...] on filedocumented in this encounter Care Teams Wet Pan Operator Relationship Specialty Start Date End Date Sahil Garza MD [address] [place] [address] PCP - General INTERNAL MEDICINE 06/21/23 documented as of this encounter
--- OUTSIDE RECORDS SUMMARY | 2025-09-16 21:15 | XMS_ITS ---
Author Organization Unknown Address [address] [place] [phone] Phone Care Team Providers Care Customer Consulting Manager Name Role Phone CHRISTY CASTILLO Attending Unavailable DARYL GARAY Primary Unavailable Immunization Immunization Date Status Additional Notes Code Code System DTP 1990 Completed 01 CVX DTP 1990 Completed CVX DTP 1990 Completed 01 CVX DTP 10/18/1991 Completed 01 CVX OPV, [...] 01/13/24 15:14 Reviewed and Electronically Signed by: DENICE ANTHONY SIGNDAYUE <<REPDIST>> Social History Type Status Start Date End Date Code Code Syst em Smoking History Unknown if ever smoked [address] Sex Male Medications Medication Start Date End Date Route Frequency Dose Code Code System Medication Instructions Home Meds Famotidine 20MG Oral Tablet 03/19/2024 Unknown ORAL ONCE A DAY 20 MILLIGRAMS 392836 RxNorm TAKE 20 MILLIGRAMS ORAL ONCE A [...] Code System No Known Drug Allergies Active 931119341 SNOMED-CT Plan of Treatment Stress Echo 01/06/2024 US Echo Stress (00006) 01/06/2024 Stress Echo 01/06/2024 US Echo Stress (51076) 01/06/2024 EGD/Colonoscopy 03/19/2024 Encounters Encounter Diagnosis Start Date Code Code Sys tem Abnormal electrocardiogram [ECG] [EKG] 01/06/2024 SNOMED-CT Personal Care Team Section Performer Name Performer Role Active Date Inactive TANISHA Diego PCP - Primary care physician 2024-01-06
--- OUTSIDE RECORDS SUMMARY | 2025-09-16 21:15 | XMS_ITS ---
Author Organization Unknown Address [address] [place] [phone] Phone Care Team Providers Care Vice President And Portfolio Manager Name Role Phone CHRISTY CASTILLO Attending [...] Smoking History Unknown if ever smoked [address] Sex Male Medications Medication Start Date End Date Route Frequency Dose Code Code System Medication Instructions Home Meds Famotidine 20MG Oral Tablet 03/19/2024 Unknown ORAL ONCE A DAY 20 MILLIGRAMS 430625 RxNorm TAKE 20 MILLIGRAMS ORAL ONCE A [...] Code System No Known Drug Allergies Active 565591766 SNOMED-CT Plan of Treatment Stress Echo 01/06/2024 US Echo Stress (11899) 01/06/2024 Stress Echo 01/06/2024 US Echo Stress (60494) 01/06/2024 EGD/Colonoscopy 03/19/2024 Encounters Encounter Diagnosis Start Date Code Code Sys tem Abnormal electrocardiogram [ECG] [EKG] 12/16/2023 SNOMED-CT Personal Care Team Section Performer Name Performer Role Active Date Inactive TANISHA Diego PCP - Primary care physician 2024-01-06
--- NOTE | 2025-09-16 21:30 | PC.NURSE ---
Pt calm. No symptoms of anxiety. Pt requests to be discharged.
[2025-09-16 22:04] VITALS: BP 119/75; PULSE 66; RESP 14; TEMP 36.7; O2SAT 98
== END 2025-09-16 22:20 | disposition home or self-care (01) ==
LOC: CHSED 21:13
PROVIDERS: Emergency Provider Emergency Medicine; PCP Internal Medicine
DX: F41.9 Anxiety disorder, unspecified (principal); F20.0 Paranoid schizophrenia; F10.90 Alcohol use, unspecified, uncomplicated; Z91.148 Patient's other noncompliance with medication regimen for other reason; F17.200 Nicotine dependence, unspecified, uncomplicated; Y90.9 Presence of alcohol in blood, level not specified
CPT/HCPCS: 99283; A9270

== ENCOUNTER 2025-09-17 12:36 | Emergency (ER) | payer OTHER, SELFPAY ==
[2025-09-17 12:36] VITALS: BP 120/79; PULSE 79; RESP 20; TEMP 36.6; O2SAT 97
--- OUTSIDE RECORDS SUMMARY | 2025-09-17 12:39 | XMS_ITS ---
Author Organization Unknown Address [address] [place] [phone] Phone Care Team Providers Care Anvil Seating Press Operator Name Role Phone ORVILLE Pace Attending Unavailable [...] Smoking History Unknown if ever smoked [address] Sex Male Vital Signs Vital Sign Value Unit Divide Value Divide Unit Date/Time Recent/Initial? Code Code System Body Mass Index 28.89 kg/m2 03/19/2024 12:53 Most Recent 24604 -5 LOINC Body Mass Index 28.89 kg/m2 02/24/2024 08:58 Initial 21967 -5 LOINC Systolic Blood Pressure 130 mm[Hg] [...] O2 Saturation 95 % 2023 13:04 Initial 48334 -5 LOINC Pulse 76.0 /min 03/19/2024 13:04 Initial 8867- 4 LOINC Respiration 16 /min 03/19/20 13:04 Initial 9279- 1 LOINC Temperature 36.5 Tiesha 97.7 F 03/19/20 13:04 Initial 8310- 5 LOINC Weight 86.18 kg 190.00 lbs 03/19/2024 12:53 Most Recent 92645 -7 LOINC Weight 86.18 kg 190.00 lbs 02/24/2024 08:58 Initial 55296 -7 LOINC Medications Medication Start Date End Date Route Frequency Dose Code Code System Medication Instructions Home Meds Famotidine 20MG Oral Tablet 03/19/2024 Unknown ORAL ONCE A DAY 20 MILLIGRAMS 139293 RxNorm TAKE 20 MILLIGRAMS ORAL ONCE A [...] flexible, transoral; diagnostic, including col 03/19/2024 completed 62597 CPT Anesthesia for combined uppe r and lower gastrointestinal endoscopic proced 03/19/2024 completed 47869 CPT Colonoscopy, flexible; diagn ostic, including collection of specimen(s) by 03/19/2024 completed 75955 CPT Allergies and Adverse Reactions Allergy Substance Reaction Severity Start Date Concern Status Co de Code System No Known Drug Allergies Active 785698611 [facility] Plan of Treatment Stress Echo 01/06/2024 US Echo Stress (24951) 01/06/2024 Stress Echo 01/06/2024 US Echo Stress (93912) 01/06/2024 EGD/Colonoscopy 03/19/2024 Encounters Encounter Diagnosis Start Date Code Code Sys tem Epigastric pain 03/19/2024 SNOMED-CT Personal Care Team Section Performer Name Performer Role Active Date Inactive TANISHA Diego PCP - Primary care physician 2024-01-06 Procedures Notes
--- OUTSIDE RECORDS SUMMARY | 2025-09-17 12:39 | XMS_ITS ---
Author Organization Unknown Address [address] [place] [phone] Phone Care Team Providers Care Office Machine Service Supervisor Name Role Phone CHRISTY CASTILLO Attending [...] Smoking History Unknown if ever smoked [address] Sex Male Medications Medication Start Date End Date Route Frequency Dose Code Code System Medication Instructions Home Meds Famotidine 20MG Oral Tablet 03/19/2024 Unknown ORAL ONCE A DAY 20 MILLIGRAMS 404100 RxNorm TAKE 20 MILLIGRAMS ORAL ONCE A [...] Code System No Known Drug Allergies Active 698778230 SNOMED-CT Plan of Treatment Stress Echo 01/06/2024 US Echo Stress (28834) 01/06/2024 Stress Echo 01/06/2024 US Echo Stress (30446) 01/06/2024 EGD/Colonoscopy 03/19/2024 Encounters Encounter Diagnosis Start Date Code Code Sys tem Abnormal electrocardiogram [ECG] [EKG] 12/16/2023 SNOMED-CT Personal Care Team Section Performer Name Performer Role Active Date Inactive TANISHA Diego PCP - Primary care physician 2024-01-06
--- OUTSIDE RECORDS SUMMARY | 2025-09-17 12:39 | XMS_ITS | Encounter Summary ---
Author Organization [facility] Address [address] [place] [id number] Care Team Providers Care Sole Molding Machine Operator Name Role Phone Sahil Garza MD Primary Care Provider [phone] Encounter Details Date Type Department Care Team (Late st Contact Info) Description 04/03/2019 Abstract SFL CONVERSION [address] [place] [address] , Generic Conversion, Social History Tobacco Use [...] on filedocumented in this encounter Care Teams Sole Molding Machine Operator Relationship Specialty Start Date End Date Sahil Garza MD [address] [place] [address] PCP - General INTERNAL MEDICINE 06/21/23 documented as of this encounter
--- OUTSIDE RECORDS SUMMARY | 2025-09-17 12:39 | XMS_ITS ---
Author Organization Unknown Address [address] [place] [address] [phone] Phone Care Team Providers Care Historical Guide Name Role Phone CHRISTY CASTILLO Attending Unavailable [...] Smoking History Unknown if ever smoked [address] Sex Male Medications Medication Start Date End Date Route Frequency Dose Code Code System Medication Instructions Home Meds Famotidine 20MG Oral Tablet 03/19/2024 Unknown ORAL ONCE A DAY 20 MILLIGRAMS 077709 RxNorm TAKE 20 MILLIGRAMS ORAL ONCE A [...] Code System No Known Drug Allergies Active 942539196 SNOMED-CT Plan of Treatment Stress Echo 01/06/2024 US Echo Stress (29747) 01/06/2024 Stress Echo 01/06/2024 US Echo Stress (56653) 01/06/2024 EGD/Colonoscopy 03/19/2024 Encounters Encounter Diagnosis Start Date Code Code Sys tem Abnormal electrocardiogram [ECG] [EKG] 01/06/2024 SNOMED-CT Personal Care Team Section Performer Name Performer Role Active Date Inactive TANISHA Diego PCP - Primary care physician 2024-01-06
--- NOTE | 2025-09-17 12:46 | ED_ITS ---
HPI - Anxiety General Chief Complaint: Anxiety Stated Complaint: anxiety Time Seen by Provider: 09/17/25 12:46 Source: patient Mode of arrival: ambulatory Limitations: no limitations History of Present Illness HPI narrative: This is a 35-year-old male with history of anxiety presents with increased anxiety today and feels panicking with shortness of breath with some no nausea vomiting no fever chills no chest pain no chest tightness no abdominal pain no dysuria no flank pain or hematuria. complaint: anxiety Onset (ago): hour(s) Symptoms: dyspnea Severity: moderate Quality: constant Place: home History of similar episodes: Yes Provoking factors: emotional stress Related Data Allergies Allergy/AdvReac Type Severity Reaction Status Date / Time No Known Allergies Allergy Verified 09/10/25 06:59 Review of Systems Review of Systems: All systems reviewed & are unremarkable except as noted in HPI and below PMFSH Past Medical History Medical History Chest pain SOB (shortness of breath) Anxiety Psychosis Social History Social History Smoking status: Current every day smoker Alcohol intake: current Substance use: current Substance use type: does not use Other substance usage details: Infrequent Living arrangements: alone Exam Const: General: healthy appearing and no acute distress Nutritional Appearance: well nourished Orientation/consciousness: patient oriented x3 Neck: Neck: normal visual inspection and no lymphadenopathy Chest: Chest palpation & inspection: normal inspection of the chest Resp: Effort & Inspection: normal respiratory effort Auscultation: clear to auscultation bilaterally Cardio: Rate: regular rate Rhythm: regular rhythm GI: GI Palp: Yes Soft to palpation Auscultation: normal bowel sounds Skin: General skin exam: normal color Neuro: General: patient oriented x3, moves all extremities and no meningeal signs Psych: Affect: Anxious affect present Course Course Emergency Course: Medical decision making narrative: The patient was evaluated by myself in the emergency department. History obtained from the patient resumed minutes doing a physical exam performed witnessed by nurse. Patient received a dose of p.o. Ativan for his anxiety/panic attack. Repeat assessment: Patient doing well on repeat exam no acute distress Symptoms have improved since arrival to the emergency department. Repeat vitals stable Patient agrees with discussion and after shared medical decision-making and agree with discharge. All questions answered to the patient's satisfaction Advised patient to follow-up in 3 to 5 days with primary. Vital Signs Vital signs: Vital Signs Temperature 36.6 C 09/17/25 12:36 Pulse Rate 79 09/17/25 12:36 Respiratory Rate 20 09/17/25 12:36 Blood Pressure 120/79 09/17/25 12:36 Pulse Oximetry 97 09/17/25 12:36 Oxygen Delivery Room Air 09/17/25 12:36 Temperature 36.6 C 09/17/25 12:36 Pulse Rate 79 09/17/25 12:36 Respiratory Rate 20 09/17/25 12:36 Blood Pressure 120/79 09/17/25 12:36 Pulse Oximetry 97 09/17/25 12:36 Oxygen Delivery Room Air 09/17/25 12:36 Critical Care Time Critical Care Time Critical Care Time: No Discharge Plan Discharge Clinical Impression: Anxiety Psychosis Qualifiers: Psychosis type: unspecified psychosis type Qualified Code(s): F29 - Unspecified psychosis not due to a substance or known physiological condition Patient Disposition: Home Condition: Stable Instructions: Antibiotic Form, Panic Disorder (ED), Anxiety (ED) Additional Instructions: Advised patient follow with primary care physician within next 3 to 5 days for further evaluation and treatment. Patient Language: [place] Prescriptions: No Action pantoprazole [Protonix] 40 mg tablet,delayed release (DR/EC) 40 mg PO DAILY Qty: 30 0RF famotidine [Pepcid] 40 mg tablet 40 mg PO HS Qty: 30 0RF Follow-up/Referrals: Sahil Garza MD [Primary Care Provider, Internal Medicine] Time of Disposition: 12:50
[2025-09-17] MEDS: LORazepam (*CRX) 0.5 MG TABLET PO (12:52)
--- NOTE | 2025-09-17 13:07 | PC.NURSE ---
pt takes he feels much better pt ready to go to work now
== END 2025-09-17 13:07 | disposition home or self-care (01) ==
LOC: CHSED 12:51
PROVIDERS: Emergency Provider Emergency Medicine; PCP Internal Medicine
DX: F41.9 Anxiety disorder, unspecified (principal); F29 Unspecified psychosis not due to a substance or known physiological condition; F17.210 Nicotine dependence, cigarettes, uncomplicated
CPT/HCPCS: 99283; A9270

== ENCOUNTER 2025-09-19 00:13 | Emergency (ER) | payer OTHER, SELFPAY ==
[2025-09-19 00:14] VITALS: BP 130/93; PULSE 66; RESP 22; TEMP 36; O2SAT 97
--- OUTSIDE RECORDS SUMMARY | 2025-09-19 00:16 | XMS_ITS ---
Author Organization Unknown Address [id number] [place] [address] [phone] Phone Care Team Providers Care Office Machine Servicer Name Role Phone ORVILLE Pace Attending Unavailable [...] Smoking History Unknown if ever smoked [id number] Sex Male Vital Signs Vital Sign Value Unit [place] Value [place] Unit Date/Time Recent/Initial? Code Code System Body Mass Index 28.89 kg/m2 03/19/2024 12:53 Most Recent 95690 -5 LOINC Body Mass Index 28.89 kg/m2 02/24/2024 08:58 Initial 12628 -5 LOINC Systolic Blood Pressure 130 mm[Hg] [...] O2 Saturation 95 % 2023 13:04 Initial 32609 -5 LOINC Pulse 76.0 /min 03/19/2024 13:04 Initial 8867- 4 LOINC Respiration 16 /min 03/19/20 13:04 Initial 9279- 1 LOINC Temperature 36.5 Tiesha 97.7 F 03/19/20 13:04 Initial 8310- 5 LOINC Weight 86.18 kg 190.00 lbs 03/19/2024 12:53 Most Recent 52346 -7 LOINC Weight 86.18 kg 190.00 lbs 02/24/2024 08:58 Initial 87322 -7 LOINC Medications Medication Start Date End Date Route Frequency Dose Code Code System Medication Instructions Home Meds Famotidine 20MG Oral Tablet 03/19/2024 Unknown ORAL ONCE A DAY 20 MILLIGRAMS [id number] RxNorm TAKE 20 MILLIGRAMS ORAL ONCE A [...] flexible, transoral; diagnostic, including col 03/19/2024 completed 74077 CPT Anesthesia for combined uppe r and lower gastrointestinal endoscopic proced 03/19/2024 completed 44084 CPT Colonoscopy, flexible; diagn ostic, including collection of specimen(s) by 03/19/2024 completed 49203 CPT Allergies and Adverse Reactions Allergy Substance Reaction Severity Start Date Concern Status Co de Code System No Known Drug Allergies Active 080396238 SNBrabeion Software-CT Plan of Treatment Stress Echo 01/06/2024 US Echo Stress (88940) 01/06/2024 Stress Echo 01/06/2024 US Echo Stress (11016) 01/06/2024 EGD/Colonoscopy 03/19/2024 Encounters Encounter Diagnosis Start Date Code Code Sys tem Epigastric pain 03/19/2024 SNOMED-CT Personal Care Team Section Performer Name Performer Role Active Date Inactive TANISHA Diego PCP - Primary care physician 2024-01-06 Procedures Notes
--- OUTSIDE RECORDS SUMMARY | 2025-09-19 00:16 | XMS_ITS | Encounter Summary ---
Author Organization [facility] Address [address] [place] [address] Care Team Providers Care Bindery Machine Operator Name Role Phone Sahil Garza MD Primary Care Provider [phone] Encounter Details Date Type Department Care Team (Late st Contact Info) Description 04/03/2019 Abstract [facility] CONVERSION [address] [place] [address] , Generic Conversion, Social History Tobacco Use [...] on filedocumented in this encounter Care Teams Bindery Machine Operator Relationship Specialty Start Date End Date Sahil Garza MD [address] [place] [address] PCP - General INTERNAL MEDICINE 06/21/23 documented as of this encounter
--- OUTSIDE RECORDS SUMMARY | 2025-09-19 00:16 | XMS_ITS ---
Author Organization Unknown Address [address] [place] [address] [phone] Phone Care Team Providers Care Entertainer Or Variety Artist Name Role Phone CHRISTY CASTILLO Attending Unavailable [...] Smoking History Unknown if ever smoked [id number] Sex Male Medications Medication Start Date End Date Route Frequency Dose Code Code System Medication Instructions Home Meds Famotidine 20MG Oral Tablet 03/19/2024 Unknown ORAL ONCE A DAY 20 MILLIGRAMS 984164 RxNorm TAKE 20 MILLIGRAMS ORAL ONCE A [...] Code System No Known Drug Allergies Active 855802155 SNOMED-CT Plan of Treatment Stress Echo 01/06/2024 US Echo Stress (77942) 01/06/2024 Stress Echo 01/06/2024 US Echo Stress (89170) 01/06/2024 EGD/Colonoscopy 03/19/2024 Encounters Encounter Diagnosis Start Date Code Code Sys tem Abnormal electrocardiogram [ECG] [EKG] 12/16/2023 SNOMED-CT Personal Care Team Section Performer Name Performer Role Active Date Inactive TANISHA Diego PCP - Primary care physician 2024-01-06
--- OUTSIDE RECORDS SUMMARY | 2025-09-19 00:16 | XMS_ITS ---
Author Organization Unknown Address [address] [place] [address] [phone] Phone Care Team Providers Care Company Truck Driver Name Role Phone CHRISTY CASTILLO Attending Unavailable [...] Smoking History Unknown if ever smoked [id number] Sex Male Medications Medication Start Date End Date Route Frequency Dose Code Code System Medication Instructions Home Meds Famotidine 20MG Oral Tablet 03/19/2024 Unknown ORAL ONCE A DAY 20 MILLIGRAMS 688372 RxNorm TAKE 20 MILLIGRAMS ORAL ONCE A [...] Code System No Known Drug Allergies Active 992107387 SNOMED-CT Plan of Treatment Stress Echo 01/06/2024 US Echo Stress (73778) 01/06/2024 Stress Echo 01/06/2024 US Echo Stress (65985) 01/06/2024 EGD/Colonoscopy 03/19/2024 Encounters Encounter Diagnosis Start Date Code Code Sys tem Abnormal electrocardiogram [ECG] [EKG] 01/06/2024 SNOMED-CT Personal Care Team Section Performer Name Performer Role Active Date Inactive TANISHA Diego PCP - Primary care physician 2024-01-06
--- NOTE | 2025-09-19 00:21 | ED_ITS ---
HPI - URI/Sore Throat General Chief Complaint: Upper Respiratory Infection Stated Complaint: not feeling well Source: patient Mode of arrival: ambulatory Limitations: no limitations History of Present Illness HPI Narrative: Patient is a 35-year-old male with known schizophrenia and unmedicated per his choice here with a scratchy throat and myalgias and nasal congestion. Patient is at his baseline paranoid schizophrenia and not suicidal. He still says that he will not take antipsychotics. He did take Ativan the other day that we gave him any said it helped somewhat. We discussed his recurrent ER visits and said that he needs to follow up with his primary doctor and his psychiatrist. He is having shortness of breath that he feels someone is stealing his oxygen. MD elicited complaint: sore throat, nasal congestion and sinus pain Pertinent past history: other (GERD issues, paranoid schizophrenia) Onset (ago): day(s) (1) Consistency: constant Severity: mild Pain scale (0-10): 1 Description of mucous: clear Able to tolerate fluids by mouth: Yes Exacerbating factors: nothing Relieving factors: nothing Context: other (Patient having shortness of breath and flu-like symptoms at this time and desires swabs) Associated symptoms: myalgias, headache and sore throat Treatments prior to arrival: none Related Data Allergies Allergy/AdvReac Type Severity Reaction Status Date / Time No Known Allergies Allergy Verified 09/19/25 00:22 Review of Systems Review of Systems: All systems reviewed & are unremarkable except as noted in HPI and below Constitutional: Constitutional: Reports as per HPI and Reports no additional constitutional complaints Eyes: Eyes: Reports no additional eye complaints ENT: Reports system reviewed and no additional complaints, except as documented Cardiovascular: Cardiovascular: Reports no additional cardiovascular complaints Respiratory: Respiratory: Reports no additional respiratory complaints Gastrointestinal: Gastrointestinal: Reports no additional gastrointestinal complaints Genitourinary: Genitourinary: Reports no additional male genitourinary complaints Musculoskeletal: Musculoskeletal: Reports no additional musculoskeletal complaints Integumentary/Breasts: Skin/Breast: Reports system reviewed and no additional complaints, except as docu Neurologic: Reports system reviewed and no additional complaints, except as documented Psychiatric: Psychiatric: Reports no additional psychiatric complaints Endocrine: Endocrine: Reports no additional endocrine complaints Hematologic/Lymphatic: Hematologic/Lymphatic: Reports no additional hematologic/lymphatic complaints Allergic/Immunologic: Allergic/Immunologic: Reports no additional allergic/immunologic complaints PMFSH Past Medical History Medical History Chest pain SOB (shortness of breath) Anxiety Psychosis Social History Social History Smoking status: Current every day smoker Alcohol intake: current Substance use: current Substance use type: does not use Other substance usage details: Infrequent Living arrangements: alone Exam Const: General: healthy appearing Nutritional Appearance: well nourished Orientation/consciousness: patient oriented x3 Limitations: behavioral limitations HENMT: Head: normal to inspection Ears: external ears normal Face/Nose/Sinus: Normal external nose present Other: Oropharynx is slightly red without pus Eyes: Conjunctivae: conjunctivae normal Pupils: Equal, round and reactive pupils present EOM: EOMs intact bilaterally Neck: Neck: normal visual inspection, no lymphadenopathy and no meningeal signs Chest: Chest palpation & inspection: normal inspection of the chest Resp: Effort & Inspection: normal respiratory effort, not labored, no retractions, not tachypneic and no use of accessory muscles Auscultation: clear to auscultation bilaterally, no crackles, no rales, no rhonchi and no wheezes Cardio: Rate: regular rate Rhythm: regular rhythm Heart sounds: no murmurs GI: Inspection: non-distended GI Palp: Yes Soft to palpation, No Tenderness to palpation present (GI), No Guarding due to palpation present (GI) and No Rigid due to palpation Auscultation: normal bowel sounds : General: Yes bladder normal to palpation Back/Spine/Pelvis: Back: no CVA tenderness Cervical Spine: collar present Skin: General skin exam: normal color Rashes: no rashes Wounds: no wounds Neuro: General: patient oriented x3, moves all extremities and no meningeal signs Extrem: General: normal to inspection, no clubbing, cyanosis or edema and no pedal edema Psych: Mental Status: mental status grossly normal Affect: No normal affect and Anxious affect present (Acute flare of psychosis without suicidal ideation) Attitude: cooperative Course Vital Signs Vital signs: Vital Signs Temperature 36.0 C L 09/19/25 00:14 Pulse Rate 66 09/19/25 00:14 Respiratory Rate 22 H 09/19/25 00:14 Blood Pressure 130/93 H 09/19/25 00:14 Pulse Oximetry 97 09/19/25 00:14 Oxygen Delivery Room Air 09/19/25 00:14 Temperature 36.0 C L 09/19/25 00:14 Pulse Rate 66 09/19/25 00:14 Respiratory Rate 22 H 09/19/25 00:14 Blood Pressure 130/93 H 09/19/25 00:14 Pulse Oximetry 97 09/19/25 00:14 Oxygen Delivery Room Air 09/19/25 00:14 MDM - URI/Sore Throat MDM Narrative Medical decision making narrative: Patient is a 35-year-old male with known paranoid schizophrenia here with upper respiratory congestion. COVID swab and strep. Offered patient medication for his schizophrenia but he has declined again at this time. Lab Data Attestation: I reviewed the patient's lab results. Labs: Lab Results 09/19/25 09/19/25 Range/Units 00:52 00:53 Influenza A (RT-PCR) Pending Influenza B (RT-PCR) Pending RSV (RT-PCR) Pending SARS-CoV-2 RNA (RT-PCR) Pending Group A Strep (PCR) Pending Testing all negative Discharge Plan Discharge Clinical Impression: Viral infection Upper respiratory infection Qualifiers: URI type: unspecified viral URI Qualified Code(s): J06.9 - Acute upper respiratory infection, unspecified Schizophrenia Qualifiers: Schizophrenia type: unspecified Qualified Code(s): F20.9 - Schizophrenia, unspecified Patient Disposition: Home Condition: Stable Instructions: Viral Syndrome (ED) Patient Language: Turkish Prescriptions: No Action pantoprazole [Protonix] 40 mg tablet,delayed release (DR/EC) 40 mg PO DAILY Qty: 30 0RF famotidine [Pepcid] 40 mg tablet 40 mg PO HS Qty: 30 0RF Follow-up/Referrals: Sahil Garza MD [Primary Care Provider, Internal Medicine] Time of Disposition: 01:45
--- OUTSIDE RECORDS SUMMARY | 2025-09-19 00:22 | XMS_ITS | Clinical Summary ---
Author Organization [facility] Address [address] [place] [id number] Care Team Providers Care Retail Performance Coach Name Role Phone Sahil Garza MD Primary Care Provider [phone] Social History Tobacco Use Types Packs/Day Years [...] CLINIC MEDICAID C/O PROVIDER SERVICES [place] [id number] Care Teams Retail Performance Coach Relationship Specialty Start Date End Date Sahil Garza MD [address] [place] [address] PCP - General INTERNAL MEDICINE 06/21/23
--- OUTSIDE RECORDS SUMMARY | 2025-09-19 00:22 | XMS_ITS ---
Author Organization Unknown Address [address] [place] [address] [phone] Phone Care Team Providers Care Security Assurance Analyst Name Role Phone CHRISTY CASTILLO Attending [...] Smoking History Unknown if ever smoked [id number] Sex Male Medications Medication Start Date End Date Route Frequency Dose Code Code System Medication Instructions Home Meds Famotidine 20MG Oral Tablet 03/19/2024 Unknown ORAL ONCE A DAY 20 MILLIGRAMS 802806 RxNorm TAKE 20 MILLIGRAMS ORAL ONCE A [...] Code System No Known Drug Allergies Active 705569562 SNOMED-CT Plan of Treatment Stress Echo 01/06/2024 US Echo Stress (81932) 01/06/2024 Stress Echo 01/06/2024 US Echo Stress (96688) 01/06/2024 EGD/Colonoscopy 03/19/2024 Encounters Encounter Diagnosis Start Date Code Code Sys tem Abnormal electrocardiogram [ECG] [EKG] 01/06/2024 SNOMED-CT Personal Care Team Section Performer Name Performer Role Active Date Inactive TANISHA Diego PCP - Primary care physician 2024-01-06
--- OUTSIDE RECORDS SUMMARY | 2025-09-19 00:22 | XMS_ITS ---
Author Organization Unknown Address [address] [place] [address] [phone] Phone Care Team Providers Care Furniture Assembler Name Role Phone CHRISTY CASTILLO Attending Unavailable [...] Smoking History Unknown if ever smoked [address] Sex Male Medications Medication Start Date End Date Route Frequency Dose Code Code System Medication Instructions Home Meds Famotidine 20MG Oral Tablet 03/19/2024 Unknown ORAL ONCE A DAY 20 MILLIGRAMS 300262 RxNorm TAKE 20 MILLIGRAMS ORAL ONCE A [...] Code System No Known Drug Allergies Active 583740220 SNOMED-CT Plan of Treatment Stress Echo 01/06/2024 US Echo Stress (85447) 01/06/2024 Stress Echo 01/06/2024 US Echo Stress (98410) 01/06/2024 EGD/Colonoscopy 03/19/2024 Encounters Encounter Diagnosis Start Date Code Code Sys tem Abnormal electrocardiogram [ECG] [EKG] 12/16/2023 SNOMED-CT Personal Care Team Section Performer Name Performer Role Active Date Inactive TANISHA Diego PCP - Primary care physician 2024-01-06
--- OUTSIDE RECORDS SUMMARY | 2025-09-19 00:22 | XMS_ITS ---
Author Organization Unknown Address [id number] [place] [address] [phone] Phone Care Team Providers Care Fixed Wing Aircraft Flight Engineer Name Role Phone ORVILLE Pace Attending [...] Smoking History Unknown if ever smoked [address] Sex Male Vital Signs Vital Sign Value Unit [place] Value [place] Unit Date/Time Recent/Initial? Code Code System Body Mass Index 28.89 kg/m2 03/19/2024 12:53 Most Recent 07914 -5 LOINC Body Mass Index 28.89 kg/m2 02/24/2024 08:58 Initial 45916 -5 LOINC Systolic Blood Pressure 130 mm[Hg] [...] O2 Saturation 95 % 2023 13:04 Initial 67585 -5 LOINC Pulse 76.0 /min 03/19/2024 13:04 Initial 8867- 4 LOINC Respiration 16 /min 03/19/20 13:04 Initial 9279- 1 LOINC Temperature 36.5 Tiesha 97.7 F 03/19/20 13:04 Initial 8310- 5 LOINC Weight 86.18 kg 190.00 lbs 03/19/2024 12:53 Most Recent 12934 -7 LOINC Weight 86.18 kg 190.00 lbs 02/24/2024 08:58 Initial 48201 -7 LOINC Medications Medication Start Date End Date Route Frequency Dose Code Code System Medication Instructions Home Meds Famotidine 20MG Oral Tablet 03/19/2024 Unknown ORAL ONCE A DAY 20 MILLIGRAMS 967092 RxNorm TAKE 20 MILLIGRAMS ORAL ONCE A [...] flexible, transoral; diagnostic, including col 03/19/2024 completed 76535 CPT Anesthesia for combined uppe r and lower gastrointestinal endoscopic proced 03/19/2024 completed 33920 CPT Colonoscopy, flexible; diagn ostic, including collection of specimen(s) by 03/19/2024 completed 12863 CPT Allergies and Adverse Reactions Allergy Substance Reaction Severity Start Date Concern Status Co de Code System No Known Drug Allergies Active 172787395 SNDatameer-CT Plan of Treatment Stress Echo 01/06/2024 US Echo Stress (83278) 01/06/2024 Stress Echo 01/06/2024 US Echo Stress (91275) 01/06/2024 EGD/Colonoscopy 03/19/2024 Encounters Encounter Diagnosis Start Date Code Code Sys tem Epigastric pain 03/19/2024 SNOMED-CT Personal Care Team Section Performer Name Performer Role Active Date Inactive TANISHA Diego PCP - Primary care physician 2024-01-06 Procedures Notes
[2025-09-19 01:29] LABS: Strep Group A RT-PCR NOT DETECTED (Negative)
[2025-09-19 01:41] LABS: Influenza A QL RT-PCR Negative (Negative); Influenza B QL RT-PCR Negative (Negative); RSV RNA, RT-PCR Negative (Negative); SARS-CoV-2 RNA PCR Negative (Negative)
[2025-09-19 02:02] VITALS: BP 128/85; PULSE 66; RESP 18; TEMP 36.9; O2SAT 99
== END 2025-09-19 02:02 | disposition home or self-care (01) ==
PROVIDERS: Emergency Provider Emergency Medicine; PCP Internal Medicine
DX: B34.9 Viral infection, unspecified (principal); J06.9 Acute upper respiratory infection, unspecified; F20.9 Schizophrenia, unspecified; F17.200 Nicotine dependence, unspecified, uncomplicated; Z20.822 Contact with and (suspected) exposure to COVID-19
CPT/HCPCS: 87637; 87651; 99283

== ENCOUNTER 2025-09-20 10:05 | Emergency (ER) | payer OTHER, SELFPAY ==
[2025-09-20 10:09] VITALS: BP 147/89; PULSE 92; RESP 18; TEMP 36.4; O2SAT 98
--- NOTE | 2025-09-20 10:18 | ED.GENADULT ---
HPI - General Adult General Chief complaint: Unspecified Stated complaint: Poisoned Time Seen by Provider: 09/20/25 10:13 Source: patient Mode of arrival: ambulatory Limitations: other (Patient has known schizophrenia paranoid type symptoms but will not take medicine or seek assistance; patient is in the emergency room daily) History of Present Illness HPI narrative: Patient is a 35-year-old male with auditory hallucinations chronically untreated per his wishes and concern for exposure to gasoline fumes. Patient was at a [employer] restaurant and they were using a butane torch and the voices told him that he was being exposed to toxic fumes. No suicide or homicide ideation. Onset (ago): hour(s) (One) Location: chest (Short of breath after butane exposure concerns) Radiation: non-radiation Severity: mild Severity scale (1-10): 1 Quality: burning Pain Consistency: constant Relieving factors: none Exacerbating factors: other (Auditory hallucinations stimulate his concerns and worries) Associated symptoms: shortness of breath Treatments prior to arrival: none Related Data Home Medications ?Medication ?Instructions ?Recorded ?Confirmed ?Last Taken ?Type lorazepam 0.5 mg tablet mg 09/20/25 Unknown History Allergies Allergy/AdvReac Type Severity Reaction Status Date / Time No Known Allergies Allergy Verified 09/20/25 10:07 Review of Systems Review of Systems: All systems reviewed & are unremarkable except as noted in HPI and below Constitutional: Constitutional: Reports no additional constitutional complaints Eyes: Eyes: Reports no additional eye complaints ENT: Reports system reviewed and no additional complaints, except as documented Cardiovascular: Cardiovascular: Reports no additional cardiovascular complaints Respiratory: Respiratory: Reports no additional respiratory complaints Gastrointestinal: Gastrointestinal: Reports no additional gastrointestinal complaints Genitourinary: Genitourinary: Reports no additional male genitourinary complaints Musculoskeletal: Musculoskeletal: Reports no additional musculoskeletal complaints Integumentary/Breasts: Skin/Breast: Reports system reviewed and no additional complaints, except as docu Neurologic: Reports system reviewed and no additional complaints, except as documented Psychiatric: Psychiatric: Reports no additional psychiatric complaints Endocrine: Endocrine: Reports no additional endocrine complaints Hematologic/Lymphatic: Hematologic/Lymphatic: Reports no additional hematologic/lymphatic complaints Allergic/Immunologic: Allergic/Immunologic: Reports no additional allergic/immunologic complaints PMFSH Past Medical History Medical History Chest pain SOB (shortness of breath) Anxiety Psychosis Social History Social History Smoking status: Current every day smoker Alcohol intake: current Substance use: current Substance use type: does not use Other substance usage details: Infrequent Living arrangements: alone Exam Const: General: cooperative, healthy appearing, comfortable, no acute distress, well developed, alert, awake and Physically active Other: Patient has fixed auditory hallucinations that give him trouble on a daily basis; patient does not wish to take medication or be admitted at this time for psych care HENMT: Head: normal to inspection, No palpable skull fracture present and normocephalic Ears: hearing grossly normal bilaterally, external ears normal, TM's normal bilaterally and TM normal on the right Eyes: General: appearance normal, both eyes and all related structures Visual Hou: normal visual hou by confrontation Alignment and Position: alignment normal Neck: Neck: normal visual inspection, full ROM and no lymphadenopathy Chest: Chest palpation & inspection: normal inspection of the chest and normal palpation of entire chest wall Resp: Effort & Inspection: normal respiratory effort, able to speak in complete sentences, normal respiratory pattern, no audible wheezes, no cough, respiratory effort not decreased, no grunting, not labored, no nasal flaring, no paradoxical thoraco-abdom movements, no pursed lip breathing, no respiratory distress, no retractions, no segmental paradox chest wall movement, no stridor, not tachypneic, no tracheal deviation, no tripod positioning, no use of accessory muscles, No prolonged expiratory phase and No symmetric chest movement Auscultation: clear to auscultation bilaterally, no crackles, no rales, no rhonchi, no wheezes, breath sounds present, lung sounds not diminished, no bronchial breath sounds, bronchovesicular breath sounds (Normal breath sounds), no egophony, no rubs, No rub present and vesicular breath sounds (Normal breath sounds) Cardio: Jugular venous distension: no JVD Palpation: normal PMI Rate: regular rate Rhythm: regular rhythm Heart sounds: S1 normal heart sound present and S2 normal heart sound present GI: Inspection: normal to inspection GI Palp: No abdominal tenderness, No Abdominal aortic bruit present, Yes Soft to palpation, No Firmness to palpation present (GI), No Tenderness to palpation present (GI), No Guarding due to palpation present (GI) and No Rigid due to palpation Back/Spine/Pelvis: Back: no CVA tenderness, No mass, No erythema and No warmth Skin: General skin exam: normal color, no rashes or lesions noted, elasticity normal and turgor normal Neuro: General: patient oriented x3, gait normal, tone normal, moves all extremities, Normal light touch and pain sensation, no meningeal signs and no focal motor deficits Extrem: General: normal to inspection, full ROM, capillary refill normal, no joint enlargement, no clubbing, cyanosis or edema and no pedal edema Psych: Appearance: grossly abnormal, well kempt and not disheveled Mental Status: mental status grossly normal Speech and movement: Normal speech and movement present and Clear speech present Affect: normal affect Attitude: cooperative Thought process: Flight of ideas present and Illogical thought process present Thought content: No Normal thought content present, No Suicidality present, No Homicidality present, Yes Paranoid delusions present, Yes Hallucination(s) present (Auditory), No Depressive thoughts present, No Derealization present and No Depersonalization present Insight: insight not good, not fair, Limited insight present (Psych) and not poor Judgement: judgment not good, not fair, Limited judgement present (Psych) and not poor Other: Patient declined to be admitted for inpatient psychiatry care at this time. Patient is not a threat to society or to himself at this time. He does not need to be admitted involuntarily at this time. He has a new job coming up and he is happy about that job. He still has hope for his girlfriend situation however they are broken up at this time. He is living with his father. He does not have much support system. Course Vital Signs Vital signs: Vital Signs Temperature 36.4 C 09/20/25 10:09 Pulse Rate 92 09/20/25 10:09 Respiratory Rate 18 09/20/25 10:09 Blood Pressure 147/89 H 09/20/25 10:09 Pulse Oximetry 98 09/20/25 10:09 Oxygen Delivery Room Air 09/20/25 10:09 Temperature 36.4 C 09/20/25 10:09 Pulse Rate 92 09/20/25 10:09 Respiratory Rate 18 09/20/25 10:09 Blood Pressure 147/89 H 09/20/25 10:09 Pulse Oximetry 98 09/20/25 10:09 Oxygen Delivery Room Air 09/20/25 10:09 Medical Decision Making MDM Narrative Medical decision making narrative: Patient is a 35-year-old male with what appears to be paranoid schizophrenia here with auditory hallucinations that tell him real-time situational answers to what is currently going on at the time. The voices told him that he was going to be poison by gasoline from the torch. I reassured the patient that there is no gasoline in the torch and it is likely butane which is soluble and easily diminished in the air. In general, reassurance given. I also spent a few minutes explaining that the ER has to be for emergencies only as we do see him pretty much every day of the week. He needs to follow up with his primary doctor as soon as possible to get a plan with his psychiatry. No current need for involuntary admission. Patient does not wish to be admitted at this time. Vital Signs Vital Signs: Vital Signs Temperature 36.4 C 09/20/25 10:09 Pulse Rate 92 09/20/25 10:09 Respiratory Rate 18 09/20/25 10:09 Blood Pressure 147/89 H 09/20/25 10:09 Pulse Oximetry 98 09/20/25 10:09 Oxygen Delivery Room Air 09/20/25 10:09 Temperature 36.4 C 09/20/25 10:09 Pulse Rate 92 09/20/25 10:09 Respiratory Rate 18 09/20/25 10:09 Blood Pressure 147/89 H 09/20/25 10:09 Pulse Oximetry 98 09/20/25 10:09 Oxygen Delivery Room Air 09/20/25 10:09 Discharge Plan Discharge Clinical Impression: Exposure to gaseous substance Patient Disposition: Home Condition: Stable Instructions: Barotrauma (ED) Patient Language: Nepali Prescriptions: No Action pantoprazole [Protonix] 40 mg tablet,delayed release (DR/EC) 40 mg PO DAILY Qty: 30 0RF lorazepam 0.5 mg tablet Follow-up/Referrals: Sahil Garza MD [Primary Care Provider, Internal Medicine] Time of Disposition: 10:54
--- OUTSIDE RECORDS SUMMARY | 2025-09-20 11:12 | XMS_ITS | Clinical Summary ---
Author Organization [facility] Address [address] [place] [address] Care Team Providers Care 7Th Grade Social Studies Teacher Name Role Phone Sahil Garza MD Primary Care Provider [phone] Social History Tobacco Use Types Packs/Day Years [...] patient's age to complete this topic Insurance [facility] MEDICAID C/O PROVIDER SERVICES AMARIS WHEATLEY [id number] Care Teams 7Th Grade Social Studies Teacher Relationship Specialty Start Date End Date Sahil Garza MD [address] [place] [address] PCP - General INTERNAL MEDICINE 06/21/23
--- OUTSIDE RECORDS SUMMARY | 2025-09-20 11:12 | XMS_ITS | Encounter Summary ---
Author Organization [facility] Address [address] [place] [id number] Care Team Providers Care Watch Technician Name Role Phone Sahil Garza MD Primary Care Provider [phone] Encounter Details Date Type Department Care Team (Late st Contact Info) Description 04/03/2019 Abstract SFL CONVERSION [address] [place] [address] , Generic Conversion, Social History Tobacco Use [...] on filedocumented in this encounter Care Teams Watch Technician Relationship Specialty Start Date End Date Sahil Garza MD [address] [place] [address] PCP - General INTERNAL MEDICINE 06/21/23 documented as of this encounter
--- OUTSIDE RECORDS SUMMARY | 2025-09-20 11:58 | XMS_ITS | Clinical Summary ---
Author Organization [facility] Address [address] [place] [address] Care Team Providers Care Telecommunications Repairer Name Role Phone Sahil Garza MD Primary Care Provider [phone] Social History Tobacco Use Types Packs/Day Years [...] patient's age to complete this topic Insurance [facility] MEDICAID C/O PROVIDER SERVICES AMARIS WHEATLEY [id number] Care Teams Telecommunications Repairer Relationship Specialty Start Date End Date Sahil Garza MD [address] [place] [address] PCP - General INTERNAL MEDICINE 06/21/23
--- OUTSIDE RECORDS SUMMARY | 2025-09-20 11:58 | XMS_ITS | Encounter Summary ---
Author Organization [facility] Address [address] [place] [address] Care Team Providers Care Address Change Clerk Name Role Phone Sahil Garza MD Primary Care Provider [phone] Encounter Details Date Type Department Care Team (Late st Contact Info) Description 04/03/2019 Abstract SFL CONVERSION [address] [place] [address] , Generic Conversion, Social History Tobacco Use [...] on filedocumented in this encounter Care Teams Address Change Clerk Relationship Specialty Start Date End Date Sahil Garza MD [address] [place] [address] PCP - General INTERNAL MEDICINE 06/21/23 documented as of this encounter
== END 2025-09-20 11:01 | disposition home or self-care (01) ==
PROVIDERS: Emergency Provider Emergency Medicine; PCP Internal Medicine
DX: T59.891A Toxic effect of other specified gases, fumes and vapors, accidental (unintentional), initial encounter (principal); R06.02 Shortness of breath; F20.9 Schizophrenia, unspecified; F17.200 Nicotine dependence, unspecified, uncomplicated
CPT/HCPCS: 99281

== ENCOUNTER 2025-10-07 06:00 | Emergency (ER) | payer OTHER, SELFPAY ==
[2025-10-07 06:00] VITALS: BP 122/91; PULSE 80; RESP 18; TEMP 36.5; O2SAT 97
--- OUTSIDE RECORDS SUMMARY | 2025-10-07 06:03 | XMS_ITS ---
Author Organization Unknown Address [address] [place] [phone] Phone Care Team Providers Care Computer Builder Name Role Phone CHRISTY CASTILLO Attending Unavailable [...] Smoking History Unknown if ever smoked [id number] Sex Male Medications Medication Start Date End Date Route Frequency Dose Code Code System Medication Instructions Home Meds Famotidine 20MG Oral Tablet 03/19/2024 Unknown ORAL ONCE A DAY 20 MILLIGRAMS 466999 RxNorm TAKE 20 MILLIGRAMS ORAL ONCE A [...] Code System No Known Drug Allergies Active 149166050 SNOMED-CT Plan of Treatment Stress Echo 01/06/2024 US Echo Stress (17032) 01/06/2024 Stress Echo 01/06/2024 US Echo Stress (48332) 01/06/2024 EGD/Colonoscopy 03/19/2024 Encounters Encounter Diagnosis Start Date Code Code Sys tem Abnormal electrocardiogram [ECG] [EKG] 12/16/2023 SNOMED-CT Personal Care Team Section Performer Name Performer Role Active Date Inactive TANISHA Diego PCP - Primary care physician 2024-01-06
--- OUTSIDE RECORDS SUMMARY | 2025-10-07 06:04 | XMS_ITS ---
Author Organization Unknown Address [id number] [place] [phone] Phone Care Team Providers Care Auto Air Conditioning Mechanic Name Role Phone ORVILLE Pace Attending Unavailable [...] Smoking History Unknown if ever smoked [id number] Sex Male Vital Signs Vital Sign Value Unit Wallace Value Wallace Unit Date/Time Recent/Initial? Code Code System Body Mass Index 28.89 kg/m2 03/19/2024 12:53 Most Recent 98375 -5 LOINC Body Mass Index 28.89 kg/m2 02/24/2024 08:58 Initial 43542 -5 LOINC Systolic Blood Pressure 130 mm[Hg] [...] O2 Saturation 95 % 2023 13:04 Initial 19746 -5 LOINC Pulse 76.0 /min 03/19/2024 13:04 Initial 8867- 4 LOINC Respiration 16 /min 03/19/20 13:04 Initial 9279- 1 LOINC Temperature 36.5 Tiesha 97.7 F 03/19/20 13:04 Initial 8310- 5 LOINC Weight 86.18 kg 190.00 lbs 03/19/2024 12:53 Most Recent 58911 -7 LOINC Weight 86.18 kg 190.00 lbs 02/24/2024 08:58 Initial 18625 -7 LOINC Medications Medication Start Date End Date Route Frequency Dose Code Code System Medication Instructions Home Meds Famotidine 20MG Oral Tablet 03/19/2024 Unknown ORAL ONCE A DAY 20 MILLIGRAMS 894862 RxNorm TAKE 20 MILLIGRAMS ORAL ONCE A [...] flexible, transoral; diagnostic, including col 03/19/2024 completed 14951 CPT Anesthesia for combined uppe r and lower gastrointestinal endoscopic proced 03/19/2024 completed 83975 CPT Colonoscopy, flexible; diagn ostic, including collection of specimen(s) by 03/19/2024 completed 02865 CPT Allergies and Adverse Reactions Allergy Substance Reaction Severity Start Date Concern Status Co de Code System No Known Drug Allergies Active 879845454 [employer]-CT Plan of Treatment Stress Echo 01/06/2024 US Echo Stress (56466) 01/06/2024 Stress Echo 01/06/2024 US Echo Stress (91623) 01/06/2024 EGD/Colonoscopy 03/19/2024 Encounters Encounter Diagnosis Start Date Code Code Sys tem Epigastric pain 03/19/2024 SNOMED-CT Personal Care Team Section Performer Name Performer Role Active Date Inactive TANISHA Diego PCP - Primary care physician 2024-01-06 Procedures Notes
--- OUTSIDE RECORDS SUMMARY | 2025-10-07 06:04 | XMS_ITS ---
Author Organization Unknown Address [address] [place] [phone] Phone Care Team Providers Care Credit Rating Inspector Name Role Phone CHRISTY CASTILLO Attending Unavailable [...] Smoking History Unknown if ever smoked [address] Sex Male Medications Medication Start Date End Date Route Frequency Dose Code Code System Medication Instructions Home Meds Famotidine 20MG Oral Tablet 03/19/2024 Unknown ORAL ONCE A DAY 20 MILLIGRAMS 534800 RxNorm TAKE 20 MILLIGRAMS ORAL ONCE A [...] Code System No Known Drug Allergies Active 792238056 SNOMED-CT Plan of Treatment Stress Echo 01/06/2024 US Echo Stress (59045) 01/06/2024 Stress Echo 01/06/2024 US Echo Stress (83151) 01/06/2024 EGD/Colonoscopy 03/19/2024 Encounters Encounter Diagnosis Start Date Code Code Sys tem Abnormal electrocardiogram [ECG] [EKG] 01/06/2024 SNOMED-CT Personal Care Team Section Performer Name Performer Role Active Date Inactive TANISHA Diego PCP - Primary care physician 2024-01-06
--- NOTE | 2025-10-07 06:35 | PC.NURSE ---
Pt has decided that he just wants to leave before being seen by the doctor.
--- NOTE | 2025-10-11 07:04 | ED.GENADULT ---
HPI - General Adult General Chief complaint: Unspecified Stated complaint: bubbly stomach Time Seen by Provider: 10/07/25 06:46 History of Present Illness HPI narrative: LWBS Related Data Home Medications ?Medication ?Instructions ?Recorded ?Confirmed ?Last Taken ?Type lorazepam 0.5 mg tablet mg 09/20/25 Unknown History Allergies Allergy/AdvReac Type Severity Reaction Status Date / Time No Known Allergies Allergy Verified 10/07/25 06:12 [facility] Past Medical History Medical History Chest pain SOB (shortness of breath) Anxiety Psychosis Social History Social History Smoking status: Current every day smoker Alcohol intake: current Substance use: current Substance use type: does not use Other substance usage details: Infrequent Living arrangements: alone Course Vital Signs Vital signs: Vital Signs Temperature 36.5 C 10/07/25 06:00 Pulse Rate 80 10/07/25 06:00 Respiratory Rate 18 10/07/25 06:00 Blood Pressure 122/91 H 10/07/25 06:00 Pulse Oximetry 97 10/07/25 06:00 Oxygen Delivery Room Air 10/07/25 06:00 Temperature 36.5 C 10/07/25 06:00 Pulse Rate 80 10/07/25 06:00 Respiratory Rate 18 10/07/25 06:00 Blood Pressure 122/91 H 10/07/25 06:00 Pulse Oximetry 97 10/07/25 06:00 Oxygen Delivery Room Air 10/07/25 06:00 [facility] Differential Diagnosis Differential Diagnosis: anxiety Discharge Plan Discharge Clinical Impression: Anxiety Patient Disposition: Left Without Being Sn Triaged Patient Language: Sinhala Prescriptions: No Action pantoprazole [Protonix] 40 mg tablet,delayed release (DR/EC) 40 mg PO DAILY Qty: 30 0RF lorazepam 0.5 mg tablet Follow-up/Referrals: Sahil Garza MD [Primary Care Provider, Internal Medicine] Time of Disposition: 07:05
== END 2025-10-07 06:50 | disposition left against medical advice (07) ==
PROVIDERS: Emergency Provider Emergency Medicine; PCP Internal Medicine
DX: R10.9 Unspecified abdominal pain (principal)
CPT/HCPCS: 99199

== ENCOUNTER 2025-10-12 17:13 | Emergency (ER) | payer OTHER, SELFPAY ==
[2025-10-12 17:15] VITALS: BP 144/85; PULSE 67; RESP 18; TEMP 36.6; O2SAT 98
--- NOTE | 2025-10-12 17:17 | ED.PSYCH ---
HPI - Psych General Chief Complaint: Psychiatric Symptoms Stated Complaint: anxious Time Seen by Provider: 10/12/25 17:17 Source: patient Mode of arrival: ambulatory Limitations: no limitations History of Present Illness HPI Narrative: Patient drove himself to the emergency room complaining of inability to sleep over the last 24 hours, restless, intermittent signing, lightheadedness, patient believed having 2 so that can with a lot of caffeine early this morning and concern about caffeine overdose. He denies suicidal or homicidal ideation. Patient did not take his Ativan as scheduled, last time had it few days ago. He denies any fever chills nausea vomiting diarrhea constipation. Related Data Home Medications ?Medication ?Instructions ?Recorded ?Confirmed ?Last Taken ?Type lorazepam 0.5 mg tablet mg 09/20/25 Unknown History Allergies Allergy/AdvReac Type Severity Reaction Status Date / Time No Known Allergies Allergy Verified 10/12/25 17:14 Review of Systems Review of Systems: All systems reviewed & are unremarkable except as noted in HPI and below PMFSH Past Medical History Medical History Chest pain SOB (shortness of breath) Anxiety Psychosis Social History Social History Smoking status: Current every day smoker Alcohol intake: current Substance use: current Substance use type: does not use Other substance usage details: Infrequent Living arrangements: alone Exam Narrative: General appearance: Well-developed, well-nourished, intermittent signing, restless Skin: Normal color Head: Normocephalic, nontraumatic Eyes: Clear conjunctiva ENT: Oropharynx normal, ears normal, nose normal Neck: Supple, nontender Chest and respiratory: Airway patent, no respiratory distress, no accessory muscle use Heart: Regular rate/rhythm Abdomen: Soft, nontender, no organomegaly, quiet bowel sounds Musculoskeletal: Normal range of motion, nontender back Neurologic: Alert and oriented ?3, ACCOUNTING RECRUITER is normal as tested, no gross motor deficit MDM [facility] Narrative Medical decision making narrative: Patient presents with anxiety like symptoms, Patient concern about the possibility of caffeine overdose, heart rate is 67. Patient did not take his home Ativan as scheduled. Patient was advised to take his Ativan. Patient declined any Atarax in the ED prior to discharge. Diagnosis anxiety like symptoms, insomnia, noncompliance with medication The pt was discharged to home.the pt,s condition upon discharge was fair,education was provided to the pt in reference to the final impression,discharge study results,treatment,prognosis and need for follow up . Differential Diagnosis Differential Diagnosis: As above Critical Care Time Critical Care Time Critical Care Time: No Discharge Plan Discharge Clinical Impression: Anxiety-like symptoms Patient Disposition: Home Condition: Stable Instructions: Generalized Anxiety Disorder (ED), Anxiety (ED) Additional Instructions: Return if symptoms are worsening , call your family physician for appointment, take Tylenol as as needed for aches and pain, continue home medications. Take Ativan 0.5 mg every 4 hours as needed for stress like symptoms Patient Language: Sinhala Prescriptions: No Action pantoprazole [Protonix] 40 mg tablet,delayed release (DR/EC) 40 mg PO DAILY Qty: 30 0RF lorazepam 0.5 mg tablet Follow-up/Referrals: Sahil Garza MD [Primary Care Provider, Internal Medicine]
--- OUTSIDE RECORDS SUMMARY | 2025-10-12 18:33 | XMS_ITS ---
Author Organization Unknown Address [address] [place] [phone] Phone Care Team Providers Care Digital Production Artist Name Role Phone CHRISTY CASTILLO Attending [...] Smoking History Unknown if ever smoked [id number] Sex Male Medications Medication Start Date End Date Route Frequency Dose Code Code System Medication Instructions Home Meds Famotidine 20MG Oral Tablet 03/19/2024 Unknown ORAL ONCE A DAY 20 MILLIGRAMS 135641 RxNorm TAKE 20 MILLIGRAMS ORAL ONCE A [...] Code System No Known Drug Allergies Active 314513141 SNOMED-CT Plan of Treatment Stress Echo 01/06/2024 US Echo Stress (93660) 01/06/2024 Stress Echo 01/06/2024 US Echo Stress (24031) 01/06/2024 EGD/Colonoscopy 03/19/2024 Encounters Encounter Diagnosis Start Date Code Code Sys tem Abnormal electrocardiogram [ECG] [EKG] 12/16/2023 SNOMED-CT Personal Care Team Section Performer Name Performer Role Active Date Inactive TANISHA Diego PCP - Primary care physician 2024-01-06
--- OUTSIDE RECORDS SUMMARY | 2025-10-12 18:33 | XMS_ITS ---
Author Organization Unknown Address [address] [place] [phone] Phone Care Team Providers Care Certified Performance Technologist Name Role Phone CHRISTY CASTILLO Attending Unavailable [...] Smoking History Unknown if ever smoked [address] Sex Male Medications Medication Start Date End Date Route Frequency Dose Code Code System Medication Instructions Home Meds Famotidine 20MG Oral Tablet 03/19/2024 Unknown ORAL ONCE A DAY 20 MILLIGRAMS 522848 RxNorm TAKE 20 MILLIGRAMS ORAL ONCE A [...] Code System No Known Drug Allergies Active 749305655 SNOMED-CT Plan of Treatment Stress Echo 01/06/2024 US Echo Stress (81238) 01/06/2024 Stress Echo 01/06/2024 US Echo Stress (25050) 01/06/2024 EGD/Colonoscopy 03/19/2024 Encounters Encounter Diagnosis Start Date Code Code Sys tem Abnormal electrocardiogram [ECG] [EKG] 01/06/2024 SNOMED-CT Personal Care Team Section Performer Name Performer Role Active Date Inactive TANISHA Diego PCP - Primary care physician 2024-01-06
--- OUTSIDE RECORDS SUMMARY | 2025-10-12 18:34 | XMS_ITS ---
Author Organization Unknown Address [address] [place] [address] [phone] Phone Care Team Providers Care Senior Automation Engineer Name Role Phone ORVILLE Pace Attending [...] Smoking History Unknown if ever smoked [id number] Sex Male Vital Signs Vital Sign Value Unit Harmon Value Harmon Unit Date/Time Recent/Initial? Code Code System Body Mass Index 28.89 kg/m2 03/19/2024 12:53 Most Recent 65325 -5 LOINC Body Mass Index 28.89 kg/m2 02/24/2024 08:58 Initial 84919 -5 LOINC Systolic Blood Pressure 130 mm[Hg] [...] O2 Saturation 95 % 2023 13:04 Initial 81199 -5 LOINC Pulse 76.0 /min 03/19/2024 13:04 Initial 8867- 4 LOINC Respiration 16 /min 03/19/20 13:04 Initial 9279- 1 LOINC Temperature 36.5 Tiesha 97.7 F 03/19/20 13:04 Initial 8310- 5 LOINC Weight 86.18 kg 190.00 lbs 03/19/2024 12:53 Most Recent 37006 -7 LOINC Weight 86.18 kg 190.00 lbs 02/24/2024 08:58 Initial 20309 -7 LOINC Medications Medication Start Date End Date Route Frequency Dose Code Code System Medication Instructions Home Meds Famotidine 20MG Oral Tablet 03/19/2024 Unknown ORAL ONCE A DAY 20 MILLIGRAMS 043051 RxNorm TAKE 20 MILLIGRAMS ORAL ONCE A [...] flexible, transoral; diagnostic, including col 03/19/2024 completed 81858 CPT Anesthesia for combined uppe r and lower gastrointestinal endoscopic proced 03/19/2024 completed 14255 CPT Colonoscopy, flexible; diagn ostic, including collection of specimen(s) by 03/19/2024 completed 29790 CPT Allergies and Adverse Reactions Allergy Substance Reaction Severity Start Date Concern Status Co de Code System No Known Drug Allergies Active 019558551 SNRenkoo-CT Plan of Treatment Stress Echo 01/06/2024 US Echo Stress (44909) 01/06/2024 Stress Echo 01/06/2024 US Echo Stress (65325) 01/06/2024 EGD/Colonoscopy 03/19/2024 Encounters Encounter Diagnosis Start Date Code Code Sys tem Epigastric pain 03/19/2024 SNOMED-CT Personal Care Team Section Performer Name Performer Role Active Date Inactive TANISHA Diego PCP - Primary care physician 2024-01-06 Procedures Notes
--- OUTSIDE RECORDS SUMMARY | 2025-10-12 18:47 | XMS_ITS | Clinical Summary ---
Author Organization [facility] Address [address] [place] [address] Care Team Providers Care Sheet Metal Work Furnace Installer Name Role Phone Sahil Garza MD Primary Care Provider [phone] Social History Tobacco Use Types Packs/Day Years [...] patient's age to complete this topic Insurance [facility] MEDICAID C/O PROVIDER SERVICES AMARIS [place] [id number] Care Teams Sheet Metal Work Furnace Installer Relationship Specialty Start Date End Date Sahil Garza MD [address] [place] [address] PCP - General INTERNAL MEDICINE 06/21/23
--- OUTSIDE RECORDS SUMMARY | 2025-10-12 18:47 | XMS_ITS ---
Author Organization Unknown Address [address] [place] [address] [phone] Phone Care Team Providers Care Shift Mgr Name Role Phone ORVILLE Pace Attending Unavailable [...] Smoking History Unknown if ever smoked [id number] Sex Male Vital Signs Vital Sign Value Unit [place] Value [place] Unit Date/Time Recent/Initial? Code Code System Body Mass Index 28.89 kg/m2 03/19/2024 12:53 Most Recent 37310 -5 LOINC Body Mass Index 28.89 kg/m2 02/24/2024 08:58 Initial 06136 -5 LOINC Systolic Blood Pressure 130 mm[Hg] [...] O2 Saturation 95 % 2023 13:04 Initial 72073 -5 LOINC Pulse 76.0 /min 03/19/2024 13:04 Initial 8867- 4 LOINC Respiration 16 /min 03/19/20 13:04 Initial 9279- 1 LOINC Temperature 36.5 Tiesha 97.7 F 03/19/20 13:04 Initial 8310- 5 LOINC Weight 86.18 kg 190.00 lbs 03/19/2024 12:53 Most Recent 13410 -7 LOINC Weight 86.18 kg 190.00 lbs 02/24/2024 08:58 Initial 92078 -7 LOINC Medications Medication Start Date End Date Route Frequency Dose Code Code System Medication Instructions Home Meds Famotidine 20MG Oral Tablet 03/19/2024 Unknown ORAL ONCE A DAY 20 MILLIGRAMS 605006 RxNorm TAKE 20 MILLIGRAMS ORAL ONCE A [...] flexible, transoral; diagnostic, including col 03/19/2024 completed 46271 CPT Anesthesia for combined uppe r and lower gastrointestinal endoscopic proced 03/19/2024 completed 85014 CPT Colonoscopy, flexible; diagn ostic, including collection of specimen(s) by 03/19/2024 completed 65375 CPT Allergies and Adverse Reactions Allergy Substance Reaction Severity Start Date Concern Status Co de Code System No Known Drug Allergies Active 233171684 SNQnovo-CT Plan of Treatment Stress Echo 01/06/2024 US Echo Stress (27475) 01/06/2024 Stress Echo 01/06/2024 US Echo Stress (97044) 01/06/2024 EGD/Colonoscopy 03/19/2024 Encounters Encounter Diagnosis Start Date Code Code Sys tem Epigastric pain 03/19/2024 SNOMED-CT Personal Care Team Section Performer Name Performer Role Active Date Inactive TANISHA Diego PCP - Primary care physician 2024-01-06 Procedures Notes
--- OUTSIDE RECORDS SUMMARY | 2025-10-12 18:48 | XMS_ITS ---
Author Organization Unknown Address [address] [place] [address] [phone] Phone Care Team Providers Care Resource Agent Name Role Phone CHRISTY CASTILLO Attending Unavailable [...] Smoking History Unknown if ever smoked [id number] Sex Male Medications Medication Start Date End Date Route Frequency Dose Code Code System Medication Instructions Home Meds Famotidine 20MG Oral Tablet 03/19/2024 Unknown ORAL ONCE A DAY 20 MILLIGRAMS 687660 RxNorm TAKE 20 MILLIGRAMS ORAL ONCE A [...] Code System No Known Drug Allergies Active 853767810 SNOMED-CT Plan of Treatment Stress Echo 01/06/2024 US Echo Stress (09027) 01/06/2024 Stress Echo 01/06/2024 US Echo Stress (27244) 01/06/2024 EGD/Colonoscopy 03/19/2024 Encounters Encounter Diagnosis Start Date Code Code Sys tem Abnormal electrocardiogram [ECG] [EKG] 12/16/2023 SNOMED-CT Personal Care Team Section Performer Name Performer Role Active Date Inactive TANISHA Diego PCP - Primary care physician 2024-01-06
--- OUTSIDE RECORDS SUMMARY | 2025-10-12 18:48 | XMS_ITS | Encounter Summary ---
Author Organization [facility] Address [address] [place] [address] Care Team Providers Care Wallpaper Installer Name Role Phone Sahil Garza MD Primary Care Provider [phone] Encounter Details Date Type Department Care Team (Late st Contact Info) Description 04/03/2019 Abstract SFL CONVERSION [address] [place] [address] , Generic Conversion, Social History Tobacco Use [...] on filedocumented in this encounter Care Teams Wallpaper Installer Relationship Specialty Start Date End Date Sahil Garza MD [address] [place] [address] PCP - General INTERNAL MEDICINE 06/21/23 documented as of this encounter
== END 2025-10-12 17:30 | disposition home or self-care (01) ==
LOC: CHSED 17:33
PROVIDERS: Emergency Provider Emergency Medicine; PCP Internal Medicine
DX: G47.00 Insomnia, unspecified (principal); R42 Dizziness and giddiness; T42.4X6A Underdosing of benzodiazepines, initial encounter; Z91.148 Patient's other noncompliance with medication regimen for other reason; F17.200 Nicotine dependence, unspecified, uncomplicated
CPT/HCPCS: 99281

== ENCOUNTER 2025-10-26 06:19 | Emergency (ER) | payer OTHER, SELFPAY ==
[2025-10-26 06:22] VITALS: BP 125/90; PULSE 68; RESP 18; TEMP 36; O2SAT 99
--- NOTE | 2025-10-26 06:23 | ED_ITS ---
HPI - Anxiety General Chief Complaint: Anxiety Stated Complaint: thinks he was poisoned Time Seen by Provider: 10/26/25 06:23 Source: patient Mode of arrival: ambulatory Limitations: no limitations History of Present Illness HPI narrative: Patient is a 35-year-old male with known recurrent and chronic paranoid schizophrenia here with concerns of being poisoned last night. He feels that possibly his hot dog and half a sandwich was poisoned from the voices in his head. His mother brought the food to him last night. He ingested the food 8 hours ago. No symptoms. He said he did not feel right when he came into the emergency room but as we discussed the fact that no one should be poisoning him his symptomology went away. He feels back to normal now. He has a new job at [employer]. No suicide ideations. No homicide ideations. He is not a concern to society. He was recently in the emergency room for feeling that he got poisoned by the [employer]. MD complaint: anxiety (Paranoid) Onset (ago): day(s) (2) Symptoms: other (Symptoms of feeling weird has resolved) Severity: moderate Quality: constant and improving Place: home History of similar episodes: Yes Provoking factors: other (Patient will not take antipsychotics) Relieving factors: other (Coming to the emergency room relieves his stress) Exacerbating factors: thinking about event Associated symptoms: denies other symptoms Related Data Home Medications ?Medication ?Instructions ?Recorded ?Confirmed ?Last Taken ?Type lorazepam 0.5 mg tablet mg 09/20/25 Unknown History Allergies Allergy/AdvReac Type Severity Reaction Status Date / Time No Known Allergies Allergy Verified 10/26/25 06:22 Review of Systems Review of Systems: All systems reviewed & are unremarkable except as noted in HPI and below Constitutional: Constitutional: Reports no additional constitutional complaints Eyes: Eyes: Reports no additional eye complaints ENT: Reports system reviewed and no additional complaints, except as documented Cardiovascular: Cardiovascular: Reports no additional cardiovascular complaints Respiratory: Respiratory: Reports no additional respiratory complaints Gastrointestinal: Gastrointestinal: Reports no additional gastrointestinal complaints Genitourinary: Genitourinary: Reports no additional male genitourinary complaints Musculoskeletal: Musculoskeletal: Reports no additional musculoskeletal complaints Integumentary/Breasts: Skin/Breast: Reports system reviewed and no additional complaints, except as docu Neurologic: Reports system reviewed and no additional complaints, except as documented Psychiatric: Psychiatric: Reports no additional psychiatric complaints Endocrine: Endocrine: Reports no additional endocrine complaints Hematologic/Lymphatic: Hematologic/Lymphatic: Reports no additional hematologic/lymphatic complaints Allergic/Immunologic: Allergic/Immunologic: Reports no additional allergic/immunologic complaints PMFSH Past Medical History Medical History Chest pain SOB (shortness of breath) Anxiety Psychosis Social History Social History Smoking status: Current every day smoker Alcohol intake: current Substance use: current Substance use type: sedatives and prescription drug Other substance usage details: Infrequent Living arrangements: alone Exam Const: General: healthy appearing Nutritional Appearance: well nourished Orientation/consciousness: patient oriented x3 Limitations: behavioral limi tations (His paranoid schizophrenia causes him to believe the voices in his head) HENMT: Head: normal to inspection Ears: external ears normal Face/Nose/Sinus: Normal external nose present Eyes: Conjunctivae: conjunctivae normal Pupils: Equal, round and reactive pupils present EOM: EOMs intact bilaterally Neck: Neck: normal visual inspection Chest: Chest palpation & inspection: normal inspection of the chest Resp: Effort & Inspection: normal respiratory effort and not labored Auscultation: clear to auscultation bilaterally and no crackles Cardio: Rate: regular rate Rhythm: regular rhythm Heart sounds: no murmurs GI: Inspection: non-distended GI Palp: Yes Soft to palpation and No Tenderness to palpation present (GI) Auscultation: normal bowel sounds : General: Yes bladder normal to palpation Back/Spine/Pelvis: Back: no CVA tenderness Skin: General skin exam: normal color Rashes: no rashes Wounds: no wounds Neuro: General: patient oriented x3, moves all extremities, no meningeal signs, no focal motor deficits and CN's II-XI intact bilaterally Extrem: General: normal to inspection, no clubbing, cyanosis or edema and no pedal edema Psych: Mental Status: mental status grossly normal Affect: normal affect and Anxious affect present Attitude: cooperative Other: Patient is having a flare of his paranoid schizophrenia and obsession and compulsion with the fact that he may be poisoned; no suicide or homicide ideations. Patient is dressed well and clean. He has a new job. We discussed starting an antipsychotic but he does not want to take at this point. He will talk to his primary doctor. Course Vital Signs Vital signs: Vital Signs Temperature 36.0 C L 10/26/25 06:22 Pulse Rate 68 10/26/25 06:22 Respiratory Rate 18 10/26/25 06:22 Blood Pressure 125/90 10/26/25 06:22 Pulse Oximetry 99 10/26/25 06:22 Oxygen Delivery Room Air 10/26/25 06:22 Temperature 36.0 C L 10/26/25 06:22 Pulse Rate 68 10/26/25 06:22 Respiratory Rate 18 10/26/25 06:22 Blood Pressure 125/90 10/26/25 06:22 Pulse Oximetry 99 10/26/25 06:22 Oxygen Delivery Room Air 10/26/25 06:22 MDM MDM Narrative Medical decision making narrative: Patient is a 35-year-old male with known schizophrenia and paranoia here with concerns of being poisoned. Reassurance given to the patient as it was 8 hours ago and no symptoms and there is nobody trying to hurt him. He felt better and would like to go home at this time. He has a GI workup coming in the next month. Differential Diagnosis Differential Diagnosis: Paranoid schizophrenia flare, anxiety, depression Discharge Plan Discharge Clinical Impression: Chronic paranoid schizophrenia Patient Disposition: Home Condition: Stable Instructions: Schizophrenia (ED) Patient Language: [place] Island[place] Prescriptions: No Action pantoprazole [Protonix] 40 mg tablet,delayed release (DR/EC) 40 mg PO DAILY Qty: 30 0RF lorazepam 0.5 mg tablet Follow-up/Referrals: Sahil Garza MD [Primary Care Provider, Internal Medicine] Time of Disposition: 06:33
[2025-10-26 06:36] VITALS: BP 121/85; PULSE 78; RESP 20; O2SAT 99
--- OUTSIDE RECORDS SUMMARY | 2025-10-26 06:36 | XMS_ITS ---
Author Organization Unknown Address [address] [place] [address] [phone] Phone Care Team Providers Care Radiologic Technology Instructor Name Role Phone ORVILLE Pace Attending Unavailable [...] Smoking History Unknown if ever smoked [address] Sex Male Vital Signs Vital Sign Value Unit Dale Value Dale Unit Date/Time Recent/Initial? Code Code System Body Mass Index 28.89 kg/m2 03/19/2024 12:53 Most Recent 21846 -5 LOINC Body Mass Index 28.89 kg/m2 02/24/2024 08:58 Initial 57194 -5 LOINC Systolic Blood Pressure 130 mm[Hg] [...] O2 Saturation 95 % 2023 13:04 Initial 61214 -5 LOINC Pulse 76.0 /min 03/19/2024 13:04 Initial 8867- 4 LOINC Respiration 16 /min 03/19/20 13:04 Initial 9279- 1 LOINC Temperature 36.5 Tiesha 97.7 F 03/19/20 13:04 Initial 8310- 5 LOINC Weight 86.18 kg 190.00 lbs 03/19/2024 12:53 Most Recent 86897 -7 LOINC Weight 86.18 kg 190.00 lbs 02/24/2024 08:58 Initial 20772 -7 LOINC Medications Medication Start Date End Date Route Frequency Dose Code Code System Medication Instructions Home Meds Famotidine 20MG Oral Tablet 03/19/2024 Unknown ORAL ONCE A DAY 20 MILLIGRAMS 574866 RxNorm TAKE 20 MILLIGRAMS ORAL ONCE A [...] flexible, transoral; diagnostic, including col 03/19/2024 completed 14897 CPT Anesthesia for combined uppe r and lower gastrointestinal endoscopic proced 03/19/2024 completed 59965 CPT Colonoscopy, flexible; diagn ostic, including collection of specimen(s) by 03/19/2024 completed 65664 CPT Allergies and Adverse Reactions Allergy Substance Reaction Severity Start Date Concern Status Co de Code System No Known Drug Allergies Active 536021352 SNKurobe Pharmaceuticals-CT Plan of Treatment Stress Echo 01/06/2024 US Echo Stress (72024) 01/06/2024 Stress Echo 01/06/2024 US Echo Stress (76639) 01/06/2024 EGD/Colonoscopy 03/19/2024 Encounters Encounter Diagnosis Start Date Code Code Sys tem Epigastric pain 03/19/2024 SNOMED-CT Personal Care Team Section Performer Name Performer Role Active Date Inactive TANISHA Diego PCP - Primary care physician 2024-01-06 Procedures Notes
--- OUTSIDE RECORDS SUMMARY | 2025-10-26 06:36 | XMS_ITS ---
Author Organization Unknown Address [address] [place] [address] [phone] Phone Care Team Providers Care Nutrition Assistant Name Role Phone CHRISTY CASTILLO Attending [...] Smoking History Unknown if ever smoked [address] Sex Male Medications Medication Start Date End Date Route Frequency Dose Code Code System Medication Instructions Home Meds Famotidine 20MG Oral Tablet 03/19/2024 Unknown ORAL ONCE A DAY 20 MILLIGRAMS 930628 RxNorm TAKE 20 MILLIGRAMS ORAL ONCE A [...] Code System No Known Drug Allergies Active 168275634 SNOMED-CT Plan of Treatment Stress Echo 01/06/2024 US Echo Stress (64847) 01/06/2024 Stress Echo 01/06/2024 US Echo Stress (54598) 01/06/2024 EGD/Colonoscopy 03/19/2024 Encounters Encounter Diagnosis Start Date Code Code Sys tem Abnormal electrocardiogram [ECG] [EKG] 12/16/2023 SNOMED-CT Personal Care Team Section Performer Name Performer Role Active Date Inactive TANISHA Diego PCP - Primary care physician 2024-01-06
--- OUTSIDE RECORDS SUMMARY | 2025-10-26 06:36 | XMS_ITS | Clinical Summary ---
Author Organization [facility] Address [address] [place] [address] Care Team Providers Care Child Abuse Worker Name Role Phone Sahil Garza MD Primary Care Provider [phone] Allergies No known active allergies Medications LORazepam (ATIVAN) 0.5 MG tablet Take 1 tablet (0.5 mg total) by mouth 2 (two) times daily as needed for Anxiety. Active pantoprazole EC (PROTONIX) 40 MG tablet Take 1 tablet (40 mg total) by mouth daily. 10/21/20 25 Discontinu ed(Error) Social History Tobacco Use Types Packs/Day Years Used Date Smoking Tobacco: Never Smokeless Tobacco: Never Tobacco Cessation:Counseling Given: Not Answered Alcohol Use Standard Drinks/Week Comments Yes 0 (1 standard drink = 0.6 oz pur e alcohol) occasional Sex and Gender Information Value Date Recorded Sex Assigned at Not on file Legal Sex Male 8:26 PM CDT Gender Identity Not on file Sexual Orientation Not on file Last Filed Vital Signs Vital Sign Reading Time Taken Comments Blood Pressure - - Pulse - - Temperature - - Respiratory Rate - - Oxygen Saturation - - Inhaled Oxygen Concentration - - Weight 81.6 kg (180 lb) 10/21/2025 12:31 PM SEARCH CONSULTANT Height 175.3 cm (5' 9) 10/21/2025 12:31 PM SEARCH CONSULTANT Body Mass Index 26.58 10/21/2025 12:31 PM SEARCH CONSULTANT Plan of Treatment Upcoming Encounters Date Type Department Care Team (Late st Contact Info) Description 11/01/2025 8:40 AM SEARCH CONSULTANT Hospital En[place] [address] Volodymyr Valle MD [address] [place] [address] 11/01/2025 8:40 AM SEARCH CONSULTANT Anesthesia Event [facility] [address] [place] [address] Santos Sanders, [employer] [employer] [address] [place], [place] [id number] 11/01/2025 8:40 AM SEARCH CONSULTANT - 11/01/2025 9:07 AM SEARCH CONSULTANT Surgery [place] [facility] [address] [address] Volodymyr Valle MD [address] [place] [address] EGD Scheduled Procedures Name Priority Associated Diagnoses Date/Ti me EGD ABDOMINAL PAIN 11/01/2025 8:40 AM SEARCH CONSULTANT Health Maintenance Due Date Last Done Comments Annual Physical 1993 Hepatitis C 2008 DTaP, Tdap and Td Vaccines ( 1 - Tdap) 2009 Hepatitis B Vaccines (1 of 3 - 19+ 3-dose series) 2009 HPV Vaccines (1 - 3-dose SCD M series) 2017 COVID-19 Vaccine (2024-2 6 season) 2025 Influenza Adult (#1) 2025 [...] on patient's age to complete this topic Goals Goal Patient Goal Type Associated Problems Recent Progress Patient-Stated? Author Autogenerat ed Goal Care Plan Autogenerated Problem No Merna Santos Additional Health Concerns Active Problems Noted Date Diagnosed Date Autogenerated Problem 10/17/2025 Insurance [facility] MEDICAID Care Teams Child Abuse Worker Relationship Specialty Start Date End Date Sahil Garza MD [address] [place] [address] PCP - General INTERNAL MEDICINE 06/21/23
--- OUTSIDE RECORDS SUMMARY | 2025-10-26 06:37 | XMS_ITS ---
Author Organization Unknown Address [address] [place] [address] [phone] Phone Care Team Providers Care End Finder Twisting Department Name Role Phone CHRISTY CASTILLO Attending Unavailable [...] Smoking History Unknown if ever smoked [address] Sex Male Medications Medication Start Date End Date Route Frequency Dose Code Code System Medication Instructions Home Meds Famotidine 20MG Oral Tablet 03/19/2024 Unknown ORAL ONCE A DAY 20 MILLIGRAMS 038755 RxNorm TAKE 20 MILLIGRAMS ORAL ONCE A [...] Code System No Known Drug Allergies Active 032392505 SNOMED-CT Plan of Treatment Stress Echo 01/06/2024 US Echo Stress (05097) 01/06/2024 Stress Echo 01/06/2024 US Echo Stress (91208) 01/06/2024 EGD/Colonoscopy 03/19/2024 Encounters Encounter Diagnosis Start Date Code Code Sys tem Abnormal electrocardiogram [ECG] [EKG] 01/06/2024 SNOMED-CT Personal Care Team Section Performer Name Performer Role Active Date Inactive TANISHA Diego PCP - Primary care physician 2024-01-06
--- OUTSIDE RECORDS SUMMARY | 2025-10-26 06:37 | XMS_ITS | Encounter Summary ---
Author Organization [facility] Address [address] [place] [address] Care Team Providers Care Cop Breaker Name Role Phone Sahil Garza MD Primary Care Provider [phone] Encounter Details Date Type Department Care Team (Late st Contact Info) Description 04/03/2019 Abstract SFL CONVERSION [address] [place] [id number] , Generic MD Payam Social History Tobacco Use Types Packs/Day Years Used Date Smoking Tobacco: Never Assessed Sex and Gender Information Value Date Recorded Sex Assigned at Not on file Legal Sex Male 8:26 PM CDT Gender Identity Not on file Sexual Orientation Not on file documented as of this encounter Plan of Treatment Upcoming Encounters Date Type Department Care Team (Late st Contact Info) Description 11/01/2025 8:40 AM INSPECTOR CASING Hospital Encounter [facility] [place] [address] [place] [address] Volodymyr Valle MD [address] [place] [address] 11/01/2025 8:40 AM INSPECTOR CASING Anesthesia Event [place] [place] [address] [place] [id number] Santos Sanders, [facility] [address] [place] [address] 11/01/2025 8:40 AM INSPECTOR CASING - 11/01/2025 9:07 AM INSPECTOR CASING Surgery [place] [place] [address] [place] [id number] Volodymyr Valle MD [address] [place] [address] EGD Scheduled Procedures Name Priority Associated Diagnoses Date/Ti me EGD ABDOMINAL PAIN 11/01/2025 8:40 AM INSPECTOR CASING documented as of this encounter Visit Diagnoses Not on filedocumented in this encounter Care Teams Cop Breaker Relationship Specialty Start Date End Date Sahil Garza MD [address] [place] [phone] PCP - General INTERNAL MEDICINE 06/21/23 documented as of this encounter
== END 2025-10-26 06:38 | disposition home or self-care (01) ==
LOC: CHSED 06:34
PROVIDERS: Emergency Provider Emergency Medicine; PCP Internal Medicine
DX: F20.0 Paranoid schizophrenia (principal)
CPT/HCPCS: 99281